=== PATIENT | female | born 1945 | race Caucasian/White ===

== ENCOUNTER 2017-03-30 01:12 | Emergency (ER) | payer MEDICARE ==
[2017-03-30] MEDS ORDERED: SODIUM CHLORIDE 0.9% 1,000 ML IV ONE ×2 (01:41→01:49)
[2017-03-30] MEDS ORDERED: KETOROLAC 60 MG/2 ML VIAL IVP STA (01:41)
[2017-03-30] MEDS ORDERED: DEXAMETHASONE 10 MG/ML VIAL IVP STA (01:41)
[2017-03-30] MEDS ORDERED: diphenhydrAMINE INJ 50 MG/ML VIAL IVP STA (01:42)
[2017-03-30] MEDS ORDERED: PROCHLORPERAZINE 10 MG/2 ML VIAL IVP STA (01:42)
--- NOTE | 2017-03-30 01:44 | ED Physician Documentation ---
PD HPI HEADACHE - Stated complaint Stated Complaint: HEADACHE - Chief complaint Chief Complaint: Neuro - History obtained from History obtained from: Patient, Family - History of Present Illness Timing - onset: How many days ago (47) Timing - onset during: Rest Timing - duration: Days (47) Timing - details: Gradual onset, Still present, Waxing and waning Worst headache ever?: No: Worst headache ever? Location: Global Quality: Throbbing Associated symptoms: Nausea. No: Fever, Stiff neck, Vomiting, Weakness, Numbness, Syncope, Seizure, Eye pain, Vision changes Improved by: Rest, Dark room, Meds Worsened by: Light, Noise, Moving Contributing factors: No: Anticoagulated Similar symptoms before: Diagnosis (migriane) Recently seen: Not recently seen - Additional information Additional information: 72 y/o female smoker has had a daily persistent migraine for the past 47 days. Review of Systems Constitutional: denies: Fever, Chills Eyes: denies: Decreased vision Ears: denies: Ear pain Nose: reports: Congestion Throat: denies: Sore throat Cardiac: denies: Chest pain / pressure, Palpitations Respiratory: reports: Cough. denies: Dyspnea GI: reports: Nausea. denies: Abdominal Pain, Vomiting : denies: Dysuria, Frequency Skin: denies: Rash Musculoskeletal: reports: Back pain. denies: Neck pain Neurologic: reports: Headache. denies: Generalized weakness, Focal weakness, Numbness, Head injury, LOC PD PAST MEDICAL HISTORY - Past Medical History Past Medical History: Yes Respiratory: COPD Neuro: Headache/migraine GI: Diverticulitis Psych: Depression Musculoskeletal: Fibromyalgia - Past Surgical History Past Surgical History: Yes Derm: Skin cancer surgery - Present Medications Home Medications: Ambulatory Orders Medication Instructions Recorded Confirmed Cyclobenzaprine HCl 1 tab PO TID 02/20/16 03/30/17 Dicyclomine HCl 1 tab PO TID PRN 02/20/16 03/30/17 Diphenoxylate HCl/Atropine 1 tab PO TID PRN 02/20/16 03/30/17 [Diphenoxylate-Atrop 2.5-0.025] Gabapentin 400 mg PO QID 02/20/16 03/30/17 Hydrocodone/Acetaminophen [Vicodin 1 tab PO Q2HR PRN 02/20/16 03/30/17 Es 7.5-300 mg Tablet] Omeprazole 20 mg PO DAILY 02/20/16 03/30/17 Paroxetine HCl 60 mg PO DAILY 02/20/16 03/30/17 Trazodone HCl 150 mg PO QPM 02/20/16 03/30/17 diphenhydrAMINE [Benadryl] 25 mg PO DAILY 02/20/16 03/30/17 LORazepam [Ativan] 0.5 mg PO HS 03/30/17 03/30/17 Sumatriptan [Imitrex] 25 mg PO ONCE 03/30/17 03/30/17 - Allergies Allergies/Adverse Reactions: Allergies Allergy/AdvReac Type Severity Reaction Status Date / Time vancomycin Allergy Severe Anaphylaxis Verified 03/30/17 01:18 codeine Allergy Intermediate Hallucinati Verified 03/30/17 01:18 ons - Social History Does the pt smoke?: Yes Smoking Status: Current every day smoker Does the pt drink ETOH?: No Does the pt have substance abuse?: No - Immunizations Immunizations are current?: Yes - POLST Patient has POLST: No PD ED PE NORMAL - Vitals Vital signs reviewed: Yes (hypertensive ) - General General: No acute distress, Well developed/nourished - HEENT HEENT: Atraumatic, PERRL, EOMI, Ears normal, Moist mucous membranes, Pharynx benign - Neck Neck: Supple, no meningeal sign, No bony TTP - Cardiac Cardiac: RRR, No murmur - Respiratory Respiratory: No respiratory distress, Clear bilaterally - Abdomen Abdomen: Soft, Non tender - Back Back: No CVA TTP, No spinal TTP - Derm Derm: Normal color, No rash - Extremities Extremities: No deformity, No edema - Neuro Neuro: No motor deficit, No sensory deficit, Normal speech - Psych Psych: Normal mood, Normal affect Results - Vitals Vitals: Vital Signs - 24 hr 03/30/17 03/30/17 03/30/17 01:16 02:34 03:15 Temperature 36.9 C Heart Rate 98 75 73 Respiratory 16 14 15 Rate Blood Pressure 146/125 H 136/84 H 135/80 H O2 Saturation 100 95 99 03/30/17 03:40 Temperature Heart Rate 69 Respiratory 16 Rate Blood Pressure 128/70 O2 Saturation 100 Oxygen O2 Source Room air PD MEDICAL DECISION MAKING - ED course Complexity details: reviewed old records, reviewed results, re-evaluated patient , considered differential, d/w patient, d/w family ED course: 72 y/o female smoker with COPD and migriane has had a daily persistent migraine and she is given a cocktail of saline, benadryl, compazine, toradal and decadron and has improvement in her headache. Departure - Departure Disposition: 01 Home, Self Care Clinical Impression: Migraine Qualifiers: Migraine type: other Status migrainosus presence: without status migrainosus Intractability: not intractable Qualified Code(s): G43.809 - Other migraine, not intractable, without status migrainosus Condition: Stable Instructions: ED Headache Migraine Follow-Up: Waldo Martinez MD [Primary Care Provider] - Discharge Date/Time: 03/30/17 03:40
[2017-03-30] MEDS ORDERED: KETOROLAC 30 MG/ML VIAL ONE (01:49)
[2017-03-30] MEDS ORDERED: DEXAMETHASONE 10 MG/ML VIAL ONE (01:49)
[2017-03-30] MEDS ORDERED: diphenhydrAMINE INJ 50 MG/ML VIAL ONE (01:49)
[2017-03-30] MEDS ORDERED: PROCHLORPERAZINE 10 MG/2 ML VIAL ONE (01:49)
[2017-03-30 03:45] VITALS: BP 128/70
== END 2017-03-30 03:40 | disposition home or self-care (01) ==
LOC: ED 01:12
DX: G43.909 Migraine, unspecified, not intractable, without status migrainosus (principal); J44.9 Chronic obstructive pulmonary disease, unspecified; M79.7 Fibromyalgia; F17.200 Nicotine dependence, unspecified, uncomplicated
CPT/HCPCS: 96374; 96375; 99283; 99284

== ENCOUNTER 2017-07-21 03:38 | Emergency (ER) | payer MEDICARE ==
[2017-07-21] MEDS ORDERED: KETOROLAC 60 MG/2 ML VIAL IVP STA (03:56)
[2017-07-21] MEDS ORDERED: METOCLOPRAMIDE 10 MG/2 ML VIAL IVP STA (03:56)
[2017-07-21] MEDS ORDERED: SODIUM CHLORIDE 0.9% 1,000 ML IV ONE (03:56)
[2017-07-21] MEDS ORDERED: diphenhydrAMINE INJ 50 MG/ML VIAL IVP STA (03:56)
[2017-07-21] MEDS ORDERED: HYDROmorphone 1 MG/ML CARPUJECT IVP STA (03:57)
[2017-07-21] MEDS ORDERED: METOCLOPRAMIDE 10 MG/2 ML VIAL ONE (04:10)
[2017-07-21] MEDS ORDERED: HYDROmorphone 1 MG/ML SYRINGE ONE (04:10)
[2017-07-21] MEDS ORDERED: KETOROLAC 15 MG/ML VIAL ONE (04:11)
[2017-07-21] MEDS ORDERED: diphenhydrAMINE INJ 50 MG/ML VIAL ONE (04:11)
--- NOTE | 2017-07-21 04:31 | ED Physician Documentation ---
PD HPI HEADACHE - Stated complaint Stated Complaint: MIGRAINE - Chief complaint Chief Complaint: Neuro - History obtained from History obtained from: Patient, Family - History of Present Illness Timing - onset: How many weeks ago (3) Timing - onset during: Rest Timing - details: Gradual onset, Still present, Waxing and waning Worst headache ever?: Worst headache ever? (no) Quality: Throbbing, Aching Associated symptoms: Nausea. No: Fever, Stiff neck, Vomiting, Weakness, Numbness, Syncope Improved by: Rest, Dark room, Quiet, Meds Worsened by: Light, Noise, Moving Similar symptoms before: Work up / diagnostics, Treatment, Follow up Recently seen: Not recently seen - Additional information Additional information: patient is a 72 year old female with a history of migraines who is presenting to the emergency department for 21 days of headache. Patient states that she has taken her meds with some relief but the pain has stuck around. Patient and state that she has not been able to get a good night's sleep which exacerbates her headaches. Patient states this is similar to her previous headaches. Review of Systems Constitutional: denies: Fever, Chills Eyes: reports: Photophobia. denies: Loss of vision Ears: denies: Ear pain, Drainage/discharge Nose: denies: Congestion, Epistaxis Throat: denies: Dental pain / toothache, Sore throat Cardiac: denies: Chest pain / pressure, Palpitations GI: reports: Nausea. denies: Vomiting, Constipation, Diarrhea : denies: Dysuria, Frequency Skin: denies: Abrasion (s) Musculoskeletal: denies: Neck pain, Back pain, Extremity pain, Joint pain Neurologic: reports: Headache. denies: Generalized weakness, Syncope, Confused , Altered mental status, Head injury, LOC Psychiatric: denies: Depressed Immunocompromised: denies: Immunocompromised PD PAST MEDICAL HISTORY - Past Medical History Past Medical History: Yes Respiratory: COPD Neuro: Headache/migraine GI: Diverticulitis Psych: Depression Musculoskeletal: Fibromyalgia - Past Surgical History Past Surgical History: Yes Derm: Skin cancer surgery - Present Medications Home Medications: Ambulatory Orders Medication Instructions Recorded Confirmed Cyclobenzaprine HCl 1 tab PO TID 02/20/16 07/21/17 Dicyclomine HCl 1 tab PO TID PRN 02/20/16 07/21/17 Diphenoxylate HCl/Atropine 1 tab PO TID PRN 02/20/16 07/21/17 [Diphenoxylate-Atrop 2.5-0.025] Gabapentin 400 mg PO QID 02/20/16 07/21/17 Hydrocodone/Acetaminophen [Vicodin 1 tab PO Q2HR PRN 02/20/16 07/21/17 Es 7.5-300 mg Tablet] Omeprazole 20 mg PO DAILY 02/20/16 07/21/17 Paroxetine HCl 60 mg PO DAILY 02/20/16 03/30/17 Trazodone HCl 150 mg PO QPM 02/20/16 07/21/17 diphenhydrAMINE [Benadryl] 25 mg PO DAILY 02/20/16 07/21/17 LORazepam [Ativan] 0.5 mg PO HS 03/30/17 07/21/17 Sumatriptan [Imitrex] 25 mg PO DAILY 03/30/17 07/21/17 - Allergies Allergies/Adverse Reactions: Allergies Allergy/AdvReac Type Severity Reaction Status Date / Time vancomycin Allergy Severe Anaphylaxis Verified 07/21/17 03:48 codeine Allergy Intermediate Hallucinati Verified 07/21/17 03:48 ons - Social History Does the pt smoke?: Yes Smoking Status: Current every day smoker Does the pt drink ETOH?: No Does the pt have substance abuse?: No Substance Use and Type: Marijuana - Immunizations Immunizations are current?: Yes - POLST Patient has POLST: No PD ED PE NORMAL - Vitals Vital signs reviewed: Yes - General General: Alert and oriented X 3, No acute distress - HEENT HEENT: Atraumatic, PERRL, Pharynx benign - Neck Neck: Supple, no meningeal sign, No JVD - Cardiac Cardiac: RRR, No murmur - Respiratory Respiratory: No respiratory distress, Clear bilaterally - Abdomen Abdomen: Soft, Non tender, Non distended - Derm Derm: Normal color, Warm and dry, No rash - Extremities Extremities: No deformity, No tenderness to palpate, Normal ROM s pain, No edema - Neuro Neuro: Alert and oriented X 3, news clerk 2-12 intact, No motor deficit, No sensory deficit, Normal speech - Psych Psych: Normal mood, Normal affect Results - Vitals Vitals: Vital Signs - 24 hr 07/21/17 07/21/17 03:47 03:51 Temperature 36.6 C Heart Rate 87 59 L Respiratory 16 18 Rate Blood Pressure 130/87 H 129/80 O2 Saturation 96 99 Oxygen O2 Source Room air PD MEDICAL DECISION MAKING - ED course Complexity details: reviewed old records, reviewed results, re-evaluated patient , considered differential, d/w patient, d/w family ED course: Patient was seen and examined at bedside. vital signs were within normal limits and patient had no focal neurological deficit or signs of infection. IV access was gained and patient was treated with fluids, toradol, reglan, bendadryl and dilaudid. Patient responded well to the therapy. Patient required no further work up and was stable for discharge with outpatient follow up. Departure - Departure Disposition: Home, Self Care Clinical Impression: Migraine Condition: Good Instructions: ED Headache Migraine Follow-Up: Waldo Matrinez MD [Primary Care Provider] - Comments: Your symptoms today are being caused by a migraine headache. it is important to keep a headache journal to keep track of your triggers, and try to avoid them. You should follow up with your pmd, for chronic headache management. You may return to the emergency department at any time as needed for new, worsening or uncontrollable symptoms.
[2017-07-21 05:10] VITALS: BP 132/75
== END 2017-07-21 05:10 | disposition home or self-care (01) ==
LOC: ED 03:38
DX: G43.909 Migraine, unspecified, not intractable, without status migrainosus (principal); J44.9 Chronic obstructive pulmonary disease, unspecified; M79.7 Fibromyalgia; Z87.19 Personal history of other diseases of the digestive system; F17.200 Nicotine dependence, unspecified, uncomplicated
CPT/HCPCS: 96361; 96374; 96375; 99283; 99284; J1170

== ENCOUNTER 2018-02-25 14:38 | Outpatient (CLI) | payer MEDICARE ==
--- NOTE | 2018-02-25 17:10 | XRAY Report ---
TWO VIEW CHEST: 02/25/2018 CLINICAL INDICATION: Cough, low grade fever. COMPARISON: 02/25/2016 FINDINGS: Frontal and lateral views of the chest demonstrate a normal cardiac silhouette. The lungs again demonstrate apical emphysema. No focal consolidation, effusion, or pneumothorax is evident. IMPRESSION: APICAL EMPHYSEMA. NO EVIDENCE OF ACUTE CARDIOPULMONARY DISEASE. TD: 02/25/2018 15:16
== END 2018-02-25 14:39 | disposition home or self-care (01) ==
LOC: DI 14:38
PROVIDERS: ATTEND Internal Medicine
DX: J43.9 Emphysema, unspecified (principal); R05 Cough
CPT/HCPCS: 71046

== ENCOUNTER 2018-03-17 00:24 | Emergency (ER) | payer MEDICARE ==
[2018-03-17] MEDS ORDERED: DEXAMETHASONE 10 MG/ML VIAL PO STA (00:56)
[2018-03-17] MEDS ORDERED: KETOROLAC 60 MG/2 ML VIAL IVP STA (00:56)
[2018-03-17] MEDS ORDERED: MORPHINE 10 MG/ML VIAL IVP STA (00:56)
[2018-03-17] MEDS ORDERED: METOCLOPRAMIDE 10 MG/2 ML VIAL IVP STA (00:56)
[2018-03-17] MEDS ORDERED: diphenhydrAMINE INJ 50 MG/ML VIAL IVP STA (00:56)
[2018-03-17] MEDS ORDERED: SODIUM CHLORIDE 0.9% 1,000 ML IV ONE (00:56)
--- NOTE | 2018-03-17 01:38 | ED Physician Documentation ---
PD HPI HEADACHE - Stated complaint Stated Complaint: MIGRAINE - Chief complaint Chief Complaint: Neuro - History obtained from History obtained from: Patient, Family - History of Present Illness Timing - onset: Chronic Timing - onset during: Rest Timing - details: Intermittant, Waxing and waning Location: Global Quality: Aching. No: Thunderclap Associated symptoms: Nausea. No: Fever, Stiff neck, Vomiting Improved by: Dark room, Quiet Similar symptoms before: Work up / diagnostics, Treatment Recently seen: Not recently seen - Additional information Additional information: Patient is a 73 year old female with a history of migraines and fibromyalgia who is presenting to the emergency department for a headache. Patient states that she has had headaches for about the past month, but even more severe this past week. Patient took her home medications with little relief. Review of Systems Constitutional: denies: Fever, Chills, Myalgias Eyes: reports: Photophobia. denies: Decreased vision Ears: denies: Ear pain Nose: denies: Congestion Cardiac: denies: Chest pain / pressure Respiratory: denies: Dyspnea, Cough, Wheezing GI: reports: Nausea. denies: Vomiting Musculoskeletal: denies: Neck pain Neurologic: reports: Headache. denies: Generalized weakness, Focal weakness, Numbness, Near syncope, Syncope, Confused, Altered mental status, Head injury, LOC Immunocompromised: denies: Immunocompromised PD PAST MEDICAL HISTORY - Past Medical History Respiratory: COPD GI: Diverticulitis Psych: Depression Musculoskeletal: Fibromyalgia - Past Surgical History Past Surgical History: Yes Derm: Skin cancer surgery - Present Medications Home Medications: Ambulatory Orders Medication Instructions Recorded Confirmed Cyclobenzaprine HCl 1 tab PO TID 02/20/16 07/21/17 Dicyclomine HCl 1 tab PO TID PRN 02/20/16 07/21/17 Diphenoxylate HCl/Atropine 1 tab PO TID PRN 02/20/16 07/21/17 [Diphenoxylate-Atrop 2.5-0.025] Gabapentin 400 mg PO QID 02/20/16 07/21/17 Hydrocodone/Acetaminophen [Vicodin 1 tab PO Q2HR PRN 02/20/16 07/21/17 Es 7.5-300 mg Tablet] Omeprazole 20 mg PO DAILY 02/20/16 07/21/17 Paroxetine HCl 60 mg PO DAILY 05/11/16 06/19/17 Trazodone HCl 150 mg PO QPM 02/20/16 07/21/17 diphenhydrAMINE [Benadryl] 25 mg PO DAILY 02/20/16 07/21/17 LORazepam [Ativan] 0.5 mg PO HS 03/30/17 07/21/17 SUMAtriptan [Imitrex] 25 mg PO DAILY 03/30/17 07/21/17 - Allergies Allergies/Adverse Reactions: Allergies Allergy/AdvReac Type Severity Reaction Status Date / Time vancomycin Allergy Severe Anaphylaxis Verified 03/17/18 00:39 codeine Allergy Intermediate Hallucinati Verified 03/17/18 00:39 ons - Social History Does the pt smoke?: Yes Smoking Status: Current every day smoker Does the pt drink ETOH?: No Does the pt have substance abuse?: No - Immunizations Immunizations are current?: Yes - POLST Patient has POLST: No PD ED PE NORMAL - Vitals Vital signs reviewed: Yes - General General: Alert and oriented X 3, No acute distress - HEENT HEENT: Atraumatic, PERRL - Neck Neck: Supple, no meningeal sign - Cardiac Cardiac: RRR - Respiratory Respiratory: No respiratory distress - Abdomen Abdomen: Non distended - Derm Derm: Normal color, No rash - Extremities Extremities: No deformity - Neuro Neuro: Alert and oriented X 3, No motor deficit, No sensory deficit, Normal speech Eye Opening: Spontaneous Motor: Obeys Commands Verbal: Oriented GCS Score: 15 Results - Vitals Vitals: Vital Signs - 24 hr 03/17/18 03/17/18 03/17/18 00:35 02:33 03:01 Temperature 36.5 C Heart Rate 87 76 75 Respiratory 16 18 15 Rate Blood Pressure 137/87 H 133/81 H 131/76 H O2 Saturation 97 100 100 Oxygen O2 Source Nasal cannula PD MEDICAL DECISION MAKING - ED course Complexity details: reviewed old records, reviewed results, re-evaluated patient , considered differential, d/w patient, d/w family ED course: Patient was seen and examined at bedside. IV access was gained and patient was treated with ns bolus, toradol, decadron, reglan and morphine. Patient was observed for about an hour. Patient stated that her pain improved from 8+ to 6. Patient stated that she would like to try something else. Patient was treated with haldol 5mg with good relief. Patient was able to sleep and her headache resolved. Patient required no further inpatient work up at this time and was stable for discharge with outpatient follow up. Departure - Departure Disposition: 01 Home, Self Care Clinical Impression: Migraine Condition: Good Instructions: ED Headache Migraine Follow-Up: Waldo Martinez MD [Primary Care Provider] - Tomorrow Comments: You should continue to work with your doctor to control your headaches. It seems like they are sleep related and it is important that you get plenty of sleep. You may return to the emergency department at any time for new, worsening or uncontrollable symptoms.
[2018-03-17] MEDS ORDERED: HALOPERIDOL 5 MG/ML VIAL IVP ONE (02:28)
[2018-03-17 03:02] VITALS: BP 131/76
== END 2018-03-17 03:25 | disposition home or self-care (01) ==
LOC: ED 00:24
DX: G43.909 Migraine, unspecified, not intractable, without status migrainosus (principal); M79.7 Fibromyalgia; F17.200 Nicotine dependence, unspecified, uncomplicated
CPT/HCPCS: 96374; 96375; 99283; 99284; J1200; J2765

== ENCOUNTER 2018-05-21 10:40 | Emergency (ER) | payer MEDICARE ==
[2018-05-21] MEDS ORDERED: DEXAMETHASONE 10 MG/ML VIAL IVP STA (12:26)
[2018-05-21] MEDS ORDERED: SODIUM CHLORIDE 0.9% 1,000 ML IV ONE (12:26)
[2018-05-21] MEDS ORDERED: METOCLOPRAMIDE 10 MG/2 ML VIAL IVP STA (12:26)
[2018-05-21] MEDS ORDERED: MORPHINE 10 MG/ML VIAL IVP STA (12:26)
[2018-05-21] MEDS ORDERED: diphenhydrAMINE INJ 50 MG/ML VIAL IVP STA (12:26)
[2018-05-21] MEDS ORDERED: KETOROLAC 15 MG/ML VIAL IVP STA (12:26)
--- NOTE | 2018-05-21 12:28 | ED Physician Documentation ---
PD HPI HEADACHE - Stated complaint Stated Complaint: MIGRAINE X4 DAYS - Chief complaint Chief Complaint: Neuro - History obtained from History obtained from: Patient - History of Present Illness Timing - onset: Other (73-year-old woman with history of migraines She estimates she has headaches 4 days out of any given week. She has had a headache for 4 days constant, gradual onset in the back of the head associated with light sensitivity, sound sensitivity, nausea but no vomiting. There is no associated fever or new neck stiffness noting that she has chronic neck pain. She has tried her home medications without any relief.) Review of Systems Ten Systems: 10 systems reviewed and negative Constitutional: denies: Fever, Chills Respiratory: denies: Dyspnea, Cough GI: denies: Abdominal Pain, Vomiting, Diarrhea PD PAST MEDICAL HISTORY - Past Medical History Respiratory: COPD GI: Diverticulitis Psych: Depression Musculoskeletal: Fibromyalgia - Past Surgical History Past Surgical History: Yes Derm: Skin cancer surgery - Present Medications Home Medications: Ambulatory Orders Medication Instructions Recorded Confirmed Cyclobenzaprine HCl 1 tab PO TID 02/20/16 07/21/17 Dicyclomine HCl 1 tab PO TID PRN 02/20/16 07/21/17 Diphenoxylate HCl/Atropine 1 tab PO TID PRN 02/20/16 07/21/17 [Diphenoxylate-Atrop 2.5-0.025] Gabapentin 400 mg PO QID 02/20/16 07/21/17 Hydrocodone/Acetaminophen [Vicodin 1 tab PO Q2HR PRN 02/20/16 07/21/17 Es 7.5-300 mg Tablet] Omeprazole 20 mg PO DAILY 02/20/16 07/21/17 Paroxetine HCl 60 mg PO DAILY 02/20/16 03/30/17 Trazodone HCl 150 mg PO QPM 02/20/16 07/21/17 diphenhydrAMINE [Benadryl] 25 mg PO DAILY 02/20/16 07/21/17 LORazepam [Ativan] 0.5 mg PO HS 03/30/17 07/21/17 SUMAtriptan [Imitrex] 25 mg PO DAILY 03/30/17 07/21/17 - Allergies Allergies/Adverse Reactions: Allergies Allergy/AdvReac Type Severity Reaction Status Date / Time vancomycin Allergy Severe Anaphylaxis Verified 05/21/18 10:49 codeine Allergy Intermediate Hallucinati Verified 05/21/18 10:49 ons lithium Allergy Anaphylaxis Verified 05/21/18 10:49 - Social History Does the pt smoke?: Yes Smoking Status: Current every day smoker Does the pt drink ETOH?: No Does the pt have substance abuse?: No - Immunizations Immunizations are current?: Yes - POLST Patient has POLST: No PD ED PE NORMAL - Vitals Vital signs reviewed: Yes - General General: Alert and oriented X 3, No acute distress - HEENT HEENT: PERRL, EOMI - Neck Neck: Supple, no meningeal sign, No bony TTP - Cardiac Cardiac: RRR, No murmur - Respiratory Respiratory: No respiratory distress, Clear bilaterally - Abdomen Abdomen: Normal bowel sounds, Soft, Non tender - Back Back: No CVA TTP, No spinal TTP - Derm Derm: Normal color, Warm and dry - Extremities Extremities: No deformity, No tenderness to palpate, Normal ROM s pain - Neuro Neuro: Alert and oriented X 3, order runner 2-12 intact Eye Opening: Spontaneous Motor: Obeys Commands Verbal: Oriented GCS Score: 15 - Psych Psych: Normal mood, Normal affect Results - Vitals Vitals: Vital Signs - 24 hr 05/21/18 05/21/18 05/21/18 10:46 13:01 13:27 Temperature 36.5 C Heart Rate 97 79 Respiratory 18 18 Rate Blood Pressure 123/86 H 139/92 H O2 Saturation 96 93 90 L Oxygen O2 Source Room air PD MEDICAL DECISION MAKING - ED course ED course: The headache is gradual in onset and similar to prior headaches. As such I doubt subarachnoid hemorrhage. There are no infectious symptoms such as fever or stiff neck to make me suspect meningitis. No carbon monoxide exposure by history. She was given medications IV including IV fluids and was feeling better and after second round of medications the headache was resolved. - Sepsis Event Vital Signs: Vital Signs - 24 hr 05/21/18 05/21/18 05/21/18 10:46 13:01 13:27 Temperature 36.5 C Heart Rate 97 79 Respiratory 18 18 Rate Blood Pressure 123/86 H 139/92 H O2 Saturation 96 93 90 L Oxygen O2 Source Room air Departure - Departure Disposition: 01 Home, Self Care Clinical Impression: Migraine Qualifiers: Migraine type: with aura Status migrainosus presence: with status migrainosus Intractability: not intractable Qualified Code(s): G43.101 - Migraine with aura , not intractable, with status migrainosus Condition: Good Record reviewed to determine appropriate education?: Yes Instructions: ED Headache Migraine Comments: Talk with Dr. Martinez about a prophylactic medication for your headaches, also consider seeing a neurologist again for Botox as that has been successful in the past. Your blood pressure was elevated today on check into the emergency department. This does not mean that you have hypertension, it is a common phenomenon to come to the emergency department and have elevated blood pressure. I recommend that you see your primary care physician within the week to have it rechecked when you are feeling better.
[2018-05-21] MEDS ORDERED: MORPHINE 2 MG/ML SYRINGE IVP STA (13:27)
[2018-05-21] MEDS ORDERED: HALOPERIDOL 5 MG/ML VIAL IVP ONE (13:27)
[2018-05-21 14:11] VITALS: BP 123/80
== END 2018-05-21 14:27 | disposition home or self-care (01) ==
LOC: ED 10:40
DX: G43.101 Migraine with aura, not intractable, with status migrainosus (principal); F17.200 Nicotine dependence, unspecified, uncomplicated; R03.0 Elevated blood-pressure reading, without diagnosis of hypertension
CPT/HCPCS: 96361; 96374; 96375; 96376; 99283; 99284; J1200; J2270; J2765

== ENCOUNTER 2018-06-05 03:57 | Emergency (ER) | payer MEDICARE ==
[2018-06-05 04:39] LABS: BASOPHILS # (AUTO) 0.1 10^3/uL (0.0-0.1); BASOPHILS % (AUTO) 1.1 %; EOSINOPHILS # (AUTO) 0.1 10^3/uL (0.0-0.7); EOSINOPHILS % (AUTO) 0.9 %; HGB - HEMOGLOBIN 15.7 g/dL (12.0-16.0); LYMPHOCYTES # (AUTO) 2.5 10^3/uL (1.5-3.5); LYMPHOCYTES % (AUTO) 20.7 %; MEAN CORPUSCULAR HGB CONC 33.9 g/dL (32.0-36.0); MEAN CORPUSCULAR VOLUME 91.5 fL (81.0-99.0); MONOCYTES # (AUTO) 0.6 10^3/uL (0.0-1.0); MONOCYTES % (AUTO) 5.1 %; NEUTROPHILS # (AUTO) 8.8 10^3/uL (1.5-6.6); NEUTROPHILS % (AUTO) 72.2 %; PLT - PLATELET COUNT 247 10^3/uL (130-450); RED BLOOD COUNT 5.07 10^6/uL (4.20-5.40); WHITE BLOOD COUNT 12.2 x10^3/uL (4.8-10.8)
--- NOTE | 2018-06-05 04:39 | ED Physician Documentation ---
PD HPI ABD PAIN - Stated complaint Stated Complaint: VOMITING/BODY PX - Chief complaint Chief Complaint: Abd Pain - History obtained from History obtained from: Patient - History of Present Illness Timing - onset: How many days ago (2-3) Timing - duration: Days Timing - details: Gradual onset Pain level now: 6 Quality: Pain Location: LLQ Improved by: Laying still Worsened by: Moving, Palpation Associated symptoms: Nausea, Vomiting. No: Fever, Diarrhea, Constipation Similar symptoms before: Diagnosis (similar to previous diverticulitis) Recently seen: Not recently seen Review of Systems Constitutional: reports: Reviewed and negative Cardiac: reports: Reviewed and negative Respiratory: reports: Reviewed and negative GI: reports: Abdominal Pain, Nausea, Vomiting : denies: Dysuria, Frequency PD PAST MEDICAL HISTORY - Past Medical History Past Medical History: Yes Respiratory: COPD Neuro: Migraines GI: Diverticulitis Psych: Depression Musculoskeletal: Fibromyalgia - Past Surgical History Past Surgical History: Yes Derm: Skin cancer surgery - Present Medications Home Medications: Ambulatory Orders Medication Instructions Recorded Confirmed Cyclobenzaprine HCl 1 tab PO TID 02/20/16 07/21/17 Dicyclomine HCl 1 tab PO TID PRN 02/20/16 07/21/17 Diphenoxylate HCl/Atropine 1 tab PO TID PRN 02/20/16 07/21/17 [Diphenoxylate-Atrop 2.5-0.025] Gabapentin 400 mg PO QID 02/20/16 07/21/17 Hydrocodone/Acetaminophen [Vicodin 1 tab PO Q2HR PRN 02/20/16 07/21/17 Es 7.5-300 mg Tablet] Omeprazole 20 mg PO DAILY 02/20/16 07/21/17 Paroxetine HCl 60 mg PO DAILY 02/20/16 03/30/17 Trazodone HCl 150 mg PO QPM 02/20/16 07/21/17 diphenhydrAMINE [Benadryl] 25 mg PO DAILY 02/20/16 07/21/17 LORazepam [Ativan] 0.5 mg PO HS 03/30/17 07/21/17 SUMAtriptan [Imitrex] 25 mg PO DAILY 03/30/17 07/21/17 Prochlorperazine [Compazine] 10 mg PO Q6H PRN #14 tablet 06/05/18 - Allergies Allergies/Adverse Reactions: Allergies Allergy/AdvReac Type Severity Reaction Status Date / Time vancomycin Allergy Severe Anaphylaxis Verified 06/05/18 04:07 codeine Allergy Intermediate Hallucinati Verified 06/05/18 04:07 ons lithium Allergy Anaphylaxis Verified 06/05/18 04:07 - Social History Does the pt smoke?: Yes Smoking Status: Current every day smoker Does the pt drink ETOH?: No Does the pt have substance abuse?: No Substance Use and Type: Marijuana - Immunizations Immunizations are current?: Yes - POLST Patient has POLST: No PD ED PE NORMAL - Vitals Vital signs reviewed: Yes - General General: Alert and oriented X 3, No acute distress, Well developed/nourished - Cardiac Cardiac: RRR, No murmur - Respiratory Respiratory: No respiratory distress, Clear bilaterally - Abdomen Abdomen: Soft, Non distended - Derm Derm: Normal color, Warm and dry, No rash - Extremities Extremities: No edema PD ED PE EXPANDED - Abdomen Abdomen: Tender to palpation, LLQ. No: Rebound, Guarding Results - Vitals Vitals: Vital Signs - 24 hr 06/05/18 06/05/18 06/05/18 04:00 06:10 07:20 Temperature 36.0 C L 36.6 C Heart Rate 98 78 76 Respiratory 16 12 18 Rate Blood Pressure 116/99 H 169/88 H 151/74 H O2 Saturation 100 100 99 Oxygen O2 Source Room air - Labs Labs: Laboratory Tests 06/05/18 06/05/18 06/05/18 04:15 04:15 06:45 WBC 12.2 H RBC 5.07 Hgb 15.7 Hct 46.4 MCV 91.5 MCH 31.0 MCHC 33.9 RDW 14.0 Plt Count 247 MPV 7.0 L Neut # (Auto) 8.8 H Lymph # (Auto) 2.5 [place] # (Auto) 0.6 Eos # (Auto) 0.1 Baso # (Auto) 0.1 Absolute Nucleated RBC 0.01 Nucleated RBC % 0.0 Sodium 138 Potassium 3.4 L Chloride 101 Carbon Dioxide 24 Anion Gap 13.0 BUN 9 Creatinine 0.8 Estimated GFR (MDRD) 71 L Glucose 113 H Calcium 9.7 Total Bilirubin 0.3 AST 25 ALT 14 Alkaline Phosphatase 95 Total Protein 7.7 Albumin 4.3 Globulin 3.4 Albumin/Globulin Ratio 1.3 Lipase 21 L Urine Color LIGHT YELLOW Urine Clarity CLEAR Urine pH 7.0 Ur Specific [place] <=1.005 Urine Protein NEGATIVE Urine Glucose (UA) NEGATIVE Urine Ketones 15 H Urine Occult Blood TRACE-INTA Urine Nitrite NEGATIVE Urine Bilirubin NEGATIVE Urine Urobilinogen 0.2 (NORMAL) Ur Leukocyte Esterase NEGATIVE Ur Microscopic Review NOT INDICATED Urine Culture Comments NOT INDICATED - Rads (name of study) CT A/P Radiology: Prelim report reviewed, See rad report PD MEDICAL DECISION MAKING - ED course Complexity details: reviewed results, re-evaluated patient, considered differential, d/w patient ED course: Awake, alert, and in NAD on reevaluation after tests resulted and IV fluids, dilaudid, benadryl, and compazine. - Sepsis Event Vital Signs: Vital Signs - 24 hr 06/05/18 06/05/18 06/05/18 04:00 06:10 07:20 Temperature 36.0 C L 36.6 C Heart Rate 98 78 76 Respiratory 16 12 18 Rate Blood Pressure 116/99 H 169/88 H 151/74 H O2 Saturation 100 100 99 Oxygen O2 Source Room air Departure - Departure Disposition: 01 Home, Self Care Clinical Impression: Abdominal pain Condition: Good Instructions: ED Abdominal Pain Unkn Cause Follow-Up: Waldo Martinez MD [Primary Care Provider] - Prescriptions: Prochlorperazine [Compazine] 10 mg PO Q6H PRN #14 tablet PRN Reason: Nausea / Vomiting Discharge Date/Time: 06/05/18 07:20
[2018-06-05 04:47] LABS: ALBUMIN 4.3 g/dL (3.2-5.5); ALBUMIN/GLOBULIN RATIO 1.3 (1.0-2.2); BILIRUBIN,TOTAL 0.3 mg/dL (0.2-1.0); CALCIUM 9.7 mg/dL (8.5-10.3); CREATININE 0.8 mg/dL (0.4-1.0); TOTAL PROTEIN 7.7 g/dL (6.7-8.2)
[2018-06-05] MEDS ORDERED: HYDROmorphone 1 MG/ML CARPUJECT IVP STA (04:57)
[2018-06-05] MEDS ORDERED: SODIUM CHLORIDE 0.9% 1,000 ML IV STA (04:57)
[2018-06-05] MEDS ORDERED: PROCHLORPERAZINE 10 MG/2 ML VIAL IVP STA (04:58)
[2018-06-05] MEDS ORDERED: KETOROLAC 60 MG/2 ML VIAL IVP STA (05:02)
[2018-06-05] MEDS ORDERED: diphenhydrAMINE INJ 50 MG/ML VIAL IVP STA (05:02)
[2018-06-05] MEDS ORDERED: IOPAMIDOL-300 100 ML VIAL ONE (05:09)
[2018-06-05] MEDS ORDERED: IOPAMIDOL-300 100 ML VIAL IVP ONE (05:36)
--- NOTE | 2018-06-05 06:11 | CT Report ---
Reason: abd. pain Procedure Date: 06/05/2018 Accession Number: [id number] / [id number] Procedure: CT - Abdomen/Pelvis W/ CPT Code: FULL RESULT: EXAM: CT ABDOMEN AND PELVIS EXAM DATE: 06/05/2018 05:54 AM. CLINICAL HISTORY: Left sided pain COMPARISONS: CHEST 2 VIEW 02/25/2018 CHEST 2 VIEW PA/LAT 02/25/2016. TECHNIQUE: Routine helical CT imaging was performed through the abdomen and pelvis. IV contrast: ISOVUE 300 100mL. Enteric contrast: No. Reconstructions: Coronal and sagittal. In accordance with CT protocol optimization, one or more of the following dose reduction techniques were utilized for this exam: automated exposure control, adjustment of mA and/or KV based on patient size, or use of iterative reconstructive technique. FINDINGS: Lung Bases: Emphysema. Liver: Normal. No masses. Gallbladder/Bile Ducts: Unremarkable. Spleen: Normal. Pancreas: Normal. Adrenal Glands: Normal. Kidneys: Nonobstructing renal calculi. No hydronephrosis. Peritoneal Cavity/Bowel: Normal. No free fluid, free air or adenopathy. No masses or acute inflammatory process. 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 There is colonic diverticulosis, without CT evidence of diverticulitis. pelvic Organs: Normal. The bladder and visualized pelvic organs are within normal limits. Vasculature: No aneurysms or other significant abnormality. Bones: Degenerative changes. Other: None. IMPRESSION: Nonobstructing renal calculi. Diverticulosis, without CT evidence of diverticulitis. No evident etiology for patient's left-sided pain. RADIA
[2018-06-05 06:56] LABS: BILIRUBIN,URINE NEGATIVE (NEGATIVE); GLUCOSE, URINE (UA) NEGATIVE (NEGATIVE); KETONES,URINE (UA) 15 mg/dL (NEGATIVE); LEUKOCYTE ESTERASE, URINE NEGATIVE (NEGATIVE); NITRITE,URINE NEGATIVE (NEGATIVE); OCCULT BLOOD,URINE TRACE-INTA (NEGATIVE); PROTEIN,URINE NEGATIVE (NEGATIVE); UROBILINOGEN,URINE 0.2 (NORMAL) E.U./dL (NORMAL)
[2018-06-05 07:01] LABS: CLARITY,URINE CLEAR (CLEAR)
[2018-06-05 07:57] VITALS: BP 151/74
== END 2018-06-05 07:20 | disposition home or self-care (01) ==
LOC: ED 03:57
DX: R10.32 Left lower quadrant pain (principal); R11.2 Nausea with vomiting, unspecified; K57.30 Diverticulosis of large intestine without perforation or abscess without bleeding; N20.0 Calculus of kidney; F17.200 Nicotine dependence, unspecified, uncomplicated
CPT/HCPCS: 36415; 74177; 80053; 81003; 83690; 85025; 96361; 96374; 96375; 99283; J1170; J1200; Q9967; 81001; 87086

== ENCOUNTER 2018-11-25 17:30 | Emergency (ER) | payer MEDICARE ==
[2018-11-25] MEDS ORDERED: SODIUM CHLORIDE 0.9% 1,000 ML IV ONE (18:20)
[2018-11-25] MEDS ORDERED: PROCHLORPERAZINE 10 MG/2 ML VIAL IVP STA (18:20)
[2018-11-25] MEDS ORDERED: diphenhydrAMINE INJ 50 MG/ML VIAL IVP STA (18:20)
[2018-11-25] MEDS ORDERED: HYDROmorphone 1 MG/ML CARPUJECT IVP STA ×2 (18:20→19:55)
--- NOTE | 2018-11-25 18:22 | ED Physician Documentation ---
PD HPI HEADACHE - Stated complaint Stated Complaint: MIGRAINE - Chief complaint Chief Complaint: Neuro - History obtained from History obtained from: Patient - History of Present Illness Timing - onset: Other (This is a 73-year-old woman with chronic migraines presents with 4-day history of gradual onset waxing and waning headache especially in the right parietal area with throbbing sensation and photophobia and phonophobia as well as nausea but no vomiting. This is similar to prior migraines. At home she has tried hydrocodone, Imitrex without relief. There is no associated fevers.) Review of Systems Constitutional: reports: Reviewed and negative Eyes: reports: Reviewed and negative Ears: reports: Reviewed and negative PD PAST MEDICAL HISTORY - Past Medical History Respiratory: COPD Neuro: Migraines GI: Diverticulitis Psych: Depression Musculoskeletal: Fibromyalgia - Past Surgical History Past Surgical History: Yes Derm: Skin cancer surgery - Present Medications Home Medications: Ambulatory Orders Medication Instructions Recorded Confirmed Diphenoxylate HCl/Atropine 1 tab PO TID PRN 02/20/16 07/21/17 [Diphenoxylate-Atrop 2.5-0.025] Hydrocodone/Acetaminophen [Vicodin 1 tab PO Q2HR PRN 02/20/16 07/21/17 Es 7.5-300 mg Tablet] RX: Cyclobenzaprine HCl 1 tab PO TID 02/20/16 07/21/17 RX: Dicyclomine HCl 1 tab PO TID PRN 02/20/16 07/21/17 RX: Gabapentin 400 mg PO QID 02/20/16 07/21/17 RX: Omeprazole 20 mg PO DAILY 02/20/16 07/21/17 RX: Paroxetine HCl 60 mg PO DAILY 02/20/16 03/30/17 RX: Trazodone HCl 150 mg PO QPM 02/20/16 07/21/17 diphenhydrAMINE [Benadryl] 25 mg PO DAILY 02/20/16 07/21/17 LORazepam [Ativan] 0.5 mg PO HS 03/30/17 07/21/17 SUMAtriptan [Imitrex] 25 mg PO DAILY 03/30/17 07/21/17 Prochlorperazine [Compazine] 10 mg PO Q6H PRN #14 tablet 06/05/18 - Allergies Allergies/Adverse Reactions: Allergies Allergy/AdvReac Type Severity Reaction Status Date / Time vancomycin Allergy Severe Anaphylaxis Verified 06/05/18 04:07 codeine Allergy Intermediate Hallucinati Verified 06/05/18 04:07 ons lithium Allergy Anaphylaxis Verified 06/05/18 04:07 - Social History Does the pt smoke?: Yes Smoking Status: Current every day smoker Does the pt drink ETOH?: No Does the pt have substance abuse?: No - Immunizations Immunizations are current?: Yes - POLST Patient has POLST: No PD ED PE NORMAL - Vitals Vital signs reviewed: Yes - General General: Alert and oriented X 3, No acute distress - HEENT HEENT: PERRL, EOMI - Neck Neck: Supple, no meningeal sign, No bony TTP - Cardiac Cardiac: RRR, No murmur - Respiratory Respiratory: No respiratory distress, Clear bilaterally - Abdomen Abdomen: Non tender - Neuro Neuro: Alert and oriented X 3, Normal speech - Psych Psych: Normal mood, Normal affect Results - Vitals Vitals: Vital Signs - 24 hr 11/25/18 11/25/18 11/25/18 17:43 19:00 19:48 Temperature 37.1 C Heart Rate 85 72 Respiratory 18 18 16 Rate Blood Pressure 118/85 H 141/93 H 146/90 H O2 Saturation 95 95 94 11/25/18 20:46 Temperature Heart Rate 69 Respiratory 16 Rate Blood Pressure 151/119 H O2 Saturation 96 Oxygen O2 Source Room air PD MEDICAL DECISION MAKING - ED course ED course: The headache is gradual in onset and similar to prior headaches. As such I doubt subarachnoid hemorrhage. There are no infectious symptoms such as fever or stiff neck to make me suspect meningitis. No carbon monoxide exposure by history. She was treated with divided dose of medication with resolution of her headache. Departure - Departure Disposition: 01 Home, Self Care Clinical Impression: Migraine Condition: Good Record reviewed to determine appropriate education?: Yes Instructions: ED Headache Migraine Comments: Your blood pressure was elevated today on check into the emergency department. This does not mean that you have hypertension, it is a common phenomenon to come to the emergency department and have elevated blood pressure. I recommend that you see your primary care physician within the week to have it rechecked when you are feeling better. Discharge Date/Time: 11/25/18 20:56
[2018-11-25] MEDS ORDERED: SUMAtriptan 6 MG/0.5 ML VIAL SUBQ STA (19:55)
[2018-11-25] MEDS ORDERED: DEXAMETHASONE 10 MG/ML VIAL IVP STA (19:55)
[2018-11-25 20:47] VITALS: BP 151/119
== END 2018-11-25 20:56 | disposition home or self-care (01) ==
LOC: ED 17:30
DX: G43.909 Migraine, unspecified, not intractable, without status migrainosus (principal); R03.0 Elevated blood-pressure reading, without diagnosis of hypertension
CPT/HCPCS: 96372; 96374; 96375; 96376; 99282; 99284; J1170; J1200

== ENCOUNTER 2019-01-06 15:46 | Emergency (ER) | payer MEDICARE ==
--- NOTE | 2019-01-06 16:15 | ED Physician Documentation ---
PD HPI HEADACHE - Stated complaint Stated Complaint: MCKEON - Chief complaint Chief Complaint: Neuro - History obtained from History obtained from: Patient, Family - History of Present Illness Timing - onset: How many days ago (9) Timing - onset during: Rest Timing - duration: Days (9) Timing - details: Gradual onset, Still present, Waxing and waning Worst headache ever?: No: Worst headache ever? Location: Right Quality: Aching Associated symptoms: Nausea. No: Fever, Stiff neck, Vomiting, Weakness, Numbness Improved by: Rest, Dark room, Quiet Worsened by: Light, Noise, Moving Contributing factors: No: Anticoagulated Similar symptoms before: Diagnosis (migraine) Recently seen: Emergency Dept - Additional information Additional information: 73-year-old female with a history of migraine headaches has had a migraine for the last 7 of the last 9 days. She is come to the emerge department today with persistence of headache on the right hemicranial area. She has had good luck previously with the cocktail of medications given her to her in the emergency de partment. She states that on the last go around that she thought the medication wore off right after she got home. Review of Systems Constitutional: denies: Fever, Chills, Myalgias Eyes: reports: Photophobia. denies: Decreased vision Ears: denies: Ear pain Nose: denies: Rhinorrhea / runny nose, Congestion Throat: denies: Sore throat Cardiac: denies: Chest pain / pressure, Palpitations Respiratory: reports: Dyspnea, Cough GI: reports: Nausea. denies: Abdominal Pain, Vomiting : denies: Dysuria, Frequency PD PAST MEDICAL HISTORY - Past Medical History Respiratory: COPD Neuro: Migraines GI: Diverticulitis Psych: Depression Musculoskeletal: Fibromyalgia - Past Surgical History Past Surgical History: Yes Derm: Skin cancer surgery - Present Medications Home Medications: Ambulatory Orders Medication Instructions Recorded Confirmed Cyclobenzaprine HCl 1 tab PO TID 02/20/16 07/21/17 Dicyclomine HCl 1 tab PO TID PRN 02/20/16 07/21/17 Diphenoxylate HCl/Atropine 1 tab PO TID PRN 02/20/16 07/21/17 [Diphenoxylate-Atrop 2.5-0.025] Gabapentin 400 mg PO QID 02/20/16 07/21/17 Hydrocodone/Acetaminophen [Vicodin 1 tab PO Q2HR PRN 02/20/16 07/21/17 Es 7.5-300 mg Tablet] Omeprazole 20 mg PO DAILY 02/20/16 07/21/17 Paroxetine HCl 60 mg PO DAILY 02/20/16 03/30/17 Trazodone HCl 150 mg PO QPM 02/20/16 07/21/17 diphenhydrAMINE [Benadryl] 25 mg PO DAILY 02/20/16 07/21/17 LORazepam [Ativan] 0.5 mg PO HS 03/30/17 07/21/17 SUMAtriptan [Imitrex] 25 mg PO DAILY 03/30/17 07/21/17 Prochlorperazine [Compazine] 10 mg PO Q6H PRN #14 tablet 06/05/18 - Allergies Allergies/Adverse Reactions: Allergies Allergy/AdvReac Type Severity Reaction Status Date / Time vancomycin Allergy Severe Anaphylaxis Verified 01/06/19 15:53 codeine Allergy Intermediate Hallucinati Verified 01/06/19 15:53 ons lithium Allergy Anaphylaxis Verified 01/06/19 15:53 - Social History Does the pt smoke?: Yes Smoking Status: Current every day smoker Does the pt drink ETOH?: No Does the pt have substance abuse?: No - Immunizations Immunizations are current?: Yes - POLST Patient has POLST: No PD ED PE NORMAL - Vitals Vital signs reviewed: Yes (hypertensive ) - General General: Alert and oriented X 3, No acute distress, Well developed/nourished - HEENT HEENT: Atraumatic, PERRL, EOMI, Ears normal, Moist mucous membranes, Pharynx benign, Other (edentulous with poorly fitting dentures. ) - Neck Neck: Supple, no meningeal sign, No bony TTP - Cardiac Cardiac: RRR, No murmur - Respiratory Respiratory: No respiratory distress, Other (diminished breath sounds. ) - Abdomen Abdomen: Soft, Non tender - Back Back: No CVA TTP, No spinal TTP - Derm Derm: Normal color, Warm and dry, No rash - Extremities Extremities: No deformity, No edema - Neuro Neuro: Alert and oriented X 3, engineering agent 2-12 intact, No motor deficit, No sensory deficit, Normal speech Eye Opening: Spontaneous Motor: Obeys Commands Verbal: Oriented GCS Score: 15 - Psych Psych: Normal mood, Normal affect Results - Vitals Vitals: Vital Signs - 24 hr 01/06/19 01/06/19 15:50 16:37 Temperature 36.7 C Heart Rate 74 Respiratory 18 18 Rate Blood Pressure 152/91 H O2 Saturation 100 Oxygen O2 Source Room air PD MEDICAL DECISION MAKING - ED course Complexity details: reviewed old records, reviewed results, re-evaluated patient, considered differential, d/w patient, d/w family ED course: 73-year-old female with persistent migraine has had rescue previously with a migraine cocktail and she is administered this again today with a liter of saline 10 mg of dexamethasone 10 mg of Compazine 25 mg of Benadryl and 30 mg of Toradol intravenously. Departure - Departure Disposition: 01 Home, Self Care Clinical Impression: Migraine Qualifiers: Migraine type: with aura Status migrainosus presence: without status migrainosus Intractability: not intractable Qualified Code(s): G43.109 - Migraine with aura, not intractable, without status migrainosus Condition: Stable Instructions: ED Headache Migraine Follow-Up: Tristan Camara MD [Primary Care Provider] -
[2019-01-06] MEDS ORDERED: diphenhydrAMINE INJ 50 MG/ML VIAL IVP STA (16:17)
[2019-01-06] MEDS ORDERED: DEXAMETHASONE 10 MG/ML VIAL IVP STA (16:17)
[2019-01-06] MEDS ORDERED: SODIUM CHLORIDE 0.9% 1,000 ML IV ONE (16:17)
[2019-01-06] MEDS ORDERED: PROCHLORPERAZINE 10 MG/2 ML VIAL IVP STA (16:18)
[2019-01-06] MEDS ORDERED: KETOROLAC 30 MG/ML VIAL IVP STA (16:18)
[2019-01-06 17:20] VITALS: BP 165/98
== END 2019-01-06 17:19 | disposition home or self-care (01) ==
LOC: ED 15:46
DX: G43.109 Migraine with aura, not intractable, without status migrainosus (principal); F17.200 Nicotine dependence, unspecified, uncomplicated
CPT/HCPCS: 96361; 96374; 99283; J1200

== ENCOUNTER 2019-02-03 08:15 | Outpatient (CLI) | payer MEDICARE ==
[2019-02-03 08:40] LABS: BASOPHILS # (AUTO) 0.1 10^3/uL (0.0-0.1); BASOPHILS % (AUTO) 1.2 %; EOSINOPHILS # (AUTO) 0.2 10^3/uL (0.0-0.7); HGB - HEMOGLOBIN 14.1 g/dL (12.0-16.0); LYMPHOCYTES # (AUTO) 2.7 10^3/uL (1.5-3.5); LYMPHOCYTES % (AUTO) 30.6 %; MEAN CORPUSCULAR HEMOGLOBIN 30.5 pg (27.0-31.0); MEAN CORPUSCULAR HGB CONC 33.1 g/dL (32.0-36.0); MEAN CORPUSCULAR VOLUME 92.2 fL (81.0-99.0); MEAN PLATELET VOLUME 6.5 fL (7.9-10.8); MONOCYTES # (AUTO) 0.5 10^3/uL (0.0-1.0); MONOCYTES % (AUTO) 5.7 %; NEUTROPHILS # (AUTO) 5.3 10^3/uL (1.5-6.6); NEUTROPHILS % (AUTO) 60.5 %; PLT - PLATELET COUNT 236 10^3/uL (130-450); RED BLOOD COUNT 4.63 10^6/uL (4.20-5.40); RED CELL DISTRIBUTION WIDTH 14.8 % (12.0-15.0); WHITE BLOOD COUNT 8.8 x10^3/uL (4.8-10.8)
[2019-02-03 09:05] LABS: ALBUMIN 3.4 g/dL (3.2-5.5); ALBUMIN/GLOBULIN RATIO 1.1 (1.0-2.2); ALKALINE PHOSPHATASE 116 IU/L (42-121); ALT ALANINE AMINOTRANSFERASE 11 IU/L (10-60); AST ASPARTATE AMINOTRANSFERASE 23 IU/L (10-42); BILIRUBIN,TOTAL < 0.2 mg/dL (0.2-1.0); BUN - BLOOD UREA NITROGEN 14 mg/dL (6-20); CARBON DIOXIDE - CO2 30 mmol/L (21-32); CHLORIDE 97 mmol/L (101-111); CREATININE 0.9 mg/dL (0.4-1.0); GFR - MDRD 62 (>89); GLUCOSE 113 mg/dL (70-100); SODIUM 138 mmol/L (135-145); TOTAL PROTEIN 6.6 g/dL (6.7-8.2)
[2019-02-03 09:23] LABS: THYROID STIMULATING HORMONE 1.23 uIU/mL (0.34-5.60)
[2019-02-03 09:25] LABS: FREE T4 (FREE THYROXINE) 0.89 ng/dL (0.58-1.64)
== END 2019-02-03 08:16 | disposition home or self-care (01) ==
LOC: LAB 08:15
PROVIDERS: ATTEND Family Medicine
DX: G47.00 Insomnia, unspecified (principal); M81.0 Age-related osteoporosis without current pathological fracture; M79.7 Fibromyalgia; G43.909 Migraine, unspecified, not intractable, without status migrainosus; R63.6 Underweight; F11.20 Opioid dependence, uncomplicated
CPT/HCPCS: 36415; 80053; 84439; 84443; 84481; 85025

== ENCOUNTER 2019-07-23 15:46 | Outpatient (CLI) | payer MEDICARE | END 2019-07-23 15:47 | disposition critical access hospital (66) | LOC: EMS 15:46 | PROVIDERS: ATTEND Surgery | DX: R52 Pain, unspecified (principal); R11.10 Vomiting, unspecified | CPT/HCPCS: A0425; A0429 ==

== ENCOUNTER 2019-07-23 15:54 | Emergency (ER) | payer MEDICARE ==
[2019-07-23] MEDS ORDERED: SODIUM CHLORIDE 0.9% 1,000 ML IV ONE ×2 (16:09→17:26)
[2019-07-23] MEDS ORDERED: ONDANSETRON 4 MG/2 ML VIAL IVP STA (16:09)
--- NOTE | 2019-07-23 16:14 | ED Physician Documentation ---
History of Present Illness - Stated complaint Stated Complaint: FLANK PAIN/ VOMITING - Chief complaint Chief Complaint: UTI - History obtained from History obtained from: Patient, EMS - History of Present Illness Pain level max: 3 Pain level now: 1 - Additonal information Additional information: 74-year-old female with suprapubic discomfort, pain with urination, frequency for the past 3 days. Has also had nausea and vomiting. No diarrhea or constipation. No fevers. No back pain. Worse with urination. Nothing makes it better Review of Systems Constitutional: denies: Fever, Chills Ears: denies: Ear pain Nose: denies: Rhinorrhea / runny nose, Congestion Cardiac: denies: Chest pain / pressure Respiratory: denies: Cough GI: reports: Nausea, Vomiting Skin: denies: Rash Musculoskeletal: denies: Neck pain, Back pain Neurologic: reports: Headache (Patient states that she feels like she is getting a migraine headache. This is common for her. Holoacranial. Gradual onset. No fevers. No trauma.) PD PAST MEDICAL HISTORY - Past Medical History Past Medical History: Yes Respiratory: COPD Neuro: Migraines GI: Diverticulitis Psych: Depression Musculoskeletal: Fibromyalgia - Past Surgical History Past Surgical History: Yes /X [employer]: Tubal ligation Derm: Skin cancer surgery - Present Medications Home Medications: Ambulatory Orders Medication Instructions Recorded Confirmed Cyclobenzaprine HCl 1 tab PO TID 02/20/16 07/21/17 Dicyclomine HCl 1 tab PO TID PRN 02/20/16 07/21/17 Diphenoxylate HCl/Atropine 1 tab PO TID PRN 02/20/16 07/21/17 [Diphenoxylate-Atrop 2.5-0.025] Gabapentin 400 mg PO QID 02/20/16 07/21/17 Hydrocodone/Acetaminophen [Vicodin 1 tab PO Q2HR PRN 02/20/16 07/21/17 Es 7.5-300 mg Tablet] Omeprazole 20 mg PO DAILY 02/20/16 07/21/17 Trazodone HCl 150 mg PO QPM 02/20/16 07/21/17 diphenhydrAMINE [Benadryl] 25 mg PO DAILY 02/20/16 07/21/17 LORazepam [Ativan] 0.5 mg PO HS 06/19/17 10/10/17 SUMAtriptan [Imitrex] 25 mg PO DAILY 03/30/17 07/21/17 Prochlorperazine [Compazine] 10 mg PO Q6H PRN #14 tablet 06/05/18 Ondansetron Odt [Zofran] 4 mg TL Q6H PRN #10 tablet 07/23/19 - Allergies Allergies/Adverse Reactions: Allergies Allergy/AdvReac Type Severity Reaction Status Date / Time vancomycin Allergy Severe Anaphylaxis Verified 01/06/19 15:53 codeine Allergy Intermediate Hallucinati Verified 01/06/19 15:53 ons lithium Allergy Anaphylaxis Verified 01/06/19 15:53 - Social History Does the pt smoke?: Yes Smoking Status: Current every day smoker Does the pt drink ETOH?: No Does the pt have substance abuse?: No - Immunizations Immunizations are current?: Yes - POLST Patient has POLST: No PD ED PE NORMAL - Vitals Vital signs reviewed: Yes - General General: Alert and oriented X 3, No acute distress, Other (Thin female) - HEENT HEENT: PERRL, Pharynx benign, Other (Dry lips) - Neck Neck: Supple, no meningeal sign - Cardiac Cardiac: RRR, Strong equal pulses - Respiratory Respiratory: No respiratory distress, Clear bilaterally - Abdomen Abdomen: Normal bowel sounds, Soft, Non tender, Non distended - Derm Derm: Warm and dry - Extremities Extremities: No edema - Neuro Neuro: Alert and oriented X 3 - Psych Psych: Normal mood, Normal affect Results - Vitals Vitals: Oxygen O2 Source Room air - Labs Labs: Laboratory Tests 07/23/19 07/23/19 07/23/19 16:24 16:24 18:09 WBC 10.4 RBC 4.34 Hgb 13.1 Hct 42.2 MCV 97.2 MCH 30.2 MCHC 31.0 L RDW 13.2 Plt Count 267 MPV 9.0 Neut # (Auto) 8.2 H Lymph # (Auto) 1.4 L [place] # (Auto) 0.6 Eos # (Auto) 0.1 Baso # (Auto) 0.1 Absolute Nucleated RBC 0.00 Nucleated RBC % 0.0 Sodium 140 Potassium 3.7 Chloride 105 Carbon Dioxide 27 Anion Gap 8.0 BUN 10 Creatinine 0.8 Estimated GFR (MDRD) 71 L Glucose 120 H Calcium 8.9 Total Bilirubin 0.6 AST 26 ALT 15 Alkaline Phosphatase 68 Total Protein 6.6 L Albumin 3.3 Globulin 3.3 Albumin/Globulin Ratio 1.0 Lipase 26 Urine Color YELLOW Urine Clarity CLEAR Urine pH 7.0 Ur Specific [place] 1.015 Urine Protein NEGATIVE Urine Glucose (UA) NEGATIVE Urine Ketones NEGATIVE Urine Occult Blood NEGATIVE Urine Nitrite NEGATIVE Urine Bilirubin NEGATIVE Urine Urobilinogen 0.2 (NORMAL) Ur Leukocyte Esterase NEGATIVE Ur Microscopic Review NOT INDICATED Urine Culture Comments NOT INDICATED PD MEDICAL DECISION MAKING - ED course Complexity details: reviewed old records, reviewed results, re-evaluated patient, considered differential, d/w patient, d/w family ED course: Patient feels much better after IV fluids and Zofran. Migraine headache was also treated with Toradol, Compazine and Benadryl. She feels much improved. Tolerating p.o. without difficulty. Abdomen is soft, nontender nondistended on serial exam. We will have her follow-up with her doctor for further care. Patient counseled regarding signs and symptoms for which I believe and urgent re-evaluation would be necessary. Patient with good understanding of and agreement to plan and is comfortable going home at this time This document was made in part using voice recognition software. While efforts are made to proofread this document, sound alike and grammatical errors may occur. Departure - Departure Disposition: 01 Home, Self Care Clinical Impression: Dehydration Headache Qualifiers: Headache type: unspecified Headache chronicity pattern: acute headache Intractability: not intractable Qualified Code(s): R51 - Headache Vomiting Qualifiers: Vomiting type: unspecified Vomiting Intractability: non-intractable Nausea presence: with nausea Qualified Code(s): R11.2 - Nausea with vomiting, unspecified Condition: Good Instructions: ED Dehydration, ED Headache Migraine Follow-Up: Tristan Camara MD [Primary Care Provider] - Within 1 week Prescriptions: Ondansetron Odt [Zofran] 4 mg TL Q6H PRN #10 tablet PRN Reason: Nausea / Vomiting Comments: Return if you worsen. Drink plenty of fluids. Discharge Date/Time: 07/23/19 20:54
[2019-07-23 16:32] LABS: BASOPHILS # (AUTO) 0.1 10^3/uL (0.0-0.1); BASOPHILS % (AUTO) 0.7 %; EOSINOPHILS # (AUTO) 0.1 10^3/uL (0.0-0.7); EOSINOPHILS % (AUTO) 0.7 %; HGB - HEMOGLOBIN 13.1 g/dL (12.0-16.0); LYMPHOCYTES # (AUTO) 1.4 10^3/uL (1.5-3.5); LYMPHOCYTES % (AUTO) 13.3 %; MEAN CORPUSCULAR HEMOGLOBIN 30.2 pg (27.0-31.0); MEAN CORPUSCULAR VOLUME 97.2 fL (81.0-99.0); MONOCYTES # (AUTO) 0.6 10^3/uL (0.0-1.0); NEUTROPHILS # (AUTO) 8.2 10^3/uL (1.5-6.6); NEUTROPHILS % (AUTO) 78.8 %; PLT - PLATELET COUNT 267 10^3/uL (130-450); RED BLOOD COUNT 4.34 10^6/uL (4.20-5.40); RED CELL DISTRIBUTION WIDTH 13.2 % (12.0-15.0); WHITE BLOOD COUNT 10.4 x10^3/uL (4.8-10.8)
[2019-07-23 16:44] LABS: ALBUMIN 3.3 g/dL (3.2-5.5); BILIRUBIN,TOTAL 0.6 mg/dL (0.2-1.0); CALCIUM 8.9 mg/dL (8.5-10.3); CREATININE 0.8 mg/dL (0.4-1.0); TOTAL PROTEIN 6.6 g/dL (6.7-8.2)
[2019-07-23 18:14] LABS: BILIRUBIN,URINE NEGATIVE (NEGATIVE); GLUCOSE, URINE (UA) NEGATIVE (NEGATIVE); KETONES,URINE (UA) NEGATIVE (NEGATIVE); LEUKOCYTE ESTERASE, URINE NEGATIVE (NEGATIVE); NITRITE,URINE NEGATIVE (NEGATIVE); OCCULT BLOOD,URINE NEGATIVE (NEGATIVE); PROTEIN,URINE NEGATIVE (NEGATIVE); UROBILINOGEN,URINE 0.2 (NORMAL) E.U./dL (NORMAL)
[2019-07-23] MEDS ORDERED: ACETAMINOPHEN 500 MG TABLET PO STA (18:14)
[2019-07-23 18:17] LABS: CLARITY,URINE CLEAR (CLEAR)
[2019-07-23] MEDS ORDERED: PROCHLORPERAZINE 10 MG/2 ML VIAL IVP STA (19:50)
[2019-07-23] MEDS ORDERED: DEXAMETHASONE 10 MG/ML VIAL IVP STA (19:50)
[2019-07-23] MEDS ORDERED: diphenhydrAMINE INJ 50 MG/ML VIAL IVP STA (19:50)
[2019-07-23] MEDS ORDERED: KETOROLAC 30 MG/ML VIAL IVP STA (19:50)
[2019-07-23 20:55] VITALS: BP 132/79
== END 2019-07-23 20:54 | disposition home or self-care (01) ==
LOC: EDUNIT# → ED 15:54
DX: E86.0 Dehydration (principal); G43.909 Migraine, unspecified, not intractable, without status migrainosus; R11.2 Nausea with vomiting, unspecified; R10.9 Unspecified abdominal pain; F17.200 Nicotine dependence, unspecified, uncomplicated
CPT/HCPCS: 36415; 51701; 80053; 81003; 83690; 85025; 96361; 96374; 96375; 99284; 99285; J1200; 81001; 87086

== ENCOUNTER 2019-11-07 00:35 | Emergency (ER) | payer MEDICARE ==
--- NOTE | 2019-11-07 00:40 | ED Physician Documentation ---
History of Present Illness - Stated complaint Stated Complaint: MCKEON - Chief complaint Chief Complaint: Heent - History obtained from History obtained from: Patient (The patient is a 74-year-old female who presents to the emergency department with a chief complaint of her typical migraine headache. She reports she tried taking Imitrex 2 days ago and has tried taking Vicodin and Percocet today but she continues to have a headache she states that she is here to get treated with Dilaudid.The patient reports that Dilaudid is the only medication that gets rid of her headaches.She denies neck pain fevers or rashes.) Review of Systems Constitutional: reports: Reviewed and negative. denies: Fever Eyes: reports: Reviewed and negative. denies: Loss of vision, Decreased vision Ears: reports: Reviewed and negative. denies: Loss of hearing, Ear pain Nose: reports: Reviewed and negative Throat: reports: Reviewed and negative Cardiac: reports: Reviewed and negative. denies: Chest pain / pressure Respiratory: reports: Reviewed and negative. denies: Dyspnea GI: reports: Reviewed and negative. denies: Abdominal Pain : reports: Reviewed and negative. denies: Dysuria Skin: reports: Reviewed and negative Musculoskeletal: reports: Reviewed and negative Neurologic: reports: Headache. 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 Derm: Skin cancer surgery - Present Medications Home Medications: Ambulatory Orders Medication Instructions Recorded Confirmed Cyclobenzaprine HCl 1 tab PO TID 02/20/16 07/21/17 Dicyclomine HCl 1 tab PO TID PRN 02/20/16 07/21/17 Diphenoxylate HCl/Atropine 1 tab PO TID PRN 02/20/16 07/21/17 [Diphenoxylate-Atrop 2.5-0.025] Gabapentin 400 mg PO QID 02/20/16 07/21/17 Hydrocodone/Acetaminophen [Vicodin 1 tab PO Q2HR PRN 02/20/16 07/21/17 Es 7.5-300 mg Tablet] Omeprazole 20 mg PO DAILY 02/20/16 07/21/17 Trazodone HCl 150 mg PO QPM 02/20/16 07/21/17 diphenhydrAMINE [Benadryl] 25 mg PO DAILY 02/20/16 07/21/17 LORazepam [Ativan] 0.5 mg PO HS 03/30/17 07/21/17 SUMAtriptan [Imitrex] 25 mg PO DAILY 03/30/17 07/21/17 Prochlorperazine [Compazine] 10 mg PO Q6H PRN #14 tablet 06/05/18 Ondansetron Odt [Zofran] 4 mg TL Q6H PRN #10 tablet 07/23/19 - Allergies Allergies/Adverse Reactions: Allergies Allergy/AdvReac Type Severity Reaction Status Date / Time vancomycin Allergy Severe Anaphylaxis Verified 11/07/19 00:49 codeine Allergy Intermediate Hallucinati Verified 11/07/19 00:49 ons lithium Allergy Anaphylaxis Verified 11/07/19 00:49 - Social History Does the pt smoke?: Yes Smoking Status: Current every day smoker Does the pt drink ETOH?: No Does the pt have substance abuse?: No - Immunizations Immunizations are current?: Yes - POLST Patient has POLST: No PD ED PE NORMAL - Vitals Vital signs reviewed: Yes - General General: Alert and oriented X 3, No acute distress, Well developed/nourished - HEENT HEENT: Atraumatic, PERRL, EOMI - Neck Neck: Supple, no meningeal sign - Cardiac Cardiac: RRR, No murmur - Respiratory Respiratory: No respiratory distress, Clear bilaterally - Abdomen Abdomen: Normal bowel sounds, Soft, Non tender, Non distended - Back Back: No CVA TTP, No spinal TTP - Derm Derm: Warm and dry - Extremities Extremities: No deformity - Neuro Neuro: Alert and oriented X 3, 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, No motor deficit, No sensory deficit, Normal speech - Psych Psych: Normal mood, Normal affect Results - Vitals Vitals: Vital Signs - 24 hr 11/07/19 00:35 Temperature 36.9 C Heart Rate 94 Respiratory 16 Rate Blood Pressure 114/88 H O2 Saturation 95 Oxygen O2 Source Room air PD MEDICAL DECISION MAKING - ED course Complexity details: re-evaluated patient (01:49 HEADACHE RESOLVED, PATIENT WANTS TO GO HOME.), other (The patient reports her headache is typical of her usual migraine headache its not sudden in onset and is not maximum in intensity it is not the worst headache of her life this is unlikely to be subarachnoid hemorrhage or meningitis given the fact that she has no red flags no neck pain no fevers and she specifically was requesting Dilaudid on initial evaluation.) Departure - Departure Disposition: Home, Self Care Clinical Impression: Migraine Qualifiers: Migraine type: other Status migrainosus presence: without status migrainosus Intractability: not intractable Qualified Code(s): G43.809 - Other migraine, not intractable, without status migrainosus Condition: Good Instructions: ED Headache Migraine Follow-Up: Tristan Camara MD [Primary Care Provider] - Tomorrow
[2019-11-07] MEDS ORDERED: PROCHLORPERAZINE 10 MG/2 ML VIAL IVP STA (00:48)
[2019-11-07] MEDS ORDERED: diphenhydrAMINE INJ 50 MG/ML VIAL IVP STA (00:48)
[2019-11-07] MEDS ORDERED: SODIUM CHLORIDE 0.9% 1,000 ML IV ONE (00:48)
[2019-11-07] MEDS ORDERED: DEXAMETHASONE 10 MG/ML VIAL IVP STA (00:49)
[2019-11-07 02:17] VITALS: BP 141/75
== END 2019-11-07 02:16 | disposition home or self-care (01) ==
LOC: ED 00:35
DX: G43.809 Other migraine, not intractable, without status migrainosus (principal); F17.200 Nicotine dependence, unspecified, uncomplicated
CPT/HCPCS: 96361; 96374; 99283; J1200

== ENCOUNTER → 2020-04-26 | Outpatient (CLI) | payer MEDICARE ==
[2020-04-26 19:09] LABS: BASOPHILS # (AUTO) 0.1 10^3/uL (0.0-0.1); BASOPHILS % (AUTO) 0.8 %; EOSINOPHILS # (AUTO) 0.1 10^3/uL (0.0-0.7); EOSINOPHILS % (AUTO) 1.5 %; HGB - HEMOGLOBIN 14.1 g/dL (12.0-16.0); LYMPHOCYTES # (AUTO) 2.6 10^3/uL (1.5-3.5); LYMPHOCYTES % (AUTO) 26.5 %; MEAN CORPUSCULAR HEMOGLOBIN 30.7 pg (27.0-31.0); MEAN CORPUSCULAR HGB CONC 30.8 g/dL (32.0-36.0); MEAN CORPUSCULAR VOLUME 99.8 fL (81.0-99.0); MEAN PLATELET VOLUME 9.3 fL (7.9-10.8); MONOCYTES # (AUTO) 0.6 10^3/uL (0.0-1.0); MONOCYTES % (AUTO) 6.6 %; NEUTROPHILS # (AUTO) 6.2 10^3/uL (1.5-6.6); PLT - PLATELET COUNT 212 10^3/uL (130-450); RED BLOOD COUNT 4.59 10^6/uL (4.20-5.40); RED CELL DISTRIBUTION WIDTH 13.6 % (12.0-15.0); WHITE BLOOD COUNT 9.6 x10^3/uL (4.8-10.8)
[2020-04-26 19:24] LABS: ALBUMIN 3.9 g/dL (3.2-5.5); ALBUMIN/GLOBULIN RATIO 1.3 (1.0-2.2); BILIRUBIN,TOTAL 0.5 mg/dL (0.2-1.0); TOTAL PROTEIN 6.8 g/dL (6.7-8.2)
[2020-04-26 19:43] LABS: THYROID STIMULATING HORMONE 0.96 uIU/mL (0.34-5.60)
[2020-04-26 19:44] LABS: FREE T3 3.77 pg/mL (2.5-3.9)
[2020-04-26 19:45] LABS: FREE T4 (FREE THYROXINE) 1.08 ng/dL (0.58-1.64)
== END ==
LOC: LAB.WCP 11:36
PROVIDERS: ATTEND Family Medicine
DX: M54.81 Occipital neuralgia (principal); F11.20 Opioid dependence, uncomplicated; F17.200 Nicotine dependence, unspecified, uncomplicated; G89.4 Chronic pain syndrome; E46 Unspecified protein-calorie malnutrition; M47.892 Other spondylosis, cervical region; G43.909 Migraine, unspecified, not intractable, without status migrainosus
CPT/HCPCS: 36415; 80053; 84439; 84443; 84481; 85025

== ENCOUNTER 2020-07-24 16:05 | Outpatient (CLI) | payer MEDICARE | END 2020-07-24 16:06 | disposition critical access hospital (66) | LOC: EMS 16:05 | PROVIDERS: ATTEND Surgery | DX: R05 Cough (principal); R53.83 Other fatigue; R42 Dizziness and giddiness | CPT/HCPCS: A0425; A0427 ==

== ENCOUNTER 2020-07-24 16:33 | Emergency (ER) | payer MEDICARE ==
--- NOTE | 2020-07-24 17:11 | XRAY Report ---
PROCEDURE: Chest 2 View X-Ray INDICATIONS: cough TECHNIQUE: 2 view(s) of the chest. COMPARISON: 02/25/2018. FINDINGS: Surgical changes and devices: None. Lungs and pleura: There is hyperinflation of the lungs with flattening of the hemidiaphragms compati ble with COPD. No definite acute consolidation. No pleural effusions or pneumothorax. Mediastinum: Mediastinal contours are unchanged. Heart size is normal. Bones and chest wall: No suspicious bony abnormalities. There is a mild compression deformity redemo nstrated within the upper lumbar or lower thoracic spine. Soft tissues appear unremarkable. IMPRESSION: 1. Findings compatible with COPD redemonstrated. 2. No definite evidence of pneumonia. Reviewed by: Dannie Gallo MD on 07/24/2020 5:09 PM PDT Approved by: Dannie Gallo MD on 07/24/2020 5:09 PM PDT Station ID: [id number]
[2020-07-24] MEDS ORDERED: AZITHROMYCIN 250 MG TABLET PO STA (17:58)
--- NOTE | 2020-07-24 18:02 | ED Physician Documentation ---
PD HPI DYSPNEA - Stated complaint Stated Complaint: COUGH - Chief complaint Chief Complaint: Resp - History obtained from History obtained from: Patient - Additional information Additional information: Patient comes emergency department complaining of increasingly productive cough for the last week. Patient has a history of severe COPD and normally has a productive cough as it is. Patient states she has had production of the same kind of sputum but much more than usual. She states she has also felt tired and a little more short of breath. No fevers or chills currently, though patient did have a slight fever earlier in the week, her significant other states. No other complaints at this time. She has not had any exposures to COVID or other specific illness except for a friend who had a URI. She states her also got a "cold" after she did. Review of Systems Ten Systems: 10 systems reviewed and negative Constitutional: reports: Fever. denies: Chills Eyes: reports: Reviewed and negative Ears: reports: Reviewed and negative Nose: reports: Reviewed and negative Throat: reports: Reviewed and negative Cardiac: reports: Reviewed and negative. denies: Chest pain / pressure Respiratory: reports: Dyspnea, Cough GI: reports: Reviewed and negative : reports: Reviewed and negative Skin: reports: Reviewed and negative Musculoskeletal: reports: Reviewed and negative Neurologic: reports: Reviewed and negative Psychiatric: reports: Reviewed and negative Endocrine: reports: Reviewed and negative Immunocompromised: reports: Reviewed and negative PD PAST MEDICAL HISTORY - Past Medical History Past Medical History: Yes Cardiovascular: None Respiratory: COPD Neuro: Migraines Endocrine/Autoimmune: None GI: Diverticulitis HEENT: None Psych: Depression Musculoskeletal: Fibromyalgia Derm: None - Past Surgical History 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 Derm: Skin cancer surgery - Present Medications Home Medications: Ambulatory Orders Medication Instructions Recorded Confirmed Cyclobenzaprine HCl 1 tab PO TID 02/20/16 07/21/17 Dicyclomine HCl 1 tab PO TID PRN 02/20/16 07/21/17 Diphenoxylate HCl/Atropine 1 tab PO TID PRN 02/20/16 07/21/17 [Diphenoxylate-Atrop 2.5-0.025] Gabapentin 400 mg PO QID 02/20/16 07/21/17 Hydrocodone/Acetaminophen [Vicodin 1 tab PO Q2HR PRN 02/20/16 07/21/17 Es 7.5-300 mg Tablet] Omeprazole 20 mg PO DAILY 02/20/16 07/21/17 Trazodone HCl 150 mg PO QPM 02/20/16 07/21/17 diphenhydrAMINE [Benadryl] 25 mg PO DAILY 02/20/16 07/21/17 LORazepam [Ativan] 0.5 mg PO HS 03/30/17 07/21/17 SUMAtriptan [Imitrex] 25 mg PO DAILY 03/30/17 07/21/17 Prochlorperazine [Compazine] 10 mg PO Q6H PRN #14 tablet 06/05/18 Ondansetron Odt [Zofran] 4 mg TL Q6H PRN #10 tablet 07/23/19 Azithromycin [Zithromax] 0 mg PO DAILY #6 tablet 07/24/20 - Allergies Allergies/Adverse Reactions: Allergies Allergy/AdvReac Type Severity Reaction Status Date / Time vancomycin Allergy Severe Anaphylaxis Verified 07/24/20 16:40 codeine Allergy Intermediate Hallucinati Verified 07/24/20 16:40 ons lithium Allergy Anaphylaxis Verified 07/24/20 16:40 - Social History Does the pt smoke?: Yes Smoking Status: Current every day smoker Does the pt drink ETOH?: No Does the pt have substance abuse?: No - Immunizations Immunizations are current?: Yes - POLST Patient has POLST: No PD ED PE NORMAL - Vitals Vital signs reviewed: Yes - General General: Alert and oriented X 3, No acute distress - HEENT HEENT: Atraumatic, PERRL, EOMI, Moist mucous membranes - Neck Neck: Supple, no meningeal sign - Cardiac Cardiac: RRR, No murmur, Strong equal pulses - Respiratory Respiratory: Other (Bring respirations, but otherwise no respiratory distress. Breath sounds are severely decreased bilaterally, but otherwise clear..) - Derm Derm: Normal color, Warm and dry, No rash - Extremities Extremities: No deformity, No edema, No calf tenderness / cord - Neuro Neuro: Alert and oriented X 3, Other (Grossly normal) - Psych Psych: Normal mood, Normal affect Results - Vitals Vitals: Vital Signs - 24 hr 07/24/20 07/24/20 16:31 18:17 Temperature 37.3 C 36.5 C Heart Rate 109 H 112 H Respiratory 20 18 Rate Blood Pressure 156/99 H 90/73 O2 Saturation 96 96 Oxygen O2 Source Room air - Rads (name of study) CXR Radiology: Final report received, EMP read indepedently, See rad report (COPD, otherwise negative.) PD MEDICAL DECISION MAKING - ED course Complexity details: reviewed old records, reviewed results, re-evaluated patient, considered differential, d/w patient, d/w family ED course: I discussed with the patient that her chest x-ray does not show pneumonia. However, given the patient's history of severe COPD in the week of increasingly productive cough with some dyspnea, as well as intermittent fever, I do feel the patient most likely is in need of antibiotics for bronchitis. Zithromax has been started here in the emergency department, and patient will be given a prescription for the same as an outpatient Departure - Departure Disposition: 01 Home, Self Care Clinical Impression: Bronchitis Condition: Stable Instructions: ED Bronchitis Asthmatic Prescriptions: Azithromycin [Zithromax] 0 mg PO DAILY #6 tablet Discharge Date/Time: 07/24/20 18:21
[2020-07-24 18:21] VITALS: BP 90/73
== END 2020-07-24 18:21 | disposition home or self-care (01) ==
LOC: EDUNIT# → ED 16:33
DX: J44.9 Chronic obstructive pulmonary disease, unspecified (principal); F17.200 Nicotine dependence, unspecified, uncomplicated
CPT/HCPCS: 71046; 99283; 99284; A9270

== ENCOUNTER 2021-04-04 08:00 | Outpatient (CLI) | payer MEDICARE ==
[2021-04-04 17:55] LABS: BASOPHILS # (AUTO) 0.1 10^3/uL (0.0-0.1); BASOPHILS % (AUTO) 0.8 %; EOSINOPHILS # (AUTO) 0.2 10^3/uL (0.0-0.7); EOSINOPHILS % (AUTO) 2.1 %; LYMPHOCYTES # (AUTO) 2.3 10^3/uL (1.5-3.5); LYMPHOCYTES % (AUTO) 23.6 %; MEAN CORPUSCULAR HEMOGLOBIN 31.1 pg (27.0-31.0); MEAN CORPUSCULAR HGB CONC 31.7 g/dL (32.0-36.0); MEAN CORPUSCULAR VOLUME 98.1 fL (81.0-99.0); MEAN PLATELET VOLUME 9.4 fL (7.9-10.8); MONOCYTES # (AUTO) 0.6 10^3/uL (0.0-1.0); MONOCYTES % (AUTO) 5.8 %; NEUTROPHILS # (AUTO) 6.4 10^3/uL (1.5-6.6); NEUTROPHILS % (AUTO) 67.3 %; PLT - PLATELET COUNT 234 10^3/uL (130-450); RED BLOOD COUNT 4.18 10^6/uL (4.20-5.40); RED CELL DISTRIBUTION WIDTH 13.7 % (12.0-15.0); WHITE BLOOD COUNT 9.6 x10^3/uL (4.8-10.8)
[2021-04-04 18:21] LABS: ALBUMIN 3.7 g/dL (3.2-5.5); ALBUMIN/GLOBULIN RATIO 1.3 (1.0-2.2); ALKALINE PHOSPHATASE 82 IU/L (42-121); ALT ALANINE AMINOTRANSFERASE 17 IU/L (10-60); AST ASPARTATE AMINOTRANSFERASE 24 IU/L (10-42); BILIRUBIN,TOTAL 0.2 mg/dL (0.2-1.0); BUN - BLOOD UREA NITROGEN 13 mg/dL (6-20); CARBON DIOXIDE - CO2 30 mmol/L (21-32); CHLORIDE 99 mmol/L (101-111); CHOL/HDL RATIO 3.5 (<4.4); CHOLESTEROL 181 mg/dL; CREATININE 0.8 mg/dL (0.4-1.0); GFR - MDRD 70 (>89); GLUCOSE 72 mg/dL (70-100); HDL CHOLESTEROL 52 mg/dL; LDL CHOLESTEROL,CALCULATED 109 mg/dL; LDL/HDL RATIO 2.1 (<4.4); POTASSIUM 3.6 mmol/L (3.5-5.0); SODIUM 136 mmol/L (135-145); TOTAL PROTEIN 6.6 g/dL (6.7-8.2); TRIGLYCERIDES 98 mg/dL; VLDL CHOLESTEROL 20 mg/dL
[2021-04-04 18:29] LABS: THYROID STIMULATING HORMONE 0.62 uIU/mL (0.34-5.60)
== END 2021-04-04 23:59 | disposition home or self-care (01) ==
LOC: LAB.WCP 08:00
PROVIDERS: ATTEND Family Medicine
DX: G47.9 Sleep disorder, unspecified (principal); J44.9 Chronic obstructive pulmonary disease, unspecified; K21.9 Gastro-esophageal reflux disease without esophagitis; M79.7 Fibromyalgia; G43.909 Migraine, unspecified, not intractable, without status migrainosus; F11.20 Opioid dependence, uncomplicated; R63.6 Underweight; F32.9 Major depressive disorder, single episode, unspecified
CPT/HCPCS: 36415; 80053; 80061; 83721; 84443; 85025

== ENCOUNTER 2023-01-02 11:10 | Outpatient (CLI) | payer MEDICARE ==
[2023-01-02 11:28] LABS: BASOPHILS # (AUTO) 0.1 10^3/uL (0.0-0.1); BASOPHILS % (AUTO) 0.3 %; EOSINOPHILS % (AUTO) 0.1 %; HCT - HEMATOCRIT 40.4 % (37.0-47.0); HGB - HEMOGLOBIN 12.4 g/dL (12.0-16.0); LYMPHOCYTES # (AUTO) 2.1 10^3/uL (1.5-3.5); LYMPHOCYTES % (AUTO) 12.4 %; MEAN CORPUSCULAR HEMOGLOBIN 29.7 pg (27.0-31.0); MEAN CORPUSCULAR HGB CONC 30.7 g/dL (32.0-36.0); MEAN CORPUSCULAR VOLUME 96.9 fL (81.0-99.0); MEAN PLATELET VOLUME 9.4 fL (7.9-10.8); MONOCYTES # (AUTO) 0.8 10^3/uL (0.0-1.0); MONOCYTES % (AUTO) 4.5 %; NEUTROPHILS # (AUTO) 13.9 10^3/uL (1.5-6.6); NEUTROPHILS % (AUTO) 80.1 %; PLT - PLATELET COUNT 292 10^3/uL (130-450); RED BLOOD COUNT 4.17 10^6/uL (4.20-5.40); RED CELL DISTRIBUTION WIDTH 14.5 % (12.0-15.0); WHITE BLOOD COUNT 17.3 x10^3/uL (4.8-10.8)
[2023-01-02 11:58] LABS: THYROID STIMULATING HORMONE 2.76 uIU/mL (0.34-5.60)
[2023-01-02 12:00] LABS: FREE T4 (FREE THYROXINE) 1.34 ng/dL (0.58-1.64)
[2023-01-02 12:01] LABS: FREE T3 2.51 pg/mL (2.5-3.9)
[2023-01-02 12:06] LABS: FERRITIN 192.1 ng/mL (11.0-306.8)
[2023-01-02 12:09] LABS: FOLATE 13.71 ng/mL (5.90 - >24.8)
[2023-01-02 12:14] LABS: ALBUMIN/GLOBULIN RATIO 0.8 (1.0-2.2); BILIRUBIN,TOTAL 0.5 mg/dL (0.2-1.0); CALCIUM 8.8 mg/dL (8.5-10.3); CREATININE 1.5 mg/dL (0.4-1.0); POTASSIUM 3.7 mmol/L (3.5-5.0); TOTAL PROTEIN 6.6 g/dL (6.7-8.2)
== END 2023-01-02 11:11 | disposition home or self-care (01) ==
LOC: LAB 11:10
PROVIDERS: ATTEND Family Medicine
DX: R62.7 Adult failure to thrive (principal)
CPT/HCPCS: 36415; 80053; 82607; 82728; 82746; 84439; 84443; 84481; 85025

== ENCOUNTER 2023-01-02 13:00 | Emergency (ER) | payer MEDICARE ==
--- NOTE | 2023-01-02 13:26 | ED Physician Documentation ---
History of Present Illness - Stated complaint Stated Complaint: WEIGHT LOSS/LACK OF APPETITE/WEAKNESS - Chief complaint Chief Complaint: General - History obtained from History obtained from: Patient, Family - Additonal information Additional information: This is a 77-year-old woman who presents by private vehicle accompanied by her brother for weight loss. She was referred in by her primary care physician, Dr. Colunga who called me prior to arrival. She is always been thin, she says in her 20s and 30s she weighed between 101 120 pounds. Lately she has been losing weight. She just does not feel hungry. This is been exacerbated by her 's health issues, he has been in and out of the hospital recently and she is supportive on him. She had labs done yesterday which showed prerenal az otemia and MEDHAT and noted her BMI to be 11. 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 Derm: Skin cancer surgery - Present Medications Home Medications: Ambulatory Orders Medication Instructions Recorded Confirmed Cyclobenzaprine HCl 1 tab PO TID 02/20/16 07/21/17 Dicyclomine HCl 1 tab PO TID PRN 02/20/16 07/21/17 Diphenoxylate HCl/Atropine 1 tab PO TID PRN 02/20/16 07/21/17 [Diphenoxylate-Atrop 2.5-0.025] Gabapentin 400 mg PO QID 02/20/16 07/21/17 Hydrocodone/Acetaminophen [Vicodin 1 tab PO Q2HR PRN 02/20/16 07/21/17 Es 7.5-300 mg Tablet] Omeprazole 20 mg PO DAILY 02/20/16 07/21/17 Trazodone HCl 150 mg PO QPM 02/20/16 07/21/17 diphenhydrAMINE [Benadryl] 25 mg PO DAILY 02/20/16 07/21/17 LORazepam [Ativan] 0.5 mg PO HS 03/30/17 07/21/17 SUMAtriptan [Imitrex] 25 mg PO DAILY 03/30/17 07/21/17 Prochlorperazine [Compazine] 10 mg PO Q6H PRN #14 tablet 06/05/18 Ondansetron Odt [Zofran] 4 mg TL Q6H PRN #10 tablet 07/23/19 Azithromycin [Zithromax] 0 mg PO DAILY #6 tablet 07/24/20 - Allergies Allergies/Adverse Reactions: Allergies Allergy/AdvReac Type Severity Reaction Status Date / Time vancomycin Allergy Severe Anaphylaxis Verified 01/02/23 13:13 codeine Allergy Intermediate Hallucinati Verified 01/02/23 13:13 ons levofloxacin [From Levaquin] Allergy Unknown Verified 01/02/23 13:13 lithium Allergy Anaphylaxis Verified 01/02/23 13:13 - Social History Does the pt smoke?: Yes Smoking Status: Current every day smoker Does the pt drink ETOH?: No Does the pt have substance abuse?: No - Immunizations Immunizations are current?: Yes - POLST Patient has POLST: No PD ED PE NORMAL - Vitals Vital signs reviewed: Yes - General General: Alert and oriented X 3, Other (She is very thin, but no distress.) - Neck Neck: Supple, no meningeal sign, No bony TTP - Cardiac Cardiac: RRR, No murmur - Respiratory Respiratory: Other (Diminished lung sounds throughout) - Abdomen Abdomen: Soft, Non tender - Derm Derm: Normal color, Warm and dry - Extremities Extremities: No edema, No calf tenderness / cord - Neuro Neuro: Alert and oriented X 3, Normal speech Results - Vitals Vitals: Vital Signs - 24 hr 01/02/23 01/02/23 01/02/23 13:06 15:40 17:00 Temperature 36.2 C L 36.3 C L Heart Rate 88 70 70 Respiratory 14 18 18 Rate Blood Pressure 121/87 H 107/70 129/72 O2 Saturation 100 99 100 Oxygen O2 Source Room air - EKG (time done) 1636 EKG releavant findings:: EKG personally interpreted by author of this note. Relevant findings are: Rate: Rate (enter#) (68) Rhythm: NSR (vs ectopic atrial rhythm) [place]: Normal Intervals: Normal NH, Prolonged QT Ischemia: Normal ST segments - Labs Labs: Laboratory Tests 01/02/23 01/02/23 13:34 13:34 WBC 18.6 H RBC 3.71 L Hgb 11.1 L Hct 36.1 L MCV 97.3 MCH 29.9 MCHC 30.7 L RDW 14.4 Plt Count 272 MPV 9.2 Neut # (Auto) 16.3 H Lymph # (Auto) 1.2 L [place] # (Auto) 0.6 Eos # (Auto) 0.0 Baso # (Auto) 0.1 Absolute Nucleated RBC 0.00 Nucleated RBC % 0.0 Sodium 139 Potassium 3.2 L Chloride 99 L Carbon Dioxide 25 Anion Gap 15.0 H BUN 36 H Creatinine 1.6 H Estimated GFR (MDRD) 31 L Glucose 187 H Calcium 8.7 Phosphorus 4.6 Magnesium 1.9 Total Bilirubin 0.5 AST 26 ALT 13 Alkaline Phosphatase 78 Total Protein 6.4 L Albumin 2.9 L Globulin 3.5 Albumin/Globulin Ratio 0.8 L Prealbumin 7 L - Rads (name of study) Chest x-ray for line placement showing gastric tube below the diaphragm with sideport below the diaphragm, tip of right PICC mid SVC Relevant Findings:: Final report received, EMP independent interpretation of test PD Medical Decision Making - ED course ED course: This is a 77-year-old woman referred in for progressive weight loss now with an alarming BMI of 11. She does not really have pain with eating, just feels like she does not want to eat. Given her advanced age and longstanding smoking history, malignancy was a significant concern and a CT of the chest and abdomen pelvis were done. There were incidental findings on the chest needing follow- up, but in the abdomen and pelvis there was a concern for SMA syndrome. I discussed this case with our on-call surgeon, Dr. Johnson who reviewed the diagnostics and agrees that she probably has SMA syndrome and will probably need a surgery, after some metabolic "tuning up." Case was presented to Dr. Wen for admission at 3:[address] an NG tube as her gastrum is quite dilated. I will also call the SCALE ATTENDANT for a PICC line and a nutrition consult is placed for potential tpn. Subsequently Dr. Wen reviewed the case and felt she was too complicated and her length of stay would be too long for critical access facility and I asked the [employer] SUPERVISOR to start searching for tertiary facility for transfer. I did go through the ordering of the PPN with the senior mobile web developer also recommended immediate and scheduled thiamine which is an excellent idea. Multiple facilities were called for transfer including [place], [place], [facility], [facility], and [facility] Departure - Departure Disposition: 02 Transfer Acute Care Hosp Clinical Impression: Superior mesenteric artery syndrome Malnutrition Qualifiers: Malnutrition type: protein-calorie malnutrition Protein-calorie malnutrition severity: severe Qualified Code(s): E43 - Unspecified severe protein-calorie malnutrition Condition: Serious
[2023-01-02 13:38] LABS: BASOPHILS # (AUTO) 0.1 10^3/uL (0.0-0.1); BASOPHILS % (AUTO) 0.4 %; EOSINOPHILS % (AUTO) 0.1 %; HCT - HEMATOCRIT 36.1 % (37.0-47.0); HGB - HEMOGLOBIN 11.1 g/dL (12.0-16.0); LYMPHOCYTES # (AUTO) 1.2 10^3/uL (1.5-3.5); LYMPHOCYTES % (AUTO) 6.3 %; MEAN CORPUSCULAR HEMOGLOBIN 29.9 pg (27.0-31.0); MEAN CORPUSCULAR HGB CONC 30.7 g/dL (32.0-36.0); MEAN CORPUSCULAR VOLUME 97.3 fL (81.0-99.0); MEAN PLATELET VOLUME 9.2 fL (7.9-10.8); MONOCYTES # (AUTO) 0.6 10^3/uL (0.0-1.0); MONOCYTES % (AUTO) 3.3 %; NEUTROPHILS # (AUTO) 16.3 10^3/uL (1.5-6.6); NEUTROPHILS % (AUTO) 87.3 %; PLT - PLATELET COUNT 272 10^3/uL (130-450); RED BLOOD COUNT 3.71 10^6/uL (4.20-5.40); RED CELL DISTRIBUTION WIDTH 14.4 % (12.0-15.0); WHITE BLOOD COUNT 18.6 x10^3/uL (4.8-10.8)
[2023-01-02] MEDS ORDERED: iohexoL-300 100 ML VIAL ONE (13:46)
[2023-01-02 13:52] LABS: ALBUMIN 2.9 g/dL (3.2-5.5); ALBUMIN/GLOBULIN RATIO 0.8 (1.0-2.2); BILIRUBIN,TOTAL 0.5 mg/dL (0.2-1.0); CALCIUM 8.7 mg/dL (8.5-10.3); CREATININE 1.6 mg/dL (0.4-1.0); MAGNESIUM 1.9 mg/dL (1.7-2.8); PHOSPHORUS 4.6 mg/dL (2.5-4.6); POTASSIUM 3.2 mmol/L (3.5-5.0); TOTAL PROTEIN 6.4 g/dL (6.7-8.2)
[2023-01-02] MEDS: SODIUM CHLORIDE 0.9% 1,000 ML IV STA (14:01)
--- NOTE | 2023-01-02 14:50 | CT Report ---
PROCEDURE: CHEST W INDICATIONS: weight loss copd CONTRAST:65ml omni 300 TECHNIQUE: After the administration of intravenous contrast, 1 mm axial images were acquired from the pulmonary apices through the posterior costophrenic angles. Axial 5 mm soft tissue kernel reconstructions were performed as well as 8 mm axial MIP and coronal and sagittal 5 mm reformations. For radiation dose reduction, the following was used: automated exposure control, adjustment of mA and/or kV according to patient size. COMPARISON: None FINDINGS: Image quality: Good Lungs and pleura:Severe emphysema. No significant airspace consolidation. Scattered scarring and atel ectasis. No pleural effusions. There are calcified granulomas. No dominant mass. A few noncalcified m icronodules are present, with a small cluster in the right apex (05/30). There are also thick areas of suspected scarring, for example the left apex 05/26. Mediastinum, heart, and esophagus: No hiatal hernia. Coronary calcifications. Heart size is normal. A therosclerotic calcifications, including partially obstructive suspected noncalcified plaque in the a scending aorta adjacent to the diaphragm. No pathologic adenopathy by size criteria. Chest wall and thyroid: 1.5 cm right thyroid nodule can be followed with ultrasound nonemergently. Br east implants. Cachetic appearance. Upper abdomen: Separately dictated Bones: No acute or suspicious osseous abnormality. Age-indeterminate height loss of some vertebral jeff dies, for example L1. IMPRESSION: No evidence of disseminated malignancy in the chest. Pulmonary micronodules and suspected thickened areas of scarring described above (05/30, 8/15) can be followed in 6-[address], given patient's likely risk factors with COPD and emphysema. Moderate narrowing of the ascending aorta secondary to noncalcified suspected plaque (2/42). Other incidental findings above. Abdominal findings are separately dictated. Reviewed by: Naren Garcia MD on 01/02/2023 2:49 PM PDT Approved by: Naren Garcia MD on 01/02/2023 2:49 PM PDT Station ID: [id number]
--- NOTE | 2023-01-02 15:00 | CT Report ---
PROCEDURE: ABDOMEN/PELVIS W INDICATIONS: weight loss, iv only, CONTRAST: 65ml omni 300 TECHNIQUE: After the administration of IV contrast, 5 mm thick sections acquired from the diaphragms to the symp hysis. 5 mm thick coronal and sagittal reformats were acquired. For radiation dose reduction, the f ollowing was used: automated exposure control, adjustment of mA and/or kV according to patient size. COMPARISON: 06/05/2018 FINDINGS: Image quality: Good Lower chest: Separately dictated Solid organs: Liver is unremarkable. Gallbladder is unremarkable. Similar mild dilation of the CBD and biliary tree. No pathologic pancrea tic ductal dilation. No splenomegaly. Adrenals are not well seen. No obstructing renal calculi again seen bilaterally, without hydronephrosis Vessels and lymph nodes: High-grade narrowing of the aorta just above the renal arteries, secondary t o calcified plaque. The major mesenteric arteries are opacified, but may be narrow at their ostia. At herosclerotic calcifications extend to the iliac system, moderate to severe. No evidence of disseminated lymphadenopathy. Bowel and peritoneum: Moderate gastric distention, without other evidence of small bowel obstruction. . No drainable abscess or ascites. More focal fluid gas is seen in the pelvis (), possibly a loop of bowel that is focally distended. Evaluation is difficult due to lack of intra-abdominal fat. Body wall: Cachetic. Possible small umbilical hernia. Pelvis: There is air in the bladder, correlate with any recent instrumentationx. Reproductive organs are not well seen. Bones: No acute or suspicious osseous finding. IMPRESSION: No CT evidence of disseminated malignancy. Moderate gastric distention and also dilation of the duodenum. With recent weight loss, SMA syndrome can be a consideration. There is an very acute angle at the SMA takeoff with the aorta. Clinical paresh elation is needed. Fluid and gas in the pelvis (), possibly representing a focally dilated loop of bowel without oth er signs of obstruction, very difficult to evaluate due to the lack of intra-abdominal fat. Correlate with any pelvic symptoms and consider repeat CT later time to reevaluate. High-grade aortoiliac atherosclerotic disease, possibly affecting the origins of the mesenteric vesse ls, not well evaluated on this nonarteriographic study. Other findings as above. Reviewed by: Naren Garcia MD on 01/02/2023 2:59 PM PDT Approved by: Naren Garcia MD on 01/02/2023 2:59 PM PDT Station ID: [id number]
[2023-01-02] MEDS: iohexoL-300 100 ML VIAL IVP ONE (15:25)
--- NOTE | 2023-01-02 16:48 | CONSULTATION NOTE ---
Referring Provider Name of Referring Provider:: Dr. Jeffrey Covarrubias Consult Date: 01/02/23 Chief Complaint - Chief Complaint Chief Complaint: Alarming weight loss, BMI of 11.2 History of Present Illness - Admitted From Admitted From:: ED - History Obtained From Records Reviewed: Yes. History obtained from: Primarily Dr. Buckley and the chart as the patient's history is not particul Exam Limitations: Again poor mentation - History of Present Illness HPI Comment/Other: I was asked to evaluate this patient by Dr. Covarrubias in anticipation of possible admission to the hospital. The history that can be definitively gleaned from a chart review and from Dr. Buckley is the fact that her , who normally took care of her had fallen ill and as a result her tenuous health had taken a bad turn. She presents today stating that she does not want to eat. As an example of her mentation I asked her several times why she had an abdominal incision and she stated that the surgeons removed a puppy from her stomach. I then asked her several times more if she meant a dog from her stomach and she giggled a bit and stated yes. 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 Derm: reports: Skin cancer surgery - POLST Patient has POLST: No Meds/Allgy - Home Medications Home Medications: Ambulatory Orders Medication Instructions Recorded Confirmed Cyclobenzaprine HCl 1 tab PO TID 02/20/16 07/21/17 Dicyclomine HCl 1 tab PO TID PRN 02/20/16 07/21/17 Diphenoxylate HCl/Atropine 1 tab PO TID PRN 02/20/16 07/21/17 [Diphenoxylate-Atrop 2.5-0.025] Gabapentin 400 mg PO QID 02/20/16 07/21/17 Hydrocodone/Acetaminophen [Vicodin 1 tab PO Q2HR PRN 02/20/16 07/21/17 Es 7.5-300 mg Tablet] Omeprazole 20 mg PO DAILY 05/11/16 10/10/17 Trazodone HCl 150 mg PO QPM 02/20/16 07/21/17 diphenhydrAMINE [Benadryl] 25 mg PO DAILY 02/20/16 07/21/17 LORazepam [Ativan] 0.5 mg PO HS 03/30/17 07/21/17 SUMAtriptan [Imitrex] 25 mg PO DAILY 03/30/17 07/21/17 Prochlorperazine [Compazine] 10 mg PO Q6H PRN #14 tablet 06/05/18 Ondansetron Odt [Zofran] 4 mg TL Q6H PRN #10 tablet 07/23/19 Azithromycin [Zithromax] 0 mg PO DAILY #6 tablet 07/24/20 - Allergies Allergies/Adverse Reactions: Allergies Allergy/AdvReac Type Severity Reaction Status Date / Time vancomycin Allergy Severe Anaphylaxis Verified 01/02/23 13:13 codeine Allergy Intermediate Hallucinati Verified 01/02/23 13:13 ons levofloxacin [From Levaquin] Allergy Unknown Verified 01/02/23 13:13 lithium Allergy Anaphylaxis Verified 01/02/23 13:13 Review of Systems - Other Findings Other Findings: Due to her mentation it was impossible to perform a review of systems. Exam - Vital Signs Reviewed Vital Signs: Yes Vital Signs: Vital Signs x48h Temp Pulse Resp BP Pulse Ox 01/02/23 15:40 36.3 C L 70 18 107/70 99 01/02/23 13:06 36.2 C L 88 14 121/87 H 100 - Physical Exam General Appearance: positive: Lethargic Eyes Bilateral: positive: No scleral icterus ENT: positive: Dry mucous membranes Neck: positive: Trachea midline. negative: Carotid bruit Respiratory: positive: Other (I cannot hear any significant movement of air.) Cardiovascular: positive: Regular rate & rhythm Abdomen: positive: Abnml bowel sounds (Decreased), Other. negative: Guarding, Rebound Skin: positive: Dry, Other (Her skin tone is rather rojas.) Extremities: negative: Pete's sign/cords Neurologic/Psychiatric: positive: Disoriented to time, Weakness Conclusion/Plan - Lab Results Lab results reviewed: Yes Fish Bones: 01/02/23 13:34 01/02/23 13:34 - Diagnostic Imaging Results Diagnostic Imaging Results: positive: Final report reviewed - Other Other Results/Comments: I have entered her numbers in the ACS NSQIP for the performance of a gastrojejunostomy without vagotomy considering her current medical state. The anticipated risks of with surgery are 49.7%. The risk of serious complication is 44.4%. The risk of any complication is 48.7%. All of this is not taking into account other findings that were on the CT scan including a markedly enlarged right side of her heart (cor pulmonale) as well as severe atherosclerotic disease including some clot within the aorta. 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 Having said this this frequently fails and surgical duodenojejunostomy is effective and ultimately optimal treatment. In this patient attempting this operation at this point in time would be exceptionally dangerous considering her current medical status. If surgical intervention were to even be considered I would strongly recommend a 2-week period of time (or more) where she is appropriately resuscitated, her nutrition starts to be optimized, her cardiac, pulmonary, renal function be appropriately evaluated and optimized prior to surgery. The resources that this patient's hospitalization and treatment would require exceed this hospital's abilities. Some of the interventions certainly could be done but in order to optimize her outcome prudence should direct transfer of this patient's care to a tertiary care center where all of the resources that this patient will require are available. I wish to thank Dr. Jeffrey Buckley very much for the opportunity to participate in this patient's care. CPT 71085
--- NOTE | 2023-01-02 16:48 | ANESTHESIA PROCEDURE NOTE ---
Anesth Central Line Template - Central Line Central Line Preparation: Consent Obtained, Time out completed, Ultrasound used, Sterile prep and drape Central line location: Right Basilic Central line type: PICC Single Lumen Central line catheter tip site resides: Superior vena cava (SVC) Central line aftercare: Secured, Placement confirmed, No pneumothorax, No complications, Bundle checklist complete, Pt tolerated well, Other Other Info/Details: $fr cath cut at 32cm for threading, to hub. Confirmed with PXCR
--- NOTE | 2023-01-02 16:57 | XRAY Report ---
PROCEDURE: Chest for Line Placement INDICATIONS: new PICC @RUE TECHNIQUE: One view of the chest was acquired. COMPARISON: Chest x-ray, 07/24/2020. FINDINGS: There is rotation. Surgical changes and devices: There is a right PICC with the tip projecting to the area of SVC.. Lungs and pleura: Hyperinflation consistent with COPD. There is interstitial prominence. No pleural effusions or pneumothorax. No focal consolidation. Mediastinum: Mediastinal contours appear normal. Heart size is normal. Bones and chest wall: No suspicious bony lesions. Overlying soft tissues appear unremarkable. IMPRESSION: Right PICC tip in the area of SVC. Reviewed by: Tim Phelps MD on 01/02/2023 4:56 PM PDT Approved by: Tim Phelps MD on 01/02/2023 4:56 PM PDT Station ID: [id number]
--- NOTE | 2023-01-02 17:25 | CONSULTATION NOTE ---
Referring Provider Name of Referring Provider:: Dr Buckley Consult Date: 01/02/23 Chief Complaint - Chief Complaint Chief Complaint: Cachexia, no appetite, SMA syndrome by CT imaging History of Present Illness - History Obtained From History obtained from: Dr Buckley and the patient - History of Present Illness HPI Comment/Other: This is a 77-year-old female who has a history of a benign tumor in the abdomen that was removed years ago and history of COPD and she still smokes. She was seen by her PCP Dr. Colunga today who sent her to the ER because of persistent weight loss and having a BMI of 11 (she is 5 foot 4 inches tall and weighs 61 pounds). She had no major complaints in the ER. At this cachectic weight, the patient underwent imaging to look for malignancy. The CT severe non-calcific stenosis of the descending aorta at the level of the diaphragm. Abdomen CT showed further severe vascular disease of the descending aorta, where she has a subtotal occlusion at mid-abdomen, and also severe femoral calcific atherosclerosis bilaterally. The major finding was an acute take-off angle of her SMA, which appeared to be producing small bowel obstruction at the level of the duodenum and she has marked gastric distention with a large air bubble. The ED provider reached out to the general surgeon regarding possible surgery for SMA syndrome. The surgeon said the patient's procedure could be done here. Of note is that because of her cachexia, severe COPD and unknown cardiac status, she would need a "tune up", the surgeon said. The ED provider then reached out to me on the Hospitalist team to have this patient admitted on our service. Then I spoke to Dr. Quintanilla, the general surgeon who did the consult, and he indicated that this patient's proper management would be to maximize her status, which would include protein and calorie supplements for approximately 2 weeks before she undergoes surgery. I then met and examined the patient, reviewed her labs, CT images and EKG. I then told the ED provider and the Gen Surgeon that because we are [facility], and having no subspecialists such as vascular or spool hauler, and because her expected hospital stay would exceed our [facility] capabilities, that she will not be accepted for admission on the Hospitalist service here. 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 Social History Notes: Patient smokes 1/2 to 1.5 packs of cigarettes a day. - POLST Patient has POLST: No Meds/Allgy - Home Medications Home Medications: Ambulatory Orders Medication Instructions Recorded Confirmed Cyclobenzaprine HCl 1 tab PO TID 02/20/16 07/21/17 Dicyclomine HCl 1 tab PO TID PRN 02/20/16 07/21/17 Diphenoxylate HCl/Atropine 1 tab PO TID PRN 02/20/16 07/21/17 [Diphenoxylate-Atrop 2.5-0.025] Gabapentin 400 mg PO QID 02/20/16 07/21/17 Hydrocodone/Acetaminophen [Vicodin 1 tab PO Q2HR PRN 02/20/16 07/21/17 Es 7.5-300 mg Tablet] Omeprazole 20 mg PO DAILY 02/20/16 07/21/17 Trazodone HCl 150 mg PO QPM 02/20/16 07/21/17 diphenhydrAMINE [Benadryl] 25 mg PO DAILY 02/20/16 07/21/17 LORazepam [Ativan] 0.5 mg PO HS 03/30/17 07/21/17 SUMAtriptan [Imitrex] 25 mg PO DAILY 03/30/17 07/21/17 Prochlorperazine [Compazine] 10 mg PO Q6H PRN #14 tablet 06/05/18 Ondansetron Odt [Zofran] 4 mg TL Q6H PRN #10 tablet 07/23/19 Azithromycin [Zithromax] 0 mg PO DAILY #6 tablet 07/24/20 - Allergies Allergies/Adverse Reactions: Allergies Allergy/AdvReac Type Severity Reaction Status Date / Time vancomycin Allergy Severe Anaphylaxis Verified 01/02/23 13:13 codeine Allergy Intermediate Hallucinati Verified 01/02/23 13:13 ons levofloxacin [From Levaquin] Allergy Unknown Verified 01/02/23 13:13 lithium Allergy Anaphylaxis Verified 01/02/23 13:13 Review of Systems - Constitutional Constitutional: reports: Weight loss (She was always thin all her life but over the past several years has had a weight loss and now weighs 61 pounds. She has no pain when she eats, no nausea or vomiting but just has "no appetite".) - All Other Systems All Other Systems: reports: Other (limited straight forward) Exam - Vital Signs Vital Signs: Vital Signs x48h Temp Pulse Resp BP Pulse Ox 01/02/23 15:40 36.3 C L 70 18 107/70 99 01/02/23 13:06 36.2 C L 88 14 121/87 H 100 - Physical Exam General Appearance: positive: No acute distress, Other (Cachectic lady, appears older than her age. Skin is arnold and is tenting, hair is disheveled and she has poor hygiene and poor dentition.) Eyes Bilateral: positive: Normal inspection, EOMI ENT: positive: ENT inspection nml, No signs of dehydration Neck: positive: Nml inspection, No JVD Respiratory: positive: Other (Increased AP diameter, loss of subcu fat between her ribs, no air movement audible on auscultation in any of her lung field) Cardiovascular: positive: Other (Distant heart sounds, vertically displaced heart.) Abdomen: positive: Non-tender, No organomegaly, No distention, Other (Diminished bowel sounds) Skin: positive: Warm, Dry, Other ([place] in color. Tenting of skin of arms.) Extremities: positive: Non-tender, No pedal edema Neurologic/Psychiatric: positive: Oriented x3, Motor nml Conclusion/Plan - Problem List (1) Superior mesenteric artery syndrome Conclusion/Plan: Given the patient's age, presence of severe COPD, severe (unstaged) vascular dis ease, acute kidney injury and cachexia/malnutrition, her NSQIP score is quite high, giving her a 50% chance of if she should undergo a gastrojejunostomy, which would be the surgical plan. She also has a 20% chance of serious complications and her expected length of hospital stay would be 22 d ays. I spoke to Dr. Quintanilla, the general surgeon who did the consult, and he indicated that this patient's proper management would be to maximize her status pre-operatively, which would include protein and calorie supplements for approximately 2 weeks before she undergoes surgery. I reviewed her labs, CT images and EKG. I then told the ED provider Dr Buckley and the Gen Surgeon Dr Quintanilla, that because we are [facility], and having no subspecialists such as vascular surgery, cardiology or pulmonology, and that her expected stay would exceed our capabilities, that she will not be accepted for admission on the Hospitalist service here. (2) MEDHAT (acute kidney injury) Conclusion/Plan: This is likely from her poor oral intake Recommend: IV hydration and avoid nephrotoxins. Follow BUN/creat intermittently. (3) Severe chronic obstructive pulmonary disease Conclusion/Plan: This finding alone gives her an ASA of IV, and may be a cause of post-op pulmonary complications. Her EKG shows a vertical QRS axis which is consistent with COPD. My interpretation of her CT chest shows that she has Cor Pulmonale, with an RV size that is 2-3 times larger than her LV cavity. Recommend: Smoking cessation should be emphasized Nicotine patch could be used while she is hospitalized to decrease nicotine ur ges The patient should be on maintenance inhalers or nebulized medications, in the form of DuoNeb scheduled 3 times daily and Pulmicort once a day or twice a day. A preop Echo would be needed. (4) PVD (peripheral vascular disease) Conclusion/Plan: This patient has diffuse vascular disease which is severe and seen in many locations by CTs of chest and abdomen: both femoral arteries, she has a suboccluded mid-abdominal aorta, a probable partially calcified, large mural clot in the descending thoracic aorta. She also has coronary calcifications seen on CT scan and we do not know how severe her intra coronary stenoses are. Recommend: She would need preop Cardiology clearance for the suspected coronary stenoses. Given her abnormal EKG findings (of possible old anterior MA), she may need more than just a resting Echo as preop cardiovascular clearance. Daily aspirin and management of her cholesterol status are advised. She would have to come off of the aspirin several days before any major surgery however. (5) Abnormal EKG Conclusion/Plan: Her EKG shows a vertical QRS axis, which is consistent with her severe COPD and the vertically displaced heart on exam. She has loss of R waves in V1 through V4, which suggests she may have an old anterior MA. She has a prolonged QT interval, which may be consistent with her electrolyte abnormalities Recommend: Correct her hypokalemia Check her magnesium and phosphorus level In my opinion, she would need more than a resting Echo for adequate preop cardiac clearance. (6) Malnutrition Conclusion/Plan: She has been seen by dietitian/child nutrition director. Her BMI is 11 and there is a history of recent weight loss Recommend: Agree with supplementing extra calories and protein parenterally. Qualifiers: Malnutrition type: protein-calorie malnutrition Protein-calorie malnutrit ion severity: severe Qualified Code(s): E43 - Unspecified severe protein- calorie malnutrition - Lab Results Lab results reviewed: Yes Fish Bones: 01/02/23 13:34 01/02/23 13:34 - Diagnostic Imaging Results Diagnostic Imaging Results: positive: Final report reviewed, Discussed with radiologist (The initial CT chest described severe aortic atherosclerosis with stenosis of "the ascending aorta near the diaphragm". I spoke to Dr. Garcia, the Radiologist, and discussed this error. He said he will change this to read significant atherosclerosis w/ stenosis of descending aorta near the diaphragm.) - EKG Results EKG Interpreted Independently: Yes EKG Comparison: Old EKG unavailable EKG Findings: Normal sinus rhythm, vertical axis, LVH voltage, possible old anterior MA (poor R wave progression V1-V4), and prolonged QT interval. There is no old EKG available here for comparison. - Other Other Results/Comments: Thank you for allowing me to participate in the care of this patient.
[2023-01-02] MEDS: THIAMINE INJ 100 MG in SODIUM CHLORIDE 0.9% 50 ML IV STA (17:33)
[2023-01-02] MEDS: POTASSIUM CHLOR 10 MEQ/100 ML 10 MEQ/100 ML BAG IV STA (17:40)
--- NOTE | 2023-01-02 17:40 | XRAY Report ---
PROCEDURE: Chest for Line Placement INDICATIONS: ngt placement TECHNIQUE: One view of the chest was acquired. COMPARISON: 01/02/2023, 07/24/2020. Correlation is also made with chest CT, 01/02/2023. FINDINGS: Surgical changes and devices: A right-sided PICC line is seen, with the tip overlying the mid superi or vena cava, 6 cm above the cavoatrial junction. A gastric tube is seen, with the tip not visible within the [id number] of this image, although rodrick gabriela below the diaphragm. The sidehole is seen just below the level of the diaphragm. Lungs and pleura: No pleural effusions or pneumothorax. Lungs are clear, yet hyperexpanded. Mediastinum: The aorta is prominent and tortuous. The cardiac contours are within normal limits. Bones and chest wall: No suspicious bony lesions. Age-appropriate degenerative changes are seen. Overlying soft tissues appear unremarkable. IMPRESSION: The tip of the gastric tube is not seen on this study, yet it clearly traverses below the level of th e diaphragm. The sidehole is seen below the level of the diaphragm. The tip of the right-sided PICC line can be seen overlying the mid superior vena cava. Reviewed by: Tyson Webb MD on 01/02/2023 4:38 PM [facility] Approved by: Tyson Webb MD on 01/02/2023 4:38 PM MACY Station ID: [id number]
[2023-01-02] MEDS: PPN (CLINIMIX E 4.25/5) 2,000 ML with MULTIVITAMIN 10 ML, TRACE ELEMENTS 1 ML IV SCH ×3 (19:12)
[2023-01-02] MEDS: FAT EMULSION 20% 250 ML IV SCH (19:13)
[2023-01-03 03:11] VITALS: BP 135/87
--- NOTE | 2023-01-03 08:55 | ED Physician Documentation ---
ED Addendum - Addendum Addendum: 01/03/23 08:54 Patient was transferred to [facility] early this morning. I called the patient's to inform him of where she was transferred to. He states he is very appreciative for the phone call.
[2023-01-03] MEDS ORDERED: THIAMINE INJ 100 MG in SODIUM CHLORIDE 0.9% 50 ML IV SCH (09:00)
[2023-01-03] MEDS ORDERED: ENOXAPARIN 40 MG/0.4 ML SYRINGE SUBQ SCH (09:00)
--- NOTE | 2023-01-03 20:50 | ED Physician Documentation ---
ED Addendum - Addendum Addendum: 01/03/23 20:45 At shift change care of [facility] was turned over to me with anticipation of transfer of the patient when a bed became available. [facility] was kind enough to share their resources with us and accepted the patient in transfer to the medical service. I spoke directly to Dr. Stewart the hospitalist at [facility] who accepted the patient in transfer with anticipation of extended care at their facility for nutrition and consideration for surgery. His concern was that the patient may not be suitable for surgery and asked that I speak with the patient about her wishes concerning the possibility of comfort care or hospice care. The patient is invested in medical intervention for continued survival. At discharge; impression: Severe malnutrition with SMA syndrome. Plan: The patient had a PICC line placed here at [facility] and a form of parenteral nutrition was begun in the emergency department. An NG tube was placed as well. The patient was transferred to [facility] with Dr. Stewart excepting
== END 2023-01-03 04:17 | disposition short-term general hospital (02) ==
LOC: ED 13:00
DX: K55.1 Chronic vascular disorders of intestine (principal); E43 Unspecified severe protein-calorie malnutrition; Z68.1 Body mass index [BMI] 19.9 or less, adult; R91.8 Other nonspecific abnormal finding of lung field; J43.9 Emphysema, unspecified; N17.9 Acute kidney failure, unspecified; I70.202 Unspecified atherosclerosis of native arteries of extremities, left leg; I70.201 Unspecified atherosclerosis of native arteries of extremities, right leg; I70.0 Atherosclerosis of aorta; I25.10 Atherosclerotic heart disease of native coronary artery without angina pectoris; E87.6 Hypokalemia; F17.200 Nicotine dependence, unspecified, uncomplicated; Z20.822 Contact with and (suspected) exposure to COVID-19; R62.7 Adult failure to thrive
CPT/HCPCS: 36415; 36569; 71260; 74177; 80053; 82607; 82728; 82746; 83735; 84100; 84134; 84439; 84443; 84481; 85025; 87635; 93005; 96365; 96368; 96375; 99285; C1751; J3411; J3490; J7040; Q9967; 80048; 84478

== ENCOUNTER 2023-01-03 04:14 | Outpatient (CLI) | payer MEDICARE | END 2023-01-03 23:59 | disposition short-term general hospital (02) | LOC: EMS 04:14 | PROVIDERS: ATTEND Emergency Medicine | DX: K55.1 Chronic vascular disorders of intestine (principal) | CPT/HCPCS: A0425; A0426 ==

== ENCOUNTER 2023-09-01 17:39 | Outpatient (CLI) | payer MEDICARE | END 2023-09-01 17:40 | disposition critical access hospital (66) | LOC: EMS 17:39 | DX: R41.82 Altered mental status, unspecified (principal); R53.1 Weakness; R46.4 Slowness and poor responsiveness; R63.4 Abnormal weight loss; I10 Essential (primary) hypertension; R00.0 Tachycardia, unspecified; R06.82 Tachypnea, not elsewhere classified | CPT/HCPCS: A0425; A0427 ==

== ENCOUNTER 2023-09-01 17:52 | Inpatient (IN) | payer MEDICARE ==
--- NOTE | 2023-09-01 17:59 | ED Physician Documentation ---
History of Present Illness - Stated complaint Stated Complaint: UNCONSCIOUS - History obtained from History obtained from: EMS - Additonal information Additional information: 78-year-old woman presents by ambulance for altered mental status. Reportedly was okay around 1 PM, and felt tired and went to bed and then her found her and she was unconscious. She is unable to give any history. We do not know her CODE STATUS. 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 Not clear what transpired at that time. 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 Derm: Skin cancer surgery - Present Medications Home Medications: Ambulatory Orders Medication Instructions Recorded Confirmed Cyclobenzaprine HCl 1 tab PO TID PRN 02/20/16 09/01/23 Dicyclomine HCl 1 tab PO TID PRN 02/20/16 09/01/23 Gabapentin 400 mg PO TID 02/20/16 09/01/23 Hydrocodone/Acetaminophen [Vicodin 1 tab PO Q4HR PRN 02/20/16 09/01/23 Es 7.5-300 mg Tablet] Trazodone HCl 50 - 100 mg PO QPM 02/20/16 09/01/23 diphenhydrAMINE [Benadryl] 25 mg PO DAILY PRN 02/20/16 09/01/23 SUMAtriptan [Imitrex] 25 mg PO DAILY PRN 03/30/17 09/01/23 Prochlorperazine [Compazine] 10 mg PO Q6H PRN #14 tablet 06/05/18 09/01/23 Ondansetron Odt [Zofran] 4 mg TL Q6H PRN #10 tablet 07/23/19 09/01/23 Clopidogrel [Plavix] 75 mg PO DAILY 09/01/23 09/01/23 No122/Iron/Folic Acid 1 each PO DAILY 09/01/23 09/01/23 [ Multi Tablet] Tiotropium [place] [Spiriva 1 puffs IH BID 09/01/23 09/01/23 Respimat] oxyCODONE [Roxicodone] 5 mg PO Q4-6H PRN 09/01/23 09/01/23 - Allergies Allergies/Adverse Reactions: Allergies Allergy/AdvReac Type Severity Reaction Status Date / Time vancomycin Allergy Severe Anaphylaxis Verified 01/02/23 13:13 codeine Allergy Intermediate Hallucinati Verified 01/02/23 13:13 ons levofloxacin [From Levaquin] Allergy Unknown Verified 01/02/23 13:13 lithium Allergy Anaphylaxis Verified 01/02/23 13:13 - Social History Does the pt smoke?: Yes Smoking Status: Current every day smoker Does the pt drink ETOH?: No Does the pt have substance abuse?: No - Immunizations Immunizations are current?: Yes - POLST Patient has POLST: No PD ED PE NORMAL - Vitals Vital signs reviewed: Yes - General General: Other (She is arousable to vigorous stimulus but keeping her eyes closed, she is mostly nonverbal but can say yes or no.) - HEENT HEENT: PERRL, EOMI - Neck Neck: Supple, no meningeal sign, No bony TTP - Cardiac Cardiac: RRR, No murmur - Respiratory Respiratory: No respiratory distress, Clear bilaterally - Abdomen Abdomen: Other (Seemingly tender and she is cachectic) - Extremities Extremities: No edema - Neuro Eye Opening: To Pain Motor: Localizes to Pain Verbal: Inappropriate GCS Score: 10 Results - Vitals Vitals: Vital Signs - 24 hr 09/01/23 09/01/23 09/01/23 17:58 18:31 19:25 Temperature 36.4 C L 35.6 C L Heart Rate 112 H 119 H 120 H Respiratory 28 H 25 H 20 Rate Blood Pressure 138/112 H 170/114 H 153/112 H O2 Saturation 95 95 93 If not protocol 3 3 : Oxygen Flow, liters/minute 09/01/23 09/01/23 09/01/23 19:30 20:00 20:30 Temperature 36 C L 36.8 C 36.9 C Heart Rate 115 H 109 H 109 H Respiratory 26 H 26 H 26 H Rate Blood Pressure 186/106 H 167/125 H 161/120 H O2 Saturation 96 100 98 If not protocol 3 3 3 : Oxygen Flow, liters/minute Oxygen O2 Source Nasal cannula - EKG (time done) 1803 EKG releavant findings:: EKG personally interpreted by author of this note. Relevant findings are: Rate: Rate (enter#) (115) Rhythm: Sinus tachycardia (w pvc), LAE, MANNY [place]: RAD Intervals: Normal TN, Prolonged QT QRS: Normal Ischemia: Non specific changes - Labs Labs: Laboratory Tests 09/01/23 09/01/23 09/01/23 18:17 18:17 18:17 WBC 23.9 H RBC 4.95 Hgb 14.0 Hct 46.3 MCV 93.5 MCH 28.3 MCHC 30.2 L RDW 16.8 H Plt Count 358 MPV 9.0 Neut # (Auto) Not Reportable Lymph # (Auto) Not Reportable [place] # (Auto) Not Reportable Eos # (Auto) Not Reportable Baso # (Auto) Not Reportable Absolute Nucleated RBC Not Reportable Total Counted 100 Band Neuts % (Manual) 1 Reactive Lymphs % (Man) 7 Abnorm Lymph % (Manual) 0 Metamyelocytes % 1 H Nucleated RBC % Not Reportable Neutrophils # (Manual) 20.3 H Lymphocytes # (Manual) 2.9 Monocytes # (Manual) 0.5 Eosinophils # (Manual) 0.0 Basophils # (Manual) 0.0 Differential Comment MANUAL DIFFERENTIAL Platelet Estimate NORMAL (130-450,000) Platelet Morphology NORMAL APPEARANCE RBC Morph Micro Appear 2+ ANISOCYTOSIS PT 13.1 H INR 1.2 VBG pH VBG pCO2 VBG pO2 VBG HCO3 VBG Total CO2 VBG O2 Saturation VBG Base Excess Sodium 139 Potassium 3.2 L Chloride 100 L Carbon Dioxide 31 Anion Gap 8.0 BUN 9 Creatinine 0.5 L Estimated GFR (MDRD) 120 Glucose 91 POC Whole Bld Glucose Lactic Acid Calcium 8.8 Phosphorus 2.8 Magnesium 1.3 L Total Bilirubin 0.5 AST 11 ALT 8 L Alkaline Phosphatase 130 H Total Protein 6.1 L Albumin 3.0 L Globulin 3.1 Albumin/Globulin Ratio 1.0 Lipase < 10 L Urine Color Urine Clarity Urine pH Ur Specific [place] Urine Protein Urine Glucose (UA) Urine Ketones Urine Occult Blood Urine Nitrite Urine Bilirubin Urine Urobilinogen Ur Leukocyte Esterase Urine RBC Urine WBC Ur Squamous Epith Cells Urine Bacteria Ur Microscopic Review Urine Culture Comments Nasal Adenovirus (PCR) Nasal B. parapertussis DNA (PCR) Nasal Coronavir 229E PCR Nasal Coronavir HKU1 PCR Nasal Coronavir NL63 PCR Nasal Coronavir OC43 PCR Nasal Enterovir/Rhinovir PCR Nasal Influenza B PCR Nasal Influenza A PCR Nasal Parainfluen 1 PCR Nasal Parainfluen 2 PCR Nasal Parainfluen 3 PCR Nasal Parainfluen 4 PCR Nasal RSV (PCR) Nasal B.pertussis DNA PCR Nasal C.pneumoniae (PCR) Chris Human Metapneumo PCR Nasal M.pneumoniae (PCR) Nasal SARS-CoV-2 (PCR) Stl C. diff Tox B Gene Salicylates < 1.5 Urine Opiates Screen Ur Oxycodone Screen Urine Methadone Screen Ur Propoxyphene Screen Acetaminophen 0.5 Ur Barbiturates Screen Ur Tricyclics Screen Ur Phencyclidine Scrn Ur Amphetamine Screen U Methamphetamines Scrn U Benzodiazepines Scrn Urine Cocaine Screen U Cannabinoids Screen Ethyl Alcohol < 10.0 09/01/23 09/01/23 09/01/23 18:24 18:24 18:25 WBC RBC Hgb Hct MCV MCH MCHC RDW Plt Count MPV Neut # (Auto) Lymph # (Auto) [place] # (Auto) Eos # (Auto) Baso # (Auto) Absolute Nucleated RBC Total Counted Band Neuts % (Manual) Reactive Lymphs % (Man) Abnorm Lymph % (Manual) Metamyelocytes % Nucleated RBC % Neutrophils # (Manual) Lymphocytes # (Manual) Monocytes # (Manual) Eosinophils # (Manual) Basophils # (Manual) Differential Comment Platelet Estimate Platelet Morphology RBC Morph Micro Appear PT INR VBG pH 7.370 VBG pCO2 48.8 VBG pO2 30.7 VBG HCO3 27.6 VBG Total CO2 29.1 H VBG O2 Saturation 60.1 VBG Base Excess 1.5 Sodium Potassium Chloride Carbon Dioxide Anion Gap BUN Creatinine Estimated GFR (MDRD) Glucose POC Whole Bld Glucose 78 Lactic Acid 2.6 H Calcium Phosphorus Magnesium Total Bilirubin AST ALT Alkaline Phosphatase Total Protein Albumin Globulin Albumin/Globulin Ratio Lipase Urine Color Urine Clarity Urine pH Ur Specific [place] Urine Protein Urine Glucose (UA) Urine Ketones Urine Occult Blood Urine Nitrite Urine Bilirubin Urine Urobilinogen Ur Leukocyte Esterase Urine RBC Urine WBC Ur Squamous Epith Cells Urine Bacteria Ur Microscopic Review Urine Culture Comments Nasal Adenovirus (PCR) Nasal B. parapertussis DNA (PCR) Nasal Coronavir 229E PCR Nasal Coronavir HKU1 PCR Nasal Coronavir NL63 PCR Nasal Coronavir OC43 PCR Nasal Enterovir/Rhinovir PCR Nasal Influenza B PCR Nasal Influenza A PCR Nasal Parainfluen 1 PCR Nasal Parainfluen 2 PCR Nasal Parainfluen 3 PCR Nasal Parainfluen 4 PCR Nasal RSV (PCR) Nasal B.pertussis DNA PCR Nasal C.pneumoniae (PCR) Chris Human Metapneumo PCR Nasal M.pneumoniae (PCR) Nasal SARS-CoV-2 (PCR) Stl C. diff Tox B Gene Salicylates Urine Opiates Screen Ur Oxycodone Screen Urine Methadone Screen Ur Propoxyphene Screen Acetaminophen Ur Barbiturates Screen Ur Tricyclics Screen Ur Phencyclidine Scrn Ur Amphetamine Screen U Methamphetamines Scrn U Benzodiazepines Scrn Urine Cocaine Screen U Cannabinoids Screen Ethyl Alcohol 09/01/23 09/01/23 09/01/23 18:30 19:20 19:20 WBC RBC Hgb Hct MCV MCH MCHC RDW Plt Count MPV Neut # (Auto) Lymph # (Auto) [place] # (Auto) Eos # (Auto) Baso # (Auto) Absolute Nucleated RBC Total Counted Band Neuts % (Manual) Reactive Lymphs % (Man) Abnorm Lymph % (Manual) Metamyelocytes % Nucleated RBC % Neutrophils # (Manual) Lymphocytes # (Manual) Monocytes # (Manual) Eosinophils # (Manual) Basophils # (Manual) Differential Comment Platelet Estimate Platelet Morphology RBC Morph Micro Appear PT INR VBG pH VBG pCO2 VBG pO2 VBG HCO3 VBG Total CO2 VBG O2 Saturation VBG Base Excess Sodium Potassium Chloride Carbon Dioxide Anion Gap BUN Creatinine Estimated GFR (MDRD) Glucose POC Whole Bld Glucose Lactic Acid Calcium Phosphorus Magnesium Total Bilirubin AST ALT Alkaline Phosphatase Total Protein Albumin Globulin Albumin/Globulin Ratio Lipase Urine Color BROWN Urine Clarity CLOUDY Urine pH 6.0 Ur Specific [place] 1.025 Urine Protein 100 H Urine Glucose (UA) NEGATIVE Urine Ketones NEGATIVE Urine Occult Blood LARGE H Urine Nitrite POSITIVE H Urine Bilirubin NEGATIVE Urine Urobilinogen 0.2 (NORMAL) Ur Leukocyte Esterase TRACE H Urine RBC TNTC H Urine WBC 6-10 H Ur Squamous Epith Cells RARE Squamous Urine Bacteria Many H Ur Microscopic Review INDICATED Urine Culture Comments INDICATED Nasal Adenovirus (PCR) NOT DETECTED Nasal B. parapertussis DNA (PCR) NOT DETECTED Nasal Coronavir 229E PCR NOT DETECTED Nasal Coronavir HKU1 PCR NOT DETECTED Nasal Coronavir NL63 PCR NOT DETECTED Nasal Coronavir OC43 PCR NOT DETECTED Nasal Enterovir/Rhinovir PCR NOT DETECTED Nasal Influenza B PCR NOT DETECTED Nasal Influenza A PCR NOT DETECTED Nasal Parainfluen 1 PCR NOT DETECTED Nasal Parainfluen 2 PCR NOT DETECTED Nasal Parainfluen 3 PCR NOT DETECTED Nasal Parainfluen 4 PCR NOT DETECTED Nasal RSV (PCR) NOT DETECTED Nasal B.pertussis DNA PCR NOT DETECTED Nasal C.pneumoniae (PCR) NOT DETECTED [place] Human Metapneumo PCR NOT DETECTED Nasal M.pneumoniae (PCR) NOT DETECTED Nasal SARS-CoV-2 (PCR) NOT DETECTED Stl C. diff Tox B Gene NEGATIVE Salicylates Urine Opiates Screen POSITIVE H Ur Oxycodone Screen NEGATIVE Urine Methadone Screen NEGATIVE Ur Propoxyphene Screen NEGATIVE Acetaminophen Ur Barbiturates Screen NEGATIVE Ur Tricyclics Screen NEGATIVE Ur Phencyclidine Scrn NEGATIVE Ur Amphetamine Screen NEGATIVE U Methamphetamines Scrn NEGATIVE U Benzodiazepines Scrn NEGATIVE Urine Cocaine Screen NEGATIVE U Cannabinoids Screen NEGATIVE Ethyl Alcohol PD Medical Decision Making - ED course ED course: 78-year-old woman who is medically complex presents by ambulance for altered mental status. Records from her extended stay [facility] received and reviewed. She was admitted there on January 03 and discharged on February 13. She was started on TPN. She developed Warnicke's encephalopathy and eventually PEG tube feeds. Her weight on discharge was 31.5 kg so pretty much the same as it is today. Work-up here in the emergency department demonstrates significant leukocytosis with infected appearing urine, opiates on board with hypomagnesemia and hypokalemia repleted IV. She was given IV Rocephin. There was a significant delay to CT scanning because of staffing issues and care to Dr. Angeles at shift change pending CT of the head and abdomen pending eventual admission or transfer depending on those findings. Her was at the bedside but left before I could talk to him. Departure - Departure Clinical Impression: Altered mental status, Abdominal pain, UTI (urinary tract infection) Condition: Serious
[2023-09-01 18:35] LABS: BASOPHILS % (AUTO) 0.4 %; EOSINOPHILS % (AUTO) 0.1 %; HCT - HEMATOCRIT 46.3 % (37.0-47.0); LYMPHOCYTES % (AUTO) 9.9 %; MEAN CORPUSCULAR HEMOGLOBIN 28.3 pg (27.0-31.0); MEAN CORPUSCULAR HGB CONC 30.2 g/dL (32.0-36.0); MEAN CORPUSCULAR VOLUME 93.5 fL (81.0-99.0); MONOCYTES % (AUTO) 5.5 %; NEUTROPHILS % (AUTO) 83.6 %; PLT - PLATELET COUNT 358 10^3/uL (130-450); RED BLOOD COUNT 4.95 10^6/uL (4.20-5.40); RED CELL DISTRIBUTION WIDTH 16.8 % (12.0-15.0); WHITE BLOOD COUNT 23.9 x10^3/uL (4.8-10.8)
[2023-09-01 18:39] LABS: VBG HCO3 27.6 mmol/L (23-28); VBG PCO2 48.8 mmHg (41-51); VBG PH 7.37 (7.31-7.41); VBG PO2 30.7 mmHg (25-47)
[2023-09-01 18:40] LABS: VBG BASE EXCESS 1.5 mmol/L (-2 - +2); VBG OXYGEN SATURATION 60.1 % (60-80); VBG TOTAL CO2 29.1 mmol/L (24-29)
[2023-09-01 18:40] LABS: ABNORMAL LYMPHS % (MANUAL) 0 %
[2023-09-01 18:53] LABS: INR 1.2 (0.8-1.2); PT - PROTHROMBIN TIME 13.1 secs (9.9-12.6)
[2023-09-01 18:54] LABS: ACETAMINOPHEN 0.5 ug/mL; ALKALINE PHOSPHATASE 130 IU/L (42-121); ALT ALANINE AMINOTRANSFERASE 8 IU/L (10-60); AST ASPARTATE AMINOTRANSFERASE 11 IU/L (10-42); BILIRUBIN,TOTAL 0.5 mg/dL (0.2-1.0); BUN - BLOOD UREA NITROGEN 9 mg/dL (6-20); CALCIUM 8.8 mg/dL (8.5-10.3); CARBON DIOXIDE - CO2 31 mmol/L (21-32); CHLORIDE 100 mmol/L (101-111); CREATININE 0.5 mg/dL (0.6-1.3); ETOH - ETHANOL < 10.0 mg/dL; GFR - MDRD 120 (>89); GLUCOSE 91 mg/dL (74-104); MAGNESIUM 1.3 mg/dL (1.7-2.3); PHOSPHORUS 2.8 mg/dL (2.5-5.0); POTASSIUM 3.2 mmol/L (3.5-4.5); SODIUM 139 mmol/L (135-145); TOTAL PROTEIN 6.1 g/dL (6.4-8.9)
[2023-09-01 18:56] LABS: LIPASE < 10 U/L (11-82)
[2023-09-01 18:57] LABS: SALICYLATE < 1.5 mg/dL
[2023-09-01] MEDS ORDERED: MAGNESIUM SULFATE 2 GRAM 2 GM/50 ML BAG IV ONE (19:08)
[2023-09-01] MEDS ORDERED: POTASSIUM CHLOR 10 MEQ/100 ML 10 MEQ/100 ML BAG IV ONE (19:08)
[2023-09-01] MEDS ORDERED: SODIUM CHLORIDE 0.9% 1,000 ML IV STA (19:25)
[2023-09-01 19:28] LABS: MUDS CUTOFF CONCENTRATIONS CUTOFF CONC BELOW:
[2023-09-01 19:33] LABS: B. PARAPERTUSSIS- RESP PCR PAN NOT DETECTED; B. PERTUSSIS- RESP PCR PANEL NOT DETECTED; C. PNEUMONIAE- RESP PCR PANEL NOT DETECTED; CORONAVIRUS 229E-RESP PCR NOT DETECTED; CORONAVIRUS HKU1-RESP PCR NOT DETECTED; CORONAVIRUS NL63-RESP PCR NOT DETECTED; CORONAVIRUS OC43-RESP PCR NOT DETECTED; HUMAN METAPNEUMOVIRUS NOT DETECTED; INFLUENZA A- RESP PCR PANEL NOT DETECTED; INFLUENZA B - RESP PCR PANEL NOT DETECTED; M. PNEUMONIAE- RESP PCR PANEL NOT DETECTED; PARAINFLUENZA VIRUS 1 NOT DETECTED; PARAINFLUENZA VIRUS 2 NOT DETECTED; PARAINFLUENZA VIRUS 3 NOT DETECTED; PARAINFLUENZA VIRUS 4 NOT DETECTED; RHINOVIRUS/ENTEROVIRUS NOT DETECTED; RSV- RESP PCR PANEL NOT DETECTED; SARS-CoV-2 -RESP PCR PANEL NOT DETECTED
[2023-09-01 19:51] LABS: BILIRUBIN,URINE NEGATIVE (NEGATIVE); GLUCOSE, URINE (UA) NEGATIVE (NEGATIVE); KETONES,URINE (UA) NEGATIVE (NEGATIVE); LEUKOCYTE ESTERASE, URINE TRACE (NEGATIVE); NITRITE,URINE POSITIVE (NEGATIVE); OCCULT BLOOD,URINE LARGE (NEGATIVE); PROTEIN,URINE 100 mg/dL (NEGATIVE); UROBILINOGEN,URINE 0.2 (NORMAL) E.U./dL (NORMAL)
[2023-09-01 19:52] LABS: CLARITY,URINE CLOUDY (CLEAR)
[2023-09-01] MEDS ORDERED: cefTRIAXone 1 GM VIAL IVP STA (20:05)
[2023-09-01 20:07] LABS: AMPHETAMINE SCREEN,URINE NEGATIVE (NEGATIVE); BACTERIA,URINE Many /HPF (None Seen); BARBITURATE SCREEN,UR NEGATIVE (NEGATIVE); BENZODIAZEPINES SCREEN, URINE NEGATIVE (NEGATIVE); COCAINE SCREEN URINE NEGATIVE (NEGATIVE); METHADONE SCREEN, URINE NEGATIVE (NEGATIVE); METHAMPHETAMINES SCREEN, URINE NEGATIVE (NEGATIVE); OPIATE SCREEN, URINE POSITIVE (NEGATIVE); OXYCODONE SCREEN, URINE NEGATIVE (NEGATIVE); PROPOXYPHENE SCREEN, URINE NEGATIVE (NEGATIVE); RBC,URINE TNTC /HPF (0-5); SQUAMOUS EPITHELIAL CELL,UR RARE Squamous (<= Few); THC CANNABINOID SCREEN, URINE NEGATIVE (NEGATIVE); TRICYCLIC ANTIDEPRESSANT,URINE NEGATIVE (NEGATIVE)
[2023-09-01 20:27] LABS: BAND NEUTROPHILS % (MANUAL) 1 %; LYMPHOCYTES # (MANUAL) 2.9 10^3/uL (1.5-3.5); LYMPHOCYTES % (MANUAL) 5 %; METAMYELOCYTES % (MANUAL) 1 %; MONOCYTES # (MANUAL) 0.5 10^3/uL (0.0-1.0); NEUTROPHILS # (MANUAL) 20.3 10^3/uL (1.5-6.6); PLATELET ESTIMATE, MANUAL NORMAL (130-450,000) (NORMAL); PLATELET MORPHOLOGY NORMAL APPEARANCE (NORMAL); RBC MORPHOLOGY (MULTIPLE) 2+ ANISOCYTOSIS (NORMAL); REACTIVE LYMPHS % (MANUAL) 7 %
[2023-09-01 20:28] LABS: DIFFERENTIAL COMMENT MANUAL DIFFERENTIAL
[2023-09-01] MEDS ORDERED: THIAMINE INJ 100 MG in SODIUM CHLORIDE 0.9% 50 ML IV STA (22:13)
[2023-09-01] MEDS ORDERED: THIAMINE 100 MG/1 ML 2 ML MDV ONE (22:56)
--- NOTE | 2023-09-01 23:13 | CT Report ---
PROCEDURE: HEAD WO INDICATIONS: ams TECHNIQUE: Noncontrast 4.5 mm thick angled axial sections acquired from the foramen magnum to the vertex. For r adiation dose reduction, the following was used: automated exposure control, adjustment of mA and/or kV according to patient size. COMPARISON: MRI brain 01/25/2014 FINDINGS: Image quality: Excellent. The ventricular system and cortical sulci demonstrate atrophy, consistent for patient's stated age. There are areas of hypodensity in the periventricular and subcortical white matter. There is no acut e intra or extra-axial fluid collection. No acute hemorrhage, mass lesion or midline shift. Brainst em is unremarkable. Globes are symmetrical. Sinuses demonstrate left maxillary sinus mucus retention cyst versus polyp. O sseous structures are intact. IMPRESSION: 1. No acute intracranial process. 2. Moderate atrophy and chronic microvascular ischemic changes. Reviewed by: Sangeeta Jimenez MD on 09/01/2023 11:12 PM PST Approved by: Sangeeta Jimenez MD on 09/01/2023 11:12 PM PST Station ID: [id number]
--- NOTE | 2023-09-01 23:20 | CT Report ---
PROCEDURE: ABDOMEN/PELVIS W INDICATIONS: IV only, abd TTP CONTRAST: Omni 300 60ml TECHNIQUE: After the administration of IV contrast, 5 mm thick sections acquired from the diaphragms to the symp hysis. 5 mm thick coronal and sagittal reformats were acquired. For radiation dose reduction, the f ollowing was used: automated exposure control, adjustment of mA and/or kV according to patient size. COMPARISON: CT abdomen pelvis 01/02/2023 FINDINGS: Image quality: Excellent. Lung bases and heart: Unremarkable. Liver: No solid mass. Gallbladder and biliary tree: Unremarkable Spleen: No splenomegaly. Pancreas: Significant pancreatic calcifications are present secondary to prior inflammation. Adrenals: No adrenal nodule. Kidneys and ureters: No hydronephrosis. Multiple punctate nonobstructing left renal calculi. No renal cystic lesion which requires follow up. No solid mass. Bowel and peritoneum: No bowel distension. No pathologic free fluid. There is poor delineation of bow el from other structures in the abdomen dependent and pelvis secondary to patient body habitus. Moder ate colonic stool is present. There appears to be left-sided colonic diverticula. Sigmoid colon is mi ldly prominent. Lymph nodes: No central or retroperitoneal adenopathy. Vessels: 3.9 cm descending thoracic aneurysm dilation with mural thrombus, unchanged. Significant ath erosclerotic calcifications are present including focal significant stenosis within the suprarenal ab dominal aorta, unchanged. PELVIS Reproductive organs: Unremarkable. Bladder: No abnormal wall thickening, accounting for underdistension. Pelvic lymph nodes: No pelvic adenopathy by size criteria. Bones: No aggressive osseous abnormality. Other: No significant ventral or inguinal hernia. IMPRESSION: Limited evaluation secondary to poor delineation of bowel within the abdominal and pelvic contents pr obably secondary to patient body habitus as well as possibility of fat fascial planes. Left colonic diverticular present. The sigmoid colon appears prominent although unable to discern if there is presence of pericolonic inflammatory change. Mild colitis in this region cannot be definitiv marco excluded. Nonobstructing left renal calculi. Prominent atherosclerotic aortic disease as well as aneurysmal dilation, unchanged of the descending thoracic aorta. Reviewed by: Sangeeta Jimenez MD on 09/01/2023 11:19 PM PST Approved by: Sangeeta Jimenez MD on 09/01/2023 11:19 PM PST Station ID: [id number]
--- NOTE | 2023-09-01 23:26 | ED Physician Documentation ---
ED Addendum - Addendum Addendum: 09/01/23 23:25 Patient signed out to me by Dr. Still at shift change. Patient is pending admission. Awaiting CT head and Abdomen and pelvis. Patient knows her name but thinks she is at [facility]. She cannot tell me the month or year. Her abdomen at this time is soft and without tenderness. HEAD IMPRESSION: 1. No acute intracranial process. 2. Moderate atrophy and chronic microvascular ischemic changes. ABD/PELVIS IMPRESSION: Limited evaluation secondary to poor delineation of bowel within the abdominal and pelvic contents probably secondary to patient body habitus as well as possibility of fat fascial planes. Left colonic diverticular present. The sigmoid colon appears prominent although unable to discern if there is presence of pericolonic inflammatory change. Mild colitis in this region cannot be de finitively excluded. Nonobstructing left renal calculi. Prominent atherosclerotic aortic disease as well as aneurysmal dilation, unchanged of the descending thoracic aorta. 09/01/23 23:[address] Mabry. He will admit. Departure - Departure Disposition: [facility] DC/Xfer Clinical Impression: Altered mental status, Abdominal pain, UTI (urinary tract infection) Condition: Serious Forms: PCP List
[2023-09-01] MEDS ORDERED: ONDANSETRON 4 MG/2 ML VIAL IVP PRN (23:42)
[2023-09-01] MEDS ORDERED: SODIUM CHLORIDE FLUSH 0.9% 10 ML SYRINGE IVP PRN (23:42)
--- NOTE | 2023-09-01 23:53 | HISTORY & PHYSICAL EXAMINATION ---
Chief Complaint - Chief Complaint Chief Complaint: AMS History of Present Illness - History of Present Illness HPI Comment/Other: 78 y old female with PMH COPD, diverticulitis, migraine brought in to ER due to AMS which started at 1 pm today. Pt is not able to provide any history , so most of history is from the ER physician On presentation, pt was tachycardic, afebrile Labs showed WBC 23, with left shift, lactic acid 2.6 CT head showed no acute findings CT abdomen/pelvis showed no acute findings In ER, pt was given IVF, IV abx Pt is admitted due to AMS, Acute encephalopathy, severe sepsis, UTI History - Past Medical History Cardiovascular: reports: None Respiratory: reports: COPD Neuro: reports: Migraines Endocrine/Autoimmune: reports: None GI: reports: Diverticulitis HEENT: reports: None Psych: reports: Depression Musculoskeletal: reports: Fibromyalgia Derm: reports: None MRSA Hx?: No - Past Surgical History General: reports: Other (A large benign tumor was removed from her abdominal area many years ago.) /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 Social History Notes: Patient smokes 1/2 to 1.5 packs of cigarettes a day. - POLST Patient has POLST: No Meds/Allgy - Home Medications Home Medications: Ambulatory Orders Medication Instructions Recorded Confirmed Cyclobenzaprine HCl 1 tab PO TID PRN 02/20/16 09/01/23 Dicyclomine HCl 1 tab PO TID PRN 02/20/16 09/01/23 Gabapentin 400 mg PO TID 02/20/16 09/01/23 Hydrocodone/Acetaminophen [Vicodin 1 tab PO Q4HR PRN 02/20/16 09/01/23 Es 7.5-300 mg Tablet] Trazodone HCl 50 - 100 mg PO QPM 02/20/16 09/01/23 diphenhydrAMINE [Benadryl] 25 mg PO DAILY PRN 02/20/16 09/01/23 SUMAtriptan [Imitrex] 25 mg PO DAILY PRN 03/30/17 09/01/23 Prochlorperazine [Compazine] 10 mg PO Q6H PRN #14 tablet 06/05/18 09/01/23 Ondansetron Odt [Zofran] 4 mg TL Q6H PRN #10 tablet 07/23/19 09/01/23 Clopidogrel [Plavix] 75 mg PO DAILY 09/01/23 09/01/23 No122/Iron/Folic Acid 1 each PO DAILY 09/01/23 09/01/23 [ Multi Tablet] Tiotropium [place] [Spiriva 1 puffs IH BID 09/01/23 09/01/23 Respimat] oxyCODONE [Roxicodone] 5 mg PO Q4-6H PRN 09/01/23 09/01/23 - Allergies Allergies/Adverse Reactions: Allergies Allergy/AdvReac Type Severity Reaction Status Date / Time vancomycin Allergy Severe Anaphylaxis Verified 01/02/23 13:13 codeine Allergy Intermediate Hallucinati Verified 01/02/23 13:13 ons levofloxacin [From Levaquin] Allergy Unknown Verified 01/02/23 13:13 lithium Allergy Anaphylaxis Verified 01/02/23 13:13 Review of Systems - Other Findings Other Findings: 10 points systems were reviewed and were negative except mentioned in HPI Exam - Vital Signs Vital Signs: Vital Signs x48h Temp Pulse Resp BP Pulse Ox O2 Flow Rate 09/01/23 23:00 108 H 22 151/106 H 97 3 09/01/23 22:00 104 H 26 H 161/104 H 98 3 09/01/23 21:30 110 H 26 H 171/110 H 99 3 09/01/23 21:00 107 H 26 H 177/107 H 97 3 09/01/23 20:30 36.9 C 109 H 26 H 161/120 H 98 3 09/01/23 20:00 36.8 C 109 H 26 H 167/125 H 100 3 09/01/23 19:30 36 C L 115 H 26 H 186/106 H 96 3 09/01/23 19:25 35.6 C L 120 H 20 153/112 H 93 3 09/01/23 18:31 119 H 25 H 170/114 H 95 3 09/01/23 17:58 36.4 C L 112 H 28 H 138/112 H 95 - Physical Exam General Appearance: positive: No acute distress Eyes Bilateral: positive: Normal inspection ENT: positive: ENT inspection nml Neck: positive: Nml inspection Respiratory: positive: No respiratory distress Cardiovascular: positive: Regular rate & rhythm Abdomen: positive: Non-tender, Nml bowel sounds Skin: positive: No rash Extremities: positive: No pedal edema Neurologic/Psychiatric: positive: Motor nml, Disoriented to place, Disoriented to time Conclusion/Plan - Lab Results Fish Bones: 09/01/23 18:17 09/01/23 18:17 - Other Other Results/Comments: A: AMS Acute encephalopathy Severe sepsis UTI Lactic acidosis COPD Migraine H/O diveticulitis Plan: Admit in tele NPO Swallow eval Start NS @ 125 cc/h Neuro checks Monitor mental status Follow cx Start Rocephin Repeat lactic acid in 4 hours Repeat CBC, BMP in am Supportive care DVT prophylaxic: SCD Full code Pt is admitted as inpatient as more than 2 midnight stay is expected
[2023-09-02] MEDS: SODIUM CHLORIDE FLUSH 0.9% 10 ML SYRINGE IVP SCH ×3 (02:50→16:38)
[2023-09-02] MEDS: SODIUM CHLORIDE 0.9% 1,000 ML IV SCH ×3 (02:51→19:49)
[2023-09-02] MEDS ORDERED: iohexoL-300 100 ML VIAL IVP ONE (05:23)
[2023-09-02 06:38] LABS: BASOPHILS # (AUTO) 0.1 10^3/uL (0.0-0.1); BASOPHILS % (AUTO) 0.4 %; EOSINOPHILS % (AUTO) 0.2 %; HCT - HEMATOCRIT 40.6 % (37.0-47.0); HGB - HEMOGLOBIN 12.6 g/dL (12.0-16.0); LYMPHOCYTES # (AUTO) 1.4 10^3/uL (1.5-3.5); LYMPHOCYTES % (AUTO) 8.6 %; MEAN CORPUSCULAR HEMOGLOBIN 27.9 pg (27.0-31.0); MEAN PLATELET VOLUME 8.3 fL (7.9-10.8); MONOCYTES % (AUTO) 6.1 %; NEUTROPHILS # (AUTO) 13.7 10^3/uL (1.5-6.6); NEUTROPHILS % (AUTO) 84.1 %; PLT - PLATELET COUNT 341 10^3/uL (130-450); RED BLOOD COUNT 4.51 10^6/uL (4.20-5.40); RED CELL DISTRIBUTION WIDTH 16.6 % (12.0-15.0); WHITE BLOOD COUNT 16.3 x10^3/uL (4.8-10.8)
[2023-09-02 06:49] LABS: CREATININE 0.3 mg/dL (0.6-1.3); POTASSIUM 2.6 mmol/L (3.5-4.5)
--- NOTE | 2023-09-02 08:55 | PHARMACY PROGRESS NOTE ---
- Best Possible Medication History Admit Date and Time: 09/01/23 2990 Processed by: Pharmacy Medication History completed: Yes Patient Interview: Pt unable to participate Secondary Source(s): Physician records ([facility], 08/19 Office Visit w/Dr Camara), Insurance records As the person ultimately responsible for medication therapy, providers are able to order a medication from an existing home medication list in [facility] via the "Reconcile Routine" prior to Confirmation of that medication by therapeutic support staff. Such practice is discouraged except when the physician, in their clinical judgment, deems that a medical need exists for a medication without regard to previous use.
[2023-09-02] MEDS ORDERED: cefTRIAXone 1 GM VIAL IVP SCH (09:00)
[2023-09-02] MEDS ORDERED: ZOLPIDEM 5 MG TABLET PO PRN (15:53)
[2023-09-02] MEDS: HYDROcod/ACETAM 7.5 MG/325 MG TABLET PO PRN (16:37)
[2023-09-02] MEDS: POTASSIUM CHLORIDE 20 MEQ TABLET PO SCH (16:38)
--- NOTE | 2023-09-02 17:20 | PROVIDER PROGRESS NOTE ---
Progress Note September 02, 2023 5:11 PM Ms. Woods says that she is back to baseline with regards to mentation. She is surprised when I mention that her presentation was that of altered mental status with confusion from infection. Last night she was disoriented to place and time. Right now she is telling me that she knows she is in the hospital, she knows that she had a urinary tract infection. She had a migraine headache today and I resumed her usual home meds for migraine which include low-dose opioids and a sumatriptan. The room is dark, and she prefers that I do not turn on the light because of the headache. But she is eating her dinner and is tolerating that well. Other than the headache she has no other pain. No chest pain, cough, shortness of breath. No abdominal pain. She states that she lives with her in their own home. She is occasionally required to use a walker but she usually uses the donnelly of the furniture to get around her house. She is able to complete her activities of daily living. Down the road, if she needs to, she will be hiring in-home caregivers. Active Medications Hydrocodone Bitart/Acetaminophen (Hydrocod/Acetam 7.5 Mg/325 Mg Tablet) 1 tab PO TID PRN PRN Reason: PAIN 5-7 Last Admin: 09/02/23 16:37 Dose: 1 tab Aspirin (Aspirin Chew 81 Mg Tablet) 81 mg PO DAILY [facility] Atorvastatin Calcium (Atorvastatin 40 Mg Tablet) 40 mg PO QPM [facility] Clopidogrel Bisulfate (Clopidogrel 75 Mg Tablet) 75 mg PO DAILY [facility] Escitalopram Oxalate (Escitalopram 10 Mg Tablet) 20 mg PO DAILY [facility] Ferrous Sulfate (Ferrous Sulfate 325 Mg Tablet) 325 mg PO Q48H [facility] Sodium Chloride (Normal Saline 0.9%) 1,000 mls @ 125 mls/hr IV .Q8H [facility] Last Admin: 09/02/23 11:15 Dose: 125 mls/hr Ceftriaxone Sodium 1 gm/ (Sodium Chloride) 100 mls @ 200 mls/hr IV 2000 [facility] Lorazepam (Lorazepam 1 Mg Tablet) 1 mg PO QPM [facility] Mirtazapine (Mirtazapine 15 Mg Tablet) 7.5 mg PO QPM [facility] Ondansetron HCl (Ondansetron 4 Mg/2 Ml Vial) 4 mg IVP Q6HR PRN PRN Reason: Nausea / Vomiting Pantoprazole Sodium (Pantoprazole 40 Mg Tablet) 40 mg PO QDAC [facility] Potassium Chloride (Potassium Chloride 20 Meq Tablet) 40 meq PO DAILYWM [facility] Last Admin: 09/02/23 16:38 Dose: 40 meq Multivit/Folic Acid/Iron ( Vitamin Tablet) 1 tab PO DAILYWM [facility] Sodium Chloride (Sodium Chloride Flush 0.9% 10 Ml Syringe) 10 ml IVP PRN PRN PRN Reason: NEEDED PER PROVIDER ORDERS Sodium Chloride (Sodium Chloride Flush 0.9% 10 Ml Syringe) 10 ml IVP 0100,0900,1700 [facility] Last Admin: 09/02/23 16:38 Dose: 10 ml Sumatriptan Succinate (Sumatriptan 25 Mg Tablet) 25 mg PO DAILY PRN PRN Reason: HEADACHE Trazodone HCl (Trazodone 50 Mg Tablet) 200 mg PO QPM [facility] Zolpidem Tartrate (Zolpidem 5 Mg Tablet) 5 mg PO QPM PRN PRN Reason: Insomnia SUMAtriptan [Imitrex] 25 mg PO DAILY PRN 03/30/17 Clopidogrel [Plavix] 75 mg PO DAILY 09/01/23 No122/Iron/Folic Acid [ Multi Tablet] 1 each PO DAILY 09/01/23 Tiotropium [place] [Spiriva Respimat] 2 puffs INH DAILY 09/01/23 Albuterol Sulf [Ventolin Hfa Inhaler] 2 puffs INH Q4H PRN 09/02/23 Aspirin Chewable [[place] Aspirin] 81 mg PO DAILY 09/02/23 Atorvastatin Calcium 40 mg PO QPM 09/02/23 Escitalopram Oxalate 20 mg PO DAILY 09/02/23 Ferrous Sulfate [Feosol] 325 mg PO Q48H 09/02/23 HYDROcodone/ACET 7.5/325 [[place] 7.5/325] 1 tab PO TID PRN 09/02/23 LORazepam [Ativan] 1 mg PO QPM 09/02/23 Loperamide [Imodium] 2 mg PO BID 09/02/23 Mirtazapine 7.5 mg PO QPM 09/02/23 Pantoprazole [Protonix] 40 mg PO QDAC 09/02/23 Trazodone HCl 200 mg PO QPM 09/02/23 Zolpidem [Ambien] 5 mg PO QPM PRN 09/02/23 guaiFENesin [Guaifenesin ER] 600 mg PO BID 09/02/23 oxyCODONE [Roxicodone] 5 mg PO DAILY PRN 09/02/23 Exam: Temperature 37.3, heart rate 97, blood pressure 168/83. Respirations 16, 99% on room air. Pain is 6 out of 10 for the headache. She is a very, very thin cachectic elderly woman. She is 5 foot 4 inches tall, and 31.5 kg. She is all skin and bones. Alert, oriented to person place and time, lucid conversation with intact symptoms structure Lungs are clear to auscultation and percussion PMI is normally placed and she has a hard knocking S1-S2 with a regular rate and rhythm and a systolic ejection murmur Abdomen is concave, soft, nontender, hypoactive bowel sounds. Extremities are very thin with severely reduced muscle mass. Microbiology 09/01/23 19:20 Urine,Catheterized Urine Culture - Preliminary Laboratory Tests 09/02/23 09/02/23 09/02/23 06:25 06:25 06:25 WBC 16.3 H Hgb 12.6 Hct 40.6 Plt Count 341 Sodium 139 Potassium 2.6 L Chloride 104 Carbon Dioxide 26 BUN 6 Creatinine 0.3 L Lactic Acid 0.5 Calcium 8.0 L Assessment/plan 1. Metabolic encephalopathy secondary to infection has resolved. Her encephalopathy is attributed to infection and sepsis 2. Severe sepsis with lactic acidosis. Resolved. Preliminary urine culture is a gram-negative phi. Identification and sensitivities pending. White cell count was initially 23.9 thousand last night. Today she is 16.3. She has not had a fever. Last night she was hypothermic at 35.6. Today she is 37.1. She is not tachycardic or hypotensive. Mentation is now normal. Lactic acid started at 2.6 and is 0.5 this morning. At this time, she appears to be responding very nicely to the treatment of UTI. 2. Hypertension that is uncontrolled. She has been 161/92, 153/103, 158/75 and 168/83 today. She is not usually on high blood pressure medication on her home med list. She is slightly tachycardic in the 90s. She has a headache. As such I will opt to use a low-dose beta-hubert and see if that will help. I will start her on metoprolol 25 mg p.o. twice daily. 4. Migraine headache. She says this is the usual headache she gets with migraines. The pattern is the same, pain is the same. CT of the head was done last night and she has no acute intracranial process with moderate atrophy and chronic microvascular ischemic changes. Other than resuming her usual medications no other interventions. I have resumed her acetaminophen and hydrocodone as well as her mirtazapine, lorazepam, citalopram, trazodone. 5. UTI with gram-negative phi. Medication is ceftriaxone 1 g daily. Today's day #2. Will adjust antibiotics on the basis of ID and sensitivity that will hopefully be available soon. 6. Hypokalemia. 40 meq p.o. potassium twice daily started for 3 doses. Will recheck potassium level tomorrow. This document was made in part using voice recognition software. While efforts are made to proofread this document, sound alike and grammatical errors may occur.
[2023-09-02] MEDS: cefTRIAXone 1 GM in SODIUM CHLORIDE 0.9% MINIBAG 100 ML IV SCH (19:49)
[2023-09-02] MEDS: ATORVASTATIN 40 MG TABLET PO SCH (21:34)
[2023-09-02] MEDS: traZODone 50 MG TABLET PO SCH (21:34)
[2023-09-02] MEDS: MIRTAZAPINE 15 MG TABLET PO SCH (21:34)
[2023-09-02] MEDS: LORazepam 1 MG TABLET PO SCH (21:34)
--- NOTE | 2023-09-02 22:48 | PROVIDER PROGRESS NOTE ---
Painter Sign Maintenance Note - Painter Sign Maintenance Note Painter Sign Maintenance Note: RN paged "Burrell (inserted 09/01 in ED) was found removed inside brief. Ballon was deflated. No signs of trauma and patient denies pain. Patient had incontinent episode and bladder scan showed 211ml. Should we restart the burrell catheter?" bladder scan and monitor if continues to retain than consider straight cath vs burrell cath Maddy Gonzalez DO Internal Medicine [facility]
[2023-09-03] MEDS: SODIUM CHLORIDE FLUSH 0.9% 10 ML SYRINGE IVP SCH ×3 (00:12→16:44)
[2023-09-03] MEDS: SUMAtriptan 25 MG TABLET PO PRN (00:28)
[2023-09-03] MEDS: SODIUM CHLORIDE 0.9% 1,000 ML IV SCH ×3 (04:08→20:30)
[2023-09-03] MEDS: PANTOPRAZOLE 40 MG TABLET PO SCH (05:56)
[2023-09-03] MEDS: POTASSIUM CHLORIDE 20 MEQ TABLET PO SCH (09:34)
[2023-09-03] MEDS: ASPIRIN CHEW 81 MG TABLET PO SCH (09:35)
[2023-09-03] MEDS: CLOPIDOGREL 75 MG TABLET PO SCH (09:35)
[2023-09-03] MEDS: ESCITALOPRAM 10 MG TABLET PO SCH (09:36)
[2023-09-03] MEDS: FERROUS SULFATE 325 MG TABLET PO SCH (09:36)
[2023-09-03] MEDS: PRENATAL VITAMIN TABLET PO SCH (09:36)
--- NOTE | 2023-09-03 17:22 | PROVIDER PROGRESS NOTE ---
Progress Note September 03, 2023 5:19 PM This morning she was seen as well as this afternoon. She is, according to her, back to baseline mental status. She is oriented to person place and time and has come to understand why she ended up. She is surprised that her urinary tract infection could result in so much confusion. She denies any specific pain. Hurts all over. Denies shortness of breath, abdominal pain. She was seen by physical therapy today. She needs minimal cueing to complete her task. She is a sit to stand transfer with contact-guard assist and a front wheel walker. She is able to ambulate 8 feet to her chair. She was very very fatigued with this. She had to rest in the chair for a while before she was able to get back in bed. She lives with her at home. 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 There is supposed to have caregivers but have not been been able to hire anybody yet. Active Medications Hydrocodone Bitart/Acetaminophen (Hydrocod/Acetam 7.5 Mg/325 Mg Tablet) 1 tab PO TID PRN PRN Reason: PAIN 5-7 Last Admin: 09/02/23 16:37 Dose: 1 tab Aspirin (Aspirin Chew 81 Mg Tablet) 81 mg PO DAILY [facility] Last Admin: 09/03/23 09:35 Dose: 81 mg Atorvastatin Calcium (Atorvastatin 40 Mg Tablet) 40 mg PO QPM [facility] Last Admin: 09/02/23 21:34 Dose: 40 mg Clopidogrel Bisulfate (Clopidogrel 75 Mg Tablet) 75 mg PO DAILY [facility] Last Admin: 09/03/23 09:35 Dose: 75 mg Escitalopram Oxalate (Escitalopram 10 Mg Tablet) 20 mg PO DAILY [facility] Last Admin: 09/03/23 09:36 Dose: 20 mg Ferrous Sulfate (Ferrous Sulfate 325 Mg Tablet) 325 mg PO Q48H [facility] Last Admin: 09/03/23 09:36 Dose: 325 mg Sodium Chloride (Normal Saline 0.9%) 1,000 mls @ 125 mls/hr IV .Q8H [facility] Last Admin: 09/03/23 12:11 Dose: 125 mls/hr Ceftriaxone Sodium 1 gm/ (Sodium Chloride) 100 mls @ 200 mls/hr IV 2000 [facility] Last Infusion: 09/02/23 20:57 Dose: Infused Lorazepam (Lorazepam 1 Mg Tablet) 1 mg PO QPM [facility] Last Admin: 09/02/23 21:34 Dose: 1 mg Mirtazapine (Mirtazapine 15 Mg Tablet) 7.5 mg PO QPM [facility] Last Admin: 09/02/23 21:34 Dose: 7.5 mg Ondansetron HCl (Ondansetron 4 Mg/2 Ml Vial) 4 mg IVP Q6HR PRN PRN Reason: Nausea / Vomiting Pantoprazole Sodium (Pantoprazole 40 Mg Tablet) 40 mg PO QDAC [facility] Last Admin: 09/03/23 05:56 Dose: 40 mg Potassium Chloride (Potassium Chloride 20 Meq Tablet) 40 meq PO DAILYWM [facility] Last Admin: 09/03/23 09:34 Dose: 40 meq Multivit/Folic Acid/Iron ( Vitamin Tablet) 1 tab PO DAILYWM [facility] Last Admin: 09/03/23 09:36 Dose: 1 tab Sodium Chloride (Sodium Chloride Flush 0.9% 10 Ml Syringe) 10 ml IVP PRN PRN PRN Reason: NEEDED PER PROVIDER ORDERS Sodium Chloride (Sodium Chloride Flush 0.9% 10 Ml Syringe) 10 ml IVP 0100,0900,1700 [facility] Last Admin: 09/03/23 16:44 Dose: 10 ml Sumatriptan Succinate (Sumatriptan 25 Mg Tablet) 25 mg PO DAILY PRN PRN Reason: HEADACHE Last Admin: 09/03/23 00:28 Dose: 25 mg Trazodone HCl (Trazodone 50 Mg Tablet) 200 mg PO QPM [facility] Last Admin: 09/02/23 21:34 Dose: 200 mg Zolpidem Tartrate (Zolpidem 5 Mg Tablet) 5 mg PO QPM PRN PRN Reason: Insomnia Home meds: SUMAtriptan [Imitrex] 25 mg PO DAILY PRN 03/30/17 Clopidogrel [Plavix] 75 mg PO DAILY 09/01/23 No122/Iron/Folic Acid [ Multi Tablet] 1 each PO DAILY 09/01/23 Tiotropium [place] [Spiriva Respimat] 2 puffs INH DAILY 09/01/23 Albuterol Sulf [Ventolin Hfa Inhaler] 2 puffs INH Q4H PRN 09/02/23 Aspirin Chewable [[place] Aspirin] 81 mg PO DAILY 09/02/23 Atorvastatin Calcium 40 mg PO QPM 09/02/23 Escitalopram Oxalate 20 mg PO DAILY 09/02/23 Ferrous Sulfate [Feosol] 325 mg PO Q48H 09/02/23 HYDROcodone/ACET 7.5/325 [[place] 7.5/325] 1 tab PO TID PRN 09/02/23 LORazepam [Ativan] 1 mg PO QPM 09/02/23 Loperamide [Imodium] 2 mg PO BID 09/02/23 Mirtazapine 7.5 mg PO QPM 09/02/23 Pantoprazole [Protonix] 40 mg PO QDAC 09/02/23 Trazodone HCl 200 mg PO QPM 09/02/23 Zolpidem [Ambien] 5 mg PO QPM PRN 09/02/23 guaiFENesin [Guaifenesin ER] 600 mg PO BID 09/02/23 oxyCODONE [Roxicodone] 5 mg PO DAILY PRN 09/02/23 Temperature 37, heart rate 100, blood pressure 143/82, respirations 16, 100% on room air. Very thin cachectic elderly female if 5 foot 4 inches tall, 31.5 kg. Oriented to person, place, time, situation. Generalized weakness noted by PT as above. Easy fatigability. Neck is supple Regular rate and rhythm Clear lungs Abdomen is soft, nontender Laboratory Tests 09/02/23 09/02/23 06:25 06:25 WBC 16.3 H Hgb 12.6 Hct 40.6 Plt Count 341 Sodium 139 Potassium 2.6 L Chloride 104 Carbon Dioxide 26 Anion Gap 9.0 Creatinine 0.3 L Estimated GFR (MDRD) 216 Calcium 8.0 L Assessment/plan Reason for admission was 1. Metabolic encephalopathy secondary to infection and Severe sepsis. Her encephalopathy is attributed to infection and sepsis and she has returned to baseline mental status. 2. Severe sepsis with lactic acidosis has also Resolved. UTI is with E. coli. Sensitivities pending. Culture now shows E. coli in urine with blood cultures negative. White cell count was initially 23.9>> 16.3.CBC for today drawn and pending. I will review make sure it still on a downward turn. She has not had a fever. Lactic acid started at 2.6>> 0.5 this morning. At this time, she appears to be responding very nicely to the treatment of UTI. Plan for 7 days total of antibiotics. Will switch to oral antibiotics once sensitivities are available. PT has seen her and evaluated her for weakness. She was barely able to get back to bed from the chair. While she was doing that, she had bowel incontinence and was not even aware it was happening. Because of her 's disability, and poor support at home, physical therapy feels she may need to go to short- term rehab at a halfway facility. I discussed this at care conference this morning and we will choice the patient/ 3. Hypertension that is uncontrolled. Hypertension was uncontrolled yesterday and I started a low-dose beta-hubert because she was slightly tachycardic and having a migraine headache. I started metoprolol 25 mg p.o. twice daily. She still hypertensive today at 146/77, 156/61. Pulse is 90-106. I will continue 25 mg p.o. twice daily and increase tomorrow if pulse is not below 80. 4. Migraine headache. She had 1 on September 03. I have resumed her usual home medications. Headache has resolved today. 5. UTI with E. coli. Medication is ceftriaxone 1 g daily. Today's day #3. Will adjust antibiotics on the basis of ID and sensitivity that will hopefully be available soon.I would like to change her to oral medication. 6. Hypokalemia. 40 meq p.o. potassium twice daily started for 3 doses. Repeat BMP drawn and pending. I will supplement again if potassium remains low. This document was made in part using voice recognition software. While efforts are made to proofread this document, sound alike and grammatical errors may occur. occur.
[2023-09-03 17:57] LABS: BASOPHILS # (AUTO) 0.1 10^3/uL (0.0-0.1); BASOPHILS % (AUTO) 0.4 %; EOSINOPHILS # (AUTO) 0.1 10^3/uL (0.0-0.7); EOSINOPHILS % (AUTO) 0.7 %; HCT - HEMATOCRIT 37.4 % (37.0-47.0); HGB - HEMOGLOBIN 11.5 g/dL (12.0-16.0); LYMPHOCYTES # (AUTO) 1.4 10^3/uL (1.5-3.5); LYMPHOCYTES % (AUTO) 10.5 %; MEAN CORPUSCULAR HGB CONC 30.7 g/dL (32.0-36.0); MEAN CORPUSCULAR VOLUME 91.2 fL (81.0-99.0); MEAN PLATELET VOLUME 8.4 fL (7.9-10.8); MONOCYTES % (AUTO) 7.6 %; NEUTROPHILS # (AUTO) 10.9 10^3/uL (1.5-6.6); NEUTROPHILS % (AUTO) 80.1 %; PLT - PLATELET COUNT 311 10^3/uL (130-450); RED CELL DISTRIBUTION WIDTH 16.6 % (12.0-15.0); WHITE BLOOD COUNT 13.6 x10^3/uL (4.8-10.8)
[2023-09-03 18:10] LABS: CALCIUM 7.3 mg/dL (8.5-10.3); CREATININE 0.5 mg/dL (0.6-1.3); POTASSIUM 3.2 mmol/L (3.5-4.5)
[2023-09-03] MEDS: cefTRIAXone 1 GM in SODIUM CHLORIDE 0.9% MINIBAG 100 ML IV SCH (20:31)
[2023-09-03] MEDS: LORazepam 1 MG TABLET PO SCH (20:33)
[2023-09-03] MEDS: MIRTAZAPINE 15 MG TABLET PO SCH (20:33)
[2023-09-03] MEDS: traZODone 50 MG TABLET PO SCH (20:33)
[2023-09-03] MEDS: ATORVASTATIN 40 MG TABLET PO SCH (20:33)
[2023-09-04] MEDS: SODIUM CHLORIDE FLUSH 0.9% 10 ML SYRINGE IVP SCH ×3 (00:26→17:56)
[2023-09-04] MEDS: PANTOPRAZOLE 40 MG TABLET PO SCH (05:58)
[2023-09-04] MEDS: SODIUM CHLORIDE 0.9% 1,000 ML IV SCH ×3 (07:41→23:49)
[2023-09-04] MEDS: PRENATAL VITAMIN TABLET PO SCH (08:21)
[2023-09-04] MEDS: POTASSIUM CHLORIDE 20 MEQ TABLET PO SCH (08:21)
[2023-09-04] MEDS: ASPIRIN CHEW 81 MG TABLET PO SCH (08:21)
[2023-09-04] MEDS: CLOPIDOGREL 75 MG TABLET PO SCH (08:21)
[2023-09-04] MEDS: SULFAMETH/TRIMETH DS 800/160 MG TABLET PO SCH ×2 (08:22→21:43)
[2023-09-04] MEDS: ESCITALOPRAM 10 MG TABLET PO SCH (08:22)
--- NOTE | 2023-09-04 14:09 | PROVIDER PROGRESS NOTE ---
Progress Note September 04, 2023 2 PM Sitting up in bed and has eaten breakfast and lunch. Not much of an appetite. Since physical therapy has now recommended care home facility placement, we need to choice her. She is not happy about leaving her home but I explained that her cannot take care of her on her own. She denies chest pain, palpitations, abdominal pain, shortness of breath. Active Medications Hydrocodone Bitart/Acetaminophen (Hydrocod/Acetam 7.5 Mg/325 Mg Tablet) 1 tab PO TID PRN PRN Reason: PAIN 5-7 Last Admin: 09/02/23 16:37 Dose: 1 tab Aspirin (Aspirin Chew 81 Mg Tablet) 81 mg PO DAILY [facility] Last Admin: 09/04/23 08:21 Dose: 81 mg Atorvastatin Calcium (Atorvastatin 40 Mg Tablet) 40 mg PO QPM [facility] Last Admin: 09/03/23 20:33 Dose: 40 mg Clopidogrel Bisulfate (Clopidogrel 75 Mg Tablet) 75 mg PO DAILY [facility] Last Admin: 09/04/23 08:21 Dose: 75 mg Escitalopram Oxalate (Escitalopram 10 Mg Tablet) 20 mg PO DAILY [facility] Last Admin: 09/04/23 08:22 Dose: 20 mg Ferrous Sulfate (Ferrous Sulfate 325 Mg Tablet) 325 mg PO Q48H [facility] Last Admin: 09/03/23 09:36 Dose: 325 mg Sodium Chloride (Normal Saline 0.9%) 1,000 mls @ 125 mls/hr IV .Q8H [facility] Last Admin: 09/04/23 07:41 Dose: 125 mls/hr Lorazepam (Lorazepam 1 Mg Tablet) 1 mg PO QPM [facility] Last Admin: 09/03/23 20:33 Dose: 1 mg Mirtazapine (Mirtazapine 15 Mg Tablet) 7.5 mg PO QPM [facility] Last Admin: 09/03/23 20:33 Dose: 7.5 mg Ondansetron HCl (Ondansetron 4 Mg/2 Ml Vial) 4 mg IVP Q6HR PRN PRN Reason: Nausea / Vomiting Pantoprazole Sodium (Pantoprazole 40 Mg Tablet) 40 mg PO QDAC [facility] Last Admin: 09/04/23 05:58 Dose: 40 mg Potassium Chloride (Potassium Chloride 20 Meq Tablet) 40 meq PO DAILYWM [facility] Last Admin: 09/04/23 08:21 Dose: 40 meq Multivit/Folic Acid/Iron ( Vitamin Tablet) 1 tab PO DAILYWM [facility] Last Admin: 09/04/23 08:21 Dose: 1 tab Sodium Chloride (Sodium Chloride Flush 0.9% 10 Ml Syringe) 10 ml IVP PRN PRN PRN Reason: NEEDED PER PROVIDER ORDERS Sodium Chloride (Sodium Chloride Flush 0.9% 10 Ml Syringe) 10 ml IVP 0100,0900,1700 [facility] Last Admin: 09/04/23 08:23 Dose: 10 ml Sumatriptan Succinate (Sumatriptan 25 Mg Tablet) 25 mg PO DAILY PRN PRN Reason: HEADACHE Last Admin: 09/03/23 00:28 Dose: 25 mg Trazodone HCl (Trazodone 50 Mg Tablet) 200 mg PO QPM [facility] Last Admin: 09/03/23 20:33 Dose: 200 mg Trimethoprim/Sulfamethoxazole (Sulfameth/Trimeth Ds 800/160 Mg Tablet) 1 tab PO BID [facility] Last Admin: 09/04/23 08:22 Dose: 1 tab Zolpidem Tartrate (Zolpidem 5 Mg Tablet) 5 mg PO QPM PRN PRN Reason: Insomnia SUMAtriptan [Imitrex] 25 mg PO DAILY PRN 03/30/17 Clopidogrel [Plavix] 75 mg PO DAILY 09/01/23 No122/Iron/Folic Acid [ Multi Tablet] 1 each PO DAILY 09/01/23 Tiotropium [place] [Spiriva Respimat] 2 puffs INH DAILY 09/01/23 Albuterol Sulf [Ventolin Hfa Inhaler] 2 puffs INH Q4H PRN 09/02/23 Aspirin Chewable [[place] Aspirin] 81 mg PO DAILY 09/02/23 Atorvastatin Calcium 40 mg PO QPM 09/02/23 Escitalopram Oxalate 20 mg PO DAILY 09/02/23 Ferrous Sulfate [Feosol] 325 mg PO Q48H 09/02/23 HYDROcodone/ACET 7.5/325 [[place] 7.5/325] 1 tab PO TID PRN 09/02/23 LORazepam [Ativan] 1 mg PO QPM 09/02/23 Loperamide [Imodium] 2 mg PO BID 09/02/23 Mirtazapine 7.5 mg PO QPM 09/02/23 Pantoprazole [Protonix] 40 mg PO QDAC 09/02/23 Trazodone HCl 200 mg PO QPM 09/02/23 Zolpidem [Ambien] 5 mg PO QPM PRN 09/02/23 guaiFENesin [Guaifenesin ER] 600 mg PO BID 09/02/23 oxyCODONE [Roxicodone] 5 mg PO DAILY PRN 09/02/23 Exam temperature is 37.5, heart rate 76, blood pressure 150/91. She has been running high blood pressures at 143/82, 160/96, 175/88, and now 150/91. 5 feet 4 inches tall, 31.5 kg On general exam she is a very frail appearing cachectic elderly female. Voice is slightly hypophonic. Oriented to person, place, situation. Sleepy but will wake easily when I walk in the room. Not confused. Neck is supple Lungs are clear to auscultation and percussion without any increased respiratory effort Regular rate and rhythm Abdomen is soft, nontender with normal bowel sounds. Last bowel movement was y esterday. Is incontinent of urine and she has a pure wick being used. Microbiology 09/01/23 19:20 Urine,Catheterized Urine Culture - Preliminary Escherichia Coli Klebsiella Pneumoniae 09/01/23 18:17 Blood - Right Hand Blood Culture - Preliminary NO GROWTH AFTER 2 DAYS 09/01/23 18:13 Blood - Right Iv-Start Blood Culture - Preliminary NO GROWTH AFTER 2 DAYS Potassium level and CBC pending Assessment/plan Her reason for admission was metabolic encephalopathy secondary infection and severe sepsis. The infection source was UTI. Encephalopathy and sepsis criteria have resolved. 1. UTI with E. coli and Klebsiella and Proteus. Sensitivities have been reviewed and I am stopping Rocephin and changing her to Bactrim double strength. Today's day #4 of Rocephin but is not expected to be given to tonight. So she is only completed 3 days of Rocephin and she will need 4 days of Bactrim for 8 more doses. As such last dose is September 08 in the morning. 2. Uncontrolled hypertension. She is not on medications on a regular basis. I started her on low-dose beta-hubert because she was slightly tachycardic and having a migraine headache. Metoprolol 25 mg p.o. twice daily has been started without much effect on the blood pressure. Pulse rate has come down into the 60s. Plan: Consider adding Norvasc 2.5 mg in the next 48 hours. 3. Migraine headache on September 03. Home medications resumed and headache resolved by September 03. 4. Hypokalemia. I gave her 40 mEq of potassium twice a day for 3 doses. Potassium was 3.2 with that. Today's potassium is pending. Will supplement if needed.. 5. Generalized weakness. This acute illness has resulted in almost a near bedbound status. She lives with her in their own home. She is usually independent enough to stand pivot and transfer to a chair, to a bathroom, and needs minimal help with dressing. Can feed herself. At this time she fatigues very easily. There are no in-home caregivers. Physical therapy is recommending care home facility for placement. I am asking for the patient and family to be choice to. Possible discharge tomorrow if we can find a care home facility. This document was made in part using voice recognition software. While efforts are made to proofread this document, sound alike and grammatical errors may occur.
[2023-09-04] MEDS: traZODone 50 MG TABLET PO SCH (21:42)
[2023-09-04] MEDS: LORazepam 1 MG TABLET PO SCH (21:43)
[2023-09-04] MEDS: ATORVASTATIN 40 MG TABLET PO SCH (21:43)
[2023-09-04] MEDS: MIRTAZAPINE 15 MG TABLET PO SCH (21:43)
[2023-09-05] MEDS: SODIUM CHLORIDE FLUSH 0.9% 10 ML SYRINGE IVP SCH ×3 (01:22→15:57)
[2023-09-05 05:48] LABS: BASOPHILS # (AUTO) 0.1 10^3/uL (0.0-0.1); BASOPHILS % (AUTO) 0.8 %; EOSINOPHILS # (AUTO) 0.1 10^3/uL (0.0-0.7); EOSINOPHILS % (AUTO) 1.1 %; HCT - HEMATOCRIT 37.2 % (37.0-47.0); HGB - HEMOGLOBIN 11.4 g/dL (12.0-16.0); LYMPHOCYTES % (AUTO) 17.1 %; MEAN CORPUSCULAR HEMOGLOBIN 28.6 pg (27.0-31.0); MEAN CORPUSCULAR HGB CONC 30.6 g/dL (32.0-36.0); MEAN CORPUSCULAR VOLUME 93.2 fL (81.0-99.0); MEAN PLATELET VOLUME 8.8 fL (7.9-10.8); MONOCYTES % (AUTO) 8.3 %; NEUTROPHILS # (AUTO) 8.5 10^3/uL (1.5-6.6); NEUTROPHILS % (AUTO) 71.7 %; PLT - PLATELET COUNT 286 10^3/uL (130-450); RED BLOOD COUNT 3.99 10^6/uL (4.20-5.40); RED CELL DISTRIBUTION WIDTH 16.6 % (12.0-15.0); WHITE BLOOD COUNT 11.9 x10^3/uL (4.8-10.8)
[2023-09-05 06:02] LABS: CALCIUM 7.2 mg/dL (8.5-10.3); CREATININE 0.3 mg/dL (0.6-1.3)
[2023-09-05] MEDS: PANTOPRAZOLE 40 MG TABLET PO SCH (06:07)
[2023-09-05] MEDS: SODIUM CHLORIDE 0.9% 1,000 ML IV SCH ×2 (07:52→15:56)
[2023-09-05] MEDS: ASPIRIN CHEW 81 MG TABLET PO SCH (09:53)
[2023-09-05] MEDS: SULFAMETH/TRIMETH DS 800/160 MG TABLET PO SCH ×2 (09:53→20:43)
[2023-09-05] MEDS: ESCITALOPRAM 10 MG TABLET PO SCH (09:53)
[2023-09-05] MEDS: HYDROcod/ACETAM 7.5 MG/325 MG TABLET PO PRN (09:53)
[2023-09-05] MEDS: CLOPIDOGREL 75 MG TABLET PO SCH (09:54)
[2023-09-05] MEDS: POTASSIUM CHLORIDE 20 MEQ TABLET PO SCH ×4 (09:54→21:00)
[2023-09-05] MEDS: PRENATAL VITAMIN TABLET PO SCH (09:54)
[2023-09-05] MEDS: FERROUS SULFATE 325 MG TABLET PO SCH (10:02)
--- NOTE | 2023-09-05 15:01 | PROVIDER PROGRESS NOTE ---
Progress Note September 05, 2023 2:45 PM She is a very weak, frail elderly female. Hurts all over. While she is very forgetful and sometimes is repetitive in her questions, she is oriented to person, place, time and situation. No acute distress. Active Medications Hydrocodone Bitart/Acetaminophen (Hydrocod/Acetam 7.5 Mg/325 Mg Tablet) 1 tab PO TID PRN PRN Reason: PAIN 5-7 Last Admin: 09/05/23 09:53 Dose: 1 tab Aspirin (Aspirin Chew 81 Mg Tablet) 81 mg PO DAILY [facility] Last Admin: 09/05/23 09:53 Dose: 81 mg Atorvastatin Calcium (Atorvastatin 40 Mg Tablet) 40 mg PO QPM [facility] Last Admin: 09/04/23 21:43 Dose: 40 mg Clopidogrel Bisulfate (Clopidogrel 75 Mg Tablet) 75 mg PO DAILY [facility] Last Admin: 09/05/23 09:54 Dose: 75 mg Escitalopram Oxalate (Escitalopram 10 Mg Tablet) 20 mg PO DAILY [facility] Last Admin: 09/05/23 09:53 Dose: 20 mg Ferrous Sulfate (Ferrous Sulfate 325 Mg Tablet) 325 mg PO Q48H [facility] Last Admin: 09/05/23 10:02 Dose: 325 mg Sodium Chloride (Normal Saline 0.9%) 1,000 mls @ 125 mls/hr IV .Q8H [facility] Last Admin: 09/05/23 07:52 Dose: 125 mls/hr Lorazepam (Lorazepam 1 Mg Tablet) 1 mg PO QPM [facility] Last Admin: 09/04/23 21:43 Dose: 1 mg Mirtazapine (Mirtazapine 15 Mg Tablet) 7.5 mg PO QPM [facility] Last Admin: 09/04/23 21:43 Dose: 7.5 mg Ondansetron HCl (Ondansetron 4 Mg/2 Ml Vial) 4 mg IVP Q6HR PRN PRN Reason: Nausea / Vomiting Pantoprazole Sodium (Pantoprazole 40 Mg Tablet) 40 mg PO QDAC [facility] Last Admin: 09/05/23 06:07 Dose: 40 mg Potassium Chloride (Potassium Chloride 20 Meq Tablet) 40 meq PO DAILYWM [facility] Last Admin: 09/05/23 09:54 Dose: 40 meq Potassium Chloride (Potassium Chloride 20 Meq Tablet) 40 meq PO TID [facility] Stop: 09/05/23 22:01 Last Admin: 09/05/23 14:35 Dose: 40 meq Multivit/Folic Acid/Iron ( Vitamin Tablet) 1 tab PO DAILYWM [facility] Last Admin: 09/05/23 09:54 Dose: 1 tab Sodium Chloride (Sodium Chloride Flush 0.9% 10 Ml Syringe) 10 ml IVP PRN PRN PRN Reason: NEEDED PER PROVIDER ORDERS Sodium Chloride (Sodium Chloride Flush 0.9% 10 Ml Syringe) 10 ml IVP 0100,0900,1700 [facility] Last Admin: 09/05/23 09:55 Dose: Not Given Sumatriptan Succinate (Sumatriptan 25 Mg Tablet) 25 mg PO DAILY PRN PRN Reason: HEADACHE Last Admin: 09/03/23 00:28 Dose: 25 mg Trazodone HCl (Trazodone 50 Mg Tablet) 200 mg PO QPM [facility] Last Admin: 09/04/23 21:42 Dose: 200 mg Trimethoprim/Sulfamethoxazole (Sulfameth/Trimeth Ds 800/160 Mg Tablet) 1 tab PO BID [facility] Last Admin: 09/05/23 09:53 Dose: 1 tab Zolpidem Tartrate (Zolpidem 5 Mg Tablet) 5 mg PO QPM PRN PRN Reason: Insomnia SUMAtriptan [Imitrex] 25 mg PO DAILY PRN 03/30/17 Clopidogrel [Plavix] 75 mg PO DAILY 09/01/23 No122/Iron/Folic Acid [ Multi Tablet] 1 each PO DAILY 09/01/23 Tiotropium Pelzer [Spiriva Respimat] 2 puffs INH DAILY 09/01/23 Albuterol Sulf [Ventolin Hfa Inhaler] 2 puffs INH Q4H PRN 09/02/23 Aspirin Chewable [[place] Aspirin] 81 mg PO DAILY 09/02/23 Atorvastatin Calcium 40 mg PO QPM 09/02/23 Escitalopram Oxalate 20 mg PO DAILY 09/02/23 Ferrous Sulfate [Feosol] 325 mg PO Q48H 09/02/23 HYDROcodone/ACET 7.5/325 [[place] 7.5/325] 1 tab PO TID PRN 09/02/23 LORazepam [Ativan] 1 mg PO QPM 09/02/23 Loperamide [Imodium] 2 mg PO BID 09/02/23 Mirtazapine 7.5 mg PO QPM 09/02/23 Pantoprazole [Protonix] 40 mg PO QDAC 09/02/23 Trazodone HCl 200 mg PO QPM 09/02/23 Zolpidem [Ambien] 5 mg PO QPM PRN 09/02/23 guaiFENesin [Guaifenesin ER] 600 mg PO BID 09/02/23 oxyCODONE [Roxicodone] 5 mg PO DAILY PRN 09/02/23 Exam: Temperature 36.8, respirations 18, blood pressure 147/90, 95 pulse rate, 97% on 3 L. No JVD. Tiny, frail elderly female. Spends a lot of her time sleeping Shallow, unlabored, respirations. Sounds diminished at the bases. Irregularly irregular S1-S2. Soft systolic murmur. Abdomen is soft, nontender. Last bowel movement was yesterday. Pure wick catheter is draining urine. Extremities without edema. Laboratory Tests 09/05/23 09/05/23 05:22 05:22 WBC 11.9 H RBC 3.99 L Hgb 11.4 L Plt Count 286 Sodium 140 Potassium 3.0 L Chloride 103 Carbon Dioxide 31 Anion Gap 6.0 BUN 5 L Creatinine 0.3 L Calcium 7.2 L Assessment/plan Her reason for admission was metabolic encephalopathy secondary infection and severe sepsis. The infection source was UTI. Encephalopathy and sepsis criteria have resolved. 1. UTI with E. coli and Klebsiella and Proteus. Sensitivities have been reviewed and I stopped Rocephin and changing her to Bactrim double strength 09/04.. So she has completed 3 days of Rocephin and she will need 4 days of Bactrim for 8 more doses. As such last dose is September 08 in the morning. Today is Day #2 of the Bactrim. I am monitoring her for any setbacks. So far no fever, no change in white cell count. 2. Uncontrolled hypertension. She is not on medications on a regular basis. I started her on low-dose beta-hubert because she was slightly tachycardic and having a migraine headache. Metoprolol 25 mg p.o. twice daily has been started without much effect on the blood pressure. Pulse rate has come down into the 60s. Plan: In spite of adding metoprolol to control heart rate, which they then hoped would control her blood pressure, blood pressure still elevated. Not severely so. Heart rate is well-controlled. Will start Norvasc 2.5 mg daily. 3. Migraine headache on September 03. Home medications resumed and headache resolved by September 03. 4. Hypokalemia. I gave her 40 mEq of potassium twice a day for 3 doses. Potassium was 3.2 with that. Potassium still low. Will give 40 mEq p.o. 3 times daily for 3 doses 5. Generalized weakness. This acute illness has resulted in almost a near bedbound status. She lives with her in their own home. She is usually independent enough to stand pivot and transfer to a chair, to a bathroom, and needs minimal help with dressing. Can feed herself. At this time she fatigues very easily. There are no in-home caregivers. Physical therapy is recommending nursing home facility for placement. She was reevaluated again today, and the case was discussed with her , and we are twisting her to see which [facility] she would like to go to. This document was made in part using voice recognition software. While efforts are made to proofread this document, sound alike and grammatical errors may occur.
[2023-09-05] MEDS: amLODIPine 5 MG TABLET PO SCH (15:57)
[2023-09-05] MEDS: traZODone 50 MG TABLET PO SCH (20:42)
[2023-09-05] MEDS: ATORVASTATIN 40 MG TABLET PO SCH (20:43)
[2023-09-05] MEDS: MIRTAZAPINE 15 MG TABLET PO SCH (20:43)
[2023-09-05] MEDS: LORazepam 1 MG TABLET PO SCH (20:43)
[2023-09-06] MEDS: SODIUM CHLORIDE 0.9% 1,000 ML IV SCH ×3 (00:29→17:19)
[2023-09-06 05:26] LABS: BASOPHILS # (AUTO) 0.1 10^3/uL (0.0-0.1); BASOPHILS % (AUTO) 0.5 %; EOSINOPHILS # (AUTO) 0.2 10^3/uL (0.0-0.7); EOSINOPHILS % (AUTO) 1.1 %; HCT - HEMATOCRIT 35.2 % (37.0-47.0); HGB - HEMOGLOBIN 11.2 g/dL (12.0-16.0); LYMPHOCYTES # (AUTO) 1.6 10^3/uL (1.5-3.5); LYMPHOCYTES % (AUTO) 10.6 %; MEAN CORPUSCULAR HEMOGLOBIN 28.7 pg (27.0-31.0); MEAN CORPUSCULAR HGB CONC 31.8 g/dL (32.0-36.0); MEAN CORPUSCULAR VOLUME 90.3 fL (81.0-99.0); MEAN PLATELET VOLUME 8.5 fL (7.9-10.8); MONOCYTES # (AUTO) 0.9 10^3/uL (0.0-1.0); MONOCYTES % (AUTO) 6.2 %; NEUTROPHILS # (AUTO) 12.1 10^3/uL (1.5-6.6); NEUTROPHILS % (AUTO) 80.7 %; PLT - PLATELET COUNT 339 10^3/uL (130-450); RED CELL DISTRIBUTION WIDTH 16.6 % (12.0-15.0)
[2023-09-06 05:37] LABS: CREATININE 0.3 mg/dL (0.6-1.3); POTASSIUM 5.7 mmol/L (3.5-4.5)
[2023-09-06] MEDS: PANTOPRAZOLE 40 MG TABLET PO SCH (06:31)
[2023-09-06] MEDS: amLODIPine 5 MG TABLET PO SCH (08:50)
[2023-09-06] MEDS: ESCITALOPRAM 10 MG TABLET PO SCH (08:51)
[2023-09-06] MEDS: CLOPIDOGREL 75 MG TABLET PO SCH (08:52)
[2023-09-06] MEDS: ASPIRIN CHEW 81 MG TABLET PO SCH (08:53)
[2023-09-06] MEDS: PRENATAL VITAMIN TABLET PO SCH (08:54)
[2023-09-06] MEDS: SODIUM CHLORIDE FLUSH 0.9% 10 ML SYRINGE IVP SCH ×3 (08:54→16:17)
[2023-09-06] MEDS: SULFAMETH/TRIMETH DS 800/160 MG TABLET PO SCH ×2 (08:54→20:45)
--- NOTE | 2023-09-06 13:20 | PROVIDER PROGRESS NOTE ---
Progress Note September 06, 2023 1:15 PM No physical therapy today. They are not here on Sundays. She was seen yesterday and she was able to work on transfers, sit to stand with a walker and contact-guard assist mobility of 10 feet. After that 10 feet she was just too tired and said she did not want to do any more PT. They do feel she is progressing with her goals. Slightly confused but able to be prompted. She has a four-wheel walker and will need a front wheel walker. They do feel she needs to go to a long-term because she is below baseline and will need assistance with ADLs and mobility. Exam: Temperature 36.7, heart rate 104, blood pressure 161/98, respirations 18, 97% on room air. 5 foot 4 inches tall, 31.5 kg. Main impression is that of a very frail cachectic elderly female with markedly reduced muscle mass and a vague, hypophonic intonation when speaking. She is alert to person and situation But cannot keep track of the date Neck is supple Lungs have diminished breath sounds at the bases and are clear Regular rate and rhythm Abdomen is soft, nontender. Last bowel movement was today. She is incontinent and uses a pure wick catheter. Extremities without edema Laboratory Tests 09/06/23 05:11 Sodium 135 Potassium 5.7 H Chloride 104 Carbon Dioxide 27 Anion Gap 4.0 L BUN 5 L Creatinine 0.3 L Estimated GFR (MDRD) 216 Glucose 85 Calcium 8.0 L Assessment/plan Her reason for admission was metabolic encephalopathy secondary infection and severe sepsis. The infection source was UTI. Encephalopathy and sepsis criteria have resolved. 1. UTI with E. coli and Klebsiella and Proteus. Sensitivities have been reviewed and I stopped Rocephin and changing her to Bactrim double strength 09/04.. So she has completed 3 days of Rocephin and she will need 4 days of Bactrim for 8 more doses. As such last dose is September 08 in the morning. Today is Day #3 of the Bactrim. I am monitoring her for any setbacks. So far no fever, no change in white cell count. 2. Uncontrolled hypertension. She is not on medications on a regular basis. I started her on low-dose beta-hubert because she was slightly tachycardic and having a migraine headache. Metoprolol 25 mg p.o. twice daily has been started without much effect on the blood pressure. Pulse rate has come down into the 60s. In spite of adding metoprolol to control heart rate, which they then hoped would control her blood pressure, blood pressure still elevated. Not severely so. Heart rate is well-controlled. I added Norvasc 2.5 mg a day yesterday. She also got a dose today. Blood pressure is 154/83, 161/98. Plan: No change at this time. I will give the Norvasc for few more days before increasing dose 3. Migraine headache on September 03. Home medications resumed and headache res olved by September 03. 4. Hypokalemia. I gave her 40 mEq of potassium twice a day for 3 doses. Potassium was 3.2 with that. Potassium still low. I then gave her 40 mEq p.o. 3 times daily for [address] overshot my goal. So K is stopped. Plan: check K level this afternoon 5. Generalized weakness. This acute illness has resulted in almost a near bedbound status. She lives with her in their own home. She is usually independent enough to stand pivot and transfer to a chair, to a bathroom, and needs minimal help with d ressing. Can feed herself. At this time she fatigues very easily. There are no in-home caregivers. [facility]. She was reevaluated again 09/04 and the case was discussed with her , and he is aware she was too weak. Treatment 09/05 confirms need for SNF short term rehab. Today is avoidable day #1. This document was made in part using voice recognition software. While efforts are made to proofread this document, sound alike and grammatical errors may occur.
[2023-09-06] MEDS: SUMAtriptan 25 MG TABLET PO PRN (16:20)
[2023-09-06] MEDS: LORazepam 1 MG TABLET PO SCH (20:45)
[2023-09-06] MEDS: traZODone 50 MG TABLET PO SCH (20:45)
[2023-09-06] MEDS: ATORVASTATIN 40 MG TABLET PO SCH (20:45)
[2023-09-06] MEDS: MIRTAZAPINE 15 MG TABLET PO SCH (20:46)
[2023-09-07] MEDS: SODIUM CHLORIDE FLUSH 0.9% 10 ML SYRINGE IVP SCH ×4 (00:05→23:24)
[2023-09-07] MEDS: SODIUM CHLORIDE 0.9% 1,000 ML IV SCH ×3 (01:19→12:53)
[2023-09-07 05:45] LABS: BASOPHILS # (AUTO) 0.1 10^3/uL (0.0-0.1); BASOPHILS % (AUTO) 0.5 %; EOSINOPHILS # (AUTO) 0.2 10^3/uL (0.0-0.7); HCT - HEMATOCRIT 36.1 % (37.0-47.0); HGB - HEMOGLOBIN 11.4 g/dL (12.0-16.0); LYMPHOCYTES # (AUTO) 1.8 10^3/uL (1.5-3.5); LYMPHOCYTES % (AUTO) 12.5 %; MEAN CORPUSCULAR HEMOGLOBIN 28.1 pg (27.0-31.0); MEAN CORPUSCULAR HGB CONC 31.6 g/dL (32.0-36.0); MEAN CORPUSCULAR VOLUME 88.9 fL (81.0-99.0); MEAN PLATELET VOLUME 8.5 fL (7.9-10.8); MONOCYTES % (AUTO) 6.6 %; NEUTROPHILS # (AUTO) 11.3 10^3/uL (1.5-6.6); NEUTROPHILS % (AUTO) 78.7 %; PLT - PLATELET COUNT 367 10^3/uL (130-450); RED BLOOD COUNT 4.06 10^6/uL (4.20-5.40); RED CELL DISTRIBUTION WIDTH 16.2 % (12.0-15.0); WHITE BLOOD COUNT 14.3 x10^3/uL (4.8-10.8)
[2023-09-07] MEDS: PANTOPRAZOLE 40 MG TABLET PO SCH (06:10)
[2023-09-07 07:42] LABS: CALCIUM 8.4 mg/dL (8.5-10.3)
[2023-09-07 07:47] LABS: CREATININE 0.3 mg/dL (0.4-1.0); POTASSIUM 4.1 mmol/L (3.5-5.0)
[2023-09-07] MEDS: amLODIPine 5 MG TABLET PO SCH (12:43)
[2023-09-07] MEDS: SULFAMETH/TRIMETH DS 800/160 MG TABLET PO SCH ×2 (13:46→23:04)
[2023-09-07] MEDS: CLOPIDOGREL 75 MG TABLET PO SCH (13:46)
[2023-09-07] MEDS: ESCITALOPRAM 10 MG TABLET PO SCH (13:46)
--- NOTE | 2023-09-07 15:26 | PROVIDER PROGRESS NOTE ---
Progress Note I stopped potassium supplementation yesterday because her potassium was now normal after getting 40 mEq 3 times a day. Today's potassium is normal. No new events for this elderly lady. Vital signs have been stable. No fevers. She denies cough, chest pain, abdominal pain. Exam: Temperature is 36.4, heart rate 52, blood pressure 145/80, respirations 16, 98% on room air 5 foot 4 inch female at 31.5 kg. BMI is 11.9. She is a thin, malnourished appearing elderly female with her profound cachexia. Withdrawn emotional affect but is alert and oriented to person, place, and situation. She is forgetful. Neck is supple Lungs are clear to auscultation and percussion with diminished breath sounds at the bases. But she does not have any tachypnea or increased respiratory effort. She is comfortable. No crackles rhonchi or wheezing. Regular rate and rhythm Abdomen is soft, nontender, normal bowel sounds. Last bowel movement was yesterday. She is incontinent of urine and uses a pure wick catheter. Extremities do not have any edema. Notable for profound loss of muscle mass. Neurologically although she is alert and oriented to person place and time, she can be forgetful. She has a sad withdrawn affect and occasionally becomes more cheerful when discussing going home. No focal deficits. Just generalized weakness. She is working with rehab. Unfortunately rehab has not been able to see her September 06 or September 07 due to scheduling of the department. Her mobility has been improving during her stay and she is not able to transfer from supine to sitting and ambulating 10 feet. But she has moderate fatigue with just that 10 feet. Needs to rest. She is below baseline endurance and mobility. Lab: Sodium 134. Potassium 4.1. BUN 6, creatinine 0.3. Glucose 81. Calcium 8.4. White cell count has been continuously elevated during her stay. However when she was admitted she was 23.9. It got down as low as 11.9 on September 05. She is currently 14.3. No left shift. Hemoglobin 11.4, hematocrit 36.1. Platelet 367. Blood cultures September 01 are still negative Urine culture from September 01 has E. coli, Klebsiella and Proteus Assessment/plan Her reason for admission was metabolic encephalopathy secondary infection and severe sepsis. The infection source was UTI. Encephalopathy and sepsis criteria have resolved. 1. UTI with E. coli and Klebsiella and Proteus. Sensitivities have been reviewed and I stopped Rocephin and changing her to Bactrim double strength 09/04.. So she has completed 3 days of Rocephin and she will need 4 days of Bactrim with last dose to be September 08 in the morning. I am monitoring her for any setbacks. So far no fever, no change in white cell count. 2. Uncontrolled hypertension. She is not on medications on a regular basis. I started her on low-dose beta-hubert because she was slightly tachycardic and having a migraine headache. Metoprolol 25 mg p.o. twice daily has been started without much effect on the blood pressure. Pulse rate has come down into the 60s. In spite of adding metoprolol to control heart rate, which I then hoped would control her blood pressure, blood pressure still elevated. Not severely so. Heart rate is well-controlled. I added Norvasc 2.5 mg a day 09/05. Blood pressure is 131/84, 145/80 today. This is an improvement and that she was in the 150s and 160s yesterday. Plan: No change at this time. I will give the Norvasc for few more days before increasing dose 3. Migraine headache on September 03. Home medications resumed and headache resolved by September 03. 4. Hypokalemia. I gave her 40 mEq of potassium twice a day for 3 doses. Potassium was 3.2 with that. Potassium still low. I then gave her 40 mEq p.o. 3 times daily for 3 doses and 09/06 she was over 5 so So K is stopped. Recheck of potassium in the afternoon was 4.1 yesterday. This morning she is still 4.1. Plan: Monitor potassium daily but no supplementation at this time 5. Generalized weakness. This acute illness has resulted in almost a near bedbound status. She lives with her in their own home. She is usually independent enough to stand pivot and transfer to a chair, to a bathroom, and needs minimal help with dressing. Can feed herself. At this time she fatigues very easily. There are no in-home caregivers. Physical therapy is recommending half-way facility for placement. She was reevaluated again 09/04 and the case was discussed with her , and he is aware she was too weak. Treatment 09/05 confirms need for SNF short term rehab. Today is avoidable day #2. 6. Severe protein calorie malnutrition This is due to significant muscle wasting, loss of subcutaneous fat. She had less than 50% recommended intake for 2 weeks or more. BMI is 11.9 which is 30% of recommended body weight for her height. In the past 34 years she usually weighed 99 pounds. She now weighs 70 pounds. Plan: IV fluids have been at 125 cc an hour of 0.9 normal saline. That was present since admission. I will stop IV fluids and encourage oral p.o. intake. Will continue her on her vitamin, ferrous sulfate and nutrition services to work on improving her dietary intake. This document was made in part using voice recognition software. While efforts are made to proofread this document, sound alike and grammatical errors may occur.
[2023-09-07] MEDS: PRENATAL VITAMIN TABLET PO SCH (15:41)
[2023-09-07] MEDS: FERROUS SULFATE 325 MG TABLET PO SCH (15:41)
[2023-09-07] MEDS: ASPIRIN CHEW 81 MG TABLET PO SCH (15:41)
[2023-09-07] MEDS: traZODone 50 MG TABLET PO SCH ×2 (23:03→23:23)
[2023-09-07] MEDS: MIRTAZAPINE 15 MG TABLET PO SCH ×2 (23:04→23:23)
[2023-09-07] MEDS: ATORVASTATIN 40 MG TABLET PO SCH (23:04)
[2023-09-07] MEDS: LORazepam 1 MG TABLET PO SCH (23:10)
[2023-09-08] MEDS: HYDROcod/ACETAM 7.5 MG/325 MG TABLET PO PRN ×4 (03:54→22:56)
[2023-09-08] MEDS: PANTOPRAZOLE 40 MG TABLET PO SCH (05:32)
[2023-09-08 05:33] LABS: BASOPHILS # (AUTO) 0.1 10^3/uL (0.0-0.1); BASOPHILS % (AUTO) 0.5 %; EOSINOPHILS # (AUTO) 0.1 10^3/uL (0.0-0.7); EOSINOPHILS % (AUTO) 0.6 %; HCT - HEMATOCRIT 33.8 % (37.0-47.0); HGB - HEMOGLOBIN 10.8 g/dL (12.0-16.0); LYMPHOCYTES # (AUTO) 2.1 10^3/uL (1.5-3.5); LYMPHOCYTES % (AUTO) 11.9 %; MEAN CORPUSCULAR HEMOGLOBIN 28.3 pg (27.0-31.0); MEAN CORPUSCULAR VOLUME 88.7 fL (81.0-99.0); MEAN PLATELET VOLUME 8.6 fL (7.9-10.8); MONOCYTES # (AUTO) 1.1 10^3/uL (0.0-1.0); MONOCYTES % (AUTO) 6.6 %; NEUTROPHILS # (AUTO) 13.7 10^3/uL (1.5-6.6); NEUTROPHILS % (AUTO) 79.6 %; PLT - PLATELET COUNT 373 10^3/uL (130-450); RED BLOOD COUNT 3.81 10^6/uL (4.20-5.40); RED CELL DISTRIBUTION WIDTH 16.1 % (12.0-15.0); WHITE BLOOD COUNT 17.2 x10^3/uL (4.8-10.8)
[2023-09-08] MEDS: ASPIRIN CHEW 81 MG TABLET PO SCH (08:11)
[2023-09-08] MEDS: PRENATAL VITAMIN TABLET PO SCH (08:12)
[2023-09-08] MEDS: SULFAMETH/TRIMETH DS 800/160 MG TABLET PO SCH ×2 (08:12→22:57)
[2023-09-08] MEDS: amLODIPine 5 MG TABLET PO SCH (08:12)
[2023-09-08] MEDS: CLOPIDOGREL 75 MG TABLET PO SCH (08:12)
[2023-09-08] MEDS: SODIUM CHLORIDE FLUSH 0.9% 10 ML SYRINGE IVP SCH ×2 (08:13→17:25)
[2023-09-08] MEDS: ESCITALOPRAM 10 MG TABLET PO SCH (08:13)
[2023-09-08] MEDS: polyethylene glycoL 3350 17 GM PACKET PO SCH (08:59)
[2023-09-08] MEDS ORDERED: SIMETHICONE CHEW 80 MG TABLET PO PRN (09:20)
[2023-09-08] MEDS: SUMAtriptan 25 MG TABLET PO PRN (14:31)
--- NOTE | 2023-09-08 15:20 | PROVIDER PROGRESS NOTE ---
Assessment/Plan - Problem List (1) UTI (urinary tract infection) Assessment/Plan: Cultures grew E. coli and Klebsiella and Proteus. Sensitivities were reviewed and her Rocephin was stopped and changing to Bactrim DS on 09/04. Her white cell count Has been up and down since admission 16 to 13 to 11 to 15 t o 14 and today is 17. Plan: She will be on Bactrim with last dose to be September 08 this morning. Cont to monitor her WBC 2. Hypertension. She was not on medications on a regular basis. We started her on low-dose beta- hubert because she was slightly tachycardic and having a migraine headache. Metoprolol 25 mg p.o. twice daily, was started without much effect on the blood pressure. Pulse rate came down into the 60s. Then added Norvasc 2.5 mg a day on 09/05. Blood pressure improved. Today BP was 126/76 Plan: Cont present meds 3. Generalized weakness. This acute illness has resulted in almost a near bedbound status. She lives with her in their own home. She is usually independent enough to stand pivot and transfer to a chair, to a bathroom, and needs minimal help with dressing. Usually she can feed herself. Now she fatigues very easily. There are no in-home caregivers. Physical therapy is recommending group home facility for placement. She was reevaluated again 09/04 and the case was discussed with her , and he is aware she was too weak. Treatment 09/05 confirms need for SNF short term rehab. Plan: We are awaiting authorization for her to be discharged to SNF for rehab 4. Severe protein calorie malnutrition BMI is 11.9 which is 30% of recommended body weight for her height. In the past few years she usually weighed 99 pounds. She now weighs 70 pounds. This is due to significant muscle wasting, loss of subcutaneous fat. She had less than 50% recommended intake for 2 weeks or more. Plan: I will check her iron stores, B12 and folate levels. Continue her on her vitamin, ferrous sulfate, and nutrition services to work on improving her dietary intake. 5. Hypomagnesemia On 09/01, her Mg was 1.3. There have been no Mg labs rechecked since then Plan: Check magnesium level, replace if low 6. Hypokalemia RESOLVED She has needed a lot of potassium replacement, several times a day, since being admitted. Yesterday her K was 4.1, no BMP ordered for today Plan: Monitor potassium daily 7. Migraine headache RESOLVED She had migraine on September 03. Home medications resumed and headache resolved by September 03. - Current Meds Current Meds: Current Medications Generic Name Dose Route Start Last Admin Trade Name Ankit PRN Reason Stop Dose Admin Hydrocodone Bitart/Acetaminophen 1 tab 09/02/23 15:53 09/08/23 08:11 Hydrocod/Acetam 7.5 Mg/325 Mg Tablet PO 1 tab TID PRN Administration PAIN 5-7 Amlodipine Besylate 2.5 mg 09/05/23 15:30 09/08/23 08:12 Amlodipine 5 Mg Tablet PO 2.5 mg DAILY KIMBERLI Administration Aspirin 81 mg 09/03/23 09:00 09/08/23 08:11 Aspirin Chew 81 Mg Tablet PO 81 mg DAILY KIMBERLI Administration Atorvastatin Calcium 40 mg 09/02/23 21:00 09/07/23 23:04 Atorvastatin 40 Mg Tablet PO Not Given QPM KIMBERLI Clopidogrel Bisulfate 75 mg 09/03/23 09:00 09/08/23 08:12 Clopidogrel 75 Mg Tablet PO 75 mg DAILY KIMBERLI Administration Escitalopram Oxalate 20 mg 09/03/23 09:00 09/08/23 08:13 Escitalopram 10 Mg Tablet PO 20 mg DAILY KIMBERLI Administration Ferrous Sulfate 325 mg 09/03/23 08:00 09/07/23 15:41 Ferrous Sulfate 325 Mg Tablet PO Not Given Q48H KIMBERLI Lorazepam 1 mg 09/02/23 21:00 09/07/23 23:10 Lorazepam 1 Mg Tablet PO 1 mg QPM KIMBERLI Administration Mirtazapine 7.5 mg 09/02/23 21:00 09/07/23 23:23 Mirtazapine 15 Mg Tablet PO Not Given QPM KIMBERLI Ondansetron HCl 4 mg 09/01/23 23:42 09/07/23 10:00 Ondansetron 4 Mg/2 Ml Vial IVP 4 mg Q6HR PRN Administration Nausea / Vomiting Pantoprazole Sodium 40 mg 09/03/23 07:00 09/08/23 05:32 Pantoprazole 40 Mg Tablet PO 40 mg QDAC KIMBERLI Administration Polyethylene Glycol 17 gm 09/08/23 09:00 09/08/23 08:59 Polyethylene Glycol 3350 17 Gm Packet PO 17 gm DAILY KIMBERLI Administration Multivit/Folic Acid/Iron 1 tab 09/03/23 08:00 09/08/23 08:12 Vitamin Tablet PO 1 tab DAILYWM KIMBERLI Administration Sodium Chloride 10 ml 09/02/23 01:00 09/08/23 08:13 Sodium Chloride Flush 0.9% 10 Ml Syringe IVP 10 ml 0100,0900,1700 KIMBERLI Administration Sumatriptan Succinate 25 mg 09/02/23 15:53 09/08/23 14:31 Sumatriptan 25 Mg Tablet PO 25 mg DAILY PRN Administration HEADACHE Trazodone HCl 200 mg 09/02/23 21:00 09/07/23 23:23 Trazodone 50 Mg Tablet PO Not Given QPM KIMBERLI Trimethoprim/Sulfamethoxazole 1 tab 09/04/23 09:00 09/08/23 08:12 Sulfameth/Trimeth Ds 800/160 Mg Tablet PO 1 tab BID KIMBERLI Administration - Lab Result Fish Bone Diagrams: 09/08/23 05:22 09/07/23 05:22 - Additional Planning My Orders: My Active Orders 09/08/23 09:20 Simethicone [Mylicon] 80 mg PO 0900,1300,1800,2100 PRN Subjective - Subjective Patient Reports: Resting Comfortably, No Complaints Objective Vital Signs: Vital Signs - 24 hr 09/07/23 09/07/23 09/08/23 15:37 23:32 07:25 Temperature 36.4 C L 37.4 C 36.8 C Heart Rate [ 93 83 Brachial] Heart Rate [ 103 H Radial] Respiratory 18 18 16 Rate Blood Pressure 165/78 H 150/72 H 126/74 [Right Brachial artery] O2 Saturation 98 95 95 Oxygen O2 Source Room air I&O (Last 24 Hrs): Intake and Output Totals x24h 09/06/23 09/07/23 09/08/23 23:59 23:59 23:59 Intake Total 3131.667 2515.833 680 Output Total 4500 2150 650 Balance -1368.333 365.833 30 General: Other (Cachexia) HEENT: Mucous membr. moist/pink, Other (Sunken eyes) Neck: Supple Neuro: Non Focal Cardiovascular: Regular rate Respiratory: No respiratory distress Abdomen: Soft Extremities: No clubbing, No edema - Results Results: Laboratory Results WBC 17.2 x10^3/uL (4.8-10.8) H 09/08/23 05:22 RBC 3.81 10^6/uL (4.20-5.40) L 09/08/23 05:22 Hgb 10.8 g/dL (12.0-16.0) L 09/08/23 05:22 Hct 33.8 % (37.0-47.0) L 09/08/23 05:22 MCV 88.7 fL (81.0-99.0) 09/08/23 05:22 MCH 28.3 pg (27.0-31.0) 09/08/23 05:22 MCHC 32.0 g/dL (32.0-36.0) 09/08/23 05:22 RDW 16.1 % (12.0-15.0) H 09/08/23 05:22 Plt Count 373 10^3/uL (130-450) 09/08/23 05:22 MPV 8.6 fL (7.9-10.8) 09/08/23 05:22 Neut # (Auto) 13.7 10^3/uL (1.5-6.6) H 09/08/23 05:22 Lymph # (Auto) 2.1 10^3/uL (1.5-3.5) 09/08/23 05:22 [place] # (Auto) 1.1 10^3/uL (0.0-1.0) H 09/08/23 05:22 Eos # (Auto) 0.1 10^3/uL (0.0-0.7) 09/08/23 05:22 Baso # (Auto) 0.1 10^3/uL (0.0-0.1) 09/08/23 05:22 Absolute Nucleated RBC 0.00 x10^3/uL 09/08/23 05:22 Total Counted 100 09/01/23 18:17 Band Neuts % (Manual) 1 % (0-10) 09/01/23 18:17 Reactive Lymphs % (Man) 7 % 09/01/23 18:17 Abnorm Lymph % (Manual) 0 % 09/01/23 18:17 Metamyelocytes % 1 % (-0) H 09/01/23 18:17 Nucleated RBC % 0.0 /100WBC 09/08/23 05:22 Neutrophils # (Manual) 20.3 10^3/uL (1.5-6.6) H 09/01/23 18:17 Lymphocytes # (Manual) 2.9 10^3/uL (1.5-3.5) 09/01/23 18:17 Monocytes # (Manual) 0.5 10^3/uL (0.0-1.0) 09/01/23 18:17 Eosinophils # (Manual) 0.0 10^3/uL (0-0.7) 09/01/23 18:17 Basophils # (Manual) 0.0 10^3/uL (0-0.1) 09/01/23 18:17 Differential Comment MANUAL DIFFERENTIAL 09/01/23 18:17 Platelet Estimate NORMAL (130-450,000) (NORMAL) 09/01/23 18:17 Platelet Morphology NORMAL APPEARANCE (NORMAL) 09/01/23 18:17 RBC Morph Micro Appear 2+ ANISOCYTOSIS (NORMAL) 09/01/23 18:17 PT 13.1 secs (9.9-12.6) H 09/01/23 18:17 INR 1.2 (0.8-1.2) 09/01/23 18:17 VBG pH 7.370 (7.31-7.41) 09/01/23 18:24 VBG pCO2 48.8 mmHg (41-51) 09/01/23 18:24 VBG pO2 30.7 mmHg (25-47) 09/01/23 18:24 VBG HCO3 27.6 mmol/L (23-28) 09/01/23 18:24 VBG Total CO2 29.1 mmol/L (24-29) H 09/01/23 18:24 VBG O2 Saturation 60.1 % (60-80) 09/01/23 18:24 VBG Base Excess 1.5 mmol/L (-2 - +2) 09/01/23 18:24 Sodium 134 mmol/L (135-145) L 09/07/23 05:22 Potassium 4.1 mmol/L (3.5-5.0) 09/07/23 05:22 Chloride 102 mmol/L (101-111) 09/07/23 05:22 Carbon Dioxide 27 mmol/L (21-32) 09/07/23 05:22 Anion Gap 5.0 (6-13) L 09/07/23 05:22 BUN 6 mg/dL (6-20) 09/07/23 05:22 Creatinine 0.3 mg/dL (0.4-1.0) L 09/07/23 05:22 Estimated GFR (MDRD) 216 (>89) 09/07/23 05:22 Glucose 81 mg/dL (74-104) 09/07/23 05:22 POC Whole Bld Glucose 96 mg/dL (70 - 100) 09/02/23 00:47 Lactic Acid 0.5 mmol/L (0.5-2.2) 09/02/23 06:25 Calcium 8.4 mg/dL (8.5-10.3) L 09/07/23 05:22 Phosphorus 2.8 mg/dL (2.5-5.0) 09/01/23 18:17 Magnesium 1.3 mg/dL (1.7-2.3) L 09/01/23 18:17 Total Bilirubin 0.5 mg/dL (0.2-1.0) 09/01/23 18:17 AST 11 IU/L (10-42) 09/01/23 18:17 ALT 8 IU/L (10-60) L 09/01/23 18:17 Alkaline Phosphatase 130 IU/L (42-121) H 09/01/23 18:17 Total Protein 6.1 g/dL (6.4-8.9) L 09/01/23 18:17 Albumin 3.0 g/dL (3.2-5.5) L 09/01/23 18:17 Globulin 3.1 g/dL (2.1-4.2) 09/01/23 18:17 Albumin/Globulin Ratio 1.0 (1.0-2.2) 09/01/23 18:17 Lipase < 10 U/L (11-82) L 09/01/23 18:17 Urine Color BROWN 09/01/23 19:20 Urine Clarity CLOUDY (CLEAR) 09/01/23 19:20 Urine pH 6.0 PH (5.0-7.5) 09/01/23 19:20 Ur Specific [place] 1.025 (1.002-1.030) 09/01/23 19:20 Urine Protein 100 mg/dL (NEGATIVE) H 09/01/23 19:20 Urine Glucose (UA) NEGATIVE mg/dL (NEGATIVE) 09/01/23 19:20 Urine Ketones NEGATIVE mg/dL (NEGATIVE) 09/01/23 19:20 Urine Occult Blood LARGE (NEGATIVE) H 09/01/23 19:20 Urine Nitrite POSITIVE (NEGATIVE) H 09/01/23 19:20 Urine Bilirubin NEGATIVE (NEGATIVE) 09/01/23 19:20 Urine Urobilinogen 0.2 (NORMAL) E.U./dL (NORMAL) 09/01/23 19:20 Ur Leukocyte Esterase TRACE (NEGATIVE) H 09/01/23 19:20 Urine RBC TNTC /HPF (0-5) H 09/01/23 19:20 Urine WBC 6-10 /HPF (0-5) H 09/01/23 19:20 Ur Squamous Epith Cells RARE Squamous (<= Few) 09/01/23 19:20 Urine Bacteria Many /HPF (None Seen) H 09/01/23 19:20 Ur Microscopic Review INDICATED 09/01/23 19:20 Urine Culture Comments INDICATED 09/01/23 19:20 Nasal Adenovirus (PCR) NOT DETECTED 09/01/23 18:30 Nasal B. parapertussis DNA (PCR) NOT DETECTED 09/01/23 18:30 Nasal Coronavir 229E PCR NOT DETECTED 09/01/23 18:30 Nasal Coronavir HKU1 PCR NOT DETECTED 09/01/23 18:30 Nasal Coronavir NL63 PCR NOT DETECTED 09/01/23 18:30 Nasal Coronavir OC43 PCR NOT DETECTED 09/01/23 18:30 Nasal Enterovir/Rhinovir PCR NOT DETECTED 09/01/23 18:30 Nasal Influenza B PCR NOT DETECTED 09/01/23 18:30 Nasal Influenza A PCR NOT DETECTED 09/01/23 18:30 Nasal Parainfluen 1 PCR NOT DETECTED 09/01/23 18:30 Nasal Parainfluen 2 PCR NOT DETECTED 09/01/23 18:30 Nasal Parainfluen 3 PCR NOT DETECTED 09/01/23 18:30 Nasal Parainfluen 4 PCR NOT DETECTED 09/01/23 18:30 Nasal RSV (PCR) NOT DETECTED 09/01/23 18:30 Nasal B.pertussis DNA PCR NOT DETECTED 09/01/23 18:30 Nasal C.pneumoniae (PCR) NOT DETECTED 09/01/23 18:30 Chris Human Metapneumo PCR NOT DETECTED 09/01/23 18:30 Nasal M.pneumoniae (PCR) NOT DETECTED 09/01/23 18:30 Nasal SARS-CoV-2 (PCR) NOT DETECTED 09/01/23 18:30 Stl C. diff Tox B Gene NEGATIVE (NEGATIVE) 09/01/23 19:20 Salicylates < 1.5 mg/dL 09/01/23 18:17 Urine Opiates Screen POSITIVE (NEGATIVE) H 09/01/23 19:20 Ur Oxycodone Screen NEGATIVE (NEGATIVE) 09/01/23 19:20 Urine Methadone Screen NEGATIVE (NEGATIVE) 09/01/23 19:20 Ur Propoxyphene Screen NEGATIVE (NEGATIVE) 09/01/23 19:20 Acetaminophen 0.5 ug/mL 09/01/23 18:17 Ur Barbiturates Screen NEGATIVE (NEGATIVE) 09/01/23 19:20 Ur Tricyclics Screen NEGATIVE (NEGATIVE) 09/01/23 19:20 Ur Phencyclidine Scrn NEGATIVE (NEGATIVE) 09/01/23 19:20 Ur Amphetamine Screen NEGATIVE (NEGATIVE) 09/01/23 19:20 U Methamphetamines Scrn NEGATIVE (NEGATIVE) 09/01/23 19:20 U Benzodiazepines Scrn NEGATIVE (NEGATIVE) 09/01/23 19:20 Urine Cocaine Screen NEGATIVE (NEGATIVE) 09/01/23 19:20 U Cannabinoids Screen NEGATIVE (NEGATIVE) 09/01/23 19:20 Ethyl Alcohol < 10.0 mg/dL 09/01/23 18:17
[2023-09-08] MEDS: traZODone 50 MG TABLET PO SCH (22:57)
[2023-09-08] MEDS: LORazepam 1 MG TABLET PO SCH (22:57)
[2023-09-08] MEDS: MIRTAZAPINE 15 MG TABLET PO SCH (22:57)
[2023-09-08] MEDS: ATORVASTATIN 40 MG TABLET PO SCH (22:58)
[2023-09-09] MEDS: SODIUM CHLORIDE FLUSH 0.9% 10 ML SYRINGE IVP SCH ×2 (02:35→08:09)
[2023-09-09] MEDS: PANTOPRAZOLE 40 MG TABLET PO SCH (05:24)
[2023-09-09 06:01] LABS: BASOPHILS # (AUTO) 0.1 10^3/uL (0.0-0.1); BASOPHILS % (AUTO) 0.8 %; EOSINOPHILS # (AUTO) 0.1 10^3/uL (0.0-0.7); EOSINOPHILS % (AUTO) 1.3 %; HCT - HEMATOCRIT 32.1 % (37.0-47.0); HGB - HEMOGLOBIN 10.2 g/dL (12.0-16.0); LYMPHOCYTES # (AUTO) 2.1 10^3/uL (1.5-3.5); LYMPHOCYTES % (AUTO) 21.2 %; MEAN CORPUSCULAR HEMOGLOBIN 28.4 pg (27.0-31.0); MEAN CORPUSCULAR HGB CONC 31.8 g/dL (32.0-36.0); MEAN CORPUSCULAR VOLUME 89.4 fL (81.0-99.0); MONOCYTES # (AUTO) 0.8 10^3/uL (0.0-1.0); MONOCYTES % (AUTO) 7.6 %; NEUTROPHILS # (AUTO) 6.7 10^3/uL (1.5-6.6); NEUTROPHILS % (AUTO) 68.1 %; PLT - PLATELET COUNT 359 10^3/uL (130-450); RED BLOOD COUNT 3.59 10^6/uL (4.20-5.40); RED CELL DISTRIBUTION WIDTH 16.1 % (12.0-15.0); WHITE BLOOD COUNT 9.8 x10^3/uL (4.8-10.8)
[2023-09-09 06:22] LABS: CHOL/HDL RATIO 2.6 (<4.4); CHOLESTEROL 95 mg/dL; HDL CHOLESTEROL 36 mg/dL; LDL CHOLESTEROL,CALCULATED 43 mg/dL; LDL/HDL RATIO 1.2 (<4.4); TRIGLYCERIDES 80 mg/dL (48-352); VLDL CHOLESTEROL 16 mg/dL
[2023-09-09 06:40] LABS: CALCIUM 8.6 mg/dL (8.5-10.3); CREATININE 0.5 mg/dL (0.6-1.3); MAGNESIUM 1.1 mg/dL (1.7-2.3); POTASSIUM 3.6 mmol/L (3.5-4.5)
[2023-09-09] MEDS: SULFAMETH/TRIMETH DS 800/160 MG TABLET PO SCH (08:07)
[2023-09-09] MEDS: PRENATAL VITAMIN TABLET PO SCH (08:07)
[2023-09-09] MEDS: FERROUS SULFATE 325 MG TABLET PO SCH (08:07)
[2023-09-09] MEDS: polyethylene glycoL 3350 17 GM PACKET PO SCH (08:07)
[2023-09-09] MEDS ORDERED: MAGNESIUM SULFATE 2 GRAM 2 GM/50 ML BAG IV ONE (08:08)
[2023-09-09] MEDS: ESCITALOPRAM 10 MG TABLET PO SCH (08:08)
[2023-09-09] MEDS: amLODIPine 5 MG TABLET PO SCH (08:08)
[2023-09-09] MEDS: ASPIRIN CHEW 81 MG TABLET PO SCH (08:08)
[2023-09-09] MEDS: CLOPIDOGREL 75 MG TABLET PO SCH (08:09)
[2023-09-09 08:27] VITALS: BP 138/92; O2SAT 95
[2023-09-09] MEDS ORDERED: ENOXAPARIN 40 MG/0.4 ML SYRINGE SUBQ SCH (09:00)
--- NOTE | 2023-09-09 11:49 | Discharge Plan ---
"Discharge Plan for SNF / [facility] - Discharge Plan And Transition Orders Problem Reviewed?: Yes Disposition: 03 SNF DC/Xfer Condition: Fair Allergies and Adverse Reactions: Allergies Allergy/AdvReac Type Severity Reaction Status Date / Time vancomycin Allergy Severe Anaphylaxis Verified 01/02/23 13:13 codeine Allergy Intermediate Hallucinati Verified 01/02/23 13:13 ons levofloxacin [From Levaquin] Allergy Unknown Verified 01/02/23 13:13 lithium Allergy Anaphylaxis Verified 01/02/23 13:13 Health Concerns: Patient was admitted with weakness and obtundation due to sepsis from a UTI. The UTI treatment has been completed. She needed meds adjusted for hypertension. She is cachectic. She requires dietary supplements and needs PT and OT rehab, due to generalized weakness. Plan of Treatment: As above. Care Goals: Improvement in symptoms and stabilization are the goals. Assessment: The patient understands and is agreeable with the plan. - SNF / [facility] Transition Orders Admit to (Facility): [facility] Under the care of (Name): Dr. Tristan Camara Discharge Diagnosis: (1) UTI (urinary tract infection) Treatment completed (2) Hypertension. Stable on present meds (3) Generalized weakness. Needs PT and OT rehab (4) Severe protein calorie malnutrition Her BMI is 11.9. Her statin med was stopped. She needs supplements. (5) Hypomagnesemia She has needed Mg replacement (6) Hypokalemia Resolved with replacement (7) Migraine headache Home medications resumed and headache resolved Medicare Certification Statement: I certify that [facility] care is medically necessary on a continuing basis for any of the conditions for which she/he is receiving care during hospitalization. Notify PCP of admission and forward orders to primary provider for signature. Weight on admission and: Weekly Other Notification Orders: Call PCP immediately if patient develops dyspnea, chest pain/tightness or edema. House Bowel Program: Yes Additional Bowel Program Orders: If no BM after 2 days, nurse may give M.O.M. 30ml PO PRN and/or ducolax Supp 1 TN and/or MELIDA 250mg P.O., and/or senna 1-2 tabs PO. On day 3 nurse may give repeat above order until residents constipation is resolved. Annual Influenza Vaccine (between Jun 12 and January 09): Yes Two-step PPD per WAC [id number] or approved exception documents: Yes Treatments & Other Orders: Daily PT and OT rehab Medication Orders: PLEASE REFER TO THE DISCHARGE MEDICATION LIST. Insulin Orders?: No - Medications New Prescriptions: Magnesium Oxide [Mag Ox] 400 mg PO DAILY #30 tab - Diet Type: Geriatric Texture: Regular Liquids: Thin Supplements: 4 oz high protein drink twice a day May have monthly special meal: Yes - Therapies | Activity Therapy: Evaluation | Treat if indicated: PT, OT Rehabilitation Potential: Maximize functional status Activity: Activity as Tolerated Weight Bearing: Full Weight Assistance Devices: Walker Follow Up: See PCP after discharge from SNF."
[2023-09-09] MEDS ORDERED: MAGNESIUM OXIDE 400 MG TABLET PO SCH (12:00)
--- NOTE | 2023-09-09 12:02 | DISCHARGE SUMMARY ---
Discharge Summary Admit Date: 09/01/23 Discharge Date: 09/09/23 Discharging Provider: Dr Maegan Wen Primary Care Provider: Dr Tristan Camara Code Status: Attempt Resuscitation Condition at Discharge: Fair Discharge Disposition: SNF DC/Xfer - HPI History of Present Illness: 78 y old female with PMH COPD, diverticulitis, migraines, brought in to ER due to AMS which started at 1 pm today. Pt is not able to provide any history, so most of history is from the ER physician On presentation, pt was tachycardic, afebrile, lethargic. She is cachectic. Labs showed WBC 23, with left shift, lactic acid 2.6, abn U/A. CT head showed no acute findings. CT abdomen/pelvis showed no acute findings In ER, pt was given IVF, IV abx started afyer cx obtained. Pt is admitted to Hospitalist service due to AMS, Acute encephalopathy, severe sepsis, UTI. - HOSPITAL COURSE Hospital Course: 1. UTI (urinary tract infection) Cultures grew E. coli and Klebsiella and Proteus. Sensitivities were reviewed and her Rocephin was stopped and changing to Bactrim DS on 09/04. her WBC was up and down after admission. She completed her entire course of antibiotics here. 2. Hypertension. She was not on medications on a regular basis. We started her on low-dose beta-hubert because she was slightly tachycardic and having a migraine headache. Metoprolol 25 mg p.o. twice daily was started. Then we added Norvasc 2.5 mg a day which helped. 3. Generalized weakness. This acute illness resulted in almost a near bedbound status. Pre-admission, she lived with her in their own home. She was independent enough to stand, pivot and transfer to a chair, to a bathroom toilet, and needed minimal help with dressing, and could feed herself. Now she fatigued very easily. There are no in-home caregivers. Physical therapy recommended rehab at a retirement facility and she was discharged to [facility]. 4. Severe protein calorie malnutrition Her BMI is 11.9. This is 30% of recommended body weight for her height. In the past few years she usually weighed 99 pounds. She now weighs 70 pounds. This is due to significant muscle wasting, loss of subcutaneous fat. She had less than 50% recommended intake for 2 weeks or more. Her lipid results were all low, thus her statin medication was stopped. She was dsicharged on vitamin, ferrous sulfate and nuytritional supplements. 5. Hypomagnesemia She needed replacement 6. Hypokalemia She needed alot of potassium replacement while here. 7. Migraine headache She had migraine on September 03. Home medications were resumed and headache resolved - ALLERGIES Allergies/Adverse Reactions: Allergies Allergy/AdvReac Type Severity Reaction Status Date / Time vancomycin Allergy Severe Anaphylaxis Verified 01/02/23 13:13 codeine Allergy Intermediate Hallucinati Verified 01/02/23 13:13 ons levofloxacin [From Levaquin] Allergy Unknown Verified 01/02/23 13:13 lithium Allergy Anaphylaxis Verified 01/02/23 13:13 - MEDICATIONS Home Medications: Ambulatory Orders Medication Instructions Recorded Confirmed SUMAtriptan [Imitrex] 25 mg PO DAILY PRN 03/30/17 09/01/23 Clopidogrel [Plavix] 75 mg PO DAILY 09/01/23 09/01/23 No122/Iron/Folic Acid 1 each PO DAILY 09/01/23 09/01/23 [ Multi Tablet] Tiotropium [place] [Spiriva 2 puffs INH DAILY 09/01/23 09/02/23 Respimat] Albuterol Sulf [Ventolin Hfa 2 puffs INH Q4H PRN 09/02/23 09/02/23 Inhaler] Aspirin Chewable [[place] 81 mg PO DAILY 09/02/23 09/02/23 Aspirin] Escitalopram Oxalate 20 mg PO DAILY 09/02/23 09/02/23 Ferrous Sulfate [Feosol] 325 mg PO Q48H 09/02/23 09/02/23 HYDROcodone/ACET 7.5/325 [[place] 1 tab PO TID PRN 09/02/23 09/02/23 7.5/325] LORazepam [Ativan] 1 mg PO QPM 09/02/23 09/02/23 Loperamide [Imodium] 2 mg PO BID 09/02/23 09/02/23 Mirtazapine 7.5 mg PO QPM 09/02/23 09/02/23 Pantoprazole [Protonix] 40 mg PO QDAC 09/02/23 09/02/23 Trazodone HCl 200 mg PO QPM 09/02/23 09/02/23 Zolpidem [Ambien] 5 mg PO QPM PRN 09/02/23 09/02/23 guaiFENesin [Guaifenesin ER] 600 mg PO BID 09/02/23 09/02/23 oxyCODONE [Roxicodone] 5 mg PO DAILY PRN 09/02/23 09/02/23 Magnesium Oxide [Mag Ox] 400 mg PO DAILY #30 tab 09/09/23 - PHYSICAL EXAM AT DISCHARGE General Appearance: positive: No acute distress, Alert, Other (Cachctic, sunken eyes, skin tenting.) Eyes Bilateral: positive: No lid inflammation ENT: positive: ENT inspection nml, No signs of dehydration Neck: positive: Other (Emaciated) Respiratory: positive: No respiratory distress, Breath sounds nml Cardiovascular: positive: Regular rate & rhythm, No murmur Abdomen: positive: Non-tender, No distention Skin: positive: Warm, Dry Extremities: positive: Non-tender, No pedal edema Neurologic/Psychiatric: positive: Oriented x3, CN's nml (2-12), Motor nml - LABS Result Diagrams: 09/09/23 05:23 09/09/23 05:23 - DIAGNOSTIC IMAGING Diagnostic Imaging Results: Final report reviewed - FOLLOW UP Follow Up: See PCP after discharge from SNF. - TIME SPENT Time Spent in Discharge (Minutes): 45
[2023-09-09] MEDS: HYDROcod/ACETAM 7.5 MG/325 MG TABLET PO PRN (13:00)
[2023-09-10] MEDS ORDERED: ENOXAPARIN 40 MG/0.4 ML SYRINGE SUBQ SCH (09:00)
== END 2023-09-09 13:35 | DRG 871 ==
LOC: EDUNIT# → ED 17:52 → MS2 23:42
PROVIDERS: ADMIT Internal Medicine; ATTEND Internal Medicine
DX: A41.51 Sepsis due to Escherichia coli [E. coli] (principal); R41.82 Altered mental status, unspecified; R10.9 Unspecified abdominal pain; E43 Unspecified severe protein-calorie malnutrition; G93.41 Metabolic encephalopathy; N20.0 Calculus of kidney; I70.0 Atherosclerosis of aorta; I71.23 Aneurysm of the descending thoracic aorta, without rupture; E87.20 Acidosis, unspecified; F17.200 Nicotine dependence, unspecified, uncomplicated; R00.0 Tachycardia, unspecified; N39.0 Urinary tract infection, site not specified; Z68.1 Body mass index [BMI] 19.9 or less, adult; R65.20 Severe sepsis without septic shock; A41.89 Other specified sepsis; A41.59 Other Gram-negative sepsis; I10 Essential (primary) hypertension; R53.1 Weakness; E83.42 Hypomagnesemia; E87.6 Hypokalemia; G43.909 Migraine, unspecified, not intractable, without status migrainosus; F17.210 Nicotine dependence, cigarettes, uncomplicated; J44.9 Chronic obstructive pulmonary disease, unspecified
CPT/HCPCS: 36415; 51702; 70450; 74177; 80048; 80053; 80061; 80306; 80307; 81001; 82607; 82746; 82803; 83540; 83605; 83690; 83735; 84100; 84132; 84466; 85025; 85610; 87040; 87077; 87086; 87181; 87493; 87633; 93005; 96365; 96366; 96367; 96375; 97161; 97165; 97530; 97535; 99285; A9270; G0480; J1650; J3411; J8499; Q9967; 80320; 80329; 81003; 83721; 87045; 87046; 87427

== ENCOUNTER 2023-09-09 13:37 | Outpatient (CLI) | payer MEDICARE | END 2023-09-09 13:38 | disposition home or self-care (01) | LOC: EMS 13:37 | PROVIDERS: ATTEND Internal Medicine | DX: A41.9 Sepsis, unspecified organism (principal); N39.0 Urinary tract infection, site not specified; R53.81 Other malaise; R41.0 Disorientation, unspecified; Z74.01 Bed confinement status | CPT/HCPCS: A0425; A0428 ==

== ENCOUNTER 2023-09-16 08:00 | Outpatient (CLI) | payer MEDICARE ==
[2023-09-16 20:41] LABS: BASOPHILS # (AUTO) 0.1 10^3/uL (0.0-0.1); BASOPHILS % (AUTO) 0.4 %; EOSINOPHILS # (AUTO) 0.1 10^3/uL (0.0-0.7); EOSINOPHILS % (AUTO) 0.3 %; HCT - HEMATOCRIT 31.1 % (37.0-47.0); HGB - HEMOGLOBIN 9.7 g/dL (12.0-16.0); LYMPHOCYTES # (AUTO) 1.2 10^3/uL (1.5-3.5); LYMPHOCYTES % (AUTO) 6.2 %; MEAN CORPUSCULAR HEMOGLOBIN 28.5 pg (27.0-31.0); MEAN CORPUSCULAR HGB CONC 31.2 g/dL (32.0-36.0); MEAN CORPUSCULAR VOLUME 91.5 fL (81.0-99.0); MEAN PLATELET VOLUME 8.5 fL (7.9-10.8); MONOCYTES # (AUTO) 1.1 10^3/uL (0.0-1.0); MONOCYTES % (AUTO) 5.9 %; NEUTROPHILS # (AUTO) 16.3 10^3/uL (1.5-6.6); NEUTROPHILS % (AUTO) 86.7 %; PLT - PLATELET COUNT 451 10^3/uL (130-450); RED CELL DISTRIBUTION WIDTH 16.7 % (12.0-15.0); WHITE BLOOD COUNT 18.8 x10^3/uL (4.8-10.8)
[2023-09-16 20:50] LABS: CALCIUM 8.7 mg/dL (8.5-10.3); CREATININE 0.5 mg/dL (0.6-1.3); MAGNESIUM 1.5 mg/dL (1.7-2.3); POTASSIUM 2.9 mmol/L (3.5-4.5)
== END 2023-09-16 23:59 | disposition home or self-care (01) ==
LOC: LAB.R 08:00
PROVIDERS: ATTEND Registered Nurse
DX: M62.59 Muscle wasting and atrophy, not elsewhere classified, multiple sites (principal); E83.42 Hypomagnesemia
CPT/HCPCS: 36415; 80048; 83735; 85025

== ENCOUNTER 2023-09-21 17:13 | Outpatient (CLI) | payer MEDICARE, MEDICAID | END 2023-09-21 17:14 | disposition critical access hospital (66) | LOC: EMS 17:13 | DX: R06.89 Other abnormalities of breathing (principal); R50.9 Fever, unspecified; R00.0 Tachycardia, unspecified; R46.4 Slowness and poor responsiveness | CPT/HCPCS: A0425; A0429 ==

== ENCOUNTER 2023-09-21 17:21 | Inpatient (IN) | payer MEDICARE, MEDICAID ==
[2023-09-21] MEDS ORDERED: IPRATROPIUM/ALBUTEROL 3 ML NEB INH STA (17:29)
--- NOTE | 2023-09-21 17:30 | ED Physician Documentation ---
PD HPI DYSPNEA - Stated complaint Stated Complaint: SOA - History obtained from History obtained from: Patient, EMS - Additional information Additional information: 78-year-old woman with history of SMA syndrome and severe malnutrition. She had recent diagnosis of encephalopathy with UTI and was admitted here for several days. They noted at [facility] today that she was breathing hard and had a low-grade fever. Patient history is limited as she is mildly encephalopathic. As such independent history is taken from EMS. 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 Derm: Skin cancer surgery - Present Medications Home Medications: Ambulatory Orders Medication Instructions Recorded Confirmed SUMAtriptan [Imitrex] 25 mg PO DAILY PRN 03/30/17 09/01/23 Clopidogrel [Plavix] 75 mg PO DAILY 09/01/23 09/01/23 No122/Iron/Folic Acid 1 each PO DAILY 09/01/23 09/01/23 [ Multi Tablet] Tiotropium [place] [Spiriva 2 puffs INH DAILY 09/01/23 09/02/23 Respimat] Albuterol Sulf [Ventolin Hfa 2 puffs INH Q4H PRN 09/02/23 09/02/23 Inhaler] Aspirin Chewable [[place] 81 mg PO DAILY 09/02/23 09/02/23 Aspirin] Escitalopram Oxalate 20 mg PO DAILY 09/02/23 09/02/23 Ferrous Sulfate [Feosol] 325 mg PO Q48H 09/02/23 09/02/23 HYDROcodone/ACET 7.5/325 [[place] 1 tab PO TID PRN 09/02/23 09/02/23 7.5/325] LORazepam [Ativan] 1 mg PO QPM 09/02/23 09/02/23 Loperamide [Imodium] 2 mg PO BID 09/02/23 09/02/23 Mirtazapine 7.5 mg PO QPM 09/02/23 09/02/23 Pantoprazole [Protonix] 40 mg PO QDAC 09/02/23 09/02/23 Trazodone HCl 200 mg PO QPM 09/02/23 09/02/23 Zolpidem [Ambien] 5 mg PO QPM PRN 09/02/23 09/02/23 guaiFENesin [Guaifenesin ER] 600 mg PO BID 09/02/23 09/02/23 oxyCODONE [Roxicodone] 5 mg PO DAILY PRN 09/02/23 09/02/23 Magnesium Oxide [Mag Ox] 400 mg PO DAILY #30 tab 09/09/23 - Allergies Allergies/Adverse Reactions: Allergies Allergy/AdvReac Type Severity Reaction Status Date / Time vancomycin Allergy Severe Anaphylaxis Verified 09/21/23 17:27 codeine Allergy Intermediate Hallucinati Verified 09/21/23 17:27 ons levofloxacin [From Levaquin] Allergy Unknown Verified 09/21/23 17:27 lithium Allergy Anaphylaxis Verified 09/21/23 17:27 - Social History Does the pt smoke?: Yes Smoking Status: Current every day smoker Does the pt drink ETOH?: No Does the pt have substance abuse?: No - Immunizations Immunizations are current?: Yes - POLST Patient has POLST: No PD ED PE NORMAL - Vitals Vital signs reviewed: Yes - General General: Other (She is moderately encephalopathic and slow to answer questions. Alert and oriented x 2. She is tachypneic. She is quite thin.) - HEENT HEENT: PERRL, EOMI - Neck Neck: Supple, no meningeal sign, No bony TTP - Cardiac Cardiac: Other (She has a resting tachycardia without murmur) - Respiratory Respiratory: Other (Mild tachypnea and rhonchi throughout) - Abdomen Abdomen: Normal bowel sounds, Non tender - Extremities Extremities: No edema, No calf tenderness / cord - Neuro Eye Opening: To Voice Motor: Obeys Commands Verbal: Confused GCS Score: 13 Results - Vitals Vitals: Vital Signs - 24 hr 09/21/23 09/21/23 09/21/23 17:27 17:30 18:20 Temperature 38.2 C H 38.2 C H Heart Rate 116 H 116 H 79 Respiratory 24 24 16 Rate Blood Pressure 123/74 123/74 O2 Saturation 94 94 09/21/23 18:30 Temperature 38.6 C H Heart Rate 113 H Respiratory 30 H Rate Blood Pressure 109/71 O2 Saturation 92 Oxygen O2 Source Room air - EKG (time done) 1823 EKG releavant findings:: EKG personally interpreted by author of this note. Relevant findings are: Rate: Rate (enter#) (115) Rhythm: Sinus tachycardia, MANNY [place]: RAD Intervals: Normal [place] QRS: Normal Ischemia: Normal ST segments - Labs Labs: Laboratory Tests 09/21/23 09/21/23 09/21/23 17:41 17:45 17:45 WBC 25.0 H RBC 3.67 L Hgb 10.5 L Hct 33.6 L MCV 91.6 MCH 28.6 MCHC 31.3 L RDW 16.5 H Plt Count 441 MPV 8.4 Neut # (Auto) Not Reportable Lymph # (Auto) Not Reportable [place] # (Auto) Not Reportable Eos # (Auto) Not Reportable Baso # (Auto) Not Reportable Absolute Nucleated RBC Not Reportable Total Counted 100 Band Neuts % (Manual) 6 Abnorm Lymph % (Manual) 0 Nucleated RBC % Not Reportable Neutrophils # (Manual) 24.5 H Lymphocytes # (Manual) 0.3 L Monocytes # (Manual) 0.3 Eosinophils # (Manual) 0.0 Basophils # (Manual) 0.0 Differential Comment MANUAL DIFFERENTIAL WBC Morphology NORMAL APPEARANCE Platelet Estimate NORMAL (130-450,000) Platelet Morphology NORMAL APPEARANCE RBC Morph Micro Appear NORMAL APPEARANCE Sodium 136 Potassium 5.3 H Chloride 100 L Carbon Dioxide 29 Anion Gap 7.0 BUN 16 Creatinine 0.7 Estimated GFR (MDRD) 81 L Glucose 104 Lactic Acid Calcium 9.7 Magnesium 1.6 L Total Bilirubin 0.5 AST 12 ALT 7 L Alkaline Phosphatase 95 Total Protein 6.6 Albumin 2.9 L Globulin 3.7 Albumin/Globulin Ratio 0.8 L Nasal Adenovirus (PCR) NOT DETECTED Nasal B. parapertussis DNA (PCR) NOT DETECTED Nasal Coronavir 229E PCR NOT DETECTED Nasal Coronavir HKU1 PCR NOT DETECTED Nasal Coronavir NL63 PCR NOT DETECTED Nasal Coronavir OC43 PCR NOT DETECTED Nasal Enterovir/Rhinovir PCR NOT DETECTED Nasal Influenza B PCR NOT DETECTED Nasal Influenza A PCR NOT DETECTED Nasal Parainfluen 1 PCR NOT DETECTED Nasal Parainfluen 2 PCR NOT DETECTED Nasal Parainfluen 3 PCR NOT DETECTED Nasal Parainfluen 4 PCR NOT DETECTED Nasal RSV (PCR) NOT DETECTED Nasal B.pertussis DNA PCR NOT DETECTED Nasal C.pneumoniae (PCR) NOT DETECTED Chris Human Metapneumo PCR NOT DETECTED Nasal M.pneumoniae (PCR) NOT DETECTED Nasal SARS-CoV-2 (PCR) NOT DETECTED 09/21/23 17:45 WBC RBC Hgb Hct MCV MCH MCHC RDW Plt Count MPV Neut # (Auto) Lymph # (Auto) [place] # (Auto) Eos # (Auto) Baso # (Auto) Absolute Nucleated RBC Total Counted Band Neuts % (Manual) Abnorm Lymph % (Manual) Nucleated RBC % Neutrophils # (Manual) Lymphocytes # (Manual) Monocytes # (Manual) Eosinophils # (Manual) Basophils # (Manual) Differential Comment WBC Morphology Platelet Estimate Platelet Morphology RBC Morph Micro Appear Sodium Potassium Chloride Carbon Dioxide Anion Gap BUN Creatinine Estimated GFR (MDRD) Glucose Lactic Acid 2.2 Calcium Magnesium Total Bilirubin AST ALT Alkaline Phosphatase Total Protein Albumin Globulin Albumin/Globulin Ratio Nasal Adenovirus (PCR) Nasal B. parapertussis DNA (PCR) Nasal Coronavir 229E PCR Nasal Coronavir HKU1 PCR Nasal Coronavir NL63 PCR Nasal Coronavir OC43 PCR Nasal Enterovir/Rhinovir PCR Nasal Influenza B PCR Nasal Influenza A PCR Nasal Parainfluen 1 PCR Nasal Parainfluen 2 PCR Nasal Parainfluen 3 PCR Nasal Parainfluen 4 PCR Nasal RSV (PCR) Nasal B.pertussis DNA PCR Nasal C.pneumoniae (PCR) Chris Human Metapneumo PCR Nasal M.pneumoniae (PCR) Nasal SARS-CoV-2 (PCR) PD Medical Decision Making - ED course ED course: 78-year-old frail woman presents with respiratory complaints, fever and found to have pneumonia from her [facility]. She has a significant leukocytosis on CBC at 25,000, stable anemia with hemoglobin of 10-1/2. Chemistries relatively unremarkable with normal lactate. Negative respiratory panel. Chest x-ray showing right lower lobe infiltrate. She was cultured up and given Rocephin and Zithromax. [facility] for admission a few minutes after 7 PM. Kym black's updated by phone and appreciative. Spoke with Dr. Sarai Jung, [facility] hospitalist for admission at 7:25 PM. Departure - Departure Disposition: 66 [facility] DC/Xfer Clinical Impression: Pneumonia Condition: Serious Forms: PCP List
[2023-09-21 17:51] LABS: BASOPHILS % (AUTO) 0.4 %; HCT - HEMATOCRIT 33.6 % (37.0-47.0); HGB - HEMOGLOBIN 10.5 g/dL (12.0-16.0); MEAN CORPUSCULAR HEMOGLOBIN 28.6 pg (27.0-31.0); MEAN CORPUSCULAR HGB CONC 31.3 g/dL (32.0-36.0); MEAN CORPUSCULAR VOLUME 91.6 fL (81.0-99.0); MEAN PLATELET VOLUME 8.4 fL (7.9-10.8); MONOCYTES % (AUTO) 2.4 %; NEUTROPHILS % (AUTO) 94.7 %; PLT - PLATELET COUNT 441 10^3/uL (130-450); RED BLOOD COUNT 3.67 10^6/uL (4.20-5.40); RED CELL DISTRIBUTION WIDTH 16.5 % (12.0-15.0)
[2023-09-21 17:53] LABS: ABNORMAL LYMPHS % (MANUAL) 0 %
[2023-09-21 18:08] LABS: LACTIC ACID, VENOUS 2.2 mmol/L (0.5-2.2)
--- NOTE | 2023-09-21 18:08 | XRAY Report ---
PROCEDURE: Chest 1 View X-Ray INDICATIONS: fever TECHNIQUE: One view of the chest was acquired. COMPARISON: None. FINDINGS: Surgical changes and devices: None. Lungs and pleura: No pleural effusions or pneumothorax. Hazy opacity in right lower lung field is se en concerning for right lower lobe infiltrate. Chronic emphysematous changes are noted. Mediastinum: Mediastinal contours appear normal. Heart size is normal. Bones and chest wall: No suspicious bony lesions. Overlying soft tissues appear unremarkable. IMPRESSION: Suggestion of developing right lower lobe infiltrate. COPD. No pleural effusion or pneumothorax. Reviewed by: Cy Chen MD on 09/21/2023 6:06 PM PST Approved by: Cy Chen MD on 09/21/2023 6:06 PM PST Station ID: [id number]
[2023-09-21 18:09] LABS: ALBUMIN 2.9 g/dL (3.2-5.5); ALBUMIN/GLOBULIN RATIO 0.8 (1.0-2.2); BILIRUBIN,TOTAL 0.5 mg/dL (0.2-1.0); CALCIUM 9.7 mg/dL (8.5-10.3); CREATININE 0.7 mg/dL (0.6-1.3); MAGNESIUM 1.6 mg/dL (1.7-2.3); POTASSIUM 5.3 mmol/L (3.5-4.5); TOTAL PROTEIN 6.6 g/dL (6.4-8.9)
[2023-09-21] MEDS ORDERED: AZITHROMYCIN INJ 500 MG in SODIUM CHLORIDE 0.9% 250 ML IV STA (18:13)
[2023-09-21] MEDS ORDERED: cefTRIAXone 1 GM VIAL IVP STA (18:13)
[2023-09-21 18:25] LABS: BAND NEUTROPHILS % (MANUAL) 6 %; DIFFERENTIAL COMMENT MANUAL DIFFERENTIAL; LYMPHOCYTES # (MANUAL) 0.3 10^3/uL (1.5-3.5); LYMPHOCYTES % (MANUAL) 1 %; MONOCYTES # (MANUAL) 0.3 10^3/uL (0.0-1.0); NEUTROPHILS # (MANUAL) 24.5 10^3/uL (1.5-6.6); PLATELET ESTIMATE, MANUAL NORMAL (130-450,000) (NORMAL); PLATELET MORPHOLOGY NORMAL APPEARANCE (NORMAL); RBC MORPHOLOGY (MULTIPLE) NORMAL APPEARANCE (NORMAL); WBC MORPHOLOGY (MULTIPLE) NORMAL APPEARANCE (NORMAL)
[2023-09-21 18:45] LABS: B. PARAPERTUSSIS- RESP PCR PAN NOT DETECTED; B. PERTUSSIS- RESP PCR PANEL NOT DETECTED; C. PNEUMONIAE- RESP PCR PANEL NOT DETECTED; CORONAVIRUS 229E-RESP PCR NOT DETECTED; CORONAVIRUS HKU1-RESP PCR NOT DETECTED; CORONAVIRUS NL63-RESP PCR NOT DETECTED; CORONAVIRUS OC43-RESP PCR NOT DETECTED; HUMAN METAPNEUMOVIRUS NOT DETECTED; INFLUENZA A- RESP PCR PANEL NOT DETECTED; INFLUENZA B - RESP PCR PANEL NOT DETECTED; M. PNEUMONIAE- RESP PCR PANEL NOT DETECTED; PARAINFLUENZA VIRUS 1 NOT DETECTED; PARAINFLUENZA VIRUS 2 NOT DETECTED; PARAINFLUENZA VIRUS 3 NOT DETECTED; PARAINFLUENZA VIRUS 4 NOT DETECTED; RHINOVIRUS/ENTEROVIRUS NOT DETECTED; RSV- RESP PCR PANEL NOT DETECTED; SARS-CoV-2 -RESP PCR PANEL NOT DETECTED
[2023-09-21] MEDS ORDERED: ACETAMINOPHEN 500 MG TABLET PO STA (19:03)
--- NOTE | 2023-09-21 19:25 | HISTORY & PHYSICAL EXAMINATION ---
Chief Complaint - Chief Complaint Chief Complaint: AMS, Shortness of breath, Fever History of Present Illness - Admitted From Admitted From:: ER - History Obtained From Records Reviewed: Yes History obtained from: Staff, chart Exam Limitations: Pt's confusion, virtual exam - History of Present Illness HPI Comment/Other: H&P was conducted via video remotely, using Access Cart. Patient is in [place]. Physician is in [place]. No one is at bedside. 78 yo F with PMH of SMA Syndrome, Severe malnutrition, COPD, HTN, Migraine H/As, Fibromyalgia, Depression, Weakness, +tobacco use presented to the ER from SNF with c/o 1 day h/o Fevers, Shortness of breath, AMS. Pt is awake and answers questions slowly, but does not answer all questions. Is not following commands. Pt is unable to give history. Per staff, chart, SNF reported that pt had 1 day h/o Shortness of breath, Fevers, AMS. Evidently, pt is alert and Ox3 at baseline and this is a change for her. Pt was hospitalized from 09/01-09/09/23 for AMS, Sepsis, UTI and discharged to SNF d/t Weakness. In the ER, T 38.6C (101.5F), HR 113, WBC 25, Hgb 10.5, K 5.3, Mg 1.6, BC pendin g, U/A pending. CXR: RLL infiltrate EKG: S. Tachy at 115 bpm, no STTw changes Pt was given Tylenol, Duonebs, Rocephin/Azithro in the ER. 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 Social History Notes: Patient smokes 1/2 to 1.5 packs of cigarettes a day. - POLST Patient has POLST: No Meds/Allgy - Home Medications Home Medications: Ambulatory Orders Medication Instructions Recorded Confirmed SUMAtriptan [Imitrex] 25 mg PO DAILY PRN 03/30/17 09/01/23 Clopidogrel [Plavix] 75 mg PO DAILY 09/01/23 09/01/23 No122/Iron/Folic Acid 1 each PO DAILY 09/01/23 09/01/23 [ Multi Tablet] Tiotropium [place] [Spiriva 2 puffs INH DAILY 09/01/23 09/02/23 Respimat] Albuterol Sulf [Ventolin Hfa 2 puffs INH Q4H PRN 09/02/23 09/02/23 Inhaler] Aspirin Chewable [[place] 81 mg PO DAILY 09/02/23 09/02/23 Aspirin] Escitalopram Oxalate 20 mg PO DAILY 09/02/23 09/02/23 Ferrous Sulfate [Feosol] 325 mg PO Q48H 09/02/23 09/02/23 HYDROcodone/ACET 7.5/325 [[place] 1 tab PO TID PRN 09/02/23 09/02/23 7.5/325] LORazepam [Ativan] 1 mg PO QPM 09/02/23 09/02/23 Loperamide [Imodium] 2 mg PO BID 09/02/23 09/02/23 Mirtazapine 7.5 mg PO QPM 09/02/23 09/02/23 Pantoprazole [Protonix] 40 mg PO QDAC 09/02/23 09/02/23 Trazodone HCl 200 mg PO QPM 09/02/23 09/02/23 Zolpidem [Ambien] 5 mg PO QPM PRN 09/02/23 09/02/23 guaiFENesin [Guaifenesin ER] 600 mg PO BID 09/02/23 09/02/23 oxyCODONE [Roxicodone] 5 mg PO DAILY PRN 09/02/23 09/02/23 Magnesium Oxide [Mag Ox] 400 mg PO DAILY #30 tab 09/09/23 - Allergies Allergies/Adverse Reactions: Allergies Allergy/AdvReac Type Severity Reaction Status Date / Time vancomycin Allergy Severe Anaphylaxis Verified 09/21/23 17:27 codeine Allergy Intermediate Hallucinati Verified 09/21/23 17:27 ons levofloxacin [From Levaquin] Allergy Unknown Verified 09/21/23 17:27 lithium Allergy Anaphylaxis Verified 09/21/23 17:27 Review of Systems - All Other Systems All Other Systems: reports: Other (Unable to obtain d/t patient's clinical condition) Exam - Vital Signs Reviewed Vital Signs: Yes Vital Signs: Vital Signs x48h Temp Pulse Resp BP Pulse Ox 09/21/23 18:30 38.6 C H 113 H 30 H 109/71 92 09/21/23 18:20 79 16 09/21/23 17:30 38.2 C H 116 H 24 123/74 94 09/21/23 17:27 38.2 C H 116 H 24 123/74 94 - Physical Exam General Appearance: positive: No acute distress, Other (Thin) Eyes Bilateral: positive: EOMI, No scleral icterus ENT: positive: Dry mucous membranes Respiratory: positive: Other (Access cart stethoscope not working; per ER Provider: CTA Mild tachypnea and rhonchi throughout) Cardiovascular: positive: Other ( Access cart stethoscope not working; per ER Provider: RR, Tachycardia, no murmurs) Abdomen: positive: Other (per ER Provider: non-distended, NT, Soft) Extremities: positive: Nml appearance Neurologic/Psychiatric: positive: Mood/affect nml, Disoriented to time, Other ( Alert and oriented x 2, slow to answer questions, has trouble following commands) Conclusion/Plan - Problem List (1) Pneumonia Conclusion/Plan: RLL Pneumonia Leukocytosis Fever Shortness of breath AMS/Metabolic Encephalopathy Tachycardia Sepsis COPD Exacerbation -T 38.6C (101.5F), HR 113, WBC 25, BC pending, U/A pending. -CXR: RLL infiltrate -EKG: S. Tachy at 115 bpm, no STTw changes -Pt was given Tylenol, Duonebs, Rocephin/Azithro in the ER. -admit to Med Surg -Resp viral panel neg -O2 support PRN -Duonebs PRN -continue home meds: Spiriva -SoluMedrol 40 mg IV daily, Rocephin/Azithro, IVF -add steroid MDI Low Magnesium -Mg 1.6 -supplement now and PRN Hyperkalemia -K 5.3 -recheck K now Anemia, normocytic, chronic -Hgb 10.5; at baseline -check iron studies, Folate/B12 SMA Syndrome -continue home medications: ASA/Plavix Severe malnutrition -BMI 12.2, up from 11.9 in early 08/2023 -continue home medications: Remeron Migraine H/As -continue home medications: Imitrex PRN Fibromyalgia -continue home medications: Gabapentin Depression -continue home medications: Lexapro, Ativan GERD -continue home medications: PPI Weakness -restart PT/OT when pt more alert Tobacco use -cessation counseling VTE Prophylaxis: Lovenox Code Status: Unable to D/W pt. Pt was Full Code at previous recent admission. Full Code. ~Sarai Jung MD Hospitalist - Lab Results Lab results reviewed: Yes Fish Bones: 09/21/23 17:45 09/21/23 19:52
[2023-09-21] MEDS ORDERED: ONDANSETRON 4 MG/2 ML VIAL IVP PRN (19:34)
[2023-09-21] MEDS ORDERED: SODIUM CHLORIDE FLUSH 0.9% 10 ML SYRINGE IVP PRN (19:34)
[2023-09-21] MEDS ORDERED: ONDANSETRON ODT 4 MG TABLET TL PRN (19:34)
[2023-09-21] MEDS ORDERED: MAGNESIUM SULFATE 1 GM/2 ML VIAL IVP STA (19:39)
[2023-09-21] MEDS ORDERED: SUMAtriptan 25 MG TABLET PO PRN (19:40)
[2023-09-21] MEDS: SODIUM CHLORIDE 0.9% 1,000 ML IV SCH (19:54)
[2023-09-21 19:57] LABS: BILIRUBIN,URINE NEGATIVE (NEGATIVE); GLUCOSE, URINE (UA) NEGATIVE (NEGATIVE); KETONES,URINE (UA) NEGATIVE (NEGATIVE); LEUKOCYTE ESTERASE, URINE LARGE (NEGATIVE); NITRITE,URINE POSITIVE (NEGATIVE); OCCULT BLOOD,URINE SMALL (NEGATIVE); PROTEIN,URINE 30 mg/dL (NEGATIVE); UROBILINOGEN,URINE 0.2 (NORMAL) E.U./dL (NORMAL)
[2023-09-21 19:59] LABS: CLARITY,URINE CLOUDY (CLEAR)
[2023-09-21 20:09] LABS: BACTERIA,URINE Many /HPF (None Seen); RBC,URINE 0-5 /HPF (0-5); SQUAMOUS EPITHELIAL CELL,UR FEW Squamous (<= Few); WBC,URINE >25 /HPF (0-5)
[2023-09-21] MEDS ORDERED: MAGNESIUM SULFATE 2 GRAM 2 GM/50 ML BAG IV STA (20:21)
[2023-09-21] MEDS: guaiFENesin 600 MG TABLET PO SCH (21:37)
[2023-09-21] MEDS: FERROUS SULFATE 325 MG TABLET PO SCH (21:37)
[2023-09-21] MEDS: LORazepam 1 MG TABLET PO SCH (21:37)
[2023-09-21] MEDS: MIRTAZAPINE 15 MG TABLET PO SCH (21:37)
[2023-09-21] MEDS: methylPREDNISolone SUCCINATE 40 MG/ML VIAL IVP SCH (21:46)
[2023-09-22] MEDS: SODIUM CHLORIDE FLUSH 0.9% 10 ML SYRINGE IVP SCH ×3 (06:34→17:07)
[2023-09-22] MEDS: PANTOPRAZOLE 40 MG TABLET PO SCH (06:35)
[2023-09-22 07:22] LABS: MAGNESIUM 2.4 mg/dL (1.7-2.3)
[2023-09-22] MEDS ORDERED: ALBUTEROL NEB 2.5 MG/3 ML INH PRN (07:42)
[2023-09-22] MEDS: AZITHROMYCIN INJ 500 MG in SODIUM CHLORIDE 0.9% 250 ML IV SCH (08:07)
[2023-09-22] MEDS: BUDESONIDE 0.5 MG/2 ML NEB INH SCH ×2 (08:56→19:48)
[2023-09-22] MEDS: IPRATROPIUM/ALBUTEROL 3 ML NEB INH PRN ×2 (08:56→19:48)
[2023-09-22] MEDS: cefTRIAXone 2 GM in SODIUM CHLORIDE 0.9% MINIBAG 100 ML IV SCH (09:40)
[2023-09-22] MEDS: ASPIRIN CHEW 81 MG TABLET PO SCH (11:44)
[2023-09-22] MEDS: ESCITALOPRAM 10 MG TABLET PO SCH (11:44)
[2023-09-22] MEDS: MAGNESIUM OXIDE 400 MG TABLET PO SCH (11:45)
[2023-09-22] MEDS: CLOPIDOGREL 75 MG TABLET PO SCH (11:45)
[2023-09-22] MEDS: ENOXAPARIN 40 MG/0.4 ML SYRINGE SUBQ SCH (11:45)
[2023-09-22] MEDS: guaiFENesin 600 MG TABLET PO SCH ×2 (11:45→21:21)
[2023-09-22] MEDS: methylPREDNISolone SUCCINATE 40 MG/ML VIAL IVP SCH (11:45)
[2023-09-22] MEDS: PRENATAL VITAMIN TABLET PO SCH (11:45)
--- NOTE | 2023-09-22 12:27 | PHARMACY PROGRESS NOTE ---
- Best Possible Medication History Admit Date and Time: 09/21/231933 Processed by: Pharmacy Medication History completed: Yes Patient Interview: Completed Secondary Source(s): Written medication list, Insurance records As the person ultimately responsible for medication therapy, providers are able to order a medication from an existing home medication list in [facility] via the "Reconcile Routine" prior to Confirmation of that medication by direct support specialist. Such practice is discouraged except when the physician, in their clinical judgment, deems that a medical need exists for a medication without regard to previous use.
[2023-09-22] MEDS: SODIUM CHLORIDE 0.9% 1,000 ML IV SCH (12:40)
[2023-09-22] MEDS: IPRATROPIUM 0.2 MG/ML NEB INH SCH (15:31)
--- NOTE | 2023-09-22 19:32 | PROVIDER PROGRESS NOTE ---
Assessment/Plan - Problem List (1) Acute respiratory failure with hypoxia Assessment/Plan: She was desaturating (due to COPD exacerbation from PNA) and needs suppl O2 Plan: Cont O2, target sat >88% in a COPDer Treat the COPD and PNA (2) Pneumonia Since she was recently hospitalized she was started on broad spectrum antibx Plan: Cont empiric antibx Cont Mucinex for expectoration and suppl O2 (3) AMS She has become more awake and alert, but cannot remember what recently happened. Plan: Supportive care Cont to treat PNA Eventual PT and OT (4) Sepsis She met criteria for sepsis with T 38.6C, HR 113, WBC 25 and new AMS. Source appears to be a PNA. Plan: Since she was recently hospitalized she is on broad spectrum antibx, and iv fluids, continue these. Await cx results to tailor antibx. (5) COPD Exacerbation She has underlying COPD and has continued scattered wheezing and also poor air movement Plan: Cont Duonebs, nebulized and iv steroids Cont O2, target sat >88% in a COPDer (6) Hypomagnesemia Related to poor po intake with cachexia Plan: Replace iv and po Follow Mg daily until normal (7) Hyperkalemia Plan: Avoid K-retaining meds Follow BMP daily (8) Anemia, normocytic, chronic She was adm with Hgb of 10.5 Plan: Await her reconciled med list to start any suppl she is on Follow CBC daily and transfuse if Hgb <7 (9) SMA Syndrome As per Hx (10) Severe malnutrition Plan: Will request Sack Keeper Usha to see and give diet recommendations Allow pt to eat what she desires (11) Migraine Headache As per Hx, none currently. (12) Fibromyalgia Await her reconciled med list to start any suppl she is on (13) Depression Await her reconciled med list to start any suppl she is on (14) GERD Await her reconciled med list to start any suppl she is on (15) Weakness PT and OT ordered to work with her (16) Tobacco use Cessation will be discussed when she is more alert - Current Meds Current Meds: Current Medications Generic Name Dose Route Start Last Admin Trade Name Freq PRN Reason Stop Dose Admin Albuterol/Ipratropium 3 ml 09/21/23 19:43 09/22/23 08:56 Ipratropium/Albuterol 3 Ml Neb INH 3 ml Q4H PRN Administration Shortness of Air/Wheezing Aspirin 81 mg 09/22/23 09:00 09/22/23 11:44 Aspirin Chew 81 Mg Tablet PO 81 mg DAILY KIMBERLI Administration Budesonide 0.5 mg 09/22/23 07:00 09/22/23 08:56 Budesonide 0.5 Mg/2 Ml Neb INH 0.5 mg RTBID KIMBERLI Administration Clopidogrel Bisulfate 75 mg 09/22/23 09:00 09/22/23 11:45 Clopidogrel 75 Mg Tablet PO 75 mg DAILY KIMBERLI Administration Enoxaparin Sodium 40 mg 09/22/23 09:00 09/22/23 11:45 Enoxaparin 40 Mg/0.4 Ml Syringe SUBQ 40 mg DAILY KIMBERLI Administration Escitalopram Oxalate 20 mg 09/22/23 09:00 09/22/23 11:44 Escitalopram 10 Mg Tablet PO 20 mg DAILY KIMBERLI Administration Ferrous Sulfate 325 mg 09/21/23 20:00 09/21/23 21:37 Ferrous Sulfate 325 Mg Tablet PO 325 mg Q48H KIMBERLI Administration Guaifenesin 600 mg 09/21/23 21:00 09/22/23 11:45 Guaifenesin 600 Mg Tablet PO 600 mg BID KIMBERLI Administration Sodium Chloride 1,000 mls @ 75 mls/hr 09/21/23 20:00 09/22/23 12:40 Normal Saline 0.9% IV 75 mls/hr .[id number] KIMBERLI Administration Ceftriaxone Sodium 2 gm/ 100 mls @ 200 mls/hr 09/22/23 09:00 09/22/23 10:38 Sodium Chloride IV Infused DAILY KIMBERLI Infusion Azithromycin 500 mg/ Sodium 250 mls @ 250 mls/hr 09/22/23 09:00 09/22/23 09 :40 Chloride IV Infused DAILY KIMBERLI Infusion Ipratropium [place] 0.5 mg 09/22/23 13:00 09/22/23 15:31 Ipratropium 0.2 Mg/Ml Neb INH Not Given RTQ6H KIMBERLI Lorazepam 1 mg 09/21/23 21:00 09/21/23 21:37 Lorazepam 1 Mg Tablet PO 1 mg QPM KIMBERLI Administration Magnesium Oxide 400 mg 09/22/23 09:00 09/22/23 11:45 Magnesium Oxide 400 Mg Tablet PO 400 mg DAILY KIMBERLI Administration Methylprednisolone 40 mg 09/21/23 21:00 09/22/23 11:45 Methylprednisolone Succinate 40 Mg/Ml Vial IVP 40 mg DAILY KIMBERLI Administration Mirtazapine 7.5 mg 09/21/23 21:00 09/21/23 21:37 Mirtazapine 15 Mg Tablet PO 7.5 mg QPM KIMBERLI Administration Pantoprazole Sodium 40 mg 09/22/23 07:00 09/22/23 06:35 Pantoprazole 40 Mg Tablet PO 40 mg QDAC KIMBERLI Administration Multivit/Folic Acid/Iron 1 tab 09/22/23 08:00 09/22/23 11:45 Vitamin Tablet PO 1 tab DAILYWM KIMBERLI Administration Sodium Chloride 10 ml 09/22/23 01:00 09/22/23 17:07 Sodium Chloride Flush 0.9% 10 Ml Syringe IVP Not Given 0100,0900,1700 KIMBERLI - Lab Result Fish Bone Diagrams: 09/25/23 06:16 09/25/23 06:16 - Additional Planning My Orders: My Active Orders 09/22/23 08:57 Nebulizer/MDI Tx. [RC] QID 09/22/23 Dinner Regular Diet [DIET] Subjective - Subjective Patient Reports: Feeling Better, Resting Comfortably Objective Vital Signs: Vital Signs - 24 hr 09/21/23 09/21/23 09/21/23 19:50 19:51 20:19 Temperature 38.5 C H 38.4 C H 37.3 C Heart Rate 110 H Heart Rate [ Brachial] Respiratory 31 H Rate Blood Pressure 118/63 Blood Pressure [Left Brachial artery] O2 Saturation 90 L If not protocol : Oxygen Flow, liters/minute 09/21/23 09/21/23 09/21/23 21:00 21:30 23:03 Temperature 37.2 C Heart Rate Heart Rate [ 106 H Brachial] Respiratory 20 Rate Blood Pressure Blood Pressure 105/64 [Left Brachial artery] O2 Saturation 92 99 If not protocol 2 2 2 : Oxygen Flow, liters/minute 09/22/23 09/22/23 09/22/23 00:03 07:35 08:58 Temperature 36.5 C 36.5 C Heart Rate 78 Heart Rate [ 89 85 Brachial] Respiratory 20 16 17 Rate Blood Pressure Blood Pressure 117/69 108/67 [Left Brachial artery] O2 Saturation 98 96 If not protocol : Oxygen Flow, liters/minute 09/22/23 16:00 Temperature 35.9 C L Heart Rate Heart Rate [ 89 Brachial] Respiratory 16 Rate Blood Pressure Blood Pressure 138/78 H [Left Brachial artery] O2 Saturation 94 If not protocol : Oxygen Flow, liters/minute Oxygen O2 Source Room air I&O (Last 24 Hrs): Intake and Output Totals x24h 09/20/23 09/21/23 09/22/23 23:59 23:59 23:59 Intake Total 298.75 787.5 Balance 298.75 787.5 General: Other (Cachectic elderly female) HEENT: EOMI, Mucous membr. moist/pink, Other (wearing O2 n.c.) Neck: Supple Neuro: Alert, Non Focal, Other (Generalized weakness) Cardiovascular: No murmurs Respiratory: Rales, Rhonchi Abdomen: Normal bowel sounds, Soft, No tenderness Extremities: Other (1+ edema) - Results Results: Laboratory Results WBC 25.0 x10^3/uL (4.8-10.8) H 09/21/23 17:45 RBC 3.67 10^6/uL (4.20-5.40) L 09/21/23 17:45 Hgb 10.5 g/dL (12.0-16.0) L 09/21/23 17:45 Hct 33.6 % (37.0-47.0) L 09/21/23 17:45 MCV 91.6 fL (81.0-99.0) 09/21/23 17:45 MCH 28.6 pg (27.0-31.0) 09/21/23 17:45 MCHC 31.3 g/dL (32.0-36.0) L 09/21/23 17:45 RDW 16.5 % (12.0-15.0) H 09/21/23 17:45 Plt Count 441 10^3/uL (130-450) 09/21/23 17:45 MPV 8.4 fL (7.9-10.8) 09/21/23 17:45 Neut # (Auto) Not Reportable 09/21/23 17:45 Lymph # (Auto) Not Reportable 09/21/23 17:45 [place] # (Auto) Not Reportable 09/21/23 17:45 Eos # (Auto) Not Reportable 09/21/23 17:45 Baso # (Auto) Not Reportable 09/21/23 17:45 Absolute Nucleated RBC Not Reportable 09/21/23 17:45 Total Counted 100 09/21/23 17:45 Band Neuts % (Manual) 6 % (0-10) 09/21/23 17:45 Abnorm Lymph % (Manual) 0 % 09/21/23 17:45 Nucleated RBC % Not Reportable 09/21/23 17:45 Neutrophils # (Manual) 24.5 10^3/uL (1.5-6.6) H 09/21/23 17:45 Lymphocytes # (Manual) 0.3 10^3/uL (1.5-3.5) L 09/21/23 17:45 Monocytes # (Manual) 0.3 10^3/uL (0.0-1.0) 09/21/23 17:45 Eosinophils # (Manual) 0.0 10^3/uL (0-0.7) 09/21/23 17:45 Basophils # (Manual) 0.0 10^3/uL (0-0.1) 09/21/23 17:45 Differential Comment MANUAL DIFFERENTIAL 09/21/23 17:45 WBC Morphology NORMAL APPEARANCE (NORMAL) 09/21/23 17:45 Platelet Estimate NORMAL (130-450,000) (NORMAL) 09/21/23 17:45 Platelet Morphology NORMAL APPEARANCE (NORMAL) 09/21/23 17:45 RBC Morph Micro Appear NORMAL APPEARANCE (NORMAL) 09/21/23 17:45 Sodium 136 mmol/L (135-145) 09/21/23 17:45 Potassium 5.0 mmol/L (3.5-4.5) H 09/21/23 19:52 Chloride 100 mmol/L (101-111) L 09/21/23 17:45 Carbon Dioxide 29 mmol/L (21-32) 09/21/23 17:45 Anion Gap 7.0 (6-13) 09/21/23 17:45 BUN 16 mg/dL (6-20) 09/21/23 17:45 Creatinine 0.7 mg/dL (0.6-1.3) 09/21/23 17:45 Estimated GFR (MDRD) 81 (>89) L 09/21/23 17:45 Glucose 104 mg/dL (74-104) 09/21/23 17:45 Lactic Acid 1.0 mmol/L (0.5-2.2) 09/21/23 22:05 Calcium 9.7 mg/dL (8.5-10.3) 09/21/23 17:45 Magnesium 2.4 mg/dL (1.7-2.3) H 09/22/23 06:22 Total Bilirubin 0.5 mg/dL (0.2-1.0) 09/21/23 17:45 AST 12 IU/L (10-42) 09/21/23 17:45 ALT 7 IU/L (10-60) L 09/21/23 17:45 Alkaline Phosphatase 95 IU/L (42-121) 09/21/23 17:45 Total Protein 6.6 g/dL (6.4-8.9) 09/21/23 17:45 Albumin 2.9 g/dL (3.2-5.5) L 09/21/23 17:45 Globulin 3.7 g/dL (2.1-4.2) 09/21/23 17:45 Albumin/Globulin Ratio 0.8 (1.0-2.2) L 09/21/23 17:45 Vitamin B12 914 pg/mL (180-914) 09/22/23 06:22 Folate 20.3 ng/mL (5.90 - >24.8) 09/22/23 06:22 Urine Color YELLOW 09/21/23 19:44 Urine Clarity CLOUDY (CLEAR) 09/21/23 19:44 Urine pH 7.0 PH (5.0-7.5) 09/21/23 19:44 Ur Specific [place] 1.015 (1.002-1.030) 09/21/23 19:44 Urine Protein 30 mg/dL (NEGATIVE) H 09/21/23 19:44 Urine Glucose (UA) NEGATIVE mg/dL (NEGATIVE) 09/21/23 19:44 Urine Ketones NEGATIVE mg/dL (NEGATIVE) 09/21/23 19:44 Urine Occult Blood SMALL (NEGATIVE) H 09/21/23 19:44 Urine Nitrite POSITIVE (NEGATIVE) H 09/21/23 19:44 Urine Bilirubin NEGATIVE (NEGATIVE) 09/21/23 19:44 Urine Urobilinogen 0.2 (NORMAL) E.U./dL (NORMAL) 09/21/23 19:44 Ur Leukocyte Esterase LARGE (NEGATIVE) H 09/21/23 19:44 Urine RBC 0-5 /HPF (0-5) 09/21/23 19:44 Urine WBC >25 /HPF (0-5) H 09/21/23 19:44 Ur Squamous Epith Cells FEW Squamous (<= Few) 09/21/23 19:44 Urine Bacteria Many /HPF (None Seen) H 09/21/23 19:44 Ur Microscopic Review INDICATED 09/21/23 19:44 Urine Culture Comments INDICATED 09/21/23 19:44 Nasal Adenovirus (PCR) NOT DETECTED 09/21/23 17:41 Nasal B. parapertussis DNA (PCR) NOT DETECTED 09/21/23 17:41 Nasal Coronavir 229E PCR NOT DETECTED 09/21/23 17:41 Nasal Coronavir HKU1 PCR NOT DETECTED 09/21/23 17:41 Nasal Coronavir NL63 PCR NOT DETECTED 09/21/23 17:41 Nasal Coronavir OC43 PCR NOT DETECTED 09/21/23 17:41 Nasal Enterovir/Rhinovir PCR NOT DETECTED 09/21/23 17:41 Nasal Influenza B PCR NOT DETECTED 09/21/23 17:41 Nasal Influenza A PCR NOT DETECTED 09/21/23 17:41 Nasal Parainfluen 1 PCR NOT DETECTED 09/21/23 17:41 Nasal Parainfluen 2 PCR NOT DETECTED 09/21/23 17:41 Nasal Parainfluen 3 PCR NOT DETECTED 09/21/23 17:41 Nasal Parainfluen 4 PCR NOT DETECTED 09/21/23 17:41 Nasal RSV (PCR) NOT DETECTED 09/21/23 17:41 Nasal B.pertussis DNA PCR NOT DETECTED 09/21/23 17:41 Nasal C.pneumoniae (PCR) NOT DETECTED 09/21/23 17:41 Chris Human Metapneumo PCR NOT DETECTED 09/21/23 17:41 Nasal M.pneumoniae (PCR) NOT DETECTED 09/21/23 17:41 Nasal SARS-CoV-2 (PCR) NOT DETECTED 09/21/23 17:41
[2023-09-22] MEDS: ACETAMINOPHEN 325 MG TABLET PO PRN (19:41)
[2023-09-22] MEDS: MIRTAZAPINE 15 MG TABLET PO SCH (21:20)
[2023-09-22] MEDS: LORazepam 1 MG TABLET PO SCH (21:21)
[2023-09-23] MEDS: IPRATROPIUM 0.2 MG/ML NEB INH SCH ×5 (01:15→19:55)
[2023-09-23] MEDS: SODIUM CHLORIDE 0.9% 1,000 ML IV SCH ×2 (02:25→17:28)
[2023-09-23] MEDS: SODIUM CHLORIDE FLUSH 0.9% 10 ML SYRINGE IVP SCH ×3 (04:59→17:29)
[2023-09-23] MEDS: PANTOPRAZOLE 40 MG TABLET PO SCH (05:40)
[2023-09-23 05:57] LABS: BASOPHILS % (AUTO) 0.4 %; EOSINOPHILS % (AUTO) 0.1 %; HCT - HEMATOCRIT 29.3 % (37.0-47.0); HGB - HEMOGLOBIN 9.1 g/dL (12.0-16.0); LYMPHOCYTES % (AUTO) 2.5 %; MEAN CORPUSCULAR HEMOGLOBIN 28.9 pg (27.0-31.0); MEAN CORPUSCULAR HGB CONC 31.1 g/dL (32.0-36.0); MEAN PLATELET VOLUME 8.7 fL (7.9-10.8); MONOCYTES % (AUTO) 2.1 %; NEUTROPHILS % (AUTO) 94.3 %; PLT - PLATELET COUNT 349 10^3/uL (130-450); RED BLOOD COUNT 3.15 10^6/uL (4.20-5.40); RED CELL DISTRIBUTION WIDTH 16.8 % (12.0-15.0); WHITE BLOOD COUNT 20.7 x10^3/uL (4.8-10.8)
[2023-09-23 06:02] LABS: ABNORMAL LYMPHS % (MANUAL) 0 %
[2023-09-23 06:11] LABS: CALCIUM 8.8 mg/dL (8.5-10.3); CREATININE 0.5 mg/dL (0.6-1.3); MAGNESIUM 1.5 mg/dL (1.7-2.3); POTASSIUM 3.5 mmol/L (3.5-4.5)
[2023-09-23 06:33] LABS: BAND NEUTROPHILS % (MANUAL) 7 %; LYMPHOCYTES # (MANUAL) 0.6 10^3/uL (1.5-3.5); LYMPHOCYTES % (MANUAL) 3 %; NEUTROPHILS # (MANUAL) 20.1 10^3/uL (1.5-6.6)
[2023-09-23 06:36] LABS: DIFFERENTIAL COMMENT MANUAL DIFFERENTIAL; PLATELET ESTIMATE, MANUAL NORMAL (130-450,000) (NORMAL); PLATELET MORPHOLOGY NORMAL APPEARANCE (NORMAL); WBC MORPHOLOGY (MULTIPLE) 1+ TOXIC G (NORMAL)
[2023-09-23] MEDS: BUDESONIDE 0.5 MG/2 ML NEB INH SCH ×2 (07:16→19:55)
[2023-09-23] MEDS: IPRATROPIUM/ALBUTEROL 3 ML NEB INH PRN ×2 (07:16→13:38)
[2023-09-23] MEDS: ASPIRIN CHEW 81 MG TABLET PO SCH (08:27)
[2023-09-23] MEDS: HYDROcod/ACETAM 7.5 MG/325 MG TABLET PO PRN ×2 (08:28→17:28)
[2023-09-23] MEDS: cefTRIAXone 2 GM in SODIUM CHLORIDE 0.9% MINIBAG 100 ML IV SCH (08:28)
[2023-09-23] MEDS: CLOPIDOGREL 75 MG TABLET PO SCH (08:28)
[2023-09-23] MEDS: AZITHROMYCIN INJ 500 MG in SODIUM CHLORIDE 0.9% 250 ML IV SCH (09:30)
[2023-09-23] MEDS: ENOXAPARIN 40 MG/0.4 ML SYRINGE SUBQ SCH (10:58)
[2023-09-23] MEDS: methylPREDNISolone SUCCINATE 40 MG/ML VIAL IVP SCH (10:59)
[2023-09-23] MEDS: guaiFENesin 600 MG TABLET PO SCH ×2 (10:59→21:46)
[2023-09-23] MEDS: PRENATAL VITAMIN TABLET PO SCH (10:59)
[2023-09-23] MEDS: MAGNESIUM OXIDE 400 MG TABLET PO SCH (10:59)
[2023-09-23] MEDS: FERROUS SULFATE 325 MG TABLET PO SCH ×2 (10:59→21:47)
[2023-09-23] MEDS: ESCITALOPRAM 10 MG TABLET PO SCH (10:59)
--- NOTE | 2023-09-23 19:42 | PROVIDER PROGRESS NOTE ---
Assessment/Plan - Problem List (1) Pneumonia Assessment/Plan: Since she was recently hospitalized she was started on broad spectrum antibx Plan: Cont empiric antibx Cont Mucinex for expectoration and suppl O2 (2) COPD Exacerbation She has underlying COPD and has continued scattered wheezing and also poor air movement Plan: Cont Duonebs, nebulized and iv steroids Cont O2, target sat >88% in a COPDer (3) Hypomagnesemia Related to poor po intake with cachexia Plan: Replace iv and po Follow Mg daily until normal (4) Hyperkalemia Plan: Avoid K-retaining meds Follow BMP daily (5) Anemia, normocytic, chronic She was adm with Hgb of 10.5 Plan: Await her reconciled med list to start any suppl she is on Follow CBC daily and transfuse if Hgb <7 (6) SMA Syndrome As per Hx (7) Severe malnutrition Plan: Will request Watch Band Assembler Usha to see and give diet recommendations Allow pt to eat what she desires (8) Migraine Headache As per Hx, none currently. (9) Fibromyalgia Await her reconciled med list to start any suppl she is on (10) Depression Await her reconciled med list to start any suppl she is on (11) GERD Await her reconciled med list to start any suppl she is on (12) Weakness PT and OT ordered to work with her (13) Tobacco use Cessation discussed (14) AMS RESOLVED She has become more awake and alert, but cannot remember what recently happened. Plan: Supportive care Cont to treat PNA Eventual PT and OT (15) Sepsis RESOLVED She met criteria for sepsis with T 38.6C, HR 113, WBC 25 and new AMS. Source appears to be a PNA. She is no longer febrile or confused Plan: Since she was recently hospitalized she is on broad spectrum antibx, and iv fluids, continue these. Await cx results to tailor antibx. - Current Meds Current Meds: Current Medications Generic Name Dose Route Start Last Admin Trade Name Freq PRN Reason Stop Dose Admin Acetaminophen 650 mg 09/21/23 19:34 09/22/23 19:41 Acetaminophen 325 Mg Tablet PO 650 mg Q4HR PRN Administration Pain 1 to 4, or Fever Hydrocodone Bitart/Acetaminophen 1 tab 09/21/23 19:40 09/23/23 17:28 Hydrocod/Acetam 7.5 Mg/325 Mg Tablet PO 1 tab TID PRN Administration PAIN 5-7 Albuterol/Ipratropium 3 ml 09/21/23 19:43 09/23/23 13:38 Ipratropium/Albuterol 3 Ml Neb INH 3 ml Q4H PRN Administration Shortness of Air/Wheezing Aspirin 81 mg 09/22/23 09:00 09/23/23 08:27 Aspirin Chew 81 Mg Tablet PO 81 mg DAILY KIMBERLI Administration Budesonide 0.5 mg 09/22/23 07:00 09/23/23 07:16 Budesonide 0.5 Mg/2 Ml Neb INH 0.5 mg RTBID KIMBERLI Administration Clopidogrel Bisulfate 75 mg 09/22/23 09:00 09/23/23 08:28 Clopidogrel 75 Mg Tablet PO 75 mg DAILY KIMBERLI Administration Enoxaparin Sodium 40 mg 09/22/23 09:00 09/23/23 10:58 Enoxaparin 40 Mg/0.4 Ml Syringe SUBQ Not Given DAILY KIMBERLI Escitalopram Oxalate 20 mg 09/22/23 09:00 09/23/23 10:59 Escitalopram 10 Mg Tablet PO 20 mg DAILY KIMBERLI Administration Ferrous Sulfate 325 mg 09/21/23 20:00 09/21/23 21:37 Ferrous Sulfate 325 Mg Tablet PO 325 mg Q48H KIMBERLI Administration Guaifenesin 600 mg 09/21/23 21:00 09/23/23 10:59 Guaifenesin 600 Mg Tablet PO 600 mg BID KIMBERLI Administration Sodium Chloride 1,000 mls @ 75 mls/hr 09/21/23 20:00 09/23/23 17:28 Normal Saline 0.9% IV 75 mls/hr .[id number] KIMBERLI Administration Ceftriaxone Sodium 2 gm/ 100 mls @ 200 mls/hr 09/22/23 09:00 09/23/23 10:58 Sodium Chloride IV Infused DAILY KIMBERLI Infusion Azithromycin 500 mg/ Sodium 250 mls @ 250 mls/hr 09/22/23 09:00 09/23/23 10:58 Chloride IV Infused DAILY KIMBERLI Infusion Ipratropium [place] 0.5 mg 09/22/23 13:00 09/23/23 13:39 Ipratropium 0.2 Mg/Ml Neb INH Not Given RTQ6H KIMBERLI Lorazepam 1 mg 09/21/23 21:00 09/22/23 21:21 Lorazepam 1 Mg Tablet PO Not Given QPM KIMBERLI Magnesium Oxide 400 mg 09/22/23 09:00 09/23/23 10:59 Magnesium Oxide 400 Mg Tablet PO 400 mg DAILY KIMBERLI Administration Methylprednisolone 40 mg 09/21/23 21:00 09/23/23 10:59 Methylprednisolone Succinate 40 Mg/Ml Vial IVP 40 mg DAILY KIMBERLI Administration Mirtazapine 7.5 mg 09/21/23 21:00 09/22/23 21:20 Mirtazapine 15 Mg Tablet PO 7.5 mg QPM KIMBERLI Administration Ondansetron HCl 4 mg 09/21/23 19:34 09/22/23 19:42 Ondansetron Odt 4 Mg Tablet TL 4 mg Q6HR PRN Administration Nausea / Vomiting Pantoprazole Sodium 40 mg 09/22/23 07:00 09/23/23 05:40 Pantoprazole 40 Mg Tablet PO 40 mg QDAC KIMBERLI Administration Multivit/Folic Acid/Iron 1 tab 09/22/23 08:00 09/23/23 10:59 Vitamin Tablet PO 1 tab DAILYWM KIMBERLI Administration Sodium Chloride 10 ml 09/22/23 01:00 09/23/23 17:29 Sodium Chloride Flush 0.9% 10 Ml Syringe IVP Not Given 0100,0900,1700 KIMBERLI - Lab Result Fish Bone Diagrams: 09/25/23 06:16 09/25/23 06:16 - Additional Planning My Orders: My Active Orders 09/23/23 Evaluate and Treat OT [OT] Routine Evaluate and Treat PT [PT] Routine Subjective - Subjective Patient Reports: Feeling Better (More awake and interactive, has no appetite) Objective Vital Signs: Vital Signs - 24 hr 09/22/23 09/23/23 09/23/23 19:50 00:18 07:18 Temperature 37.2 C Heart Rate 104 H 98 Heart Rate [ 99 Brachial] Respiratory 20 18 20 Rate Blood Pressure 130/76 [Left Brachial artery] O2 Saturation 95 09/23/23 09/23/23 09/23/23 07:33 13:39 16:00 Temperature 36.9 C 36.8 C Heart Rate 90 Heart Rate [ 95 96 Brachial] Respiratory 18 20 16 Rate Blood Pressure 132/81 H 109/63 [Left Brachial artery] O2 Saturation 95 93 09/23/23 17:08 Temperature 36.8 C Heart Rate Heart Rate [ 89 Brachial] Respiratory 20 Rate Blood Pressure 123/70 [Left Brachial artery] O2 Saturation 93 Oxygen O2 Source Room air I&O (Last 24 Hrs): Intake and Output Totals x24h 09/21/23 09/22/23 09/23/23 23:59 23:59 23:59 Intake Total 298.75 1207.5 3286 Balance 298.75 1207.5 3286 General: Alert, Oriented x3, Other (Cachectic) HEENT: EOMI, Mucous membr. moist/pink Neck: Supple Neuro: Alert, Non Focal, Other (Has generalized weakness) Cardiovascular: Regular rate (distant heart sounds due to COPD) Respiratory: Wheezes, Other (Poor air movement) Abdomen: Soft, No tenderness Extremities: No clubbing, No edema, No tenderness/swelling - Results Results: Laboratory Results WBC 20.7 x10^3/uL (4.8-10.8) H 09/23/23 05:48 RBC 3.15 10^6/uL (4.20-5.40) L 09/23/23 05:48 Hgb 9.1 g/dL (12.0-16.0) L 09/23/23 05:48 Hct 29.3 % (37.0-47.0) L 09/23/23 05:48 MCV 93.0 fL (81.0-99.0) 09/23/23 05:48 MCH 28.9 pg (27.0-31.0) 09/23/23 05:48 MCHC 31.1 g/dL (32.0-36.0) L 09/23/23 05:48 RDW 16.8 % (12.0-15.0) H 09/23/23 05:48 Plt Count 349 10^3/uL (130-450) 09/23/23 05:48 MPV 8.7 fL (7.9-10.8) 09/23/23 05:48 Neut # (Auto) Not Reportable 09/23/23 05:48 Lymph # (Auto) Not Reportable 09/23/23 05:48 [place] # (Auto) Not Reportable 09/23/23 05:48 Eos # (Auto) Not Reportable 09/23/23 05:48 Baso # (Auto) Not Reportable 09/23/23 05:48 Absolute Nucleated RBC Not Reportable 09/23/23 05:48 Total Counted 100 09/23/23 05:48 Band Neuts % (Manual) 7 % (0-10) 09/23/23 05:48 Abnorm Lymph % (Manual) 0 % 09/23/23 05:48 Nucleated RBC % Not Reportable 09/23/23 05:48 Neutrophils # (Manual) 20.1 10^3/uL (1.5-6.6) H 09/23/23 05:48 Lymphocytes # (Manual) 0.6 10^3/uL (1.5-3.5) L 09/23/23 05:48 Monocytes # (Manual) 0.0 10^3/uL (0.0-1.0) 09/23/23 05:48 Eosinophils # (Manual) 0.0 10^3/uL (0-0.7) 09/23/23 05:48 Basophils # (Manual) 0.0 10^3/uL (0-0.1) 09/23/23 05:48 Differential Comment MANUAL DIFFERENTIAL 09/23/23 05:48 WBC Morphology 1+ TOXIC G (NORMAL) 09/23/23 05:48 Platelet Estimate NORMAL (130-450,000) (NORMAL) 09/23/23 05:48 Platelet Morphology NORMAL APPEARANCE (NORMAL) 09/23/23 05:48 RBC Morph Micro Appear 1+ ANISOCYTOSIS (NORMAL) 1+ HYPOCHROMASIA (NORMAL) 09/23/23 05:48 RBC Morph Micro Appear 1+ ANISOCYTOSIS (NORMAL) 1+ HYPOCHROMASIA (NORMAL) 09/23/23 05:48 Sodium 136 mmol/L (135-145) 09/23/23 05:48 Potassium 3.5 mmol/L (3.5-4.5) 09/23/23 05:48 Chloride 105 mmol/L (101-111) 09/23/23 05:48 Carbon Dioxide 24 mmol/L (21-32) 09/23/23 05:48 Anion Gap 7.0 (6-13) 09/23/23 05:48 BUN 15 mg/dL (6-20) 09/23/23 05:48 Creatinine 0.5 mg/dL (0.6-1.3) L 09/23/23 05:48 Estimated GFR (MDRD) 120 (>89) 09/23/23 05:48 Glucose 167 mg/dL (74-104) H 09/23/23 05:48 Lactic Acid 1.0 mmol/L (0.5-2.2) 09/21/23 22:05 Calcium 8.8 mg/dL (8.5-10.3) 09/23/23 05:48 Magnesium 1.5 mg/dL (1.7-2.3) L 09/23/23 05:48 Total Bilirubin 0.5 mg/dL (0.2-1.0) 09/21/23 17:45 AST 12 IU/L (10-42) 09/21/23 17:45 ALT 7 IU/L (10-60) L 09/21/23 17:45 Alkaline Phosphatase 95 IU/L (42-121) 09/21/23 17:45 Total Protein 6.6 g/dL (6.4-8.9) 09/21/23 17:45 Albumin 2.9 g/dL (3.2-5.5) L 09/21/23 17:45 Globulin 3.7 g/dL (2.1-4.2) 09/21/23 17:45 Albumin/Globulin Ratio 0.8 (1.0-2.2) L 09/21/23 17:45 Vitamin B12 914 pg/mL (180-914) 09/22/23 06:22 Folate 20.3 ng/mL (5.90 - >24.8) 09/22/23 06:22 Urine Color YELLOW 09/21/23 19:44 Urine Clarity CLOUDY (CLEAR) 09/21/23 19:44 Urine pH 7.0 PH (5.0-7.5) 09/21/23 19:44 Ur Specific [place] 1.015 (1.002-1.030) 09/21/23 19:44 Urine Protein 30 mg/dL (NEGATIVE) H 09/21/23 19:44 Urine Glucose (UA) NEGATIVE mg/dL (NEGATIVE) 09/21/23 19:44 Urine Ketones NEGATIVE mg/dL (NEGATIVE) 09/21/23 19:44 Urine Occult Blood SMALL (NEGATIVE) H 09/21/23 19:44 Urine Nitrite POSITIVE (NEGATIVE) H 09/21/23 19:44 Urine Bilirubin NEGATIVE (NEGATIVE) 09/21/23 19:44 Urine Urobilinogen 0.2 (NORMAL) E.U./dL (NORMAL) 09/21/23 19:44 Ur Leukocyte Esterase LARGE (NEGATIVE) H 09/21/23 19:44 Urine RBC 0-5 /HPF (0-5) 09/21/23 19:44 Urine WBC >25 /HPF (0-5) H 09/21/23 19:44 Ur Squamous Epith Cells FEW Squamous (<= Few) 09/21/23 19:44 Urine Bacteria Many /HPF (None Seen) H 09/21/23 19:44 Ur Microscopic Review INDICATED 09/21/23 19:44 Urine Culture Comments INDICATED 09/21/23 19:44 Nasal Adenovirus (PCR) NOT DETECTED 09/21/23 17:41 Nasal B. parapertussis DNA (PCR) NOT DETECTED 09/21/23 17:41 Nasal Coronavir 229E PCR NOT DETECTED 09/21/23 17:41 Nasal Coronavir HKU1 PCR NOT DETECTED 09/21/23 17:41 Nasal Coronavir NL63 PCR NOT DETECTED 09/21/23 17:41 Nasal Coronavir OC43 PCR NOT DETECTED 09/21/23 17:41 Nasal Enterovir/Rhinovir PCR NOT DETECTED 09/21/23 17:41 Nasal Influenza B PCR NOT DETECTED 09/21/23 17:41 Nasal Influenza A PCR NOT DETECTED 09/21/23 17:41 Nasal Parainfluen 1 PCR NOT DETECTED 09/21/23 17:41 Nasal Parainfluen 2 PCR NOT DETECTED 09/21/23 17:41 Nasal Parainfluen 3 PCR NOT DETECTED 09/21/23 17:41 Nasal Parainfluen 4 PCR NOT DETECTED 09/21/23 17:41 Nasal RSV (PCR) NOT DETECTED 09/21/23 17:41 Nasal B.pertussis DNA PCR NOT DETECTED 09/21/23 17:41 Nasal C.pneumoniae (PCR) NOT DETECTED 09/21/23 17:41 Chris Human Metapneumo PCR NOT DETECTED 09/21/23 17:41 Nasal M.pneumoniae (PCR) NOT DETECTED 09/21/23 17:41 Nasal SARS-CoV-2 (PCR) NOT DETECTED 09/21/23 17:41
[2023-09-23] MEDS: LORazepam 1 MG TABLET PO SCH (21:45)
[2023-09-23] MEDS: MIRTAZAPINE 15 MG TABLET PO SCH (21:45)
[2023-09-24] MEDS: SODIUM CHLORIDE FLUSH 0.9% 10 ML SYRINGE IVP SCH ×3 (00:14→20:46)
[2023-09-24 05:48] LABS: BASOPHILS % (AUTO) 0.3 %; EOSINOPHILS % (AUTO) 0.1 %; HGB - HEMOGLOBIN 8.9 g/dL (12.0-16.0); LYMPHOCYTES # (AUTO) 0.6 10^3/uL (1.5-3.5); LYMPHOCYTES % (AUTO) 3.8 %; MEAN CORPUSCULAR HEMOGLOBIN 28.7 pg (27.0-31.0); MEAN CORPUSCULAR HGB CONC 30.7 g/dL (32.0-36.0); MEAN CORPUSCULAR VOLUME 93.5 fL (81.0-99.0); MEAN PLATELET VOLUME 8.6 fL (7.9-10.8); MONOCYTES # (AUTO) 0.5 10^3/uL (0.0-1.0); MONOCYTES % (AUTO) 3.2 %; NEUTROPHILS # (AUTO) 13.4 10^3/uL (1.5-6.6); NEUTROPHILS % (AUTO) 91.8 %; PLT - PLATELET COUNT 305 10^3/uL (130-450); RED CELL DISTRIBUTION WIDTH 16.8 % (12.0-15.0); WHITE BLOOD COUNT 14.6 x10^3/uL (4.8-10.8)
[2023-09-24 06:14] LABS: CALCIUM 8.4 mg/dL (8.5-10.3); CREATININE 0.4 mg/dL (0.6-1.3); MAGNESIUM 1.4 mg/dL (1.7-2.3); POTASSIUM 3.1 mmol/L (3.5-4.5)
[2023-09-24] MEDS: PANTOPRAZOLE 40 MG TABLET PO SCH (06:24)
[2023-09-24] MEDS: SODIUM CHLORIDE 0.9% 1,000 ML IV SCH (07:48)
[2023-09-24] MEDS ORDERED: POTASSIUM CHLORIDE 10 MEQ CAPSULE PO ONE (08:00)
[2023-09-24] MEDS: cefTRIAXone 2 GM in SODIUM CHLORIDE 0.9% MINIBAG 100 ML IV SCH (09:25)
[2023-09-24] MEDS: guaiFENesin 600 MG TABLET PO SCH ×2 (09:26→20:46)
[2023-09-24] MEDS: PRENATAL VITAMIN TABLET PO SCH (09:26)
[2023-09-24] MEDS: methylPREDNISolone SUCCINATE 40 MG/ML VIAL IVP SCH (09:26)
[2023-09-24] MEDS: ENOXAPARIN 40 MG/0.4 ML SYRINGE SUBQ SCH (09:26)
[2023-09-24] MEDS: CLOPIDOGREL 75 MG TABLET PO SCH (09:27)
[2023-09-24] MEDS: MAGNESIUM OXIDE 400 MG TABLET PO SCH (09:27)
[2023-09-24] MEDS: ASPIRIN CHEW 81 MG TABLET PO SCH (09:27)
[2023-09-24] MEDS: ESCITALOPRAM 10 MG TABLET PO SCH (09:27)
[2023-09-24] MEDS: AZITHROMYCIN INJ 500 MG in SODIUM CHLORIDE 0.9% 250 ML IV SCH (09:58)
[2023-09-24] MEDS: HYDROcod/ACETAM 7.5 MG/325 MG TABLET PO PRN (10:37)
[2023-09-24] MEDS: BUDESONIDE 0.5 MG/2 ML NEB INH SCH ×2 (10:48→19:14)
[2023-09-24] MEDS: IPRATROPIUM 0.2 MG/ML NEB INH SCH ×3 (10:48→19:14)
--- NOTE | 2023-09-24 13:09 | Discharge Plan ---
"Discharge Plan for SNF / [facility] - Discharge Plan And Transition Orders Problem Reviewed?: Yes Disposition: 03 SNF DC/Xfer Condition: Fair Allergies and Adverse Reactions: Allergies Allergy/AdvReac Type Severity Reaction Status Date / Time vancomycin Allergy Severe Anaphylaxis Verified 09/21/23 17:27 codeine Allergy Intermediate Hallucinati Verified 09/21/23 17:27 ons levofloxacin [From Levaquin] Allergy Unknown Verified 09/21/23 17:27 lithium Allergy Anaphylaxis Verified 09/21/23 17:27 Health Concerns: Patient was hospitalized for a pneumonia and COPD exacerbation. She needed suppl O2 that has now been weaned down and she is breathing room air. She is deconditioned and needs PT and OT rehab at a SNF. Plan of Treatment: As above. Care Goals: Improvement in symptoms and stabilization are the goals. Assessment: The patient understands and is agreeable with the plan. - SNF / [facility] Transition Orders Admit to (Facility): [facility] Under the care of (Name): Dr Tristan Camara Discharge Diagnosis: AMS Resolved Sepsis Resolved Acute respiratory failure with hypoxia Resolved Pneumonia Treated COPD Exacerbation Improved. New Medrol Dose bernadette prescribed for an oral steroid taper Hypomagnesemia Replaced Hyperkalemia Corrected Anemia, normocytic Chronic Severe malnutrition Chronic Migraine Headache Stable Fibromyalgia Stable Depression Stable GERD Stable Generalized Weakness Needs rehab at SNF Tobacco use As per Hx Medicare Certification Statement: I certify that Post Hospital intermediate care is medically necessary on a continuing basis for any of the conditions for which she/he is receiving care during hospitalization. Notify PCP of admission and forward orders to primary provider for signature. Weight on admission and: Weekly Call PCP immediately if weight increases by: 5 kg Other Notification Orders: Call PCP immediately if patient develops dyspnea, chest pain/tightness or edema. House Bowel Program: Yes Additional Bowel Program Orders: If no BM after 2 days, nurse may give M.O.M. 30ml PO PRN and/or ducolax Supp 1 [place] and/or MELIDA 250mg P.O., and/or senna 1-2 tabs PO. On day 3 nurse may give repeat above order until residents constipation is resolved. Annual Influenza Vaccine (between Jun 12 and January 09): Yes Two-step PPD per [facility] [phone] or approved exception documents: Yes Treatments & Other Orders: Daily PT and OT Medication Orders: PLEASE REFER TO THE DISCHARGE MEDICATION LIST. Insulin Orders?: No - Medications New Prescriptions: methylPREDNISolone [Medrol Dose Pack] 1 each PO .PACKAGEINSTRUCTIONS 6 Days #1 each - Diet Type: Geriatric Texture: Regular Liquids: Thin May have monthly special meal: Yes - Therapies | Activity Therapy: Evaluation | Treat if indicated: PT, OT Rehabilitation Potential: Maximize functional status Weight Bearing: Full Weight Assistance Devices: Walker Follow Up: See PCP after discharge from SNF"
[2023-09-24] MEDS: MIRTAZAPINE 15 MG TABLET PO SCH (20:46)
[2023-09-24] MEDS: LORazepam 1 MG TABLET PO SCH (20:46)
[2023-09-25] MEDS: ACETAMINOPHEN 325 MG TABLET PO PRN (00:02)
[2023-09-25] MEDS: SODIUM CHLORIDE FLUSH 0.9% 10 ML SYRINGE IVP SCH ×2 (00:03→10:20)
[2023-09-25 06:39] LABS: BASOPHILS # (AUTO) 0.1 10^3/uL (0.0-0.1); BASOPHILS % (AUTO) 0.3 %; EOSINOPHILS % (AUTO) 0.2 %; HCT - HEMATOCRIT 32.5 % (37.0-47.0); LYMPHOCYTES # (AUTO) 0.9 10^3/uL (1.5-3.5); LYMPHOCYTES % (AUTO) 4.4 %; MEAN CORPUSCULAR HEMOGLOBIN 27.9 pg (27.0-31.0); MEAN CORPUSCULAR HGB CONC 30.8 g/dL (32.0-36.0); MEAN CORPUSCULAR VOLUME 90.5 fL (81.0-99.0); MEAN PLATELET VOLUME 8.5 fL (7.9-10.8); MONOCYTES # (AUTO) 0.6 10^3/uL (0.0-1.0); MONOCYTES % (AUTO) 3.2 %; NEUTROPHILS # (AUTO) 17.4 10^3/uL (1.5-6.6); NEUTROPHILS % (AUTO) 90.5 %; PLT - PLATELET COUNT 365 10^3/uL (130-450); RED BLOOD COUNT 3.59 10^6/uL (4.20-5.40); RED CELL DISTRIBUTION WIDTH 16.6 % (12.0-15.0); WHITE BLOOD COUNT 19.2 x10^3/uL (4.8-10.8)
[2023-09-25 06:47] LABS: CALCIUM 8.3 mg/dL (8.5-10.3); CREATININE 0.3 mg/dL (0.6-1.3); POTASSIUM 2.8 mmol/L (3.5-4.5)
[2023-09-25] MEDS: PANTOPRAZOLE 40 MG TABLET PO SCH (07:09)
[2023-09-25] MEDS: BUDESONIDE 0.5 MG/2 ML NEB INH SCH (07:12)
[2023-09-25] MEDS: IPRATROPIUM 0.2 MG/ML NEB INH SCH (07:13)
[2023-09-25] MEDS: IPRATROPIUM/ALBUTEROL 3 ML NEB INH PRN (07:13)
[2023-09-25 08:22] VITALS: BP 157/94; O2SAT 99
--- NOTE | 2023-09-25 09:17 | PROVIDER PROGRESS NOTE ---
Assessment/Plan - Current Meds Current Meds: Current Medications Generic Name Dose Route Start Last Admin Trade Name Freq PRN Reason Stop Dose Admin Acetaminophen 650 mg 09/21/23 19:34 09/25/23 00:02 Acetaminophen 325 Mg Tablet PO 650 mg Q4HR PRN Administration Pain 1 to 4, or Fever Hydrocodone Bitart/Acetaminophen 1 tab 09/21/23 19:40 09/24/23 10:37 Hydrocod/Acetam 7.5 Mg/325 Mg Tablet PO 1 tab TID PRN Administration PAIN 5-7 Albuterol/Ipratropium 3 ml 09/21/23 19:43 09/25/23 07:13 Ipratropium/Albuterol 3 Ml Neb INH 3 ml Q4H PRN Administration Shortness of Air/Wheezing Aspirin 81 mg 09/22/23 09:00 09/24/23 09:27 Aspirin Chew 81 Mg Tablet PO 81 mg DAILY KIMBERLI Administration Budesonide 0.5 mg 09/22/23 07:00 09/25/23 07:12 Budesonide 0.5 Mg/2 Ml Neb INH 0.5 mg RTBID KIMBERLI Administration Clopidogrel Bisulfate 75 mg 09/22/23 09:00 09/24/23 09:27 Clopidogrel 75 Mg Tablet PO 75 mg DAILY KIMBERLI Administration Enoxaparin Sodium 40 mg 09/22/23 09:00 09/24/23 09:26 Enoxaparin 40 Mg/0.4 Ml Syringe SUBQ 40 mg DAILY KIMBERLI Administration Escitalopram Oxalate 20 mg 09/22/23 09:00 09/24/23 09:27 Escitalopram 10 Mg Tablet PO 20 mg DAILY KIMBERLI Administration Ferrous Sulfate 325 mg 09/21/23 20:00 09/23/23 21:47 Ferrous Sulfate 325 Mg Tablet PO 325 mg Q48H KIMBERLI Administration Guaifenesin 600 mg 09/21/23 21:00 09/24/23 20:46 Guaifenesin 600 Mg Tablet PO 600 mg BID KIMBERLI Administration Ceftriaxone Sodium 2 gm/ 100 mls @ 200 mls/hr 09/22/23 09:00 09/24/23 10:06 Sodium Chloride IV Infused DAILY KIMBERLI Infusion Ipratropium [place] 0.5 mg 09/22/23 13:00 09/25/23 07:13 Ipratropium 0.2 Mg/Ml Neb INH Not Given RTQ6H KIMBERLI Lorazepam 1 mg 09/21/23 21:00 09/24/23 20:46 Lorazepam 1 Mg Tablet PO 1 mg QPM KIMBERLI Administration Magnesium Oxide 400 mg 09/22/23 09:00 09/24/23 09:27 Magnesium Oxide 400 Mg Tablet PO 400 mg DAILY KIMBERLI Administration Methylprednisolone 40 mg 09/21/23 21:00 09/24/23 09:26 Methylprednisolone Succinate 40 Mg/Ml Vial IVP 40 mg DAILY KIMBERLI Administration Mirtazapine 7.5 mg 09/21/23 21:00 09/24/23 20:46 Mirtazapine 15 Mg Tablet PO 7.5 mg QPM KIMBERLI Administration Ondansetron HCl 4 mg 09/21/23 19:34 09/22/23 19:42 Ondansetron Odt 4 Mg Tablet TL 4 mg Q6HR PRN Administration Nausea / Vomiting Pantoprazole Sodium 40 mg 09/22/23 07:00 09/25/23 07:09 Pantoprazole 40 Mg Tablet PO 40 mg QDAC KIMBERLI Administration Multivit/Folic Acid/Iron 1 tab 09/22/23 08:00 09/24/23 09:26 Vitamin Tablet PO 1 tab DAILYWM KIMBERLI Administration Sodium Chloride 10 ml 09/22/23 01:00 09/25/23 00:03 Sodium Chloride Flush 0.9% 10 Ml Syringe IVP 10 ml 0100,0900,1700 KIMBERLI Administration - Lab Result Fish Bone Diagrams: 09/25/23 06:16 09/25/23 06:16 - Additional Planning My Orders: My Active Orders 09/25/23 09:13 Discharge [RC] .ONCE Initiate Discharge Checklist [RC] .ONCE Objective Vital Signs: Vital Signs - 24 hr 09/24/23 09/24/23 09/25/23 15:53 19:15 00:05 Temperature 36.9 C 37.0 C Heart Rate 114 H Heart Rate [ 103 H 99 Brachial] Respiratory 16 20 24 Rate Blood Pressure [Left Brachial artery] Blood Pressure 146/83 H 148/99 H [Right Brachial artery] O2 Saturation 93 92 09/25/23 09/25/23 07:14 08:00 Temperature 37.2 C Heart Rate 94 Heart Rate [ 99 Brachial] Respiratory 16 18 Rate Blood Pressure 157/94 H [Left Brachial artery] Blood Pressure 157/94 H [Right Brachial artery] O2 Saturation 99 Oxygen O2 Source Room air I&O (Last 24 Hrs): Intake and Output Totals x24h 09/23/23 09/24/23 09/25/23 23:59 23:59 23:59 Intake Total 3636 2074.5 Output Total 2100 1150 Balance 3636 -25.5 -1150 - Results Results: Laboratory Results WBC 19.2 x10^3/uL (4.8-10.8) H 09/25/23 06:16 RBC 3.59 10^6/uL (4.20-5.40) L 09/25/23 06:16 Hgb 10.0 g/dL (12.0-16.0) L 09/25/23 06:16 Hct 32.5 % (37.0-47.0) L 09/25/23 06:16 MCV 90.5 fL (81.0-99.0) 09/25/23 06:16 MCH 27.9 pg (27.0-31.0) 09/25/23 06:16 MCHC 30.8 g/dL (32.0-36.0) L 09/25/23 06:16 RDW 16.6 % (12.0-15.0) H 09/25/23 06:16 Plt Count 365 10^3/uL (130-450) 09/25/23 06:16 MPV 8.5 fL (7.9-10.8) 09/25/23 06:16 Neut # (Auto) 17.4 10^3/uL (1.5-6.6) H 09/25/23 06:16 Lymph # (Auto) 0.9 10^3/uL (1.5-3.5) L 09/25/23 06:16 [place] # (Auto) 0.6 10^3/uL (0.0-1.0) 09/25/23 06:16 Eos # (Auto) 0.0 10^3/uL (0.0-0.7) 09/25/23 06:16 Baso # (Auto) 0.1 10^3/uL (0.0-0.1) 09/25/23 06:16 Absolute Nucleated RBC 0.00 x10^3/uL 09/25/23 06:16 Total Counted 100 09/23/23 05:48 Band Neuts % (Manual) 7 % (0-10) 09/23/23 05:48 Abnorm Lymph % (Manual) 0 % 09/23/23 05:48 Nucleated RBC % 0.0 /100WBC 09/25/23 06:16 Neutrophils # (Manual) 20.1 10^3/uL (1.5-6.6) H 09/23/23 05:48 Lymphocytes # (Manual) 0.6 10^3/uL (1.5-3.5) L 09/23/23 05:48 Monocytes # (Manual) 0.0 10^3/uL (0.0-1.0) 09/23/23 05:48 Eosinophils # (Manual) 0.0 10^3/uL (0-0.7) 09/23/23 05:48 Basophils # (Manual) 0.0 10^3/uL (0-0.1) 09/23/23 05:48 Differential Comment MANUAL DIFFERENTIAL 09/23/23 05:48 WBC Morphology 1+ TOXIC G (NORMAL) 09/23/23 05:48 Platelet Estimate NORMAL (130-450,000) (NORMAL) 09/23/23 05:48 Platelet Morphology NORMAL APPEARANCE (NORMAL) 09/23/23 05:48 RBC Morph Micro Appear 1+ ANISOCYTOSIS (NORMAL) 1+ HYPOCHROMASIA (NORMAL) 09/23/23 05:48 RBC Morph Micro Appear 1+ ANISOCYTOSIS (NORMAL) 1+ HYPOCHROMASIA (NORMAL) 09/23/23 05:48 Sodium 136 mmol/L (135-145) 09/25/23 06:16 Potassium 2.8 mmol/L (3.5-4.5) L 09/25/23 06:16 Chloride 100 mmol/L (101-111) L 09/25/23 06:16 Carbon Dioxide 31 mmol/L (21-32) 09/25/23 06:16 Anion Gap 5.0 (6-13) L 09/25/23 06:16 BUN 8 mg/dL (6-20) 09/25/23 06:16 Creatinine 0.3 mg/dL (0.6-1.3) L 09/25/23 06:16 Estimated GFR (MDRD) 216 (>89) 09/25/23 06:16 Glucose 87 mg/dL (74-104) 09/25/23 06:16 Lactic Acid 1.0 mmol/L (0.5-2.2) 09/21/23 22:05 Calcium 8.3 mg/dL (8.5-10.3) L 09/25/23 06:16 Magnesium 1.4 mg/dL (1.7-2.3) L 09/24/23 05:13 Total Bilirubin 0.5 mg/dL (0.2-1.0) 09/21/23 17:45 AST 12 IU/L (10-42) 09/21/23 17:45 ALT 7 IU/L (10-60) L 09/21/23 17:45 Alkaline Phosphatase 95 IU/L (42-121) 09/21/23 17:45 Total Protein 6.6 g/dL (6.4-8.9) 09/21/23 17:45 Albumin 2.9 g/dL (3.2-5.5) L 09/21/23 17:45 Globulin 3.7 g/dL (2.1-4.2) 09/21/23 17:45 Albumin/Globulin Ratio 0.8 (1.0-2.2) L 09/21/23 17:45 Vitamin B12 914 pg/mL (180-914) 09/22/23 06:22 Folate 20.3 ng/mL (5.90 - >24.8) 09/22/23 06:22 Urine Color YELLOW 09/21/23 19:44 Urine Clarity CLOUDY (CLEAR) 09/21/23 19:44 Urine pH 7.0 PH (5.0-7.5) 09/21/23 19:44 Ur Specific [place] 1.015 (1.002-1.030) 09/21/23 19:44 Urine Protein 30 mg/dL (NEGATIVE) H 09/21/23 19:44 Urine Glucose (UA) NEGATIVE mg/dL (NEGATIVE) 09/21/23 19:44 Urine Ketones NEGATIVE mg/dL (NEGATIVE) 09/21/23 19:44 Urine Occult Blood SMALL (NEGATIVE) H 09/21/23 19:44 Urine Nitrite POSITIVE (NEGATIVE) H 09/21/23 19:44 Urine Bilirubin NEGATIVE (NEGATIVE) 09/21/23 19:44 Urine Urobilinogen 0.2 (NORMAL) E.U./dL (NORMAL) 09/21/23 19:44 Ur Leukocyte Esterase LARGE (NEGATIVE) H 09/21/23 19:44 Urine RBC 0-5 /HPF (0-5) 09/21/23 19:44 Urine WBC >25 /HPF (0-5) H 09/21/23 19:44 Ur Squamous Epith Cells FEW Squamous (<= Few) 09/21/23 19:44 Urine Bacteria Many /HPF (None Seen) H 09/21/23 19:44 Ur Microscopic Review INDICATED 09/21/23 19:44 Urine Culture Comments INDICATED 09/21/23 19:44 Nasal Adenovirus (PCR) NOT DETECTED 09/21/23 17:41 Nasal B. parapertussis DNA (PCR) NOT DETECTED 09/21/23 17:41 Nasal Coronavir 229E PCR NOT DETECTED 09/21/23 17:41 Nasal Coronavir HKU1 PCR NOT DETECTED 09/21/23 17:41 Nasal Coronavir NL63 PCR NOT DETECTED 09/21/23 17:41 Nasal Coronavir OC43 PCR NOT DETECTED 09/21/23 17:41 Nasal Enterovir/Rhinovir PCR NOT DETECTED 09/21/23 17:41 Nasal Influenza B PCR NOT DETECTED 09/21/23 17:41 Nasal Influenza A PCR NOT DETECTED 09/21/23 17:41 Nasal Parainfluen 1 PCR NOT DETECTED 09/21/23 17:41 Nasal Parainfluen 2 PCR NOT DETECTED 09/21/23 17:41 Nasal Parainfluen 3 PCR NOT DETECTED 09/21/23 17:41 Nasal Parainfluen 4 PCR NOT DETECTED 09/21/23 17:41 Nasal RSV (PCR) NOT DETECTED 09/21/23 17:41 Nasal B.pertussis DNA PCR NOT DETECTED 09/21/23 17:41 Nasal C.pneumoniae (PCR) NOT DETECTED 09/21/23 17:41 Chris Human Metapneumo PCR NOT DETECTED 09/21/23 17:41 Nasal M.pneumoniae (PCR) NOT DETECTED 09/21/23 17:41 Nasal SARS-CoV-2 (PCR) NOT DETECTED 09/21/23 17:41
--- NOTE | 2023-09-25 09:21 | DISCHARGE SUMMARY ---
Discharge Summary Admit Date: 09/21/23 Discharge Date: 09/25/23 Discharging Provider: Dr Maegan Wen Primary Care Provider: Dr Jerome Magallon Code Status: Attempt Resuscitation Condition at Discharge: Fair Discharge Disposition: 03 [facility] DC/Xfer - HPI History of Present Illness: From Telemedicine night provider H&P 78 yo F with PMH of SMA Syndrome, Severe malnutrition, COPD, HTN, Migraine H/As, Fibromyalgia, Depression, Weakness, +tobacco use presented to the ER from SNF with c/o 1 day h/o Fevers, Shortness of breath, AMS. Pt is awake and answers questions slowly, but does not answer all questions. Is not following commands. Pt is unable to give history. Per staff, chart, SNF reported that pt had 1 day h/o Shortness of breath, Fevers, AMS. Evidently, pt is alert and Ox3 at baseline and this is a change for her. Pt was hospitalized from 09/01-09/09/23 for AMS, Sepsis, UTI and discharged to SNF d/t Weakness for rehab. In the ER, T 38.6C (101.5F), HR 113, WBC 25, Hgb 10.5, K 5.3, Mg 1.6, BC pending, U/A pending. CXR: RLL infiltrate. EKG: S. Tachy at 115 bpm, no STT changes. Pt was given Tylenol, Duonebs, Rocephin/Azithro in the ER. - HOSPITAL COURSE Hospital Course: AMS Resolved with treatment of her sepsis, pneumonia and hypoxia Sepsis Resolved Acute respiratory failure with hypoxia Resolved. Her suppl O2 was titrated down to room air. Pneumonia Treated with empiric antibx and she improved COPD Exacerbation Improved on nebulized bronchodilatirs and iv steroids. New Medrol Dose bernadette pr escribed for an oral steroid taper Hypomagnesemia Replaced Hyperkalemia Corrected Anemia, normocytic Chronic. She was kept oh oral Iron replacement while here. Severe malnutrition Chronic. She was seen by Color Printer Operator and we allowed her to eat what she desires Migraine Headache Stable Fibromyalgia Stable Depression Stable GERD Stable Generalized Weakness Needs rehab at [facility] Tobacco use As per Hx - ALLERGIES Allergies/Adverse Reactions: Allergies Allergy/AdvReac Type Severity Reaction Status Date / Time vancomycin Allergy Severe Anaphylaxis Verified 09/21/23 17:27 codeine Allergy Intermediate Hallucinati Verified 09/21/23 17:27 ons levofloxacin [From Levaquin] Allergy Unknown Verified 09/21/23 17:27 lithium Allergy Anaphylaxis Verified 09/21/23 17:27 - MEDICATIONS Home Medications: Ambulatory Orders Medication Instructions Recorded Confirmed SUMAtriptan [Imitrex] 25 mg PO DAILY PRN 03/30/17 09/22/23 Clopidogrel [Plavix] 75 mg PO DAILY 09/01/23 09/22/23 No122/Iron/Folic Acid 1 each PO DAILY 09/01/23 09/22/23 [ Multi Tablet] Tiotropium [place] [Spiriva 2 puffs INH DAILY 09/01/23 09/22/23 Respimat] Albuterol Sulf [Ventolin Hfa 2 puffs INH Q4H PRN 09/02/23 09/22/23 Inhaler] Aspirin Chewable [[place] 81 mg PO DAILY 09/02/23 09/22/23 Aspirin] Escitalopram Oxalate 20 mg PO DAILY 09/02/23 09/22/23 Ferrous Sulfate [Feosol] 325 mg PO Q48H 09/02/23 09/22/23 HYDROcodone/ACET 7.5/325 [[place] 1 tab PO TID PRN 09/02/23 09/22/23 7.5/325] LORazepam [Ativan] 1 mg PO QPM PRN 09/02/23 09/22/23 Mirtazapine 7.5 mg PO QPM 09/02/23 09/22/23 Pantoprazole [Protonix] 40 mg PO QDAC 09/02/23 09/22/23 Trazodone HCl 200 mg PO QPM 09/02/23 09/22/23 Zolpidem [Ambien] 5 mg PO QPM PRN 09/02/23 09/22/23 oxyCODONE [Roxicodone] 5 mg PO Q6H PRN 09/02/23 09/22/23 Magnesium Oxide [Mag Ox] 400 mg PO DAILY #30 tab 09/09/23 09/22/23 Bisacodyl Supp [Dulcolax Supp] 1 supp NE ONCE PRN 09/22/23 09/22/23 Mineral Oil [Mineral Oil Enema] 1 bottle NE ONCE PRN 09/22/23 09/22/23 Sennosides [Senna Lax] 8.6 mg PO ONCE PRN 09/22/23 09/22/23 polyethylene glycoL 3350 [Miralax] 17 g PO ONCE PRN 09/22/23 09/22/23 Loperamide [Imodium] 2 mg PO BID PRN #30 cap 09/25/23 09/22/23 guaiFENesin [Mucinex] 600 mg PO BID PRN #30 tab 09/25/23 methylPREDNISolone [Medrol Dose 1 each PO .PACKAGEINSTRUCTIONS 6 09/25/23 Pack] Days #1 each traMADol [Ultram] 50 mg PO BID PRN #30 tab 09/25/23 09/22/23 - PHYSICAL EXAM AT DISCHARGE General Appearance: positive: No acute distress, Alert, Other (Cachectic, frail elderly white female) Eyes Bilateral: positive: Normal inspection, EOMI ENT: positive: ENT inspection nml, No signs of dehydration Neck: positive: Nml inspection, No JVD Respiratory: positive: No respiratory distress, Breath sounds nml Cardiovascular: positive: Regular rate & rhythm, No murmur Abdomen: positive: Non-tender, Nml bowel sounds Skin: positive: Warm, Dry Extremities: positive: Non-tender, No pedal edema Neurologic/Psychiatric: positive: Oriented x3, CN's nml (2-12), Motor nml - LABS Result Diagrams: 09/25/23 06:16 09/25/23 06:16 - DIAGNOSTIC IMAGING Diagnostic Imaging Results: Final report reviewed - SEPSIS Current Stage of Sepsis: Sepsis Possible source of Sepsis: Pulmonary Sepsis Criteria: Recorded Temperature greater than 38.3C or Less than 36C, Recorded Heart Rate greater than 90 bpm, Respiratory: Increasing oxygen requirements, WBC count greater than 12,000 or less than 4000, PHYSICIAN PEDIATRICIAN: altered consciousness (unrelated to primary neuro pathology) - TIME SPENT Time Spent in Discharge (Minutes): 40
[2023-09-25] MEDS: methylPREDNISolone SUCCINATE 40 MG/ML VIAL IVP SCH (10:18)
[2023-09-25] MEDS: CLOPIDOGREL 75 MG TABLET PO SCH (10:18)
[2023-09-25] MEDS: PRENATAL VITAMIN TABLET PO SCH (10:18)
[2023-09-25] MEDS: MAGNESIUM OXIDE 400 MG TABLET PO SCH (10:18)
[2023-09-25] MEDS: cefTRIAXone 2 GM in SODIUM CHLORIDE 0.9% MINIBAG 100 ML IV SCH (10:19)
[2023-09-25] MEDS: ENOXAPARIN 40 MG/0.4 ML SYRINGE SUBQ SCH (10:19)
[2023-09-25] MEDS: guaiFENesin 600 MG TABLET PO SCH (10:19)
[2023-09-25] MEDS: ASPIRIN CHEW 81 MG TABLET PO SCH (10:19)
[2023-09-25] MEDS: ESCITALOPRAM 10 MG TABLET PO SCH (10:19)
--- NOTE | 2023-09-27 08:28 | PROVIDER PROGRESS NOTE ---
Assessment/Plan - Problem List (1) Pneumonia Assessment/Plan: Improving Since she was recently hospitalized she was started on broad spectrum antibx this adm Her cough is breaking up Plan: Cont empiric antibx Cont Mucinex for expectoration and suppl O2 (2) COPD Exacerbation She has underlying COPD and has continued poor air movement, wheezing has improved Plan: Cont Duonebs, nebulized steroids and iv steroids Cont O2, target sat >88% in a COPDer, titrate down to room air as tolerated (3) Hypomagnesemia Related to poor po intake with cachexia Plan: Replace iv and po Follow Mg daily until normal (4) Hyperkalemia Plan: Avoid K-retaining meds Follow BMP daily (5) Anemia, normocytic, chronic She was adm with Hgb of 10.5 Plan: I have resumed her oral Iron suppl Follow CBC daily and transfuse if Hgb <7 (6) SMA Syndrome As per Hx (7) Severe malnutrition Cad Manager Usha gave diet recommendations and we are allowing pt to eat what she desires (8) Migraine Headache As per Hx, none currently. PRN Imitrex available. (9) Fibromyalgia I have resumed her pain meds prn (10) Depression I have resumed her Lexapro (11) GERD I have resumed her Protonix (12) Weakness PT and OT are working with her and recommend she returns back to SNF where she was doing rehab for strengthening She is agreeable. Awaiting SNF to approve her return (13) Tobacco use Cessation discussed (14) AMS RESOLVED She is awake and alert, working with PT and OT but she cannot remember what happened to cause adm Plan: Cont to treat PNA Cont PT and OT (15) Sepsis RESOLVED She met criteria for sepsis with T 38.6C, HR 113, WBC 25 and new AMS. Source appeared to be a PNA. She is no longer febrile or confused Plan: Since she was recently hospitalized she is on broad spectrum antibx, and iv fluids, continue these. Await cx results to tailor antibx. - Lab Result Fish Bone Diagrams: 09/25/23 06:16 09/25/23 06:16 Subjective - Subjective Patient Reports: Feeling Better, No Complaints Objective Vital Signs: Oxygen O2 Source Room air I&O (Last 24 Hrs): Intake and Output Totals x24h 09/25/23 09/26/23 09/27/23 23:59 23:59 23:59 Intake Total 200 Output Total 2049 Balance -185 General: Alert, Oriented x3, Other (Cachectic) HEENT: EOMI, Mucous membr. moist/pink Neck: Supple, No JVD Neuro: Alert, Non Focal, Other (Generalized weakness) Cardiovascular: Regular rate Respiratory: Breath sounds nml Abdomen: Soft, No tenderness Extremities: No clubbing, No edema, No tenderness/swelling - Results Results: Laboratory Results WBC 19.2 x10^3/uL (4.8-10.8) H 09/25/23 06:16 RBC 3.59 10^6/uL (4.20-5.40) L 09/25/23 06:16 Hgb 10.0 g/dL (12.0-16.0) L 09/25/23 06:16 Hct 32.5 % (37.0-47.0) L 09/25/23 06:16 MCV 90.5 fL (81.0-99.0) 09/25/23 06:16 MCH 27.9 pg (27.0-31.0) 09/25/23 06:16 MCHC 30.8 g/dL (32.0-36.0) L 09/25/23 06:16 RDW 16.6 % (12.0-15.0) H 09/25/23 06:16 Plt Count 365 10^3/uL (130-450) 09/25/23 06:16 MPV 8.5 fL (7.9-10.8) 09/25/23 06:16 Neut # (Auto) 17.4 10^3/uL (1.5-6.6) H 09/25/23 06:16 Lymph # (Auto) 0.9 10^3/uL (1.5-3.5) L 09/25/23 06:16 [place] # (Auto) 0.6 10^3/uL (0.0-1.0) 09/25/23 06:16 Eos # (Auto) 0.0 10^3/uL (0.0-0.7) 09/25/23 06:16 Baso # (Auto) 0.1 10^3/uL (0.0-0.1) 09/25/23 06:16 Absolute Nucleated RBC 0.00 x10^3/uL 09/25/23 06:16 Total Counted 100 09/23/23 05:48 Band Neuts % (Manual) 7 % (0-10) 09/23/23 05:48 Abnorm Lymph % (Manual) 0 % 09/23/23 05:48 Nucleated RBC % 0.0 /100WBC 09/25/23 06:16 Neutrophils # (Manual) 20.1 10^3/uL (1.5-6.6) H 09/23/23 05:48 Lymphocytes # (Manual) 0.6 10^3/uL (1.5-3.5) L 09/23/23 05:48 Monocytes # (Manual) 0.0 10^3/uL (0.0-1.0) 09/23/23 05:48 Eosinophils # (Manual) 0.0 10^3/uL (0-0.7) 09/23/23 05:48 Basophils # (Manual) 0.0 10^3/uL (0-0.1) 09/23/23 05:48 Differential Comment MANUAL DIFFERENTIAL 09/23/23 05:48 WBC Morphology 1+ TOXIC G (NORMAL) 09/23/23 05:48 Platelet Estimate NORMAL (130-450,000) (NORMAL) 09/23/23 05:48 Platelet Morphology NORMAL APPEARANCE (NORMAL) 09/23/23 05:48 RBC Morph Micro Appear 1+ ANISOCYTOSIS (NORMAL) 1+ HYPOCHROMASIA (NORMAL) 09/23/23 05:48 RBC Morph Micro Appear 1+ ANISOCYTOSIS (NORMAL) 1+ HYPOCHROMASIA (NORMAL) 09/23/23 05:48 Sodium 136 mmol/L (135-145) 09/25/23 06:16 Potassium 2.8 mmol/L (3.5-4.5) L 09/25/23 06:16 Chloride 100 mmol/L (101-111) L 09/25/23 06:16 Carbon Dioxide 31 mmol/L (21-32) 09/25/23 06:16 Anion Gap 5.0 (6-13) L 09/25/23 06:16 BUN 8 mg/dL (6-20) 09/25/23 06:16 Creatinine 0.3 mg/dL (0.6-1.3) L 09/25/23 06:16 Estimated GFR (MDRD) 216 (>89) 09/25/23 06:16 Glucose 87 mg/dL (74-104) 09/25/23 06:16 Lactic Acid 1.0 mmol/L (0.5-2.2) 09/21/23 22:05 Calcium 8.3 mg/dL (8.5-10.3) L 09/25/23 06:16 Magnesium 1.4 mg/dL (1.7-2.3) L 09/24/23 05:13 Total Bilirubin 0.5 mg/dL (0.2-1.0) 09/21/23 17:45 AST 12 IU/L (10-42) 09/21/23 17:45 ALT 7 IU/L (10-60) L 09/21/23 17:45 Alkaline Phosphatase 95 IU/L (42-121) 09/21/23 17:45 Total Protein 6.6 g/dL (6.4-8.9) 09/21/23 17:45 Albumin 2.9 g/dL (3.2-5.5) L 09/21/23 17:45 Globulin 3.7 g/dL (2.1-4.2) 09/21/23 17:45 Albumin/Globulin Ratio 0.8 (1.0-2.2) L 09/21/23 17:45 Vitamin B12 914 pg/mL (180-914) 09/22/23 06:22 Folate 20.3 ng/mL (5.90 - >24.8) 09/22/23 06:22 Urine Color YELLOW 09/21/23 19:44 Urine Clarity CLOUDY (CLEAR) 09/21/23 19:44 Urine pH 7.0 PH (5.0-7.5) 09/21/23 19:44 Ur Specific [place] 1.015 (1.002-1.030) 09/21/23 19:44 Urine Protein 30 mg/dL (NEGATIVE) H 09/21/23 19:44 Urine Glucose (UA) NEGATIVE mg/dL (NEGATIVE) 09/21/23 19:44 Urine Ketones NEGATIVE mg/dL (NEGATIVE) 09/21/23 19:44 Urine Occult Blood SMALL (NEGATIVE) H 09/21/23 19:44 Urine Nitrite POSITIVE (NEGATIVE) H 09/21/23 19:44 Urine Bilirubin NEGATIVE (NEGATIVE) 12/11/23 19:44 Urine Urobilinogen 0.2 (NORMAL) E.U./dL (NORMAL) 09/21/23 19:44 Ur Leukocyte Esterase LARGE (NEGATIVE) H 09/21/23 19:44 Urine RBC 0-5 /HPF (0-5) 09/21/23 19:44 Urine WBC >25 /HPF (0-5) H 09/21/23 19:44 Ur Squamous Epith Cells FEW Squamous (<= Few) 09/21/23 19:44 Urine Bacteria Many /HPF (None Seen) H 09/21/23 19:44 Ur Microscopic Review INDICATED 09/21/23 19:44 Urine Culture Comments INDICATED 09/21/23 19:44 Nasal Adenovirus (PCR) NOT DETECTED 09/21/23 17:41 Nasal B. parapertussis DNA (PCR) NOT DETECTED 09/21/23 17:41 Nasal Coronavir 229E PCR NOT DETECTED 09/21/23 17:41 Nasal Coronavir HKU1 PCR NOT DETECTED 09/21/23 17:41 Nasal Coronavir NL63 PCR NOT DETECTED 09/21/23 17:41 Nasal Coronavir OC43 PCR NOT DETECTED 09/21/23 17:41 Nasal Enterovir/Rhinovir PCR NOT DETECTED 09/21/23 17:41 Nasal Influenza B PCR NOT DETECTED 09/21/23 17:41 Nasal Influenza A PCR NOT DETECTED 09/21/23 17:41 Nasal Parainfluen 1 PCR NOT DETECTED 09/21/23 17:41 Nasal Parainfluen 2 PCR NOT DETECTED 09/21/23 17:41 Nasal Parainfluen 3 PCR NOT DETECTED 09/21/23 17:41 Nasal Parainfluen 4 PCR NOT DETECTED 09/21/23 17:41 Nasal RSV (PCR) NOT DETECTED 09/21/23 17:41 Nasal B.pertussis DNA PCR NOT DETECTED 09/21/23 17:41 Nasal C.pneumoniae (PCR) NOT DETECTED 09/21/23 17:41 Chris Human Metapneumo PCR NOT DETECTED 09/21/23 17:41 Nasal M.pneumoniae (PCR) NOT DETECTED 09/21/23 17:41 Nasal SARS-CoV-2 (PCR) NOT DETECTED 09/21/23 17:41
== END 2023-09-25 13:30 | DRG 871 ==
LOC: EDUNIT# → ED 17:21 → MS2 19:34
PROVIDERS: ADMIT Internal Medicine; ATTEND Internal Medicine
DX: A41.9 Sepsis, unspecified organism (principal); J44.9 Chronic obstructive pulmonary disease, unspecified; F17.200 Nicotine dependence, unspecified, uncomplicated; R00.0 Tachycardia, unspecified; E43 Unspecified severe protein-calorie malnutrition; J18.9 Pneumonia, unspecified organism; J96.01 Acute respiratory failure with hypoxia; G93.41 Metabolic encephalopathy; J44.0 Chronic obstructive pulmonary disease with (acute) lower respiratory infection; J44.1 Chronic obstructive pulmonary disease with (acute) exacerbation; Z68.1 Body mass index [BMI] 19.9 or less, adult; K55.1 Chronic vascular disorders of intestine; F17.210 Nicotine dependence, cigarettes, uncomplicated; E83.42 Hypomagnesemia; E87.5 Hyperkalemia; D64.9 Anemia, unspecified; G43.909 Migraine, unspecified, not intractable, without status migrainosus; M79.7 Fibromyalgia; F32.A Depression, unspecified; K21.9 Gastro-esophageal reflux disease without esophagitis; R53.1 Weakness; I10 Essential (primary) hypertension
CPT/HCPCS: 36415; 71045; 80048; 80053; 81001; 82607; 82746; 83605; 83735; 84132; 85025; 87040; 87077; 87086; 87181; 87633; 93005; 94640; 96374; 97162; 97165; 99285; A9270; J1650; J7626; J8499; Q0162; 81003

== ENCOUNTER 2023-09-29 14:51 | Outpatient (CLI) | payer MEDICARE, MEDICAID | END 2023-09-29 14:52 | disposition critical access hospital (66) | LOC: EMS 14:51 | DX: R07.89 Other chest pain (principal); R11.2 Nausea with vomiting, unspecified; R53.1 Weakness; Z74.01 Bed confinement status | CPT/HCPCS: A0425; A0429 ==

== ENCOUNTER 2023-09-29 14:58 | Inpatient (IN) | payer MEDICARE, MEDICAID ==
--- NOTE | 2023-09-29 15:13 | ED Physician Documentation ---
PD HPI CHEST PAIN - Stated complaint Stated Complaint: CHEST PRESSURE - History obtained from History obtained from: Patient - History of Present Illness Timing - onset: How many hours ago (1), Today Timing - onset during: Rest Timing - duration: Minutes Timing - details: Abrupt onset, Now resolved Quality: Tightness, Aching, Pain Location: Substernal, Left chest Improved by: Nitro (though lightheaded afterward.) Worsened by: No: Exertion, Inspiration Similar symptoms before: Has not had sx before Recently seen: Admitted (recent admission to [facility] for dyspnea, exac COPD and pneumonia. Steroids in hospital. None at [facility].) Review of Systems Constitutional: denies: Fever, Chills Nose: reports: Rhinorrhea / runny nose. denies: Congestion Throat: denies: Sore throat Cardiac: reports: Chest pain / pressure (just today). 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 : None HEENT: None Psych: Depression Musculoskeletal: Fibromyalgia Derm: None - Past Surgical History Past Surgical History: Yes General: Other /PAINTER DECORATOR: Tubal ligation Derm: Skin cancer surgery - Present Medications Home Medications: Ambulatory Orders Medication Instructions Recorded Confirmed SUMAtriptan [Imitrex] 25 mg PO DAILY PRN 03/30/17 09/22/23 Clopidogrel [Plavix] 75 mg PO DAILY 09/01/23 09/22/23 No122/Iron/Folic Acid 1 each PO DAILY 09/01/23 09/22/23 [ Multi Tablet] Tiotropium [place] [Spiriva 2 puffs INH DAILY 09/01/23 09/22/23 Respimat] Albuterol Sulf [Ventolin Hfa 2 puffs INH Q4H PRN 09/02/23 09/22/23 Inhaler] Aspirin Chewable [[place] 81 mg PO DAILY 09/02/23 09/22/23 Aspirin] Escitalopram Oxalate 20 mg PO DAILY 09/02/23 09/22/23 Ferrous Sulfate [Feosol] 325 mg PO Q48H 09/02/23 09/22/23 HYDROcodone/ACET 7.5/325 [[place] 1 tab PO TID PRN 09/02/23 09/22/23 7.5/325] LORazepam [Ativan] 1 mg PO QPM PRN 09/02/23 09/22/23 Mirtazapine 7.5 mg PO QPM 09/02/23 09/22/23 Pantoprazole [Protonix] 40 mg PO QDAC 09/02/23 09/22/23 Trazodone HCl 200 mg PO QPM 09/02/23 09/22/23 Zolpidem [Ambien] 5 mg PO QPM PRN 09/02/23 09/22/23 oxyCODONE [Roxicodone] 5 mg PO Q6H PRN 09/02/23 09/22/23 Magnesium Oxide [Mag Ox] 400 mg PO DAILY #30 tab 09/09/23 09/22/23 Bisacodyl Supp [Dulcolax Supp] 1 supp CA ONCE PRN 09/22/23 09/22/23 Mineral Oil [Mineral Oil Enema] 1 bottle CA ONCE PRN 09/22/23 09/22/23 Sennosides [Senna Lax] 8.6 mg PO ONCE PRN 09/22/23 09/22/23 polyethylene glycoL 3350 [Miralax] 17 g PO ONCE PRN 09/22/23 09/22/23 Loperamide [Imodium] 2 mg PO BID PRN #30 cap 09/25/23 09/22/23 guaiFENesin [Mucinex] 600 mg PO BID PRN #30 tab 09/25/23 methylPREDNISolone [Medrol Dose 1 each PO .PACKAGEINSTRUCTIONS 6 09/25/23 Pack] Days #1 each traMADol [Ultram] 50 mg PO BID PRN #30 tab 09/25/23 09/22/23 - Allergies Allergies/Adverse Reactions: Allergies Allergy/AdvReac Type Severity Reaction Status Date / Time vancomycin Allergy Severe Anaphylaxis Verified 09/21/23 17:27 codeine Allergy Intermediate Hallucinati Verified 09/21/23 17:27 ons levofloxacin [From Levaquin] Allergy Unknown Verified 09/21/23 17:27 lithium Allergy Anaphylaxis Verified 09/21/23 17:27 - Social History Does the pt smoke?: Yes Smoking Status: Current every day smoker Does the pt drink ETOH?: No Does the pt have substance abuse?: No - Immunizations Immunizations are current?: Yes - POLST Patient has POLST: No PD ED PE NORMAL - Vitals Vital signs reviewed: Yes (very frail appearing with minimal muscle mass. ) - General General: Alert and oriented X 3, No acute distress, Well developed/nourished - HEENT HEENT: Pharynx benign - Neck Neck: Supple, no meningeal sign, No adenopathy - Cardiac Cardiac: RRR, No murmur - Respiratory Respiratory: Clear bilaterally - Abdomen Abdomen: Soft, Non tender - Derm Derm: Normal color, Warm and dry, Other (redness and tender skin wtithout skin breakdown on sacral area. ) - Extremities Extremities: No edema, No calf tenderness / cord - Neuro Neuro: Alert and oriented X 3, No motor deficit, Normal speech Results - Vitals Vitals: Vital Signs - 24 hr 09/29/23 09/29/23 09/29/23 15:29 15:35 15:43 Temperature 36.6 C Heart Rate 124 H 114 H Respiratory 36 H 26 H Rate Blood Pressure 55/30 L 79/56 L 86/46 L O2 Saturation 93 98 If not protocol 4 : Oxygen Flow, liters/minute 09/29/23 09/29/23 09/29/23 16:05 16:30 17:00 Temperature Heart Rate 95 100 98 Respiratory 20 18 20 Rate Blood Pressure 83/50 L 81/60 L 97/58 L O2 Saturation 98 85 L 98 If not protocol 4 3 : Oxygen Flow, liters/minute 09/29/23 09/29/23 09/29/23 17:30 17:45 18:00 Temperature Heart Rate 98 90 97 Respiratory 18 20 17 Rate Blood Pressure 102/72 80/64 L O2 Saturation 98 98 If not protocol 2 : Oxygen Flow, liters/minute 09/29/23 09/29/23 09/29/23 18:30 18:55 19:00 Temperature Heart Rate 100 105 H Respiratory 18 20 17 Rate Blood Pressure 81/60 L 96/73 O2 Saturation 85 L 98 If not protocol 3 2 : Oxygen Flow, liters/minute 09/29/23 09/29/23 20:30 21:00 Temperature Heart Rate 88 91 Respiratory 17 19 Rate Blood Pressure 112/70 96/67 O2 Saturation 98 98 If not protocol 3 2 : Oxygen Flow, liters/minute Oxygen O2 Source Nasal cannula - EKG (time done) 16:18 EKG releavant findings:: EKG personally interpreted by author of this note. Relevant findings are: Rate: Rate (enter#) (98) Rhythm: NSR (with atrial ectopy frequnt. ) [place]: Normal Intervals: Normal CA QRS: Normal Ischemia: Normal ST segments. No: ST elevation c/w ischemia, ST depression Compare to prior EKG: Unchanged from prior EKG - Labs Labs: Laboratory Tests 09/29/23 09/29/23 09/29/23 15:57 15:57 19:40 WBC 35.4 H* RBC 3.30 L Hgb 9.2 L Hct 29.3 L MCV 88.8 MCH 27.9 MCHC 31.4 L RDW 16.9 H Plt Count 354 MPV 8.9 Neut # (Auto) Not Reportable Lymph # (Auto) Not Reportable [place] # (Auto) Not Reportable Eos # (Auto) Not Reportable Baso # (Auto) Not Reportable Absolute Nucleated RBC Not Reportable Band Neuts % (Manual) Not Reportable Abnorm Lymph % (Manual) Not Reportable Nucleated RBC % Not Reportable Neutrophils # (Manual) Not Reportable Lymphocytes # (Manual) Not Reportable Monocytes # (Manual) Not Reportable Eosinophils # (Manual) Not Reportable Basophils # (Manual) Not Reportable Differential Comment MANUAL DIFFERENTIAL WBC Morphology 1+ TOXIC GRANULATION Platelet Estimate NORMAL (130-450,000) Platelet Morphology NORMAL APPEARANCE RBC Morph Micro Appear 1+ ANISOCYTOSIS Sodium 138 Potassium 3.3 L Chloride 99 L Carbon Dioxide 29 Anion Gap 10.0 BUN 18 Creatinine 0.7 Estimated GFR (MDRD) 81 L Glucose 153 H Lactic Acid Calcium 8.1 L Magnesium 1.5 L Total Bilirubin 0.5 AST 10 ALT 8 L Alkaline Phosphatase 56 Troponin I High Sens 15.2 H* B-Natriuretic Peptide 192 H Total Protein 4.0 L Albumin 1.8 L Globulin 2.2 Albumin/Globulin Ratio 0.8 L Lipase < 10 L 09/29/23 19:40 WBC RBC Hgb Hct MCV MCH MCHC RDW Plt Count MPV Neut # (Auto) Lymph # (Auto) [place] # (Auto) Eos # (Auto) Baso # (Auto) Absolute Nucleated RBC Band Neuts % (Manual) Abnorm Lymph % (Manual) Nucleated RBC % Neutrophils # (Manual) Lymphocytes # (Manual) Monocytes # (Manual) Eosinophils # (Manual) Basophils # (Manual) Differential Comment WBC Morphology Platelet Estimate Platelet Morphology RBC Morph Micro Appear Sodium Potassium Chloride Carbon Dioxide Anion Gap BUN Creatinine Estimated GFR (MDRD) Glucose Lactic Acid 2.1 Calcium Magnesium Total Bilirubin AST ALT Alkaline Phosphatase Troponin I High Sens B-Natriuretic Peptide Total Protein Albumin Globulin Albumin/Globulin Ratio Lipase - Rads (name of study) chest xray Relevant Findings:: Prelim report reviewed, EMP independent interpretation of test (enlarged lung waller suggesting airway disease. No infiltrates noted. No effusion nor PTX.) PD Medical Decision Making - ED course Complexity details: re-evaluated patient (pt BP was improved with IV fluids. but then decreased again. Has borderline sats as well. ), considered differential (had chest pain epsidoe without dyspnea nor syncope. Has nausea. Symptoms improved with just mild pressure feeling in chest. 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 ), d/w patient ED course: pt being given nebulizer treatment and more IV fluids. She is comfortable and not having dyspnea. lungs without crackles to suggest fluid overload. Pt willb e reassessed by next ER physician. Departure - Departure Disposition: ED Place in Observation Clinical Impression: Chest pain, History of recent pneumonia, Dyspnea, Leukocytosis, Hypoxia Condition: Stable Record reviewed to determine appropriate education?: Yes Comments: Your x-ray appears good today without any signs of pneumonia, fluid in the lungs, collapsed lung. Your EKG and troponin are normal which would signify no signs of heart attack or heart failure. Your blood pressure was low briefly but likely the effect of the nitroglycerin medication given. It improved with some fluids. Your oxygenation was a bit low as well. Continue with your inhalers at home. Follow-up with your primary care in the next few days.
[2023-09-29] MEDS ORDERED: SODIUM CHLORIDE 0.9% 500 ML IV STA ×2 (15:45→18:21)
[2023-09-29] MEDS ORDERED: MAG HYDROX/AL HYDROX/SIMETH 30 ML UDC PO STA (15:45)
[2023-09-29 16:06] LABS: BASOPHILS % (AUTO) 0.1 %; HCT - HEMATOCRIT 29.3 % (37.0-47.0); HGB - HEMOGLOBIN 9.2 g/dL (12.0-16.0); LYMPHOCYTES % (AUTO) 1.7 %; MEAN CORPUSCULAR HEMOGLOBIN 27.9 pg (27.0-31.0); MEAN CORPUSCULAR HGB CONC 31.4 g/dL (32.0-36.0); MEAN CORPUSCULAR VOLUME 88.8 fL (81.0-99.0); MEAN PLATELET VOLUME 8.9 fL (7.9-10.8); MONOCYTES % (AUTO) 1.9 %; NEUTROPHILS % (AUTO) 95.3 %; PLT - PLATELET COUNT 354 10^3/uL (130-450); RED CELL DISTRIBUTION WIDTH 16.9 % (12.0-15.0)
[2023-09-29 16:08] LABS: WHITE BLOOD COUNT 35.4 x10^3/uL (4.8-10.8)
--- NOTE | 2023-09-29 16:17 | XRAY Report ---
PROCEDURE: Chest 1 View X-Ray INDICATIONS: Chest Pain TECHNIQUE: One view of the chest was acquired. COMPARISON: None. FINDINGS: Surgical changes and devices: None. Lungs and pleura: No pleural effusions or pneumothorax. Lungs are clear. Mediastinum: Mediastinal contours appear normal. Heart size is normal. Bones and chest wall: No suspicious bony lesions. Overlying soft tissues appear unremarkable. IMPRESSION: No acute cardiopulmonary process. Reviewed by: Georgi Pereira MD on 09/29/2023 4:15 PM [facility] Approved by: Georgi Pereira MD on 09/29/2023 4:15 PM [facility] Station ID: [id number]
[2023-09-29 16:43] LABS: PLATELET ESTIMATE, MANUAL NORMAL (130-450,000) (NORMAL); PLATELET MORPHOLOGY NORMAL APPEARANCE (NORMAL); RBC MORPHOLOGY (MULTIPLE) 1+ ANISOCYTOSIS (NORMAL)
[2023-09-29 16:44] LABS: WBC MORPHOLOGY (MULTIPLE) 1+ TOXIC GRANULATION (NORMAL)
[2023-09-29 16:45] LABS: DIFFERENTIAL COMMENT MANUAL DIFFERENTIAL
[2023-09-29 16:49] LABS: ALBUMIN 1.8 g/dL (3.2-5.5); ALBUMIN/GLOBULIN RATIO 0.8 (1.0-2.2); ALKALINE PHOSPHATASE 56 IU/L (42-121); ALT ALANINE AMINOTRANSFERASE 8 IU/L (10-60); AST ASPARTATE AMINOTRANSFERASE 10 IU/L (10-42); BILIRUBIN,TOTAL 0.5 mg/dL (0.2-1.0); BUN - BLOOD UREA NITROGEN 18 mg/dL (6-20); CALCIUM 8.1 mg/dL (8.5-10.3); CARBON DIOXIDE - CO2 29 mmol/L (21-32); CHLORIDE 99 mmol/L (101-111); CREATININE 0.7 mg/dL (0.6-1.3); GFR - MDRD 81 (>89); GLUCOSE 153 mg/dL (74-104); MAGNESIUM 1.5 mg/dL (1.7-2.3); POTASSIUM 3.3 mmol/L (3.5-4.5); SODIUM 138 mmol/L (135-145)
[2023-09-29 16:52] LABS: LIPASE < 10 U/L (11-82)
[2023-09-29 16:55] LABS: TROPONIN I HIGH SENSITIVITY 15.2 ng/L (2.3-14.8)
[2023-09-29] MEDS ORDERED: ALBUTEROL NEB 2.5 MG/3 ML INH STA ×2 (17:01→18:36)
[2023-09-29] MEDS ORDERED: SODIUM CHLORIDE 0.9% 1,000 ML IV STA (18:21)
[2023-09-29] MEDS ORDERED: DEXAMETHASONE 10 MG/ML VIAL IVP STA (18:23)
[2023-09-29] MEDS ORDERED: cefTRIAXone 1 GM VIAL IVP STA (21:10)
[2023-09-29] MEDS ORDERED: AZITHROMYCIN INJ 500 MG in SODIUM CHLORIDE 0.9% 250 ML IV STA (21:10)
--- NOTE | 2023-09-29 22:26 | ED Physician Documentation ---
ED Addendum - Addendum Addendum: 09/29/23 22:25 Patient was signed out to me by Dr. Harris, please see his note for full evaluation of this patient. The patient continued to have soft blood pressures, 90-100 systolic. She is still hypoxic, especially with any movement. Reportedly sounds like she has a history of COPD. She did receive nebulizer treatments here. Given her significant leukocytosis, chronic lung disease, I feel it is appropriate to cover her with antibiotics. Therefore she was given Rocephin and azithromycin IV. Patient is signed out to Dr. Mason for further care. There are no beds available for admission to the hospital [facility]. We will attempt to have her admitted in the morning.
[2023-09-30] MEDS ORDERED: IPRATROPIUM/ALBUTEROL 3 ML NEB INH PRN ×2 (08:45→14:33)
--- NOTE | 2023-09-30 08:46 | ED Physician Documentation ---
ED Addendum - Addendum Addendum: Patient signed out to me at shift change. She has been here for about 15 hours. She is boarding awaiting admission. Has a history of COPD. She is on Rocephin and azithromycin for pneumonia coverage given leukocytosis. On evaluation this morning she is sleeping but still requiring oxygen. A.m. labs have been ordered. 09/30/23 10:30 - Pt resting comfortably. Patient sitting up and eating her lunch. Asking for more soda. Requesting oxycodone which she normally takes at home. Discussed with admitting hospitalist Dr. Yang who will see for further management. Departure - Departure Disposition: ED Place in Observation Clinical Impression: Chest pain, History of recent pneumonia, Dyspnea, Leukocytosis, Hypoxia Condition: Stable Discharge Date/Time: 09/30/23 15:12
[2023-09-30] MEDS ORDERED: methylPREDNISolone SUCCINATE 40 MG/ML VIAL IVP STA (08:47)
[2023-09-30 09:00] LABS: BASOPHILS % (AUTO) 0.5 %; HCT - HEMATOCRIT 29.6 % (37.0-47.0); HGB - HEMOGLOBIN 9.4 g/dL (12.0-16.0); LYMPHOCYTES % (AUTO) 1.7 %; MEAN CORPUSCULAR HEMOGLOBIN 28.5 pg (27.0-31.0); MEAN CORPUSCULAR HGB CONC 31.8 g/dL (32.0-36.0); MEAN CORPUSCULAR VOLUME 89.7 fL (81.0-99.0); MEAN PLATELET VOLUME 8.9 fL (7.9-10.8); MONOCYTES % (AUTO) 1.5 %; NEUTROPHILS % (AUTO) 95.3 %; PLT - PLATELET COUNT 346 10^3/uL (130-450); RED CELL DISTRIBUTION WIDTH 16.9 % (12.0-15.0)
[2023-09-30] MEDS ORDERED: AZITHROMYCIN INJ 500 MG in SODIUM CHLORIDE 0.9% 250 ML IV ONE (09:00)
[2023-09-30 09:05] LABS: WHITE BLOOD COUNT 35.6 x10^3/uL (4.8-10.8)
[2023-09-30 09:06] LABS: ABNORMAL LYMPHS % (MANUAL) 0 %
[2023-09-30 09:22] LABS: CALCIUM 8.2 mg/dL (8.5-10.3); CREATININE 0.5 mg/dL (0.6-1.3); POTASSIUM 3.2 mmol/L (3.5-4.5)
[2023-09-30 09:28] LABS: BAND NEUTROPHILS % (MANUAL) 4 %; DIFFERENTIAL COMMENT MANUAL DIFFERENTIAL; LYMPHOCYTES # (MANUAL) 1.4 10^3/uL (1.5-3.5); LYMPHOCYTES % (MANUAL) 4 %; MONOCYTES # (MANUAL) 0.4 10^3/uL (0.0-1.0); NEUTROPHILS # (MANUAL) 33.8 10^3/uL (1.5-6.6); PLATELET ESTIMATE, MANUAL NORMAL (130-450,000) (NORMAL); RBC MORPHOLOGY (MULTIPLE) 3+ ANISOCYTOSIS (NORMAL)
[2023-09-30] MEDS ORDERED: POTASSIUM BICARB 25 MEQ TABLET PO ONE (10:27)
[2023-09-30] MEDS ORDERED: AZITHROMYCIN INJ 500 MG in SODIUM CHLORIDE 0.9% 250 ML IV STA (12:50)
[2023-09-30] MEDS ORDERED: cefTRIAXone 1 GM in SODIUM CHLORIDE 0.9% MINIBAG 100 ML IV STA (12:50)
[2023-09-30] MEDS ORDERED: oxyCODONE 5 MG TABLET PO STA (13:27)
[2023-09-30] MEDS ORDERED: SODIUM CHLORIDE FLUSH 0.9% 10 ML SYRINGE IVP PRN (14:17)
--- NOTE | 2023-09-30 14:28 | HISTORY & PHYSICAL EXAMINATION ---
Chief Complaint - Chief Complaint Chief Complaint: Chest pain History of Present Illness - Admitted From Admitted From:: ED - History Obtained From Records Reviewed: Yes History obtained from: Patient Exam Limitations: None - History of Present Illness HPI Comment/Other: Patient is a 78-year-old female the past medical history of COPD, SMA syndrome, physical debility and frailty, hypertension, migraine disorder, fibromyalgia, MDD, and remote history of tobacco use who presented to the ED due to complaints of left-sided chest pain. Initial EKG was nonischemic. Troponin was mildly elevated at 15.2. She was given a diagnosis of a COPD exacerbation and her chest pain did resolve with administration of nebulizers as well as dexamethasone. She did have some hypoxia requiring 2 L of oxygen. Chest x-ray was read which was unremarkable. Patient did have an elevated leukocytosis. She has been taking a Medrol Dosepak prior to admission. In review of her labs it appears she does have an elevated leukocytosis for quite some time. I did ask her if she has ever had a bone marrow biopsy or history of malignancy and she denied this. She is currently denying any fevers or chills. She does have some mild lower quadrant abdominal tenderness but denies any diarrhea. Patient was recently discharged from the hospital after being admitted on 09/21 for sepsis secondary to UTI positive for Pseudomonas, Klebsiella, and Enterococcus faecalis. Unfortunately she was given antibiotics prior to obtaining a urine culture. 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 Social History Notes: Patient smokes 1/2 to 1.5 packs of cigarettes a day. - POLST Patient has POLST: No Meds/Allgy - Home Medications Home Medications: Ambulatory Orders Medication Instructions Recorded Confirmed SUMAtriptan [Imitrex] 25 mg PO DAILY PRN 03/30/17 09/22/23 Clopidogrel [Plavix] 75 mg PO DAILY 09/01/23 09/22/23 No122/Iron/Folic Acid 1 each PO DAILY 09/01/23 09/22/23 [ Multi Tablet] Tiotropium [place] [Spiriva 2 puffs INH DAILY 09/01/23 09/22/23 Respimat] Albuterol Sulf [Ventolin Hfa 2 puffs INH Q4H PRN 09/02/23 09/22/23 Inhaler] Aspirin Chewable [[place] 81 mg PO DAILY 09/02/23 09/22/23 Aspirin] Escitalopram Oxalate 20 mg PO DAILY 09/02/23 09/22/23 Ferrous Sulfate [Feosol] 325 mg PO Q48H 09/02/23 09/22/23 HYDROcodone/ACET 7.5/325 [[place] 1 tab PO TID PRN 09/02/23 09/22/23 7.5/325] LORazepam [Ativan] 1 mg PO QPM PRN 09/02/23 09/22/23 Mirtazapine 7.5 mg PO QPM 09/02/23 09/22/23 Pantoprazole [Protonix] 40 mg PO QDAC 09/02/23 09/22/23 Trazodone HCl 200 mg PO QPM 09/02/23 09/22/23 Zolpidem [Ambien] 5 mg PO QPM PRN 09/02/23 09/22/23 oxyCODONE [Roxicodone] 5 mg PO Q6H PRN 09/02/23 09/22/23 Magnesium Oxide [Mag Ox] 400 mg PO DAILY #30 tab 09/09/23 09/22/23 Bisacodyl Supp [Dulcolax Supp] 1 supp [place] ONCE PRN 09/22/23 09/22/23 Mineral Oil [Mineral Oil Enema] 1 bottle [place] ONCE PRN 09/22/23 09/22/23 Sennosides [Senna Lax] 8.6 mg PO ONCE PRN 09/22/23 09/22/23 polyethylene glycoL 3350 [Miralax] 17 g PO ONCE PRN 09/22/23 09/22/23 Loperamide [Imodium] 2 mg PO BID PRN #30 cap 09/25/23 09/22/23 guaiFENesin [Mucinex] 600 mg PO BID PRN #30 tab 09/25/23 methylPREDNISolone [Medrol Dose 1 each PO .PACKAGEINSTRUCTIONS 6 09/25/23 Pack] Days #1 each traMADol [Ultram] 50 mg PO BID PRN #30 tab 09/25/23 09/22/23 - Allergies Allergies/Adverse Reactions: Allergies Allergy/AdvReac Type Severity Reaction Status Date / Time vancomycin Allergy Severe Anaphylaxis Verified 09/21/23 17:27 codeine Allergy Intermediate Hallucinati Verified 09/21/23 17:27 ons levofloxacin [From Levaquin] Allergy Unknown Verified 09/21/23 17:27 lithium Allergy Anaphylaxis Verified 09/21/23 17:27 Review of Systems - Cardiovascular Cariovascular: reports: Exertional dyspnea. denies: Chest pain, Syncope, Orthopnea - Respiratory Respiratory: denies: Cough, Sputum production, Hemoptysis - Gastrointestinal Gastrointestinal: reports: Abdominal pain. denies: Abdominal distention, Diarrhea, Black stools, Bloody stools, Nausea, Vomiting - Genitourinary Genitourinary: reports: Dysuria - Hematologic/Lymphatic Hematologic/Lymphatic: reports: Lymphadenopathy - All Other Systems All Other Systems: reports: Reviewed and negative Prior Level of Functionality: Independent Exam - Vital Signs Reviewed Vital Signs: Yes Vital Signs: Vital Signs x48h Temp Pulse Resp BP Pulse Ox O2 Flow Rate 09/30/23 13:07 36.7 C 105 H 25 H 120/69 90 L 2 09/30/23 11:45 36.9 C 99 25 H 110/70 91 L 2 09/30/23 10:00 99 22 111/62 93 2 09/30/23 09:00 100 20 134/60 H 93 09/30/23 08:00 95 15 136/74 H 93 09/30/23 07:00 92 21 136/74 H 93 2 - Physical Exam General Appearance: positive: Mild distress Respiratory: positive: Chest non-tender, No respiratory distress, Breath sounds nml Cardiovascular: positive: Regular rate & rhythm, No murmur, No gallop Abdomen: positive: Nml bowel sounds, Tenderness. negative: Non-tender, Guarding, Rebound, Abnml bowel sounds Extremities: positive: Non-tender, Full ROM, Nml appearance Neurologic/Psychiatric: positive: Oriented x3, CN's nml (2-12) Sepsis Event Note (H) - Evaluation Current Stage of Sepsis: Sepsis - Sepsis Criteria Sepsis Criteria: Recorded Heart Rate greater than 90 bpm, WBC count greater than 12,000 or less than 4000 Conclusion/Plan - Problem List (1) Leukocytosis Conclusion/Plan: --Exact etiology of leukocytosis is unclear. --Will order a blood and urine culture. --Peripheral smear pending. --CT chest, abdomen, pelvis to evaluate for malignancy/abscess. --Started on broad-spectrum antibiotic coverage with azithromycin and Zosyn. -- She is currently on steroids which could be contributing to her leukocytosis however white blood cell count has been elevated for quite some time. (2) Hypoxia Conclusion/Plan: -- Currently requiring 2 L of oxygen for suspected COPD exacerbation. --Continue DuoNeb and azithromycin. --Will hold off on giving any additional steroids for now. --Does not use oxygen at baseline. (3) Chest pain Conclusion/Plan: --Appears non cardiac in origin. --Will obtain a CT chest to evaluate further. CXR was unremarkable. (4) Abdominal pain Conclusion/Plan: --Mild abdominal pain on exam. CT abd/pelvis pending. (5) COPD exacerbation Conclusion/Plan: --As above. - Lab Results Fish Bones: 09/30/23 08:53 09/30/23 08:53 - EKG Results EKG Interpreted Independently: Yes
[2023-09-30] MEDS ORDERED: iohexoL-300 100 ML VIAL IVP ONE (14:55)
[2023-09-30] MEDS ORDERED: SODIUM CHLORIDE 0.9% 1,000 ML IV SCH (15:00)
[2023-09-30] MEDS ORDERED: PIPERACILLIN/TAZOBACTAM 3.375 GM in SODIUM CHLORIDE 0.9% MINIBAG 100 ML IV ONE (15:30)
--- NOTE | 2023-09-30 16:26 | PHARMACY PROGRESS NOTE ---
- Best Possible Medication History Admit Date and Time: 09/30/23 1417 Processed by: Pharmacy Medication History completed: Yes Secondary Source(s): Facility MAR as ONLY source As the person ultimately responsible for medication therapy, providers are able to order a medication from an existing home medication list in [facility] via the "Reconcile Routine" prior to Confirmation of that medication by network support technician. Such practice is discouraged except when the physician, in their clinical judgment, deems that a medical need exists for a medication without regard to previous use.
[2023-09-30] MEDS: SODIUM CHLORIDE FLUSH 0.9% 10 ML SYRINGE IVP SCH ×2 (17:28→22:32)
[2023-09-30] MEDS: POTASSIUM CHLOR 10 MEQ/100 ML 10 MEQ/100 ML BAG IV SCH ×5 (17:28→21:14)
--- NOTE | 2023-09-30 17:34 | CT Report ---
PROCEDURE: ABDOMEN/PELVIS W INDICATIONS: Abdominal pain, lower quadrants, leukocytosis CONTRAST: 100ml omni 300 TECHNIQUE: After the administration of intravenous contrast, 5 mm thick sections acquired from the diaphragms to the symphysis. 5 mm thick coronal and sagittal reformats were acquired. For radiation dose reducti on, the following was used: automated exposure control, adjustment of mA and/or kV according to michael ent size. COMPARISON: Chest radiograph 09/29/2023 3 FINDINGS: Image quality: Excellent. Lung bases and heart: Unremarkable. Liver: No solid mass. Gallbladder and biliary tree: No radiopaque stones or wall thickening. No biliary dilation. Spleen: No splenomegaly. Pancreas: No pancreatic ductal dilation. Adrenals: No adrenal nodule. Kidneys and ureters: No hydronephrosis. No renal cystic lesion which requires follow up. No solid mas s. Mild atrophic left kidney. Bowel and peritoneum: Large volume free air. Abscess within the deep pelvis measuring 6.9 x 6.7 cm (s eries 2, image 59). Peritoneal thickening present, with moderate volume ascites. Lymph nodes: No central or retroperitoneal adenopathy. Vessels: No infrarenal aortic aneurysm. PELVIS Reproductive organs: Unremarkable. Bladder: Air within the urinary bladder. Pelvic lymph nodes: No pelvic adenopathy by size criteria. Bones: Degenerative changes. Compression deformity of the L1 vertebral body, without endplate retropu lsion, possibly chronic. Other: No significant ventral or inguinal hernia. IMPRESSION: Moderate volume free air and free fluid within the abdomen, as well as a central abscess within the d eep pelvis measuring 6.9 x 6.7 cm. Findings are most consistent with perforated bowel, unclear origin . Air within the urinary bladder, presumably iatrogenic. Correlate with recent instrumentation. Above discussed with Mandeep Herr MD at the time of dictation. Reviewed by: Georgi Pereira MD on 09/30/2023 5:32 PM PST Approved by: Georgi Pereira MD on 09/30/2023 5:32 PM PST Station ID: [id number]
--- NOTE | 2023-09-30 17:35 | CT Report ---
PROCEDURE: CHEST W INDICATIONS: Hypoxia, leukocoytosis CONTRAST: 100ml omni 300 TECHNIQUE: After the administration of intravenous contrast, 1 mm axial images were acquired from the pulmonary apices through the posterior costophrenic angles. Axial 5 mm soft tissue kernel reconstructions were performed as well as 8 mm axial MIP and coronal and sagittal 5 mm reformations. For radiation dose reduction, the following was used: automated exposure control, adjustment of mA and/or kV according to patient size. COMPARISON: None. FINDINGS: Image quality: Excellent. Lungs and pleura: No consolidation. Small pleural effusions. No suspicious pulmonary nodules which re quire follow up. Advanced destructive emphysema. Mediastinum: Heart size is normal. No pericardial effusion. Descending aortic aneurysm without acute aortic syndrome, measuring 3.69 m.. No mediastinal adenopathy by size criteria. Chest wall and lower neck: No thyroid nodule which requires sonographic follow up. No axillary or sup raclavicular adenopathy by size. Bones: No aggressive osseous abnormality. Upper Abdomen: Free air within the abdomen. Please see dedicated chest CT. IMPRESSION: Small pleural effusions, otherwise no acute abnormality. Please see same day dedicated chest CT for further discussion. Reviewed by: Georgi Pereira MD on 09/30/2023 5:33 PM PST Approved by: Georgi Pereira MD on 09/30/2023 5:33 PM PST Station ID: [id number]
[2023-09-30] MEDS: HYDROmorphone 0.5 MG/0.5 ML SYRINGE IVP PRN ×2 (18:53→22:32)
[2023-09-30] MEDS ORDERED: PIPERACILLIN/TAZOBACTAM 3.375 GM in SODIUM CHLORIDE 0.9% MINIBAG 100 ML IV SCH (19:00)
[2023-09-30] MEDS: IPRATROPIUM/ALBUTEROL 3 ML NEB INH SCH ×2 (19:02→19:20)
--- NOTE | 2023-09-30 19:50 | CONSULTATION NOTE ---
Referring Provider Consult Date: 09/30/23 Chief Complaint - Chief Complaint Chief Complaint: admitted with complaint of chest pain History of Present Illness - History Obtained From Records Reviewed: yes History obtained from: pt Exam Limitations: none - History of Present Illness HPI Comment/Other: admitted with complaint of chest discomfort. wbc elevated. thought to have been from recent pneumonia and steroids. she has advanced emphysema. she states she has had some abdominal discomfort since june. she had an IR abdominal drain placed and stent to her sma at [facility] in january. per chart review her states her health has been declining for 3 months she denies abdominal pain at this time. she states her abdomen hurts when she moves she had a ct scan after admission for further work up elevated wbc. 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 Social History Notes: Patient smokes 1/2 to 1.5 packs of cigarettes a day. - POLST Patient has POLST: No Meds/Allgy - Home Medications Home Medications: Ambulatory Orders Medication Instructions Recorded Confirmed SUMAtriptan [Imitrex] 25 mg PO DAILY PRN 03/30/17 09/30/23 Clopidogrel [Plavix] 75 mg PO DAILY 09/01/23 09/30/23 No122/Iron/Folic Acid 1 each PO DAILY 09/01/23 09/30/23 [ Multi Tablet] Tiotropium [place] [Spiriva 2 puffs INH DAILY 09/01/23 09/30/23 Respimat] Albuterol Sulf [Ventolin Hfa 2 puffs INH Q4H PRN 09/02/23 09/30/23 Inhaler] Aspirin Chewable [[place] 81 mg PO DAILY 09/02/23 09/30/23 Aspirin] Escitalopram Oxalate 20 mg PO DAILY 09/02/23 09/30/23 Ferrous Sulfate [Feosol] 325 mg PO Q48H 09/02/23 09/30/23 HYDROcodone/ACET 7.5/325 [[place] 1 tab PO TID PRN 09/02/23 09/30/23 7.5/325] LORazepam [Ativan] 1 mg PO QPM PRN 09/02/23 09/30/23 Mirtazapine 7.5 mg PO QPM 09/02/23 09/30/23 Pantoprazole [Protonix] 40 mg PO QDAC 09/02/23 09/30/23 Trazodone HCl 200 mg PO QPM 09/02/23 09/30/23 Zolpidem [Ambien] 5 mg PO QPM PRN 09/02/23 09/30/23 oxyCODONE [Roxicodone] 5 mg PO Q6H PRN 09/02/23 09/30/23 Magnesium Oxide [Mag Ox] 400 mg PO DAILY #30 tab 09/09/23 09/30/23 Bisacodyl Supp [Dulcolax Supp] 1 supp MA ONCE PRN 09/22/23 09/30/23 Mineral Oil [Mineral Oil Enema] 1 bottle MA ONCE PRN 09/22/23 09/30/23 Sennosides [Senna Lax] 17.2 mg PO ONCE PRN 09/22/23 09/30/23 polyethylene glycoL 3350 [Miralax] 17 g PO ONCE PRN 09/22/23 09/30/23 Loperamide [Imodium] 2 mg PO BID PRN #30 cap 09/25/23 09/30/23 guaiFENesin [Mucinex] 600 mg PO BID PRN #30 tab 09/25/23 09/30/23 traMADol [Ultram] 50 mg PO BID PRN #30 tab 09/25/23 09/30/23 Nitroglycerin [Nitrostat] 0.4 mg SL Q5M PRN 09/30/23 09/30/23 - Allergies Allergies/Adverse Reactions: Allergies Allergy/AdvReac Type Severity Reaction Status Date / Time vancomycin Allergy Severe Anaphylaxis Verified 09/21/23 17:27 codeine Allergy Intermediate Hallucinati Verified 09/21/23 17:27 ons levofloxacin [From Levaquin] Allergy Unknown Verified 09/21/23 17:27 lithium Allergy Anaphylaxis Verified 09/21/23 17:27 Exam - Vital Signs Vital Signs: Vital Signs x48h Temp Pulse Pulse Resp BP BP Pulse Ox 09/30/23 19:20 88 16 09/30/23 16:29 09/30/23 15:55 37.0 C 88 20 103/58 L 97 09/30/23 13:07 36.7 C 105 H 25 H 120/69 90 L O2 Flow Rate 09/30/23 19:20 2 09/30/23 16:29 2 09/30/23 15:55 2 09/30/23 13:07 2 - Physical Exam General Appearance: positive: No acute distress, Alert, Other (appears cachectic and frail. she is alert and appears comfortable. no distess) Eyes Bilateral: positive: PERRL, EOMI, No scleral icterus ENT: positive: No signs of dehydration Neck: positive: No JVD, Trachea midline Abdomen: positive: Other (soft however with mild to moderate distension and tender to percussion.) Neurologic/Psychiatric: positive: Oriented x3 Conclusion and Plan - Lab Results Laboratory Results 09/30/23 18:22: Lactic Acid 1.1 09/30/23 08:53: Sodium 137, Potassium 3.2 L, Chloride 104, Carbon Dioxide 28, Anion Gap 5.0 L, BUN 18, Creatinine 0.5 L, Estimated GFR (MDRD) 120, Glucose 88, Calcium 8.2 L 09/30/23 08:53: WBC 35.6 H*, RBC 3.30 L, Hgb 9.4 L, Hct 29.6 L, MCV 89.7, MCH 28.5, MCHC 31.8 L, RDW 16.9 H, Plt Count 346, MPV 8.9, Neut # (Auto) Not Reportable, Lymph # (Auto) Not Reportable, [place] # (Auto) Not Reportable, Eos # (Auto) Not Reportable, Baso # (Auto) Not Reportable, Absolute Nucleated RBC Not Reportable, Total Counted 100, Band Neuts % (Manual) 4, Abnorm Lymph % (Manual) 0, Nucleated RBC % Not Reportable, Neutrophils # (Manual) 33.8 H, Lymphocytes # (Manual) 1.4 L, Monocytes # (Manual) 0.4, Eosinophils # (Manual) 0.0, Basophils # (Manual) 0.0, Differential Comment MANUAL DIFFERENTIAL, Platelet Estimate NORMAL (130-450,000), RBC Morph Micro Appear 3+ ANISOCYTOSIS 12/19/23 19:40: Lactic Acid 2.1 09/29/23 19:40: B-Natriuretic Peptide 192 H 09/29/23 15:57: Sodium 138, Potassium 3.3 L, Chloride 99 L, Carbon Dioxide 29, Anion Gap 10.0, BUN 18, Creatinine 0.7, Estimated GFR (MDRD) 81 L, Glucose 153 H, Calcium 8.1 L, Magnesium 1.5 L, Total Bilirubin 0.5, AST 10, ALT 8 L, Alkaline Phosphatase 56, Troponin I High Sens 15.2 H*, Total Protein 4.0 L, Albumin 1.8 L, Globulin 2.2, Albumin/Globulin Ratio 0.8 L, Lipase < 10 L 09/29/23 15:57: WBC 35.4 H*, RBC 3.30 L, Hgb 9.2 L, Hct 29.3 L, MCV 88.8, MCH 27.9, MCHC 31.4 L, RDW 16.9 H, Plt Count 354, MPV 8.9, Neut # (Auto) Not Reportable, Lymph # (Auto) Not Reportable, [place] # (Auto) Not Reportable, Eos # (Auto) Not Reportable, Baso # (Auto) Not Reportable, Absolute Nucleated RBC Not Reportable, Band Neuts % (Manual) Not Reportable, Abnorm Lymph % (Manual) Not Reportable, Nucleated RBC % Not Reportable, Neutrophils # (Manual) Not Reportable, Lymphocytes # (Manual) Not Reportable, Monocytes # (Manual) Not Reportable, Eosinophils # (Manual) Not Reportable, Basophils # (Manual) Not Reportable, Differential Comment MANUAL DIFFERENTIAL, WBC Morphology 1+ TOXIC GRANULATION, Platelet Estimate NORMAL (130-450,000), Platelet Morphology NORMAL APPEARANCE, RBC Morph Micro Appear 1+ ANISOCYTOSIS - Diagnosis Diagnosis: advanced emphsema, malnutrition, recent pneumonia, abdominal abscess and free fluid and air. she is very comfortable at rest. does not appear to be in distress. vital signs good. recommend she be transferred to a hospital that can offer a higher level of care. she has significant comorbidities, is very malnourished and may not survive a surgery. she is stable for transfer. - Plan Plan: grateful [facility] has accepted her in transfer. we did discuss she has a bad problem and [facility] is an excellent hospital
[2023-09-30] MEDS ORDERED: PANTOPRAZOLE 40 MG in SODIUM CHLORIDE 0.9% 100ML 100 ML IV SCH (21:00)
--- NOTE | 2023-09-30 21:29 | Discharge Plan ---
"Discharge Plan for SNF / [facility] - Discharge Plan And Transition Orders Problem Reviewed?: Yes Condition: Stable Allergies and Adverse Reactions: Allergies Allergy/AdvReac Type Severity Reaction Status Date / Time vancomycin Allergy Severe Anaphylaxis Verified 09/21/23 17:27 codeine Allergy Intermediate Hallucinati Verified 09/21/23 17:27 ons levofloxacin [From Levaquin] Allergy Unknown Verified 09/21/23 17:27 lithium Allergy Anaphylaxis Verified 09/21/23 17:27 - SNF / [facility] Transition Orders Medicare Certification Statement: I certify that [facility] care is medically necessary on a continuing basis for any of the conditions for which she/he is receiving care during hospitalization. Notify PCP of admission and forward orders to primary provider for signature. Other Notification Orders: Call PCP immediately if patient develops dyspnea, chest pain/tightness or edema. Additional Bowel Program Orders: If no BM after 2 days, nurse may give M.O.M. 30ml PO PRN and/or ducolax Supp 1 TN and/or MELIDA 250mg P.O., and/or senna 1-2 tabs PO. On day 3 nurse may give repeat above order until residents constipation is resolved. Medication Orders: PLEASE REFER TO THE DISCHARGE MEDICATION LIST. - Therapies | Activity Additional Instructions: Your x-ray appears good today without any signs of pneumonia, fluid in the lungs, collapsed lung. Your EKG and troponin are normal which would signify no signs of heart attack or heart failure. Your blood pressure was low briefly but likely the effect of the nitroglycerin medication given. It improved with some fluids. Your oxygenation was a bit low as well. Continue with your inhalers at home. Follow-up with your primary care in the next few days."
--- NOTE | 2023-09-30 21:29 | DISCHARGE SUMMARY ---
Discharge Summary Admit Date: 09/30/23 Discharge Date: 09/30/23 Discharging Provider: Trey Code Status: Do Not Attempt Resuscitation Condition at Discharge: Stable Discharge Disposition: 02 Transfer Acute Care Hosp Discharge Facility Name: [facility] - DIAGNOSES Discharge Diagnoses with Status of Each Condition: Perforated colon Pelvic abscess - HPI History of Present Illness: Patient is a 78-year-old female the past medical history of COPD, SMA syndrome, physical debility and frailty, hypertension, migraine disorder, fibromyalgia, MDD, and remote history of tobacco use who presented to the ED due to complaints of left-sided chest pain. Initial EKG was nonischemic. Troponin was mildly elevated at 15.2. She was given a diagnosis of a COPD exacerbation and her chest pain did resolve with administration of nebulizers as well as dexamethasone. She did have some hypoxia requiring 2 L of oxygen. Chest x-ray was read which was unremarkable. Patient did have an elevated leukocytosis. She has been taking a Medrol Dosepak prior to admission. In review of her labs it appears she does have an elevated leukocytosis for quite some time. I did ask her if she has ever had a bone marrow biopsy or history of malignancy and she denied this. She is currently denying any fevers or chills. She does have some mild lower quadrant abdominal tenderness but denies any diarrhea. Patient was recently discharged from the hospital after being admitted on 09/21 for sepsis secondary to UTI positive for Pseudomonas, Klebsiella, and Enterococcus faecalis. - HOSPITAL COURSE Hospital Course: Patient is a 78-year-old female who presented to the ED due to complaints of chest pain. Her EKG was nonischemic and troponin was mildly elevated. She was noted to have a elevated white blood cell count of 35. Patient was admitted and a CT abdomen/pelvis was performed which revealed evidence of deep pelvic abscess as well as a colonic perforation. She started on IV Zosyn and the case was discussed with general surgery who recommended transfer to higher level of care. Patient was accepted by [facility] in [place] and transferred. Her hospital course was uncomplicated. - ALLERGIES Allergies/Adverse Reactions: Allergies Allergy/AdvReac Type Severity Reaction Status Date / Time vancomycin Allergy Severe Anaphylaxis Verified 09/21/23 17:27 codeine Allergy Intermediate Hallucinati Verified 09/21/23 17:27 ons levofloxacin [From Levaquin] Allergy Unknown Verified 09/21/23 17:27 lithium Allergy Anaphylaxis Verified 09/21/23 17:27 - MEDICATIONS Home Medications: Ambulatory Orders Medication Instructions Recorded Confirmed SUMAtriptan [Imitrex] 25 mg PO DAILY PRN 03/30/17 09/30/23 Clopidogrel [Plavix] 75 mg PO DAILY 09/01/23 09/30/23 No122/Iron/Folic Acid 1 each PO DAILY 09/01/23 09/30/23 [ Multi Tablet] Tiotropium [place] [Spiriva 2 puffs INH DAILY 09/01/23 09/30/23 Respimat] Albuterol Sulf [Ventolin Hfa 2 puffs INH Q4H PRN 09/02/23 09/30/23 Inhaler] Aspirin Chewable [[place] 81 mg PO DAILY 09/02/23 09/30/23 Aspirin] Escitalopram Oxalate 20 mg PO DAILY 09/02/23 09/30/23 Ferrous Sulfate [Feosol] 325 mg PO Q48H 09/02/23 09/30/23 HYDROcodone/ACET 7.5/325 [[place] 1 tab PO TID PRN 09/02/23 09/30/23 7.5/325] LORazepam [Ativan] 1 mg PO QPM PRN 09/02/23 09/30/23 Mirtazapine 7.5 mg PO QPM 09/02/23 09/30/23 Pantoprazole [Protonix] 40 mg PO QDAC 09/02/23 09/30/23 Trazodone HCl 200 mg PO QPM 09/02/23 09/30/23 Zolpidem [Ambien] 5 mg PO QPM PRN 09/02/23 09/30/23 oxyCODONE [Roxicodone] 5 mg PO Q6H PRN 09/02/23 09/30/23 Magnesium Oxide [Mag Ox] 400 mg PO DAILY #30 tab 09/09/23 09/30/23 Bisacodyl Supp [Dulcolax Supp] 1 supp CO ONCE PRN 09/22/23 09/30/23 Mineral Oil [Mineral Oil Enema] 1 bottle CO ONCE PRN 09/22/23 09/30/23 Sennosides [Senna Lax] 17.2 mg PO ONCE PRN 09/22/23 09/30/23 polyethylene glycoL 3350 [Miralax] 17 g PO ONCE PRN 09/22/23 09/30/23 Loperamide [Imodium] 2 mg PO BID PRN #30 cap 09/25/23 09/30/23 guaiFENesin [Mucinex] 600 mg PO BID PRN #30 tab 09/25/23 09/30/23 traMADol [Ultram] 50 mg PO BID PRN #30 tab 09/25/23 09/30/23 Nitroglycerin [Nitrostat] 0.4 mg SL Q5M PRN 09/30/23 09/30/23 - PHYSICAL EXAM AT DISCHARGE General Appearance: positive: Mild distress Respiratory: positive: Chest non-tender, No respiratory distress, Breath sounds nml Cardiovascular: positive: Regular rate & rhythm, No murmur, No gallop Abdomen: positive: No distention, Tenderness (Mild lower quad tenderness). negative: Guarding, Rebound, Abnml bowel sounds Extremities: positive: Non-tender, Full ROM, Nml appearance - LABS Result Diagrams: 09/30/23 08:53 09/30/23 08:53 - SEPSIS Current Stage of Sepsis: Sepsis Sepsis Criteria: Recorded Heart Rate greater than 90 bpm, WBC count greater than 12,000 or less than 4000 - TIME SPENT Time Spent in Discharge (Minutes): 35
[2023-09-30 22:32] VITALS: BP 96/54; O2SAT 95
--- NOTE | 2023-10-01 08:56 | Discharge Plan ---
Discharge Plan Problem Reviewed?: Yes Disposition: 02 Transfer Acute Care Hosp Condition: Stable Additional Instructions or Follow Up instructions: Your x-ray appears good today without any signs of pneumonia, fluid in the lungs, collapsed lung. Your EKG and troponin are normal which would signify no signs of heart attack or heart failure. Your blood pressure was low briefly but likely the effect of the nitroglycerin medication given. It improved with some fluids. Your oxygenation was a bit low as well. Continue with your inhalers at home. Follow-up with your primary care in the next few days. No Smoking: If you smoke, Please STOP! Call for help.
[2023-10-01] MEDS ORDERED: AZITHROMYCIN INJ 500 MG in SODIUM CHLORIDE 0.9% 250 ML IV ONE (09:00)
[2023-10-01] MEDS ORDERED: ENOXAPARIN 40 MG/0.4 ML SYRINGE SUBQ SCH (09:00)
[2023-10-02 13:58] LABS: PATHOLOGIST SLIDE COMMENTS SEE SEPARATE REPORT
== END 2023-09-30 22:52 | disposition short-term general hospital (02) | DRG 190 ==
LOC: EDUNIT# → ED 14:58 → MS2 09-30 14:17
PROVIDERS: ADMIT Family Medicine; ATTEND Family Medicine
DX: R07.9 Chest pain, unspecified (principal); R07.2 Precordial pain; J44.1 Chronic obstructive pulmonary disease with (acute) exacerbation; F17.200 Nicotine dependence, unspecified, uncomplicated; R03.1 Nonspecific low blood-pressure reading; D72.829 Elevated white blood cell count, unspecified; Z87.01 Personal history of pneumonia (recurrent); K63.1 Perforation of intestine (nontraumatic); N73.9 Female pelvic inflammatory disease, unspecified; J44.9 Chronic obstructive pulmonary disease, unspecified; I10 Essential (primary) hypertension; R79.89 Other specified abnormal findings of blood chemistry; F17.210 Nicotine dependence, cigarettes, uncomplicated; G43.909 Migraine, unspecified, not intractable, without status migrainosus; F32.A Depression, unspecified; M79.10 Myalgia, unspecified site; Z79.82 Long term (current) use of aspirin; Z79.899 Other long term (current) drug therapy; Z88.1 Allergy status to other antibiotic agents; Z88.5 Allergy status to narcotic agent; Z88.8 Allergy status to other drugs, medicaments and biological substances
CPT/HCPCS: 36415; 71045; 71260; 74177; 80048; 80053; 83605; 83690; 83735; 83880; 84484; 85025; 87040; 87077; 87086; 87181; 93005; 94640; 96361; 96365; 96367; 96375; 96376; 99285; A9270; J1170; Q9967; 87507